=== PATIENT | male | born 1990 | race Caucasian/White ===

== ENCOUNTER → 2019-05-23 | Outpatient (CLI) | payer MEDICAID, SELFPAY ==
[2019-05-10 16:03] VITALS: BMI 19.3
--- NOTE | 2019-05-23 10:11 | US_ITS ---
STUDY: ABDOMINAL ULTRASOUND - RIGHT UPPER QUADRANT REASON FOR VISIT: Male, 29 years old. Right upper quadrant pain TECHNIQUE: Ultrasound evaluation of the right upper quadrant was performed with real-time and static lowe-scale imaging. TECHNICAL QUALITY: Adequate. COMPARISON: None. FINDINGS: Liver: The liver measures 16.9 cm. There is normal echogenicity of the liver. The bile ducts are within normal limits. There is hepatic color flow. The direction of portal flow is hepatopetal. There is no demonstrated mass lesion. Gallbladder: Normal distended gallbladder. The gallbladder wall measures 2.2 mm. There is a negative sonographic Levi's sign. There is no pericholecystic fluid. There are no gallstones. Common Bile Duct (C.B.D.): The common bile duct measures 5.1 mm. Pancreas: Normal size of the head, body and tail of the pancreas. There is normal echogenicity of the pancreas. There is no demonstrated pancreatic mass or cyst. Right Kidney: Normal size of the right kidney. The right kidney measures 10.9 x 5.7 x 4.7 cm. Normal renal cortex. The right cortex measures 1.3 cm. There is no demonstrated renal mass or cyst. There is no right hydronephrosis. US/Gallbladder IMPRESSION: Normal right upper quadrant ultrasound examination. Electronically Signed: Enrrique Hung MD at 12:05 EDT , Service support ,
== END | disposition home or self-care (01) ==
LOC: US 10:10
PROVIDERS: Family Provider Internal Medicine; PCP Internal Medicine; Referring Provider Internal Medicine; Visit Provider Internal Medicine
DX: R10.11 Right upper quadrant pain (principal)
CPT/HCPCS: 76705

== ENCOUNTER 2019-09-12 21:54 | Emergency (ER) | payer MEDICAID, SELFPAY ==
[2019-07-20 10:47] VITALS: BMI 19.3
[2019-09-12 21:55] VITALS: BP 129/80; PULSE 70; RESP 16; TEMP 36.2; O2SAT 98; BMI 23.6
--- NOTE | 2019-09-12 22:02 | ED.DCSUM_ITS ---
History of Present Illness Chief Complaint: Ear Problem Detail of Chief Complaint: Ear pain and decreased hearing right side Informant: Patient Onset: Today Context: Sudden Onset Timing: Continuous Quality: Muffled hearing Location: Right Current Severity: Mild Maximum Severity: Moderate Worsened by: Nothing Relieved by: Nothing Associated Symptoms: Nasal congestion Narrative: Patient is a 29-year-old male presents because of abrupt onset of decreased hearing and pain right side. He denies fever, chills or night sweats. Does report nasal congestion and rhinorrhea couple days ago. He denies sore throat. He has no other complaints. There is no history of trauma. Prior similar symptoms: No Recent Illness/Hospitalization: No - Past Medical History (1) No significant past medical history Status: Acute Past Medical History - Allergies and Home Meds Allergies/Adverse Reactions: Allergies venom-honey bee [bee venom (honey bee)] Allergy (Verified 09/05/17 19:46) Anaphylaxis Primary Care Physician: Vinayak Duarte MD [Primary Care Provider] - Prior records reviewed: No Past Medical History: None Surgical History: no surgical history Lives: Spouse/ Significant Other, With Family Smoking Status: Current some day smoker Alcohol: Rare Drugs: None Review of Systems General: Denies: Chills, Fever, Sweats Eyes: Denies: Visual changes - bilaterally, Blurred Vision - bilaterally ENT: Reports: Right ear pain - And decreased hearing. Denies: Rhinorrhea, Sore throat Cardiovascular: Denies: Chest pain, Palpitations Respiratory: Denies: Dyspnea, Cough, Dyspnea on exertion Musculoskeletal: Denies: Myalgias, Arthralgias, Neck pain Neurological: Denies: Headache, Weakness, Numbness Physical Exam Vital Signs/Narrative: Vital Signs Temp Pulse Resp BP Pulse Ox 09/12/19 21:55 97.2 F L 70 16 129/80 H 98 Inital Vital Signs reviewed: Yes General: Well nourished, Well developed, No Acute Distress Head: Normocephalic, Atraumatic Eyes: Perrl, EOMI. Negative for: Pale conjunctiva, Scleral icterus ENT: TM's clear - Serous otitis right ear. Negative for: No rhinorrhea, Nasal congestion, Sinus tenderness Neck: Supple, Nontender Cardiovascular: Regular rate, Regular rhythm, No murmurs Respiratory: No distress, CTA bilaterally, Chest nontender Neurological: Alert, Oriented x3, Cranial nerves II-XII grossly intact, Normal Strength, Normal Sensation Psychological: Normal affect, Normal Mood Diagnostic/Tx/Re-eval - Medical Decision Making Decreased hearing/loss of hearing need to evaluate for ruptured eardrum, serous otitis, acute otitis media, neuritis. Based on history and physical exam patient has serous otitis resulting in decreased hearing but not loss of he aring. ED Disposition - Plan for ED Patient: Disposition: Home or Assisted Living Diagnosis: Acute serous otitis media of right ear without rupture Instructions: Otitis Media (Middle-Ear Infection) in Adults Referrals: Vinayak Duarte MD [Primary Care Provider] - 1 Week if not improving
[2019-09-12 22:15] VITALS: RESP 16
== END 2019-09-12 22:22 | disposition home or self-care (01) ==
LOC: ED 22:13
PROVIDERS: Emergency Provider Emergency Medicine; Family Provider Internal Medicine; PCP Internal Medicine
DX: H65.01 Acute serous otitis media, right ear (principal); F17.200 Nicotine dependence, unspecified, uncomplicated
CPT/HCPCS: 99282

== ENCOUNTER 2020-04-04 14:58 | Emergency (ER) | payer SELFPAY ==
[2020-04-04 15:00] VITALS: BP 103/76; PULSE 71; RESP 15; TEMP 36.7; BMI 24.3
--- NOTE | 2020-04-04 15:10 | RAD_ITS ---
STUDY: X-RAY LEFT FOOT, GREAT TOE REASON FOR EXAM: Male, 29 years old. AMPUTATION OF TIP OF LEFT GREAT TOE WITH CICULAR SAW TECHNIQUE: 3 view(s) of the toe were obtained. COMPARISON: None. FINDINGS: Normal visualized metatarsus. Normal metatarsophalangeal (M.T.P) joint. Normal interphalangeal joints. There is amputation of the distal aspect of the distal phalanx of great toe with overlying soft tissue injury. RAD/Toe(s) Min 2 Views IMPRESSION: Amputation of the distal portion of the distal phalanx of the great toe with overlying soft tissue injury. Electronically Signed: Juve Hernandez, at 15:27 EDT , Service support ,
[2020-04-04] MEDS: Cefazolin 1 GM/50 ML BAG IV (15:45)
[2020-04-04] MEDS: Diphth,Pertuss(Acell),Tet Vac 0.5 ML Vial IM (16:04)
[2020-04-04] MEDS: Bupivacaine Mpf 0.5% 30 ML VIAL INFILT (16:15)
[2020-04-04 16:16] VITALS: BP 114/76; PULSE 67; RESP 12; O2SAT 98
--- NOTE | 2020-04-04 16:44 | ED.DCSUM_ITS ---
- ER Visit Summary Date of Service: 04/04/20 Chief Complaint: [Injury to left foot] History of Present Illness: The patient is a 29 M [presents to the emergency department after sustaining an injury to his left foot using a circular saw. Patient states that he was at a friend's house and they had done some shots and then he came home and he was going to work on his hardwood floor he just needed to cut 1 piece. Patient states that the saw hit a nail which made it kick and lacerated his left foot. Patient was wearing sandals at the time. Patient apparently was traumatized by the site of blood and passed out. Currently he has no other complaints. Patient presented via EMS.] Physical Examination: [HEENT-PERRLA, EOMI. Cranial nerves II through XII grossly intact. TMs clear. Mucous membranes moist. No adenopathy. Cardiovascular-regular rate and rhythm without murmur or ectopy Lungs-clear to auscultation, chest wall stable without crepitus or subcu emphysema Abdomen-normoactive bowel sounds, soft, nontender, no rebound or rigidity, no peritoneal signs. Extremities-intact ?4, normal range of motion, normal pulses. Left foot-patient has a partial amputation of the left great toe distal phalanx. Patient also has laceration over the second toe through the nail and nailbed down along the lateral aspect of the distal phalanx. Laceration measures approximately 2 cm in length. Patient is neurovascular intact.] Test Results: [X-rays of the left foot obtained showed a partial amputation of the distal phalanx of the left great toe as well as fracture of the second distal phalanx.] Emergency Department Course and Treatment: [Patient had digital blocks performed of the great toe and second toe using Marcaine 8 cc to anesthetize the great toe and 60 cc to anesthetize the smaller second toe. Discussion was had with Dr. Baker who was on-call for podiatry who presented to the emergency department to perform the repair. Please see her note for detailed definitive repair and care. Patient did receive Ancef 1 g IV as well as tetanus booster.] Treatment Plan: Patient will be treated with Keflex and Percocet for severe pain. Patient will follow-up with podiatry as instructed. [] Disposition: [Discharged home in stable condition] Impression: [Partial amputation left great toe Fracture left second toe distal phalanx Laceration left second toe 2 cm with repair performed by podiatry] This note was generated with [employer] dictation software. It may contain incorrect words, spelling, and punctuation that were not noted in review of the chart prior to signing ED Disposition - Plan for ED Patient: Referrals: Care Physician,No Primary [Primary Care Provider] -
--- NOTE | 2020-04-04 16:48 | ED.DEP ---
ED Disposition - Plan for ED Patient: Instructions: ED Fx Toe Open, ED AVULSION LACERATION, ED Laceration Foot Prescriptions: Cephalexin [Keflex] 500 mg PO Q6 #40 cap Transmission Status: Pending to [facility] Oxycodone HCl/Acetaminophen [Percocet 5/325] 1 tablet PO Q6H PRN PRN 3 Days #12 tablet PRN Reason: Pain Transmission Status: Sent to [facility] Referrals: Care Physician,No Primary [Primary Care Provider] - Ligia Baker DPM [STAFF PHYSICIAN] - 3-5 Days
--- NOTE | 2020-04-04 17:04 | PCM.CONS.GEN ---
Problem List (1) Fracture of second toe, left, open Status: Acute (2) Fracture of great toe, left, open Status: Acute Qualifiers: Encounter type: initial encounter Phalanx: distal (3) Contact with powered saw as cause of accidental injury Status: Acute Reason for Consult Date of Consultation: 04/04/20 Reason for Consultation: Circular saw injury to left foot History of Present Illness: This 29-year-old male was seen in the emergency room today for a circular saw injury to his left foot. He relates he was cutting 1 board and it hit a nail causing that advised to kick back resulting in loss of control of the saw. He is wearing sandals at the time and relates he also had a couple of shots at a friend's house prior to returning home. He denies other injuries at this time. Past Medical History Medical History: Medical History (Last Updated 05/10/19 @ 15:57 by Nguyen Encarnacion) Anxiety F41.9 History of wrist fracture Z87.81 Chronic back pain M54.9, G89.29 following a fall at age 9 or 10. Allergies venom-honey bee [bee venom (honey bee)] Allergy (Verified 04/04/20 15:03) Anaphylaxis Home Medications: Ambulatory Orders Medication Instructions Recorded Cephalexin [Keflex] 500 mg PO Q6 #40 cap 04/04/20 Oxycodone HCl/Acetaminophen 1 tab PO Q6H PRN PRN 3 Days #12 tab 04/04/20 [Percocet 5/325] Surgical History: no surgical history Smoking Status: Current every day smoker - 1/2 pack a day and additional 2 Tobacco Use: Cigarettes, Chew Review of Systems Constitutional: Denies: Chills, Fever Cardiovascular: Denies: Claudication Respiratory: Denies: Shortness of Breath Gastrointestinal: Denies: Nausea, Vomiting Musculoskeletal: Reports: Foot Pain, Joint Tenderness. Denies: Leg Pain Skin: Reports: Wounds Neurological: Denies: Numbness Hematologic/ Lymphatic: Denies: Easy Bruising - Physical Exam Vitals/I&O's: Vital Signs Temp Pulse Resp BP Pulse Ox 98.1 F 67 12 114/76 98 04/04/20 15:00 04/04/20 16:16 04/04/20 16:16 04/04/20 16:16 04/04/20 16:16 Oxygen Delivery Method Room Air Weight: 83.7 kg Body Mass Index (BMI) 24.3 General: Alert, Oriented x3, Cooperative HEENT: Atraumatic Extremities: No cyanosis, No edema, Capillary Refill Less than 3 Seconds - Left foot: Distal remaining hallux, distal second, third, fourth, fifth toes, No Calf Tenderness, Peripheral Pulses Normal - 2 out of 4 PT and DP pulses bilateral. Hair to digits left foot Skin: Ulcer/ Wound - Distal left hallux partial toe traumatic amputation with open wound measures approximately 2.1 cm x 2.8 cm. There is hematogenous drainage and exposed distal phalanx remaining noted. There is no foreign body visualized in the wound at the time of evaluation. The second toe also has a full-thickness laceration with exposed extensor digitorum longus tendon and fracture fragment of the distal phalanx as well. The nail is adhered medially by approximately 15%. There is also a small abrasion to the dorsal distal third toe with disruption of the distal 15% of the nail which is otherwise fully adhered proximally. Musculoskeletal: No Muscle Wasting - Upon arrival at the emergency room the hallux and the second toe have been anesthetized with local anesthetic. There is no fluctuance, bogginess. The compartments of the left foot including all the toes remain soft. He does have pain to palpate the distal third toe, - Neurological: Sensory exam intact to light touch and pain Psych/Mental Status: Normal Affect, Appropriate Assessment/Plan All Active Problems (Last Updated 05/10/19 @ 15:57 by Nguyen Encarnacion) No significant past medical history (Acute) Fracture of second toe, left, open (Acute) Fracture of great toe, left, open (Acute) Contact with powered saw as cause of accidental injury (Acute) hallux open fracture with traumatic amputation of distal toe second toe open distal phalanx fracture with laceration left toe pain left third toe abrasion circular saw injury I reviewed and discussed his case. He is afebrile and his vital signs remained stable. I recommend irrigation and debridement of everything foreign body debris at the injury site under local anesthetic. Local anesthetic was already successfully performed by emergency room staff prior to my arrival. Saline irrigation was performed and a deep wound culture was obtained for aerobic and anaerobic testing. A consent was obtained for first and second toe irrigation with additional open fracture and laceration repair with additional second toe remaining nail avulsion. The indication, benefits, goals, anticipated procedure, anticipated healing and management were also discussed in detail patient understands and elects to proceed at this time. No guarantees were made and he understands complications and risks may occur including the following: Pain, swelling, scarring, infection, delayed or nonhealing, need for additional procedures for surgery, decreased length of the hallux, abnormal future nail growth, allergic reaction, blood clot, loss of limb, function, life. I answers his questions. The a forementioned procedure was successfully performed. I do not recommend reapproximating the distal toe pulp due to devitalization of this tissue. There is minimal bone and tissue loss and I recommend proceeding with wound care. There is no purulence or deep tissue necrosis noted at this time of repair. Less than 10 mL of hematogenous drainage was noted and pressure was applied to maintain hemostasis. First capillary refill time was continue to the remaining left hallux and distal second and third and fourth and fifth toes after the procedure was completed. Adaptic was applied and I recommend he follows up at the [facility] for ongoing wound treatment. In regards to the second toe intervention, Vicryl suture was used to reapproximate any visualized extensor digitorum longus tendon and other deep tissue. Closure was then followed with 4-0 nylon including simple suture technique to the dorsal and lateral aspect of the distal toe. The toenail remaining was also avulsed because it is compromised. The second and third toes were also covered with Adaptic and dry gauze and Kerlix. This was secured in place with an Jim wrap. Keep dressing intact until follow [facility]. It is also noted his tetanus status was updated while he was in the emergency room. Smoking and tobacco cessation was discussed. He understands this can significantly delay both bone and wound healing. He relates he will be able to do this. Keflex PO for 1 week was prescribed. It is noted he received Ancef intravenously while in the emergency room. Offered narcotic pain medication for limited use. A prescription was provided and he was advised on safe and proper use. He prefers not to take narcotic pain medication and will use [id number] Tylenol instead if this is tolerated. To ice and elevate for pain and inflammation use. To heel weight bear in surgical shoe, left. Thank you for the consultation. Please do not hesitate to call if questions. Ligia Baker DPM, [facility] [phone]
[2020-04-04 17:57] VITALS: BP 118/78; PULSE 62; RESP 16; O2SAT 100
== END 2020-04-04 17:59 | disposition home or self-care (01) ==
LOC: ED 15:32
PROVIDERS: Emergency Provider Emergency Medicine
DX: S98.122A Partial traumatic amputation of left great toe, initial encounter (principal); S92.532B Displaced fracture of distal phalanx of left lesser toe(s), initial encounter for open fracture; Z23 Encounter for immunization; F17.210 Nicotine dependence, cigarettes, uncomplicated; W29.3XXA Contact with powered garden and outdoor hand tools and machinery, initial encounter; Y93.89 Activity, other specified; Y92.008 Other place in unspecified non-institutional (private) residence as the place of occurrence of the external cause; Y99.8 Other external cause status
CPT/HCPCS: 12001; 28208; 73660; 87070; 87075; 87077; 87186; 87205; 90471; 90715; 96365; 96366; 99285

== ENCOUNTER 2020-04-05 23:22 | Emergency (ER) | payer SELFPAY ==
[2020-04-04 15:00] VITALS: BMI 24.3
[2020-04-05 23:23] VITALS: BP 135/69; PULSE 73; RESP 16; TEMP 36.8; O2SAT 97; BMI 23.7
[2020-04-05 23:59] VITALS: BP 135/69; PULSE 73; RESP 16; O2SAT 97
--- NOTE | 2020-04-05 23:59 | ED.VIS.LOWEX ---
History of Present Illness Chief Complaint: Lower Extremity Injury Informant: Patient Occurred: Yesterday Mechanism/Context: Injury Onset: Yesterday Context: Gradual Onset - after marcaine worre off Timing: Continuous Current Severity: Moderate Maximum Severity: Severe Worsened by: palpation Relieved by: elevation, unwrapping gauze Associated Symptoms: Parasthesia. Negative for: Weakness Narrative: Patient was seen here yesterday after having a traumatic injury to his left foot from a circular saw accident, podiatry saw him and he had some suturing done, wound bandaging and a wrap, postop shoe, crutches. He states that once the Marcaine wore off, he gradually started having more pain and throbbing, in addition to numbness throughout most of his toes. He read in his discharge instructions that he should have it reevaluated for numbness. He has not yet taken off any of the dressings and is scheduled to see podiatry after the weekend, but since it was the weekend, the office was closed so he felt he had no one to call. He denies any fevers or other symptoms. He was put on antibiotics which he has been taking. He also states that he took Percocet but it was too strong for him and he did not feel well so he stopped taking it. He has been elevating his foot. Past Medical History - Allergies and Home Meds Allergies/Adverse Reactions: Allergies venom-honey bee [bee venom (honey bee)] Allergy (Verified 04/05/20 23:25) Anaphylaxis Primary Care Physician: Ligia Baker DPM [STAFF PHYSICIAN] - Keep [place] appointment Past Medical History: None Surgical History: no surgical history Smoking Status: Current every day smoker Review of Systems General: Denies: Chills, Fever, Sweats Musculoskeletal: Reports: Extremity Pain. Denies: Neck pain, Back pain Skin: Reports: Wounds. Denies: Abscess Neurological: Reports: Numbness. Denies: Headache, Weakness Physical Exam Vital Signs/Narrative: Vital Signs Temp Pulse Resp BP Pulse Ox 04/05/20 23:23 98.2 F 73 16 135/69 H 97 - Extremity Exam Left Foot: Limited ROM - With regards to toes due to pain, - - Fresh wounds great and second toes distally, no active bleeding, no purulent discharge, no signs of cellulitis. General: Well nourished, Well developed, - - nad Skin: - - Wounds appear healthy and without signs of infection on the left toes 1-2 Neurological: Alert, Oriented x3, Cranial nerves II-XII grossly intact, Normal Strength, Normal Sensation Psychological: Normal affect - Stepped anxious, Normal Mood Diagnostic/Tx/Re-eval - Medical Decision Making Upon unwrapping his bulky dressing and Jim wrap, which was not applied tightly, his numbness improved and eventually resolved. He does not have any signs of infection. We placed moist dressings and rewrapped him loosely, he has postop shoe and crutches, reassured, advised to continue his antibiotic, prescribed some tramadol for pain, and advised to follow-up with podiatry as scheduled. He is comfortable with that plan and reassured. ED Disposition - Plan for ED Patient: Disposition: Home or Assisted Living Diagnosis: Visit for wound check Instructions: ED Wound Care Prescriptions: traMADol [Ultram] 50 mg PO Q4H PRN PRN #12 tab PRN Reason: pain Transmission Status: Received by [facility] Referrals: Ligia Baker DPM [STAFF PHYSICIAN] - Keep [place] appointment
[2020-04-06] MEDS: traMADol 50 MG Tablet PO (00:15)
== END 2020-04-06 00:21 | disposition home or self-care (01) ==
LOC: ED 04-06 00:05
PROVIDERS: Emergency Provider Emergency Medicine
DX: S99.922D Unspecified injury of left foot, subsequent encounter (principal); R20.0 Anesthesia of skin; F17.200 Nicotine dependence, unspecified, uncomplicated; X58.XXXD Exposure to other specified factors, subsequent encounter
CPT/HCPCS: 99283

== ENCOUNTER 2024-11-12 10:23 | Emergency (ER) | payer OTHER, SELFPAY ==
[2024-11-12 10:24] VITALS: BP 141/88; PULSE 54; RESP 16; TEMP 36.4; O2SAT 99; BMI 25.0
[2024-11-12 10:25] VITALS: BP 141/88; PULSE 63; RESP 16; TEMP 36.4; O2SAT 100
--- NOTE | 2024-11-12 11:18 | ED.VIS.DENTA ---
HPI <DARION Busch - Last Filed: 11/12/24 11:49> History of Present Illness Chief Complaint: Dental Narrative Narrative: 34-year-old male presents with dental pain in his left lower molar. The molar is cracked with significant caries. He states he has been told his wisdom teeth are coming in at an angle and he thinks it is pushing against the tooth causing increased pain that is radiating towards his ear. He denies fever or chills or difficulty swallowing or breathing. He has appointment with [facility] in a few days. PFSH <DARION Busch - Last Filed: 11/12/24 11:49> [facility] Medical History (Updated 11/12/24 @ 11:25 by DARION Busch) Anxiety History of wrist fracture Chronic back pain Home Medications ?Medication ?Instructions ?Recorded ?Last Taken ?Type naproxen 500 mg tablet (Naprosyn) 500 mg PO BID PRN pain #20 tabs 11/12/24 Unknown Rx penicillin V potassium 500 mg 500 mg PO 4X/DAY #40 tabs 11/12/24 Unknown Rx tablet Allergy/AdvReac Type Severity Reaction Status Date / Time venom-honey bee (bee venom Allergy Anaphylaxis Verified 11/12/24 10:26 (honey bee)) Family History (Updated 05/10/19 @ 16:00 by Nguyen Encarnacion) Father Alcohol abuse Grandfather Colon cancer Uncle Diabetes Sister Bipolar 1 disorder Social History (Updated 07/20/19 @ 11:38 by Olman Duarte NP, [facility]) Smoking Status: Current every day smoker tobacco type: cigarettes Tobacco: How many years used: 15 Smokeless tobacco user: chewing tobacco alcohol intake: current alcohol intake frequency: a few times a month substance use type: does not use what type of physical activity do you participate in: weight training and other details: active job ROS <DARION Busch - Last Filed: 11/12/24 11:49> ROS ED ROS Narrative Constitutional: Negative for fever, chills, malaise. ENT: Positive for ear pain. Respiratory: Negative for shortness of breath, cough. EXAM <DARION Busch - Last Filed: 11/12/24 11:49> Physical Exam Narrative Exam Narrative: CONST: Patient appears uncomfortable but nontoxic. EYES: Normal inspection. ENT: Left lower molar is broken with significant caries and tender to palpation, wisdom teeth are not erupted. No periapical abscess, no trismus or tongue elevation, sublingual space is soft, normal posterior oropharynx, no drooling or stridor. No facial swelling or erythema. Nares clear, normal TMs bilaterally. No mastoid swelling tenderness or erythema. NECK: Normal inspection. Supple, no meningismus. RESP: No respiratory distress, CTAB. CVS: Regular rate and rhythm, no murmur, no gallop. SKIN: Color normal, no rash, warm, dry, intact. EXTREMITIES: Normal appearance, no pedal edema. NEURO: Alert and answering questions appropriately. PSYCH: Normal affect. Const Vital Signs: 11/12/24 10:24 11/12/24 10:25 Temperature 97.5 F L 97.5 F L Temperature Source Temporal Oral Pulse Rate 54 L 63 Respiratory Rate 16 16 Blood Pressure 141/88 H 141/88 H Blood Pressure Mean 105 105 Pulse Ox 99 100 Oxygen Delivery Method Room Air Room Air <Eulailo Kent MD - Last Filed: 11/12/24 13:44> Physical Exam Const Vital Signs: 11/12/24 10:24 11/12/24 10:25 Temperature 97.5 F L 97.5 F L Temperature Source Temporal Oral Pulse Rate 54 L 63 Respiratory Rate 16 16 Blood Pressure 141/88 H 141/88 H Blood Pressure Mean 105 105 Pulse Ox 99 100 Oxygen Delivery Method Room Air Room Air [facility] <DARION Busch - Last Filed: 11/12/24 11:49> [facility] Narrative Medical decision making narrative: 34-year-old male presents with dental pain. Left lower molar is broken with significant caries and tenderness. There is no sign of perirectal abscess or Marshall's angina. He thinks the pain is from his wisdom teeth under the gums which she had been told are coming in at an angle. With significant decay on exam I will cover for infection penicillin VK and Toradol given. Prescription for naproxen were provided as well as antibiotics. He has dental follow-up scheduled and was discharged in stable condition. <Eulalio Kent MD - Last Filed: 11/12/24 13:44> [facility] History & Record Review Discussion w/independent historian: Patient Treatment and Re-Evaluation Narrative: Dr. Kent: I have personally performed a face to face assessment of the patient and have reviewed the JEFFERY Note. I performed a substantive portion of the visit including all aspects of the following. My jordan findings include: History is left lower jaw pain secondary to wisdom tooth coming in and ankle, carious tooth. Exam is afebrile. Vital signs noted. Nontoxic-appearing. No drooling or trismus. No Marshall angina. Positive carious tooth left lower jaw/molar. Medical Decision Making: Antibiotics. Analgesia. Has follow-up appointment with [facility] in 3 days. Discharge. Other additions or changes: [None] Discharge Plan Triage Chief Complaint: Dental ED Midlevel Provider: Marii Mccrary ED Provider: Eulalio Kent Dx/Rx/DC Orders Clinical Impression: Dental abscess, Dental caries Instructions: Dental Abscess Prescriptions: New naproxen [Naprosyn] 500 mg tablet 500 mg PO BID PRN (Reason: pain) Qty: 20 0RF penicillin V potassium 500 mg tablet 500 mg PO 4X/DAY Qty: 40 0RF Primary Care Provider: Care Physician,No Primary Referrals: Care Physician,No Primary [Primary Care Provider] - Activity Restrictions/Additional Instructions: I also recommend taking [id number] Tylenol 1000 mg every 6 hours in addition to naproxen for better pain control. Follow-up with your dentist. Print Language: Trinidadian Disposition Disposition: Home, Self Care Discharge Date/Time: 11/12/24 11:55
[2024-11-12] MEDS: Ketorolac 15 MG/ML Vial IM (11:19)
[2024-11-12] MEDS: Penicillin Vk 250 MG Tablet 500 MG PO (11:19)
== END 2024-11-12 11:55 | disposition home or self-care (01) ==
PROVIDERS: Emergency Provider Emergency Medicine; Visit Provider Emergency Medicine
DX: K04.7 Periapical abscess without sinus (principal); K02.9 Dental caries, unspecified; F17.210 Nicotine dependence, cigarettes, uncomplicated
CPT/HCPCS: 96372; 99282

== ENCOUNTER 2025-04-02 06:51 | Emergency (ER) | payer OTHER, SELFPAY ==
[2025-04-02 06:51] VITALS: BP 122/82; PULSE 72; RESP 16; TEMP 36.6; O2SAT 98; BMI 23.7
--- NOTE | 2025-04-02 07:04 | EX.ED.UPPERE ---
HPI History of Present Illness Chief Complaint: Laceration Informant: patient and spouse/S.O. Narrative Narrative: 34-year-old male presenting to the emergency room with crush injury and laceration to right index finger. 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 This resulted in laceration to the volar aspect of the right index finger. He notes bleeding is controlled. He notes his tetanus is up-to-date. Tetanus Immunization: <5 years [facility] Medical History Anxiety History of wrist fracture Chronic back pain Home Medications ?Medication ?Instructions ?Recorded ?Last Taken ?Type cephalexin 500 mg capsule 500 mg PO Q6 #20 CAPSULES 04/02/25 Unknown Rx Allergy/AdvReac Type Severity Reaction Status Date / Time venom-honey bee (bee venom Allergy Anaphylaxis Verified 04/02/25 06:54 (honey bee)) Family History Father Alcohol abuse Grandfather Colon cancer Uncle Diabetes Sister Bipolar 1 disorder Social History Smoking Status: Current every day smoker tobacco type: cigarettes Tobacco: How many years used: 15 Smokeless tobacco user: chewing tobacco alcohol intake: current alcohol intake frequency: a few times a month substance use type: does not use what type of physical activity do you participate in: weight training and other details: active job ROS ROS ED Constitutional Constitutional ED: Denies chills or weight loss Eyes Eyes: Denies change in vision or diplopia ENT ENT ED: Denies ear pain, rhinorrhea or sore throat Cardiovascular Cardiovascular: Denies chest pain, orthopnea, palpitations or racing heartbeat Respiratory/Chest Respiratory/Chest: Denies cough, dyspnea or orthopnea Gastrointestinal Gastrointestinal: Denies abdominal pain, diarrhea, nausea or vomiting Genitourinary Genitourinary ED: Denies dysuria, hematuria or urinary frequency Musculoskeletal Musculoskeletal: Reports other Details: See history of present illness ; Denies arthralgias or myalgias Integumentary Reports other Details: Index finger laceration ; Denies abscess or rash Neurologic Neurologic: Denies headache(s), paresthesias or weakness Psychiatric Psychiatric: Denies anxiety, depression, suicidal ideation or suicidal thoughts Endocrine Endocrinology: Denies polydipsia, polyphagia or polyuria Allergic/Immunologic Allergic/Immunologic ED: Denies mouth swelling, tongue swelling or urticaria EXAM Physical Exam Const Vital Signs: 04/02/25 06:51 Temperature 97.9 F Temperature Source Oral Pulse Rate 72 Respiratory Rate 16 Blood Pressure 122/82 H Blood Pressure Mean 95 Pulse Ox 98 Positive well nourished and well developed General Appearance ED: well developed HEENT Reports normocephalic, head/scalp atraumatic and moist mucous membranes Eyes PERRL and EOMs intact bilaterally Neck no lymphadenopathy, supple and no JVD Resp normal respiratory effort and clear to auscultation bilaterally Cardio regular rate, regular rhythm and no murmurs GI normal to inspection, nondistended, normoactive bowel sounds and non-tender Palpation: soft Back/Spine no CVA tenderness and normal ROM Extremity Extremity Narrative: Right index finger demonstrates a 3 cm laceration over the volar aspect of the right index finger extending along the proximal phalanx to the middle phalanx. There is normal tendon function of both superficialis and profundus tendons. There is a superficial abrasion (0.5cm) over the dorsal aspect just above the nail cuticle. There is no subungual hematoma. There is ecchymosis from middle phalanx distally. The volar fat pad is still soft. Sensation and capillary refill appear preserved. General Extremety ED: Negative for edema General Extremity: Negative for edema Neuro oriented x3 and CN's II-XII intact bilaterally Sensorium / Orientation: alert Motor Exam: strength 5/5 throughout Psych mental status grossly normal Mood & Affect: Negative for depressed or tearful Skin no rashes or lesions noted and no wounds MDM MDM MDM Narrative Medical decision making narrative: Differential diagnosis includes but not limited to fracture/open fracture laceration neurovascular injury tendon injury nail and nailbed injury My independent interpretation of the plain films of the right index finger is no acute fracture. Wound was locally anesthetized using 1% lidocaine washed with Shur-Clens irrigated and explored. I can visualize some of the flexor tendon I do not appreciate any fraying or laceration. No bony visualization is noted. Wound was closed using a total of 7 simple erupted 3-0 Ethilon sutures. Patient was placed on Keflex. AlumaFoam splint applied for support. Would recommend stitch removal in 10 days. Patient does not wish to things, History & Record Review Discussion w/independent historian: Patient and Significant other Additional record(s) reviewed:: Prior ED visit Radiography Diagnostic Testing: Clinical Impression(s) from Imaging Studies Finger X-Ray 04/02/25 07:15 IMPRESSION: Soft tissue edema and swelling. Tiny bone fragment adjacent to the base of the middle phalanx on the lateral view. Please correlate with focal tenderness at this level to exclude an acute traumatic etiology. Reading Location: [place] [address] Discharge Plan Triage Chief Complaint: Laceration ED Provider: Saqib De Dx/Rx/DC Orders Clinical Impression: Crush injury to finger, Finger laceration Instructions: ED Crush Injury, Hand, ED Laceration, Hand: All Closures Prescriptions: New cephalexin 500 mg capsule 500 mg PO Q6 Qty: 20 0RF Primary Care Provider: Care Physician,No Primary Referrals: Care Physician,No Primary [Primary Care Provider] - Activity Restrictions/Additional Instructions: Stitches will need to be removed in 10 days. You may return here, primary care, or urgent care. Splint for support particularly over the next 3 to 4 days. Please take entire course of antibiotics to protect against infection. You can come out of the splint and the dressing after 24 hours and clean using soap and water. Antibiotic ointment 1 time per day Print Language: Nigerien Disposition Disposition: Home, Self Care
[2025-04-02] MEDS: Lidocaine 1% (20 ml mdv) 20 ML Vial INFILT (07:10)
--- NOTE | 2025-04-02 07:15 | RAD_ITS ---
PROCEDURE: FINGER(S) MIN 2 VIEWS 04/02/2025 REASON FOR EXAM: CRUSH INJURY TECHNIQUE: 3 view(s) of the right finger COMPARISON: None. FINDINGS: Soft tissue edema and swelling. Tiny bone fragment adjacent to the base of the middle phalanx on the lateral view. Please correlate with focal tenderness at this level to exclude an acute traumatic etiology. Normal metacarpal head. Normal metacarpophalangeal joint. Normal proximal phalanx. Normal distal phalanx. Normal proximal interphalangeal joint. Normal distal interphalangeal joint. RAD/Finger(s) Min 2 Views IMPRESSION: Soft tissue edema and swelling. Tiny bone fragment adjacent to the base of the middle phalanx on the lateral vi ew. Please correlate with focal tenderness at this level to exclude an acute traumatic etiology. Reading Location[facility] [address]
[2025-04-02 08:24] VITALS: BP 121/77; PULSE 78; RESP 19; TEMP 36.7; O2SAT 98
== END 2025-04-02 08:26 | disposition home or self-care (01) ==
LOC: ED 07:46
PROVIDERS: Emergency Provider Emergency Medicine; Visit Provider Emergency Medicine
DX: S61.210A Laceration without foreign body of right index finger without damage to nail, initial encounter (principal); S67.190A Crushing injury of right index finger, initial encounter; W23.0XXA Caught, crushed, jammed, or pinched between moving objects, initial encounter; Y99.0 Civilian activity done for income or pay; F17.210 Nicotine dependence, cigarettes, uncomplicated
CPT/HCPCS: 12002; 11760; 73140; 99284

== ENCOUNTER 2025-04-11 05:26 | Emergency (ER) | payer OTHER, SELFPAY ==
[2025-04-11 05:27] VITALS: BP 116/75; PULSE 59; RESP 16; TEMP 36.4; O2SAT 99; BMI 23.4
--- OUTSIDE RECORDS SUMMARY | 2025-04-11 05:46 | XMS RPT_ITS | CCD ---
Author Organization [facility] Inform ion Partnership [facility] Care Team Providers Care Enrollment Nurse Name Role Phone Queden CERTIFIED SOLID WASTE FACILITY OPERATOR.GOLF CART MECHANIC, Niya A Primary Care Provider QUEDEN, NIYA A Attending Unavailable QUEDEN, NIYA A Primary Care Unavailable QUEDEN, NIYA A Referring Unavailable QUEDEN, NIYA A Primary Care Unavailable QUEDEN, NIYA A Attending Unavailable QUEDEN, NIYA A Primary Care Unavailable QUEDEN, NIYA A Attending Unavailable QUEDEN, NIYA A Primary Care Unavailable QUEDEN, NIYA A Primary Care Unavailable QUEDEN, NIYA A Primary Care Unavailable DOMINIC BARGER Attending Unavailable QUEDEN, NIYA A Referring Unavailable QUEDEN, NIYA A Primary Care Unavailable Care Physician, No Primary Primary Care Provider Unavailable Dr. Saqib De DO Emergency Provider [phone] Saqib De Attending Unavailable Care Physician, No Primary Primary Care Unava ilable ReEulalio siu Attending Unavailable Care Physician, No Primary Primary Care Unava ilable Allergies Allergy Classification Reported Allergen(s) Allergy Type Date of Onset Reaction(s) Facility (8 sources) Bees; Translations: [BEES] Allergy to substance 07-29-2005 Swelling [facility] Work Phone: (1 source) venom-honey bee Allergy to substance 04-02-2025 Anaphylaxis [facility] (1 source) venom-honey bee Drug allergy (disorder) 04-02-2025 [facility] Repository Medications Current Medications Medication Drug Class(es) Dates Sig (Normalized) Sig (Original) cephalexin 500 mg oral capsule (2 sources) Cephalosporin Antibacterial Start: 04-02-2025 take 1 capsule by mouth every six hours Cephalexin 500 mg capsule Active 500 mg PO EVERY 6 HOURS April 02, 2025 12:00am Start: 04-04-2020 End: 11-12-2024 take 1 capsule by mouth every six hours Cephalexin 500 MG capsule Discontinued 500 mg PO EVERY 6 HOURS April 04, 2020 12:00am November 12, 2024 11:45am pantoprazole 40 mg delayed release oral tablet (9 sources) Proton Pump Inhibitor Start: 06-23-2022 End: 04-18-2023 take 1 tablet by mouth once daily at mealtime pantoprazole DR (PROTONIX) 40 mg tablet Indications: Gastroesophageal reflux disease, unspecified whether esophagitis present Take 1 tablet by mouth once daily. Take 1/2-hour before same meal daily 30 tablet 2 01/18/2023 04/18/2023 Active Start: 06-07-2022 End: 06-23-2022 take 1 tablet by mouth once daily at mealtime pantoprazole DR (PROTONIX) 20 mg tablet Take 1 tablet by mouth once daily. Take 1/2-hour before same meal daily 30 tablet 0 06/07/2022 06/23/2022 Discontinued Comment on above: Take 1 tablet by [facility] once daily. Take 1/2-hour before same meal daily Completed/Discontinued Medications Medication Drug Class(es) Dates Sig (Normalized) Sig (Original) acetaminophen 325 mg / HYDROcodone bitartrate 5 mg oral tablet (1 source) Opioid Agonist Start: 09-05-2017 End: 05-10-2019 Hydrocodone-Acetamin ophen 1 TABLET tablet Discontinued 1 - 2 {tbl} PO EVERY 4 HOURS NEEDED as needed for Pain September 05, 2017 12:00am May 10, 2019 3:58pm acetaminophen 325 mg / oxyCODONE hydrochloride 5 mg oral tablet (1 source) Opioid Agonist Start: 04-04-2020 End: 04-07-2020 Oxycodone-Acetaminop hen 1 TABLET tablet Discontinued 1 {tbl} PO EVERY 6 HOURS NEEDED as needed for Pain 12 April 04, 2020 April 06, 2020 12:00am April 07, 2020 12:02am 24 hr buPROPion hydrochloride 150 mg extended release oral tablet (3 sources) Aminoketone Start: 01-18-2023 take 1 tablet by mouth once daily buPROPion XL (WELLBUTRIN XL) 150 mg 24 hr tablet Indications: Encounter for smoking cessation counseling , Current nicotine use Take 1 tablet by mouth once daily. 30 tablet 1 01/18/2023 Active Comment on above: Take 1 tablet by tin th once daily. calcium carb/magnesium hydrox (ROLAIDS ORAL) (7 sources) calcium carb/magnesium hydrox (ROLAIDS ORAL) Take by mouth. 0 Active Comment on above: Take by mouth. cyclobenzaprine hydrochloride 10 mg oral tablet (1 source) Muscle Relaxant Start: 09-05-2017 End: 05-10-2019 take 1 tablet by mouth three times daily as needed for muscle spasms Cyclobenzaprine 10 MG tablet Discontinued 10 mg PO THREE TIMES A DAY as needed for Muscle Spasm September 05, 2017 12:00am May 10, 2019 3:58pm escitalopram 10 mg oral tablet (7 sources) Serotonin Reuptake Inhibitor Start: 12-03-2022 End: 01-21-2023 take 1 tablet by mouth once daily escitalopram oxalate (LEXAPRO) 10 mg tablet Indications: Anxiety with depression Take 1 tablet by mouth once daily. 30 tablet 2 01/21/2023 Active Comment on above: Take 1 tablet by tin once daily. Take 1/2 tablet daily for 10 days and then increase to 1 tablet. Take 1 tablet by tin once daily. famotidine 20 mg oral tablet (2 sources) Histamine-2 Receptor Antagonist Start: 05-23-2021 End: 06-23-2022 take 1 tablet by mouth twice daily famotidine (PEPCID) 20 mg tablet Indications: RUQ pain , Right sided abdominal pain Take 1 tablet by mouth twice daily. 60 tablet 1 05/23/2021 06/23/2022 Discontinued (Discontinued by Patient) Start: 05-10-2019 End: 05-10-2019 take 1 tablet by mouth twice daily Famotidine 20 mg tablet Discontinued 20 mg PO TWICE A DAY May 10, 2019 12:00am May 10, 2019 4:17pm Comment on above: Take 1 tablet by tin twice daily. naproxen 500 mg oral tablet (2 sources) Nonsteroidal Anti-inflammatory Drug Start: 5 End: take 1 tablet by mouth twice daily as needed for pain Naproxen (Naprosyn) 500 mg tablet Discontinued 500 mg PO TWICE A DAY as needed for pain November 12, 2024 1:00am April 02, 2025 6:54am Start: 09-05-2017 End: 05-10-2019 take 1 tablet by mouth twice daily as needed Naproxen 500 MG tablet Discontinued 500 mg PO TWICE DAILY NEEDED September 05, 2017 12:00am May 10, 2019 3:58pm omeprazole 20 mg delayed release oral capsule (1 source) Proton Pump Inhibitor Start: 11-03-2021 End: 06-23-2022 take 1 capsule by mouth once daily at mealtime omeprazole (PRILOSEC) 20 mg capsule Take 1 capsule by mouth once daily. Take 1/2-hour before same meal daily 56 capsule 0 11/03/2021 06/23/2022 Discontinued (Discontinued by Patient) Comment on above: Take 1 capsule by [facility] once daily. Take 1/2-hour before same meal daily penicillin v potassium 500 mg oral tablet (1 source) Start: 11-12-2024 End: 04-02-2025 take 1 tablet by mouth four times daily Penicillin V Potassium 500 mg tablet Discontinued 500 mg PO 4 TIMES DAILY November 12, 2024 1:00am April 02, 2025 6:54am traMADol hydrochloride 50 mg oral tablet (1 source) Opioid Agonist Start: 04-05-2020 End: 11-12-2024 take 1 tablet by mouth every four hours as needed for pain Tramadol 50 MG tablet Discontinued 50 mg PO EVERY 4 HOURS NEEDED as needed for pain April 05, 2020 12:00am November 12, 2024 11:45am Problems Active Problems Problem Classification Problem Date Documented Date Episodic/Chronic Anxiety disorders (8 sources) Mixed anxiety and depressive disorder; Translations: [Other specified anxiety disorders] Onset: 12-03-2022 Chronic Conduction disorders (8 sources) 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; Translations: [Left posterior fascicular block] Onset: 12-03-2022 Chronic Crushing injury or internal injury (1 source) Crushing injury of finger; Translations: [Crushing injury of unspecified finger(s), initial encounter] 04-02-2025 Episodic Disorders usually diagnosed in infancy, childhood, or adolescence (7 sources) Attention deficit hyperactivity disorder, predominantly inattentive type; Translations: [Other specified behavioral and emotional disorders with onset usually occurring in childhood and adolescence] Onset: 08-12-2005 08-12-2005 Chronic E Codes: Machinery (1 source) Injury due to machinery; Translations: [Contact with powered woodworking and [employer] machines, initial encounter] 04-04-2020 Episodic Esophageal disorders (11 sources) Gastroesophageal reflux disease; Translations: [Gastro-esophageal reflux disease without esophagitis] Onset: 06-23-2022 Chronic Fracture of lower limb (2 sources) Open fracture of great toe; Translations: [Displaced unspecified fracture of left great toe, initial encounter for open fracture] 04-04-2020 Episodic Open wounds of extremities (2 sources) Laceration of finger; Translations: [Laceration without foreign body of unspecified finger without damage to nail, initial encounter] Onset: 04-05-2025 04-02-2025 Episodic Other aftercare (1 source) Wound finding; Translations: [Encounter for other specified aftercare] 04-07-2020 Episodic Other connective tissue disease (1 source) Pain in bilateral legs; Translations: [Pain in right leg] Episodic Other nervous system disorders (1 source) Other chronic pain; Translations: [Chronic upper abdominal pain] Onset: 06-23-2022 Chronic Otitis media and related conditions (1 source) Acute non-suppurative otitis media - serous; Translations: [Acute serous otitis media, right ear] 09-13-2019 Episodic Residual codes; unclassified (2 sources) Nicotine user; Translations: [Tobacco use] Episodic Residual codes; unclassified (6 sources) Family history of cancer of colon; Translations: [Family history of malignant neoplasm of digestive organs] Onset: 12-03-2022 Episodic Unclassified (1 source) Dental Problem Onset: 05-03-2023 Unclassified (1 source) No history of clinical finding in subject 09-12-2019 Past or Other Problems Problem Classification Problem Date Documented Date Episodic/Chronic Abdominal pain (19 sources) Lower abdominal pain; Translations: [Lower abdominal pain, unspecified] Onset: 07-20-2021 Episodic Administrative/social admission (2 sources) Patient encounter status; Translations: [Tobacco abuse counseling] Onset: 01-18-2023 Episodic Disorders of teeth and jaw (3 sources) Dental caries; Translations: [Dental caries, unspecified] Onset: 12-14-2024 11-20-2024 Episodic Fracture of upper limb (7 sources) Closed Colles' fracture; Translations: [Colles' fracture of unspecified radius, initial encounter for closed fracture] Onset: 10-22-2005 10-22-2005 Episodic Noninfectious gastroenteritis (9 sources) Non-specific colitis; Translations: [Noninfective gastroenteritis and colitis, unspecified] Onset: 06-23-2022 Episodic Nonspecific chest pain (8 sources) Chest pain; Translations: [Chest pain, unspecified] Onset: 12-03-2022 Episodic Other connective tissue disease (1 source) Pain in right leg; Translations: [Bilateral lower extremity pain] Onset: 01-18-2023 Episodic Other connective tissue disease (1 source) Pain in left leg; Translations: [Bilateral lower extremity pain] Onset: 01-18-2023 Episodic Residual codes; unclassified (8 sources) Emotional state finding; Translations: [Nervousness] Onset: 06-23-2022 Episodic Residual codes; unclassified (7 sources) Nicotine-filled electronic cigarette user; Translations: [Tobacco use] Onset: 07-20-2021 07-20-2021 Episodic Residual codes; unclassified (2 sources) Tobacco use; Translations: [Current nicotine use] Onset: 07-20-2021 Episodic Residual codes; unclassified (1 source) Family history of malignant neoplasm of digestive organs; Translations: [Family history of colon cancer] Onset: 12-03-2022 Episodic Residual codes; unclassified (1 source) Nervousness; Translations: [Jittery feeling] Onset: 06-23-2022 Episodic Results Test Name Value Interpretation Reference Range Facility Emergency Department Summary on 04-02-2025 Emergency Department Summary [facility] Medical Records Department [address] [place] [address] Emergency Department Summary 04/02/25 MR#: [id number] Acct: [id number] Name: FERCHOMIGUEL PIERRE DILLAN Rep #: [id number] : 1990 34 From: Saqib De DO PCP: Care Physician,No Primary Status:DEP ER Location: ED HPI History of Present Illness Chief Complaint: Laceration Informant: patient and spouse/S.O. Narrative Narrative: 34-year-old male presenting to the emergency room with crush injury and laceration to right index finger. 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 This resulted in laceration to the volar aspect of the right index finger. He notes bleeding is controlled. He notes his tetanus is up-to-date. Tetanus Immunization: <5 years PFSH PFS Medical History Anxiety History of wrist fracture Chronic back pain Home Medications ???Medication ???Instructions ???Recorded ???Last Taken ???Type cephalexin 500 mg capsule 500 mg PO Q6 #20 CAPSULES 04/02/25 Unknown Rx Allergy/AdvReac Type Severity Reaction Status Date / Time venom-honey bee (bee venom Allergy Anaphylaxis Verified 04/02/25 06:54 (honey bee)) Family History Father Alcohol abuse Grandfather Colon cancer Uncle Diabetes Sister Bipolar 1 disorder Social History Smoking Status: Current every day smoker tobacco type: cigarettes Tobacco: How many years used: 15 Smokeless tobacco user: chewing tobacco alcohol intake: current alcohol intake frequency: a few times a month substance use type: does not use what type of physical activity do you participate in: weight training and other details: active job ROS ROS ED Constitutional Constitutional ED: Denies chills or weight loss Eyes Eyes: Denies change in vision or diplopia ENT ENT ED: Denies ear pain, rhinorrhea or sore throat Cardiovascular Cardiovascular: Denies chest pain, orthopnea, palpitations or racing heartbeat Respiratory/Chest Respiratory/Chest: Denies cough, dyspnea or orthopnea Gastrointestinal Gastrointestinal: Denies abdominal pain, diarrhea, nausea or vomiting Genitourinary Genitourinary ED: Denies dysuria, hematuria or urinary frequency Musculoskeletal Musculoskeletal: Reports other Details: See history of present illness ; Denies arthralgias or myalgias Integumentary Reports other Details: Index finger laceration ; Denies abscess or rash Neurologic Neurologic: Denies headache(s), paresthesias or weakness Psychiatric Psychiatric: Denies anxiety, depression, suicidal ideation or suicidal thoughts Endocrine Endocrinology: Denies polydipsia, polyphagia or polyuria Allergic/Immunologic Allergic/Immunologic ED: Denies mouth swelling, tongue swelling or urticaria EXAM Physical Exam Const Vital Signs: 04/02/25 06:51 Temperature 97.9 F Temperature Source Oral Pulse Rate 72 Respiratory Rate 16 Blood Pressure 122/82 H Blood Pressure Mean 95 Pulse Ox 98 Positive well nourished and well developed General Appearance ED: well developed HEENT Reports normocephalic, head/scalp atraumatic and moist mucous membranes Eyes PERRL and EOMs intact bilaterally Neck no lymphadenopathy, supple and no JVD Resp normal respiratory effort and clear to auscultation bilaterally Cardio regular rate, regular rhythm and no murmurs GI normal to inspection, nondistended, normoactive bowel sounds and non-tender Palpation: soft Back/Spine no CVA tenderness and normal ROM Extremity Extremity Narrative: Right index finger demonstrates a 3 cm laceration over the volar aspect of the right index finger extending along the proximal phalanx to the middle phalanx. There is normal tendon function of both superficialis and profundus tendons. There is a superficial abrasion (0.5cm) over the dorsal aspect just above the nail cuticle. There is no subungual hematoma. There is ecchymosis from middle phalanx distally. The volar fat pad is still soft. Sensation and capillary refill appear preserved. General Extremety ED: Negative for edema General Extremity: Negative for edema Neuro oriented x3 and CN's II-XII intact bilaterally Sensorium / Orientation: alert Motor Exam: strength 5/5 throughout Psych mental status grossly normal Mood Affect: Negative for depressed or tearful Skin no rashes or lesions noted and no wounds MDM MDM MDM Narrative Medical decision making narrative: Differential diagnosis includes but not limited to fracture/open fracture laceration neurovascular injury tendon injury nail and nailbed injury My independent interpretation of the plain film (more content not included)... Normal [facility] Finger(s) Min 2 Viewson Finger(s) Min 2 Views [facility] Imaging Services [address] [place], [place] [id number] [phone] Finger(s) Min 2 Views MR#: [id number] Acct: [id number] Name: MIGUEL WEEMS Rep #: [id number] : 1990 M 34 From: [place] oneal MD PCP: Care Physician,No Primary Status: REG ER Study: Finger(s) Min 2 Views Date of Exam: 04/02/25 Exam# [id number] Ordering Dr: Saqib De DO PROCEDURE: FINGER(S) MIN 2 VIEWS 04/02/2025 REASON FOR EXAM: CRUSH INJURY TECHNIQUE: 3 view(s) of the right finger COMPARISON: None. FINDINGS: Soft tissue edema and swelling. Tiny bone fragment adjacent to the base of the middle phalanx on the lateral view. Please correlate with focal tenderness at this level to exclude an acute traumatic etiology. Normal metacarpal head. Normal metacarpophalangeal joint. Normal proximal phalanx. Normal distal phalanx. Normal proximal interphalangeal joint. Normal distal interphalangeal joint. RAD/Finger(s) Min 2 Views IMPRESSION: Soft tissue edema and swelling. Tiny bone fragment adjacent to the base of the middle phalanx on the lateral view. Please correlate with focal tenderness at this level to exclude an acute traumatic etiology. Reading Location: [place] [address] CC: Dr. Saqib De, DO; No Primary Care Physician Associate Professor Physician: Signed Normal [facility] Emergency Department Summary on 11-12-2024 Emergency Department Summary [facility] Medical Records Department [address] [place] [address] Emergency Department Summary 11/12/24 MR#: [id number] Acct: [id number] Name: MIGUEL WEEMS Rep #: [id number] : 1990 34 From: Eulalio Kent MD PCP: Care Physician,No Primary Status:DEP ER Location: ED HPI History of Present Illness Chief Complaint: Dental Narrative Narrative: 34-year-old male presents with dental pain in his left lower molar. The molar is cracked with significant caries. He states he has been told his wisdom teeth are coming in at an angle and he thinks it is pushing against the tooth causing increased pain that is radiating towards his ear. He denies fever or chills or difficulty swallowing or breathing. He has appointment with [facility] in a few days. [facility] Medical History (Updated 11/12/24 @ 11:25 by DARION Busch) Anxiety History of wrist fracture Chronic back pain Home Medications ???Medication ???Instructions ???Recorded ???Last Taken ???Type naproxen 500 mg tablet (Naprosyn) 500 mg PO BID PRN pain #20 tabs 11/12/24 Unknown Rx penicillin V potassium 500 mg 500 mg PO 4X/DAY #40 tabs 11/12/24 Unknown Rx tablet Allergy/AdvReac Type Severity Reaction Status Date / Time venom-honey bee (bee venom Allergy Anaphylaxis Verified 11/12/24 10:26 (honey bee)) Family History (Updated 05/10/19 @ 16:00 by Nguyen Encarnacion) Father Alcohol abuse Grandfather Colon cancer Uncle Diabetes Sister Bipolar 1 disorder Social History (Updated 07/20/19 @ 11:38 by Olman Duarte PACS SPECIALIST, PACS SPECIALIST-C) Smoking Status: Current every day smoker tobacco type: cigarettes Tobacco: How many years used: 15 Smokeless tobacco user: chewing tobacco alcohol intake: current alcohol intake frequency: a few times a month substance use type: does not use what type of physical activity do you participate in: weight training and other details: active job ROS ROS ED ROS Narrative Constitutional: Negative for fever, chills, malaise. ENT: Positive for ear pain. Respiratory: Negative for shortness of breath, cough. EXAM Physical Exam Narrative Exam Narrative: CONST: Patient appears uncomfortable but nontoxic. EYES: Normal inspection. ENT: Left lower molar is broken with significant caries and tender to palpation, wisdom teeth are not erupted. No periapical abscess, no trismus or tongue elevation, sublingual space is soft, normal posterior oropharynx, no drooling or stridor. No facial swelling or erythema. Nares clear, normal TMs bilaterally. No mastoid swelling tenderness or erythema. NECK: Normal inspection. Supple, no meningismus. RESP: No respiratory distress, CTAB. CVS: Regular rate and rhythm, no murmur, no gallop. SKIN: Color normal, no rash, warm, dry, intact. EXTREMITIES: Normal appearance, no pedal edema. NEURO: Alert and answering questions appropriately. PSYCH: Normal affect. Const Vital Signs: 11/12/24 10:24 11/12/24 10:25 Temperature 97.5 F L 97.5 F L Temperature Source Temporal Oral Pulse Rate 54 L 63 Respiratory Rate 16 16 Blood Pressure 141/88 H 141/88 H Blood Pressure Mean 105 105 Pulse Ox 99 100 Oxygen Delivery Method Room Air Room Air Physical Exam Const Vital Signs: 11/12/24 10:24 11/12/24 10:25 Temperature 97.5 F L 97.5 F L Temperature Source Temporal Oral Pulse Rate 54 L 63 Respiratory Rate 16 16 Blood Pressure 141/88 H 141/88 H Blood Pressure Mean 105 105 Pulse Ox 99 100 Oxygen Delivery Method Room Air Room Air [facility] Narrative Medical decision making narrative: 34-year-old male presents with dental pain. Left lower molar is broken with significant caries and tenderness. There is no sign of perirectal abscess or Marshall's angina. He thinks the pain is from his wisdom teeth under the gums which she had been told are coming in at an angle. With significant decay on exam I will cover for infection penicillin VK and Toradol given. Prescription for naproxen were provided as well as antibiotics. He has dental follow-up scheduled and was discharged in stable condition. [facility] History Record Review Discussion w/independent historian: Patient Treatment and Re-Evaluation Narrative: Dr. Kent: I have personally performed a face to face assessment of the patient and have reviewed the JEFFERY Note. I performed a substantive portion of the visit including all aspects of the following. My jordan find ings include: History is left lower jaw pain secondary to wisdom tooth coming in and ankle, carious tooth. Exam is afebrile. Vital signs noted. Nontoxic-appearing. No drooling or trismus. No Marshall angina. Positive carious tooth left lower jaw/molar. Medical Decision Making: Antibiotics. Analgesia. Has follow-up appointment with (more content not included)... Normal [facility] CBC panel Auto (Bld)on 11-24 Erythrocyte distribution width (RBC) [Ratio] 13.2 % Normal 11.5-15.0 [facility] Comment on above: Order Comment: Grover galdamez Type: BLOOD SPECIMEN Ordering Facility: [facility] Address: [address] [place] [address] Performed By: #### 5 8410-2 #### [facility] CLIA [id number] [address] [place] [address] [place] Hematocrit (Bld) [Volume fraction] 47.7 % Normal 39.0-51.0 [facility] Comment on above: Order Comment: Grover galdamez Type: BLOOD SPECIMEN Ordering Facility: [facility] Address: [address] [place] [address] Performed By: #### 5 8410-2 #### [facility] CLIA [id number] [address] [place] [address] [place] Hemoglobin (Bld) [Mass/Vol] 15.6 g/dL Normal 13.0-17.0 [facility] Comment on above: Order Comment: Speci men Type: BLOOD SPECIMEN Ordering Facility: [facility] Address: [address] [place] [address] Performed By: #### 5 8410-2 #### [facility] CLIA [id number] [address] [place] [address] [place] MCH (RBC) [Entitic mass] 29.2 pg Normal 26.0-34.0 [facility] Comment on above: Order Comment: Speci men Type: BLOOD SPECIMEN Ordering Facility: [facility] Address: [address] [place] [address] Performed By: #### 5 8410-2 #### [facility] CLIA [id number] [address] [place] [address] [place] MCHC (RBC) [Mass/Vol] 32.7 g/dL Normal 30.5-36.0 [facility] Comment on above: Order Comment: Speci men Type: BLOOD SPECIMEN Ordering Facility: [facility] Address: [address] [place] [address] Performed By: #### 5 8410-2 #### [facility] CLIA [id number] [address] [place] [address] [place] MCV (RBC) [Entitic vol] 89.2 fL Normal 80.0-100.0 [facility] Comment on above: Order Comment: Speci men Type: BLOOD SPECIMEN Ordering Facility: [facility] Address: [address] [place] [address] Performed By: #### 5 8410-2 #### [facility] CLIA [id number] [address] [place] [address] [place] Nucleated RBC (Bld) [#/Vol] 10*3/uL Normal <0.01 [facility] Comment on above: Order Comment: Speci men Type: BLOOD SPECIMEN Ordering Facility: [facility] Address: [address] [place] [address] Performed By: #### 5 8410-2 #### [facility] CLIA [id number] [facility] [place] [address] [place] Platelet mean volume (Bld) [Entitic vol] 10.2 fL Normal 9.0-12.7 [facility] Comment on above: Order Comment: Speci men Type: BLOOD SPECIMEN Ordering Facility: [facility] Address: [address] [place] [address] Performed By: #### 5 8410-2 #### [facility] CLIA [id number] [address] [place] [address] [place] Platelets (Bld) [#/Vol] 206 10*3/uL Normal 150-400 [facility] Comment on above: Order Comment: Speci men Type: BLOOD SPECIMEN Ordering Facility: [facility] Address: [address] [place] [address] Performed By: #### 5 8410-2 #### [facility] CLIA [id number] [address] [place] [address] [place] RBC (Bld) [#/Vol] 5.35 10*6/uL Normal 4.20-6.00 [facility] Comment on above: Order Comment: Speci men Type: BLOOD SPECIMEN Ordering Facility: [facility] Address: [address] [place] [address] Performed By: #### 5 8410-2 #### [facility] CLIA [id number] [address] [place] [address] [place] WBC (Bld) [#/Vol] 7.27 10*3/uL Normal 3.70-11.00 [facility] Comment on above: Order Comment: Speci men Type: BLOOD SPECIMEN Ordering Facility: [facility] Address: [address] [place] [address], [place] [address] Performed By: #### 5 8410-2 #### [facility] CLIA [id number] [address] [place] [address] [place] Comprehensive metabolic 2000 panelon 11-24-2023 Albumin [Mass/Vol] 4.5 g/dL Normal 3.9-4.9 [facility] Comment on above: Order Comment: Speci men Type: BLOOD SPECIMEN Ordering Facility: [facility] Address: [address] [place] [address], [place] [address] Performed By: #### 2 4323-8, 3016-3 #### [facility] CLIA [id number] [address] [place] [address] [place] ALP [Catalytic activity/Vol] 58 U/L Normal 38-113 [facility] Comment on above: Order Comment: Speci men Type: BLOOD SPECIMEN Ordering Facility: [facility] Address: [address] [place] [address], [place] [address] Performed By: #### 2 4323-8, 3016-3 #### [facility] CLIA [id number] [address] [place] [address] [place] ALT [Catalytic activity/Vol] 14 U/L Normal 10-54 [facility] Comment on above: Order Comment: Speci men Type: BLOOD SPECIMEN Ordering Facility: [facility] Address: [address] [place] [address], [place] [address] Performed By: #### 2 4323-8, 3016-3 #### [facility] CLIA [id number] [address] [place] [id number] [place] Anion gap [Moles/Vol] 12 mmol/L Normal 9-18 [facility] Comment on above: Order Comment: Speci men Type: BLOOD SPECIMEN Ordering Facility: [facility] Address: [address], [place] [address] Performed By: #### 2 4323-8, 3016-3 #### [facility] CLIA [id number] [address] [place] [address] [place] AST [Catalytic activity/Vol] 24 U/L Normal 14-40 [facility] Comment on above: Order Comment: Speci men Type: BLOOD SPECIMEN Ordering Facility: [facility] Address: [address], [place] [address] Performed By: #### 2 4323-8, 3015-3 #### [facility] CLIA [id number] [address] [place] [address] [place] Bilirubin [Mass/Vol] 0.4 mg/dL Normal 0.2-1.3 [facility] Comment on above: Order Comment: Speci men Type: BLOOD SPECIMEN Ordering Facility: [facility] Address: [address] [facility], [place] [address] Performed By: #### 2 4323-8, 3016-3 #### [facility] CLIA [id number] [address] [place] [address] [place] Calcium [Mass/Vol] 9.6 mg/dL Normal 8.5-10.2 [facility] Comment on above: Order Comment: Speci men Type: BLOOD SPECIMEN Ordering Facility: [facility] Address: [address], [place] [address] Performed By: #### 2 4323-8, 3016-3 #### [facility] CLIA [id number] [address] [place], [place] [address] [place] Chloride [Moles/Vol] 103 mmol/L Normal 97-105 [facility] Comment on above: Order Comment: Speci men Type: BLOOD SPECIMEN Ordering Facility: [facility] Address: [address], [place] [address] Performed By: #### 2 4323-8, 3016-3 #### [facility] CLIA [id number] [address] [place] [address] [place] CO2 [Moles/Vol] 26 mmol/L Normal 22-30 [facility] Comment on above: Order Comment: Speci men Type: BLOOD SPECIMEN Ordering Facility: [facility] Address: [address] [place] [address] Performed By: #### 2 4323-8, 3016-3 #### [facility] CLIA [id number] [address] STATES [place] [facility] Creatinine [Mass/Vol] 1.00 mg/dL Normal 0.73-1.22 [facility] Comment on above: Order Comment: Speci men Type: BLOOD SPECIMEN Ordering Facility: [facility] Address: [address] [place] [address] Performed By: #### 2 4323-8, 3015-3 #### [facility] CLIA [id number] [address] [place] [address] Creatinine and Glomerular filtration rate.predicted panel (S/P/Bld) 101 mL/min/1.73m??? Normal >=60 [facility] Comment on above: Order Comment: Speci men Type: BLOOD SPECIMEN Ordering Facility: [facility] Address: [address] [place] [address] Result Comment: Cydney mated Glomerular Filtration Rate (eGFR) is calculated using the 2020 CKD-EPI creatinine equation. This equation utilizes serum creatinine, sex, and age as parameters. The creatinine assay has traceable calibration to isotope dilution-mass spectrometry. Refer to KDIGO guidelines for clinical interpretation. In patients with unstable renal function, e.g. those with acute kidney injury, the eGFR may not accurately reflect actual GFR. Performed By: #### 2 4323-8, 3016-3 #### [facility] CLIA [id number] [facility] [place] [address] [place] Glucose [Mass/Vol] 92 mg/dL Normal 74-99 [facility] Comment on above: Order Comment: Specpower men Type: BLOOD SPECIMEN Ordering Facility: [facility] Address: [address] [place] [address], [place] [address] Result Comment: The [place] Diabetes [employer] (ADA) provides guidance for cutoff values for fasting glucose and random glucose. The ADA defines fasting as no caloric intake for at least 8 hours. Fasting plasma glucose results between 100 to 125 mg/dL indicate increased risk for diabetes (prediabetes). Fasting plasma glucose results greater than or equal to 126 mg/dL meet the criteria for diagnosis of diabetes. In the absence of unequivocal hyperglycemia, results should be confirmed by repeat testing. In a patient with classic symptoms of hyperglycemia or hyperglycemic crisis, random plasma glucose results greater than or equal to 200 mg/dL meet the criteria for diagnosis of diabetes. Reference: Standards of Medical Care in Diabetes 2016, [place] [employer]. Diabetes Care. 2016.39(Suppl 1). Performed By: #### 2 4323-8, 6-3 #### [facility] CLIA [id number] [address] [place] [address] [place] Potassium [Moles/Vol] 4.4 mmol/L Normal 3.7-5.1 [facility] Comment on above: Order Comment: Grover galdamez Type: BLOOD SPECIMEN Ordering Facility: [facility] Address: [address] [place] [address], [place] [address] Performed By: #### 2 4323-8, 6-3 #### [facility] CLIA [id number] [address] [place] [id number] [place] Protein [Mass/Vol] 7.0 g/dL Normal 6.3-8.0 [facility] Comment on above: Order Comment: Grover galdamez Type: BLOOD SPECIMEN Ordering Facility: [facility] Address: [address] [place] [address], [place] [address] Performed By: #### 2 4323-8, 3016-3 #### [facility] CLIA [id number] [address] [place] [address] [place] Sodium [Moles/Vol] 141 mmol/L Normal 136-144 [facility] Comment on above: Order Comment: Speci men Type: BLOOD SPECIMEN Ordering Facility: [facility] Address: [address] [place] [address] Performed By: #### 2 4323-8, 3016-3 #### [facility] CLIA [id number] [address] [place] [address] [place] Urea nitrogen [Mass/Vol] 13 mg/dL Normal 9-24 [facility] Comment on above: Order Comment: Speci men Type: BLOOD SPECIMEN Ordering Facility: [facility] Address: [address] [place] [address] Performed By: #### 2 4323-8, 3016-3 #### [facility] CLIA [id number] [address] [place] [address] [place] TSH SerPl-aCncon 11-24-2023 TSH Qn 0.429 m[IU]/L Normal 0.270-4.200 [facility] Comment on above: Order Comment: Speci men Type: BLOOD SPECIMEN Ordering Facility: [facility] Address: [address] [place] [address] Performed By: #### 2 4323-8, 3016-3 #### [facility] CLIA [id number] [address] [place] [address] [place] ED NOTEon 2023 ED NOTE HNO ID: [id number] Author: Isabel Mauricio RN Service: Emergency Medicine Author Type: Registered Nurse Type: ED Notes Filed: 05/03/2023 11:26 PM Note Text: Patient is alert, talkative, no distress noted. Instructed to use Tylenol/Motrin for pain control. Scrip for Amoxicillin to be meat pickler. Patient instructed to follow up with PCP, return with any new, worsening, or recurrent symptoms. Verbalizes understanding of all instructions. Ambulates with ease to lobby, no distress. Normal [facility] ED NOTE HNO ID: [id number] Author: Isabel Mauricio RN Service: Emergency Medicine Author Type: Registered Nurse Type: ED Notes Filed: 05/03/2023 11:08 PM Note Text: Patient informed: the name of medication, why we are giving it, possible side effects, what they may expect to feel, and was offered a chance to ask questions, prior to the administration of Lidocaine, Amoxil, Ibuprofen. Normal [facility] ED NOTE HNO ID: [id number] Author: Isabel Mauricio RN Service: Emergency Medicine Author Type: Registered Nurse Type: ED Notes Filed: 05/03/2023 11:00 PM Note Text: Patient informed: the name of medication, why we are giving it, possible side effects, what they may expect to feel, and was offered a chance to ask questions, prior to the administration of Motrin, Lidocaine, Amoxil. [facility] ED PROV NOTEon 2023 ED PROV NOTE HNO ID: [id number] Author: Rufina Olmstead DO Service: Emergency Medicine Author Type: Physician Type: ED Provider Notes Filed: 05/07/2023 8:18 AM Note Text: ED Provider Note Patient Name: Miguel Weems : 1990 SERVICE DATE: 05/03/23 History Patient presents with: Dental Problem Miguel Weems is a 32 year old male who presents with Dental Problem. P - Symptoms began 1 week. - Severity: moderate - Timing: constant - Quality: sore - Symptoms are associated with right lower tooth pain, right ear pain. - Symptoms are not associated with chest pain, chills, fever, nausea, rash, shortness of breath, vomiting, sore throat, difficulty swallowing, neck pain, neck stiffness. Patient presents with right lower dental pain for 1 week. He states the pain radiates towards his right ear. No sore throat or difficulty swallowing. No neck pain or stiffness. No fever or chills. No injury to the tooth. He states he is scheduled to see his dentist on Wednesday for this dental pain. He states he has not been treated for the dental pain yet. No facial swelling. PAST MEDICAL HISTORY Diagnosis Date Anxiety state Attention deficit disorder with hyperactivity(314.01) PMH - PAST MEDICAL HISTORY OF Color Vision - Failed History reviewed. No pertinent surgical history. FAMILY HISTORY Problem Relation Age of Onset Colon Cancer Sister Cancer Paternal Grandfather Colon - Social History Tobacco Use Smoking status: Every Day Packs/day: 0.50 Years: 5.00 Pack years: 2.50 Types: Cigarettes Smokeless tobacco: Former Types: Chew Tobacco comments: 3 times a week Vaping Use Vaping Use: Some days Substances: Nicotine Substance and Sexual Activity Alcohol use: Never Drug use: Not Currently Types: Marijuana Comment: few times per month Sexual activity: Not on file ALLERGIES Allergen Reactions Bees Swelling Review of Systems Constitutional: Negative for chills and fever. HENT: Positive for dental problem and ear pain (Right ear). Negative for drooling, facial swelling, sinus pressure, sinus pain, sore throat, trouble swallowing and voice change. Eyes: Negative for pain and redness. Respiratory: Negative for shortness of breath and stridor. Cardiovascular: Negative for chest pain. Gastrointestinal: Negative for abdominal pain, nausea and vomiting. Musculoskeletal: Negative for neck pain and neck stiffness. Skin: Negative for rash. Neurological: Negative for weakness and headaches. Psychiatric/Behavioral: Negative for agitation and confusion. Physical Exam Vitals [05/03/232037] BP Pulse Temp Temp src Resp SpO2 Weight Height 130/90 55 36.7 ?C (98 ?F) Temporal 16 98 % 86.2 kg (190 lb) -- Physical Exam Vitals and nursing note reviewed. Constitutional: General: He is not in acute distress. Appearance: He is not ill-appearing, toxic-appearing or diaphoretic. HENT: Head: Normocephalic and atraumatic. No right periorbital erythema or left periorbital erythema. Jaw: No trismus or swelling. Comments: No facial swelling or facial cellulitis Right Ear: Tympanic membrane, ear canal and external ear normal. Left Ear: Tympanic membrane, ear canal and external ear normal. Mouth/Throat: Mouth: Mucous membranes are moist. No oral lesions or angioedema. Dentition: Abnormal dentition. Dental tenderness present. Pharynx: Oropharynx is clear. Uvula midline. No pharyngeal swelling, oropharyngeal exudate, posterior oropharyngeal erythema or uvula swelling. Tonsils: No tonsillar exudate or tonsillar abscesses. Comments: Tenderness to percuss tooth #31 and 30. Tooth #30 has a filling in place and the tooth is broken along the buccal aspect of the tooth. There is mild swelling on the gumline without focal abscess seen. No drainage. Uvula midline, no elevation of the tongue, soft submandibular compartment. Eyes: Conjunctiva/sclera: Conjunctivae normal. Pupils: Pupils are equal, round, and reactive to light. Neck: Trachea: Trachea and phonation normal. Cardiovascular: Rate and Rhythm: Normal rate and regular rhythm. Pulses: Normal pulses. Pulmonary: Effort: Pulmonary effort is normal. Breath sounds: Normal breath sounds. No stridor. Abdominal: General: Bowel sounds are normal. There is no distension. Palpations: Abdomen is soft. Tenderness: There is no abdominal tenderness. Musculoskeletal: Cervical back: Normal range of motion. No rigidity, torticollis or tenderness. Skin: General: Skin is warm and dry. Capillary Refill: Capillary refill takes less than 2 seconds. Neurological: General: No focal deficit present. Mental Status: He is alert and oriented to person, place, and time. Psychiatric: Mood and Affect: Mood normal. Behavior: Behavior normal. Diagnostic Testing ED Labs Ordered and Reviewed - No data to display Procedures ED Course / Clinical Impression Clinical Impressions as o (more content not included)... Normal [facility] ED NOTEon 05-03-2023 ED NOTE HNO ID: [id number] Author: Isabel Mauricio RN Service: Emergency Medicine Author Type: Registered Nurse Type: ED Notes Filed: 05/03/2023 9:52 PM Note Text: Patient states he has had right side lower dental pain that radiates to his ear for one week. Dentist appointment on Wednesday. Normal [facility] Nancy 02-01-2023 BILLYN Telephone (AGFAMPLE) -------- MIGUEL WEEMS ([id number]) 1990 M Date Time Provider Department 02/01/23 QUEDEN, NIYA A AGFAMPLE During your visit today, we recorded the following information about you: Roseanna Kruse MA 02/01/2023 2:33 PM Signed ----- Message from Tayla Smyth APRN.[employer]CH[employer]IC sent at 02/01/2023 2:16 PM EDT ----- Please notify patient results are normal. Thank you. Tayla Smyth APRN.BILLY Kruse MA 02/01/2023 2:34 PM Signed Left message informing patient, phone number to reach the office was left for any questions or concerns. Roseanna Kruse MA Allergies As of Date: 02/01/2023 Noted Allergy Reaction BEES 07/29/2005 7 - Swelling Date Reviewed: 01/18/2023 Reviewed by: Niya Good APRN.BILLY - Fully Assessed Reason for Visit: Results [95] Prescriptions as of 02/01/2023 - escitalopram oxalate (LEXAPRO) 10 mg tablet Take 1 tablet by mouth once daily. - pantoprazole DR (PROTONIX) 40 mg tablet Take 1 tablet by mouth once daily. Take 1/2-hour before same meal daily - buPROPion XL (WELLBUTRIN XL) 150 mg 24 hr tablet Take 1 tablet by mouth once daily. - calcium carb/magnesium hydrox (ROLAIDS ORAL) Take by mouth. Meds Comments as of 04/13/2007: All medications have been reviewed today. Elizabeth Sotelo Ma Problem List As Of Date 02/01/2023 Noted Resolved ATTN DEFICIT W HYPERACT [F90.9] 07/21/2005 06/01/2006 ATTN DEFICIT NONHYPERACT [F98.8] 08/12/2005 COLLES' FRACTURE-CLOSED [S52.539A] 10/22/2005 Nicotine vapor product user [Z72.0] 07/20/2021 Right upper quadrant pain [R10.11] 07/20/2021 Gastroesophageal reflux disease [K21.9] 06/23/2022 Chronic upper abdominal pain [R10.10, G89.29] 06/23/2022 Colitis, nonspecific [K52.9] 06/23/2022 Jittery feeling [R45.0] 06/23/2022 Left posterior fascicular block (LPFB) determin*12/03/2022 Anxiety with depression [F41.8] 12/03/2022 Chest pain [R07.9] 12/03/2022 Family history of colon cancer [Z80.0] 12/03/2022 Encounter Status:Closed by ROSEANNA KRUSE on 02/01/23 Normal [facility] EXERCISE STRESS ECG (WITHOUT IMAGING)on 01-29-2023 EXERCISE STRESS ECG (WITHOUT IMAGING) Stress Packaging Specialist Report: Exercise Stress ECG (without Imaging) [facility] Date of service: 01/29/2023 9:41:37 AM [facility] Supervising physician: Domingo Jain MD PATIENT: Name: MR. MIGUEL WEEMS Age: 32 years Gender: M The supervising physician was in the department and immediately available. Final -- Stress ECG Report: Exercise Stress ECG (without Imaging) [facility] Date of service: 01/29/2023 9:41:37 AM [facility] Ordering physician: NIYA GOOD coverage specialist: Billie Winkler Event Marketing Coordinator: Maria Dolores Crocker RN Interpreting physician: Domingo Jain MD Patient name: MR. MIGUEL WEEMS Age: 32 years Gender: M Indication: Chest pressure / Chest tightness and Encounter for screening for cardiovascular disorders Stress ECG Conclusion: Conclusion: Normal Stress ECG Summary: The patient's resting heart rate was 55 bpm and blood pressure was 116/68 mmHg. The patient exercised according to the Vernon protocol. The estimated end-exercise MET level achieved using the FRIEND equation was 10.5, which is within the 25th to 50th percentile for age and sex. The estimated end-exercise MET level achieved using the previous ACSM equation was 13.5. The test was terminated due to leg fatigue and the total exercise time was 12 minutes and 0 seconds. Other symptoms during the test included leg fatigue and SOB. The maximum heart rate was 162 bpm, which is 87% of the predicted heart rate for age. This is an adequate heart rate response. Peak blood pressure was 148/60 mmHg. The double product achieved was [address]. Medications: Last Used LEXAPRO WELLBUTRIN PROTONIX Resting ECG: Sinus Bradycardia, Right Darwin Deviation, Incomplete RBBB and Nonspecific St-T Wave Changes Symptoms at rest: No symptoms Exercise Protocol: Vernon Stress Exercise Table: +-----+ +----- ---+ +---+---+- --+----+ Stage Speed (MPH) Grade(%) Time (min) HR SYS JOELLEN METS +-----+ +----- ---+ +---+---+- --+----+ 1 1.7 10.0 3.0 93 122 60 4.2 +-----+ +----- ---+ +---+---+- --+----+ 2 2.5 12.0 6.0 105 138 60 6.1 +-----+ +----- ---+ +---+---+- --+----+ 3 3.4 14.0 9.0 125 132 60 8.3 +-----+ +----- ---+ +---+---+- --+----+ +-----+ +----- ----+ +---+---+ ---+----+ Speed (MPH) Grade (%) Time (min) HR SYS JOELLEN METS +-----+ +----- ----+ +---+---+ ---+----+ Final 4.2 16.0 12.00 162 148 60 10.5 +-----+ +----- ----+ +---+---+ ---+----+ +------+ +---- -------+ Stage Symptoms Comments +------+ +---- -------+ 1 Leg fatigue no chest symptoms throughout test, no ST changes +------+ +---- -------+ 2 Leg fatigue increasing and SOB no ST changes +------+ +---- -------+ 3 Leg fatigue increasing and SOB no ST changes increasing +------+ +---- -------+ +-----+ --+ + Symptoms Comments +-----+ --+ + Final Leg fatigue and SOB no ST changes +-----+ --+ + Recovery Table: +------+ +---+- --+---+ Stage Time (min) HR SYS JOELLEN +------+ +---+- --+---+ 1 1.0 122 148 62 +------+ +---+- --+---+ 2 3.0 76 141 67 +------+ +---+- --+---+ 3 6.0 74 110 77 +------+ +---+- --+---+ +-----+ +- + Stage Symptoms Comments +-----+ +- + 1 Leg fatigue resolved and SOB resolving. no ST changes +-----+ +- + [address] changes +-----+ +- + [address] changes +-----+ +- + Stress Observations: Resting HR: 55 bpm Peak HR: 162 bpm (87% MPHR) Resting BP: 116 / 68 mmHg Peak BP: 148 / 60 mmHg Total Exercise Time: 12 minutes 0 seconds METS achieved: 10.5 Chronotropic response index (CRI): 0.82 Heart rate recovery (HRR): 40 bpm Rate Pressure Product (RPP): 84412 Hall Treadmill Score: 12.0 Stress Exercise Observations: Reason for test termination: leg fatigue, Symptoms during test: Other symptoms during the test included leg fatigue and SOB, Heart rate response: Adequate heart rate response, Blood pressure (more content not included)... Normal [facility] CNOVon 01-18-2023 [facility] Office Visit (JEAN BARTON) -------- MIGUEL WEEMS ([id number]) 1990 M Date Time Provider Department 01/18/23 4:40 PM NIYA OGOD During your visit today, we recorded the following information about you: Temperature Pulse Respiration Blood pressure 97.8 degrees 68/minute 18/minute 108/58 Weight Height 85.7 kg 1.854 m Niya Good APRN.CNP 01/21/2023 5:39 AM Signed CHIEF COMPLAINT: Miguel Weems is a 32 year old male who presents for bilateral lower leg pain for the last 5 days. He states his pain comes and goes and is primarily in his calves. He has noticed the top of his feet being slightly swollen. States it feels like a pressure and has tried elevating his legs and heat without much relief. He denies any recent injury, trauma, immobilization, or surgery. He does have to war heavy work boots but states he uses inserts in them. He is a smoker and is interested in quitting. He has tried gum, lozenges, and patches without succuss. I reviewed past medical, surgical, social, and family histories today and updated chart. Allergies, chronic medications, and supplements were also reviewed. The history is provided by the patient. No entry level sales representative was used. Leg Pain The pain is present in the right lower leg and left lower leg. This is a new problem. The current episode started in the past 7 days. There has been no history of extremity trauma. The problem occurs intermittently. The problem has been unchanged. The quality of the pain is described as aching. The pain is at a severity of 5/10. The pain is moderate. Pertinent negatives include no fever, inability to bear weight, itching, joint locking, joint swelling, limited range of motion, numbness, stiffness or tingling. The symptoms are aggravated by activity and standing. He has tried heat and rest for the symptoms. The treatment provided mild relief. Family history does not include gout or rheumatoid arthritis. There is no history of diabetes, gout, osteoarthritis or rheumatoid arthritis. PAST MEDICAL HISTORY Diagnosis Date Attention deficit disorder with hyperactivity(314.01) PMH - PAST MEDICAL HISTORY OF Color Vision - Failed History reviewed. No pertinent surgical history. Social History Tobacco Use Smoking status: Every Day Packs/day: 0.50 Years: 5.00 Pack years: 2.50 Types: Cigarettes Smokeless tobacco: Current Types: Chew Tobacco comments: 3 times a week Vaping Use Vaping Use: Never used Substance Use Topics Alcohol use: Yes Comment: rarely Drug use: Not Currently Types: Marijuana ALLERGIES Allergen Reactions Bees Swelling Family History Problem Relation Age of Onset Colon Cancer Sister Cancer Paternal Grandfather Colon - Current Outpatient Medications Medication Sig Dispense Refill escitalopram oxalate (LEXAPRO) 10 mg tablet Take 1 tablet by mouth once daily. Take 1/2 tablet daily for 10 days and then increase to 1 tablet. 30 tablet 1 calcium carb/magnesium hydrox (ROLAIDS ORAL) Take by mouth. pantoprazole DR (PROTONIX) 40 mg tablet Take 1 tablet by mouth once daily. Take 1/2-hour before same meal daily 30 tablet 2 No current facility-administered medications for this visit. Review of Systems Constitutional: Negative for appetite change, chills, diaphoresis, fatigue and fever. Respiratory: Negative. Cardiovascular: Negative. Musculoskeletal: Positive for myalgias. Negative for arthralgias, back pain, gait problem, gout, joint swelling, neck pain and stiffness. Skin: Negative. Negative for itching. Neurological: Negative for tingling, weakness and numbness. There were no vitals taken for this visit. Physical Exam Vitals and nursing note reviewed. Constitutional: Appearance: Normal appearance. Cardiovascular: Rate and Rhythm: Normal rate and regular rhythm. Pulses: Normal pulses. Heart sounds: Normal heart sounds. No murmur heard. Pulmonary: Effort: Pulmonary effort is normal. Breath sounds: Normal breath sounds. Musculoskeletal: Right lower leg: Tenderness present. No swelling or deformity. No edema. Left lower leg: Tenderness present. No swelling or deformity. No edema. Right foot: No swelling or tenderness. Left foot: No swelling or tenderness. Legs: Skin: General: Skin is warm and dry. Findings: No ecchymosis, erythema or rash. Neurological: Mental Status: He is alert and oriented to person, place, and time. Sensory: Sensation is intact. Motor: Motor function is intact. Gait: Gait is intact. Deep Tendon Reflexes: Reflex Scores: Patellar reflexes are 2+ on the right side and 2+ on the left side. Achilles reflexes are 2+ on the right side and 2+ on the left side. Psychiatric: Mood and Affect: Mood normal. Behavior: Behavior is cooperative. Cognition and Memory: Cognition normal. No visits with results within 1 Da (more content not included)... Normal [facility] Nancy 01-13-2023 [facility] Telephone ([place]) -------- MIGUEL WEEMS ([id number]) 1990 M Date Time Provider Department 01/13/23 NIYA GOOD During your visit today, we recorded the following information about you: Renu Galloway MA 01/13/2023 4:32 PM Signed ----- Message from Ani Duran sent at 01/13/2023 4:24 PM EDT ----- Regarding: FW: Medicine / Florentino,Niya /calf swelling both legs ----- Message ----- From: Olamide Alvarez Sent: 01/13/2023 4:13 PM EDT To: [facility] Triage Pool Subject: Medicine / Florentino,Niya /calf swelling bot# Patient has been identified by name and Date of (Y/N): y Patient: Miguel Weems Date of : 1990 Provider for this encounter: Niya Good APRN.CNP Reason for the call/escalation: calf swelling both legs Was Patient Referred to [facility]/Seek Emergency Treatment (Y/N): no Did Patient Agree (Y/N): n/a Was An Attempt Made To Transfer The Patient To The Office (Y/N): no Were You Able To Reach Someone At The Office (Y/N): n/a If Yes - Patient Was Transferred To (Caregivers Name): n/a If No - Which [facility] Leadership Enrollment Nurse Did You Speak With Regarding This Patient: n/a Was an appointment scheduled (Y/N): y 01/15 Reason patient was requesting visit (RFV/signs and symptoms/diagnosis) : calf swelling both legs Person calling if other than patient: n/a Return call to if other than patient: n/a Best contact number: [phone] Thank you, Olamide Alvarez January 13, 2023 4:13 PM Renu Galloway MA 01/13/2023 4:32 PM Signed FYI pt. Had apt. With [facility] today and canceled it he rescheduled it for 01/15/2023. Allergies As of Date: 01/13/2023 Noted Allergy Reaction BEES 07/29/2005 7 - Swelling Date Reviewed: 12/03/2022 Reviewed by: Niya Good APRN.GOLF CART MECHANIC - Fully Assessed Reason for Visit: Appointment [186] Prescriptions as of 01/13/2023 - escitalopram oxalate (LEXAPRO) 10 mg tablet Take 1 tablet by mouth once daily. Take 1/2 tablet daily for 10 days and then increase to 1 tablet. - calcium carb/magnesium hydrox (ROLAIDS ORAL) Take by mouth. - pantoprazole DR (PROTONIX) 40 mg tablet Take 1 tablet by mouth once daily. Take 1/2-hour before same meal daily Meds Comments as of 04/13/2007: All medications have been reviewed today. Elizabeth Sotelo Ma Problem List As Of Date 01/13/2023 Noted Resolved ATTN DEFICIT W HYPERACT [F90.9] 07/21/2005 06/01/2006 ATTN DEFICIT NONHYPERACT [F98.8] 08/12/2005 COLLES' FRACTURE-CLOSED [S52.539A] 10/22/2005 Nicotine vapor product user [Z72.0] 07/20/2021 Right upper quadrant pain [R10.11] 07/20/2021 Gastroesophageal reflux disease [K21.9] 06/23/2022 Chronic upper abdominal pain [R10.10, G89.29] 06/23/2022 Colitis, nonspecific [K52.9] 06/23/2022 Jittery feeling [R45.0] 06/23/2022 Left posterior fascicular block (LPFB) determin*12/03/2022 Anxiety with depression [F41.8] 12/03/2022 Chest pain [R07.9] 12/03/2022 Family history of colon cancer [Z80.0] 12/03/2022 Encounter Status:Closed by RENU GALLOWAY on 01/13/23 Normal [facility] CNCOon 12-31-2022 CNCO Letter Text Normal [facility] Nancy 12-31-2022 [facility] Telephone ([employer]) -------- MIGUEL WEEMS ([id number]) 1990 M Date Time Provider Department 12/31/22 NIYA GOOD During your visit today, we recorded the following information about you: Ani Duran 12/31/2022 10:52 AM Signed No Show Documentation Miguel Weems no showed for an appointment on 12/31/2022 with Niya Good APRN.GOLF CART MECHANIC at 10:20 am. He was scheduled for 4 week follow up for chest pain, palpitations and anxiety. I called and left a message for the patient regarding his missed appointment, told him to call the office if he would like to reschedule. Resources discussed/offered to patient: na No show determined to be fault of patient: Yes This is the patients first no show in the last 12 months. Patient was rescheduled for na. Letter mailed : Yes Is this the Third or Fourth No Show? No Ani Duran December 31, 2022 10:51 AM Allergies As of Date: 12/31/2022 Noted Allergy Reaction BEES 07/29/2005 7 - Swelling Date Reviewed: 12/03/2022 Reviewed by: Niya Good APRN.BILLY - Fully Assessed Reason for Visit: Missed Appointment [1304] Cmt: 1st no show in 365 days (1st letter sent) Prescriptions as of 12/31/2022 - escitalopram oxalate (LEXAPRO) 10 mg tablet Take 1 tablet by mouth once daily. Take 1/2 tablet daily for 10 days and then increase to 1 tablet. - calcium carb/magnesium hydrox (ROLAIDS ORAL) Take by mouth. - pantoprazole DR (PROTONIX) 40 mg tablet Take 1 tablet by mouth once daily. Take 1/2-hour before same meal daily Meds Comments as of 04/13/2007: All medications have been reviewed today. Elizabeth Sotelo Ma Problem List As Of Date 12/31/2022 Noted Resolved ATTN DEFICIT W HYPERACT [F90.9] 07/21/2005 06/01/2006 ATTN DEFICIT NONHYPERACT [F98.8] 08/12/2005 COLLES' FRACTURE-CLOSED [S52.539A] 10/22/2005 Nicotine vapor product user [Z72.0] 07/20/2021 Right upper quadrant pain [R10.11] 07/20/2021 Gastroesophageal reflux disease [K21.9] 06/23/2022 Chronic upper abdominal pain [R10.10, G89.29] 06/23/2022 Colitis, nonspecific [K52.9] 06/23/2022 Jittery feeling [R45.0] 06/23/2022 Left posterior fascicular block (LPFB) determin*12/03/2022 Anxiety with depression [F41.8] 12/03/2022 Chest pain [R07.9] 12/03/2022 Family history of colon cancer [Z80.0] 12/03/2022 Encounter Status:Closed by ANI DURAN on 12/31/22 [facility] CNOVon 12-03-2022 CNOV Office Visit (JEAN BARTON) -------- MIGUEL WEEMS ([id number]) 1990 M Date Time Provider Department 12/03/22 9:20 AM NIYA GOOD During your visit today, we recorded the following information about you: Temperature Pulse Respiration Blood pressure 98.2 degrees 77/minute 18/minute 122/62 Weight Height 83.5 kg 1.854 m Niya Good APRN.GOLF CART MECHANIC 12/03/2022 10:10 AM Signed CHIEF COMPLAINT: Miguel Weems is a 32 year old male who presents for complaints of intermittent chest pain for the last month. He states it will start on the left side and radiate to the middle of his chest. It comes and goes every day and it is waking him up from his sleep. I reviewed past medical, surgical, social, and family histories today and updated chart. Allergies, chronic medications, and supplements were also reviewed. PMH of ADHD (not on medication), GERD (on Protonix), and abdominal pain. Recently found out his older sister (age 42) was recently diagnosed with colon cancer. Trying to cut back on caffeine- will have 1 cup coffee daily Hasn't been smoking marijuana Still smoking 1/2 ppd cigarettes Minimal alcohol intake Has been more stressed lately, feels like he is failing as a and dad Has no motivation Has been out of work for about a month which is causing him stress Denies any suicidal thoughts Onset of chest pain: sudden, intermittent, and fluctuating Describe type and location of pain: Left chest into middle of chest Any associated SOB?: Yes a little bit Dizziness or weakness?: No Cool moist skin? No Cyanosis?: No , Palpitations?: Yes Is pain exertional?: No Any pain radiating to back, neck, jaw, shoulder or arms?: No Any sudden onset of swollen ankles?: No Smoker: Yes Recent injury?: No Does pain occur with deep breathing or coughing?: Yes Does pain occur when pressure is applied to the area?: No The history is provided by the patient. No entry level sales representative was used. Chest Pain This is a new problem. The current episode started more than 1 week ago. The problem occurs every several days. The pain is associated with an emotional upset. The pain is present in the substernal region and lateral region. The pain is at a severity of 7/10 (at its worst). The pain is moderate. The quality of the pain is described as pressure-like and sharp. Radiates to: mid sternal. Episode Length: can wax and wane throughout the day. Associated symptoms include exertional chest pressure, headaches (intermittent), malaise/fatigue, palpitations and shortness of breath (intermittently, sometimes with exertion). Pertinent negatives include no abdominal pain, no back pain, no claudication, no cough, no diaphoresis, no dizziness, no fever, no hemoptysis, no irregular heartbeat, no leg pain, no lower extremity edema, no nausea, no near-syncope, no numbness, no orthopnea, no PND, no sputum production, no syncope, no vomiting and no weakness. He has tried rest for the symptoms. Risk factors include male gender, smoking/tobacco exposure and stress. Pertinent negatives for past medical history include no aneurysm, no arrhythmia, no CAD, no CHF, no diabetes, no hyperlipidemia, no hypertension, no [place] and no thyroid problem. Pertinent negatives for family medical history include: no aortic dissection, no CAD, no heart disease, no stroke and no sudden . Procedure history is negative for cardiac catheterization, echocardiogram, EPS study, persantine thallium, stress echo, stress thallium and exercise treadmill test. THE LAST 2 WEEKS, HAVE YOU BEEN BOTHERED BY ANY OF THE FOLLOWING? - Little interest or pleasure in doing things 1 SEVERAL DAYS Feeling down, depressed, or hopeless 1 Trouble falling or staying asleep, or sleeping too much 3 Feeling tired or having little energy 3 Poor appetite or overeating 2 Feeling bad yourself-you are a failure or have let yourself or others 3 Trouble concentrating, like reading the paper or watching TV 3 Moving/speaking slowly (others notice) OR being more fidgety/restless 1 Thoughts that you would be better off or of hurting yourself 0 PHQ TOTAL SCORE = 17 PHQ problems effect on difficulty of work, home, and social activity: 2 - SOMEWHAT DIFFICULT Feeling nervous, anxious, or on edge 3 Nearly every day Not being able to stop or control worrying 3 Nearly every day Worrying too much about different things 3 Nearly every day Trouble relaxing 3 Nearly every day Being so restless that it's hard to sit still 1 Several days Being easily annoyed or irritable 1 Several days Feeling afraid as if something awful might happen 3 Nearly every day NATANAEL-7 Anxiety Score 17 If you checked off any problems, how difficult have these problems made it for you to do your work, take care of things at home, or get along with other people? Somewhat difficult PAST MEDICAL HIS (more content not included)... Normal [facility] Nancy 07-24-2022 [facility] Telephone ([place]) -------- MIGUEL WEEMS ([id number]) 1990 M Date Time Provider Department 07/24/22 NIYA GOOD During your visit today, we recorded the following information about you: Renu Galloway MA 07/24/2022 5:14 PM Signed ----- Message from Niya Good APRN.GOLF CART MECHANIC sent at 07/24/2022 5:11 PM EDT ----- TSH and B12 levels were normal. Renu Galloway MA 07/24/2022 5:14 PM Signed Patient notified. Renu Galloway MA Allergies As of Date: 07/24/2022 Noted Allergy Reaction BEES 07/29/2005 7 - Swelling Date Reviewed: 06/23/2022 Reviewed by: Niya Good APRN.GOLF CART MECHANIC - Fully Assessed Reason for Visit: Results [95] Prescriptions as of 07/24/2022 - calcium carb/magnesium hydrox (ROLAIDS ORAL) Take by mouth. - pantoprazole DR (PROTONIX) 40 mg tablet Take 1 tablet by mouth once daily. Take 1/2-hour before same meal daily Meds Comments as of 04/13/2007: All medications have been reviewed today. Elizabeth Sotelo Ma Problem List As Of Date 07/24/2022 Noted Resolved ATTN DEFICIT W HYPERACT [F90.9] 07/21/2005 06/01/2006 ATTN DEFICIT NONHYPERACT [F98.8] 08/12/2005 COLLES' FRACTURE-CLOSED [S52.539A] 10/22/2005 Nicotine vapor product user [Z72.0] 07/20/2021 Right upper quadrant pain [R10.11] 07/20/2021 Gastroesophageal reflux disease [K21.9] 06/23/2022 Chronic upper abdominal pain [R10.10, G89.29] 06/23/2022 Colitis, nonspecific [K52.9] 06/23/2022 Jittery feeling [R45.0] 06/23/2022 Encounter Status:Closed by RENU GALLOWAY on 07/24/22 Normal [facility] TSH SerPl-aCncon 07-23-2022 TSH Qn 1.680 m[IU]/L Normal 0.270-4.200 [facility] Comment on above: Order Comment: Grover men Type: BLOOD SPECIMENOrdering Facility: [facility] Address: [address] [place], [place] [id number] Performed By: #### 3 016-3 ####[facility] LABCLIA [id number] [place], [place] [address] [place] [address] OF ROB Vit B12 SerPl-mCncon 022 Cobalamin (Vitamin B12) [Mass/Vol] 560 pg/mL Normal 232-1245 [facility] Comment on above: Order Comment: Grover galdamez Type: BLOOD SPECIMENOrdering Facility: [facility] Address: [address] [place] [address] Performed By: #### 2 132-9 ####[facility] LABORATORYCLIA [id number] [place] [id number] [facility] CNOVon 06-23-2022 CNOV Office Visit (AG[place]AMP [place]) -------- MIGUEL WEEMS ([id number]) 1990 M Date Time Provider Department 06/23/22 3:20 PM NIYA GOOD During your visit today, we recorded the following information about you: Temperature Pulse Respiration Blood pressure 98.1 degrees 62/minute 16/minute 120/68 Weight Height 80.5 kg 1.854 m Niya Good APRN.GOLF CART MECHANIC 06/25/2022 12:42 PM Signed [address] [address] Visit Date: 06/23/2022 Patient Name: Miguel Weems Date of : 1990 Chief Complaint: ER Follow Up Miguel Weems is a 32 year old male here today for a follow up to a recent emergency room (ER) visit. Emergency Room Location: [facility] Date of Emergency Room Visit: 06/07/22 Reason for Emergency Room Visit: Lower abdominal pain ED Visits AND Hospitalizations - Last 180 days 06/07/22 Dominic Barger MD, LDED Lower abdominal pain, ED (DISCHARGE) Patient presents to the ER for lower abdominal pain and nausea for a week prior to arrival of the ER. Labs and an abdominal CT was obtained and only showed mild nonspecific inflammation in the lower abdomen but had not changed from previous CT. He was discharged home on a PPI and instructed to follow up with GI. HPI: Today he states he continues to have constant lower abdominal pain and rates it about a 5/10. He has been taking the PPI and eating a more bland diet and only drinking water. He continues to have some nausea but has not vomited. He denies any diarrhea, constipation, or seeing blood or mucous in his stool. He reports having a BM every day and they seem pretty normal. He also states he has periods of feeling lightheaded, sweaty, cold, and has a jittery feeling. Will last for about 10-15 minutes and will get better. Component Latest Ref Rng AND Units 06/07/2022 WBC 3.70 - 11.00 k/uL 5.17 RBC 4.20 - 6.00 m/uL 4.91 Hemoglobin 13.0 - 17.0 g/dL 14.4 Hematocrit 39.0 - 51.0 % 43.0 MCV 80.0 - 100.0 fL 87.6 MCH 26.0 - 34.0 pg 29.3 MCHC 30.5 - 36.0 g/dL 33.5 RDW-CV 11.5 - 15.0 % 12.6 Platelet Count 150 - 400 k/uL 166 MPV 9.0 - 12.7 fL 9.2 Neut% % 58.2 Abs Neut (ANC) 1.45 - 7.50 k/uL 3.01 Lymph% % 27.3 Abs Lymph 1.00 - 4.00 k/uL 1.41 Storey% % 9.1 Abs Storey <0.87 k/uL 0.47 Eosin% % 4.8 Abs Eosin <0.46 k/uL 0.25 Baso% % 0.6 Abs Baso <0.11 k/uL 0.03 DTYPE Auto Protein, Total 6.3 - 8.0 g/dL 6.4 Albumin 3.9 - 4.9 g/dL 4.3 Calcium 8.5 - 10.2 mg/dL 9.0 Bilirubin, Total 0.2 - 1.3 mg/dL 0.3 Alkaline Phosphatase 38 - 113 U/L 52 AST 14 - 40 U/L 32 ALT 10 - 54 U/L 17 Glucose 74 - 99 mg/dL 104 (H) BUN 9 - 24 mg/dL 10 Creatinine 0.73 - 1.22 mg/dL 1.02 Sodium 136 - 144 mmol/L 138 Potassium 3.7 - 5.1 mmol/L 4.2 Chloride 97 - 105 mmol/L 101 CO2 22 - 30 mmol/L 28 Anion Gap 9 - 18 mmol/L 9 eGFR >=60 mL/min/1.73m? 100 Color Yellow Yellow Clarity Clear Clear Glucose, Urine Negative Negative Bilirubin, Urine Negative Negative Ketones, Urine Negative Negative Specific [place], Ur 1.005 - 1.030 1.015 Hemoglobin/Blood,Ur Negative Negative pH, Urine 5.0 - 8.0 8.5 (H) Protein, Urine Negative Negative Urobilinogen 0.2-1.0 EU/dL 0.2 EU/dL Nitrites Negative Negative Leukest Negative Negative WBC, Urine 0-5 /HPF 0-5 /HPF RBC, Urine 0-3 /HPF 0-3 /HPF Lipase 16 - 61 U/L 20 06/07/2022 7:18 PM - Radiology, Oru In Impression IMPRESSION: Prominent wall ascending colon. No associated pericolic inflammatory changes. Correlate clinically for possible mild colitis. Similar prominence of vasa recta central lower abdomen and pelvis, considered nonspecific, possibly related to inflammatory bowel condition. Similar prominence of the seminal vesicles. Associate Professor Physician: NORMAN Transcribe Date/Time: Jun 07 2022 7:04P Vitals BP 120/68 Pulse 62 Temp 98.1 Resp 16 Ht 6' 1 (1.85m) Wt 177 lb 6.4 oz (80.5kg) SpO2 98% BMI 23.41 kg/(m2). PAST MEDICAL HISTORY Diagnosis Date Attention deficit disorder with hyperactivity(314.01) PMH - PAST MEDICAL HISTORY OF Color Vision - Failed History reviewed. No pertinent surgical history. FAMILY HISTORY Problem Relation Age of Onset Cancer Paternal Grandfather Colon - Social History Tobacco Use Smoking status: Every Day Packs/day: 0.50 Years: 5.00 Pack years: 2.50 Types: Cigarettes Smokeless tobacco: Former Types: Chew Tobacco comments: 4 cigarettes Vaping Use Vaping Use: Never used Substance Use Topics Alcohol use: Yes Comment: rarely Drug use: Yes Frequency: 2.0 times per week Types: Marijuana Comment: cbd Current Meds calcium carb/magnesium hydrox (ROLAIDS ORAL) Take by mouth. pantoprazole DR (PROTONIX) 20 mg tablet Take 1 tablet by mouth once daily. Take 1/2-hour before same meal daily I have confirmed and edited as ne (more content not included)... Normal [facility] CBC W Auto Differential pane l (Bld)on 06-07-2022 Basophils (Bld) [#/Vol] 0.03 10*3/uL Normal <0.11 [facility] Comment on above: Order Comment: Speci rudolph Type: BLOOD SPECIMEN Ordering Facility: [facility] Address: [address] [place] [address] Performed By: #### 5 7021-8 #### [facility] CLIA [id number] [address] [place] [address] [place] Basophils/100 WBC (Bld) 0.6 % Normal [facility] Comment on above: Order Comment: Grover galdamez Type: BLOOD SPECIMEN Ordering Facility: [facility] Address: [address] [place] [address] Performed By: #### 5 7021-8 #### [facility] CLIA [id number] [address] [place] [address] [place] Differential cell count method Nom (Bld) Auto Normal [facility] Comment on above: Order Comment: Speci men Type: BLOOD SPECIMEN Ordering Facility: [facility] Address: [address] [place] [address] Performed By: #### 5 7021-8 #### [facility] CLIA [id number] [address] [place] [address] [place] Eosinophils (Bld) [#/Vol] 0.25 10*3/uL Normal <0.46 [facility] Comment on above: Order Comment: Speci men Type: BLOOD SPECIMEN Ordering Facility: [facility] Address: [address] [place] [address] Performed By: #### 5 7021-8 #### [facility] CLIA [id number] [address] [place] [address] [place] Eosinophils/100 WBC (Bld) 4.8 % Normal [facility] Comment on above: Order Comment: Speci men Type: BLOOD SPECIMEN Ordering Facility: [facility] Address: [address] [place] [address] Performed By: #### 5 7021-8 #### [facility] CLIA [id number] [address] [place] OF [place] Erythrocyte distribution width (RBC) [Ratio] 12.6 % Normal 11.5-15.0 [facility] Comment on above: Order Comment: Speci men Type: BLOOD SPECIMEN Ordering Facility: [facility] Address: [address] [place] [address] Performed By: #### 5 7021-8 #### [facility] CLIA [id number] [address] [place] Hematocrit (Bld) [Volume fraction] 43.0 % Normal 39.0-51.0 [facility] Comment on above: Order Comment: Speci men Type: BLOOD SPECIMEN [facility] [facility] Address: [address] [address] Performed By: #### 5 7021-8 #### [facility] CLIA [id number] [address] [place] Hemoglobin (Bld) [Mass/Vol] 14.4 g/dL Normal 13.0-17.0 [facility] Comment on above: Order Comment: Speci men Type: BLOOD SPECIMEN Ordering Facility: [facility] Address: [address] [place] [address] Performed By: #### 5 7021-8 #### [facility] CLIA [id number] [address] [place] [address] [place] Lymphocytes (Bld) [#/Vol] 1.41 10*3/uL Normal 1.00-4.00 [facility] Comment on above: Order Comment: Speci men Type: BLOOD SPECIMEN Ordering Facility: [facility] Address: [address] [place] [address] Performed By: #### 5 7021-8 #### [facility] CLIA [id number] [address] Lymphocytes/100 WBC (Bld) 27.3 % Normal [facility] Comment on above: Order Comment: Speci men Type: BLOOD SPECIMEN Ordering Facility: [facility] Address: [address] [place] [address] Performed By: #### 5 7021-8 #### [facility] CLIA [id number] [address] [place] [address] MCH (RBC) [Entitic mass] 29.3 pg Normal 26.0-34.0 [facility] Comment on above: Order Comment: Speci men Type: BLOOD SPECIMEN Ordering Facility: [facility] Address: [address] [place] [address] Performed By: #### 5 7021-8 #### [facility] CLIA [id number] [address] [place] [address] [place] MCHC (RBC) [Mass/Vol] 33.5 g/dL Normal 30.5-36.0 [facility] Comment on above: Order Comment: Speci men Type: BLOOD SPECIMEN Ordering Facility: [facility] Address: [address] [place] [address] Performed By: #### 5 7021-8 #### [facility] CLIA [id number] [address] [place] MCV (RBC) [Entitic vol] 87.6 fL Normal 80.0-100.0 [facility] Comment on above: Order Comment: Speci men Type: BLOOD SPECIMEN Ordering Facility: [facility] Address: [address] [place] [address] Performed By: #### 5 7021-8 #### [facility] CLIA [id number] [address] [place] [address] [place] Monocytes (Bld) [#/Vol] 0.47 10*3/uL Normal <0.87 [facility] Comment on above: Order Comment: Speci men Type: BLOOD SPECIMEN Ordering Facility: [facility] Address: [address] [place] [address] Performed By: #### 5 7021-8 #### [facility] CLIA [id number] [address] [place], [place] [address] [place] [address] [place] Monocytes/100 WBC (Bld) 9.1 % Normal [facility] Comment on above: Order Comment: Speci men Type: BLOOD SPECIMEN Ordering Facility: [facility] Address: [address] [place] [address] Performed By: #### 5 7021-8 #### [facility] CLIA [id number] [address] [place] [address] [place] Neutrophils (Bld) [#/Vol] 3.01 10*3/uL Normal 1.45-7.50 [facility] Comment on above: Order Comment: Speci men Type: BLOOD SPECIMEN Ordering Facility: [facility] Address: [address] [place] [address] Performed By: #### 5 7021-8 #### [facility] CLIA [id number] [address] [place] [address] [facility] [place] Neutrophils/100 WBC (Bld) 58.2 % Normal [facility] Comment on above: Order Comment: Speci men Type: BLOOD SPECIMEN Ordering Facility: [facility] Address: [address] [place] [address] Performed By: #### 5 7021-8 #### [facility] CLIA [id number] [address] [place] [address] [place] Platelet mean volume (Bld) [Entitic vol] 9.2 fL Normal 9.0-12.7 [facility] Comment on above: Order Comment: Speci men Type: BLOOD SPECIMEN Ordering Facility: [facility] Address: [address] [place] [address] Performed By: #### 5 7021-8 #### [facility] CLIA [id number] [address] [place] [address] [place] Platelets (Bld) [#/Vol] 166 10*3/uL Normal 150-400 [facility] Comment on above: Order Comment: Speci men Type: BLOOD SPECIMEN Ordering Facility: [facility] Address: [address] [place] [address] Performed By: #### 5 7021-8 #### [facility] CLIA [id number] [address] [place] [address] [place] RBC (Bld) [#/Vol] 4.91 10*6/uL Normal 4.20-6.00 [facility] Comment on above: Order Comment: Speci men Type: BLOOD SPECIMEN Ordering Facility: [facility] Address: [address] [place] [address] Performed By: #### 5 7021-8 #### [facility] CLIA [id number] [address] [place] [address] [place] WBC (Bld) [#/Vol] 5.17 10*3/uL Normal 3.70-11.00 [facility] Comment on above: Order Comment: Speci men Type: BLOOD SPECIMEN Ordering Facility: [facility] Address: [address] [place] [address] Performed By: #### 5 7021-8 #### [facility] CLIA [id number] [address] [place] [address] [place] [address] ABD/PEL W IVCONon 022 CT ABD/PEL W IVCON * * *Final Report* * * DATE OF EXAM: Jun 07 2022 5:59PM [facility] 0530 - CT ABD/PEL W IVCON / PROCEDURE REASON: RLQ abdominal pain (Age >= 14y) * * * * Physician Interpretation * * * * EXAMINATION: CT ABDOMEN AND PELVIS WITH IV CONTRAST CLINICAL HISTORY: Abdominal pain. TECHNIQUE: CT of the abdomen and pelvis was performed using standard technique, scanning from just above the dome of the diaphragm to the symphysis pubis. MQ: CTAP_3 Contrast: IV: 100 ml of Omnipaque 350 : ml of CT Radiation dose: Integrated Dose-length product (DLP) for this visit = 321.74 mGy*cm. CT Dose Reduction Employed: Automated exposure control (AEC) COMPARISON: Biliary scan with gallbladder ejection fraction 05/23/[address] abdomen and pelvis studies 04/19/2021 and 04/03/2019.. RESULT: Liver: No mass. Biliary: No bile duct dilation. Spleen: No mass. No splenomegaly. Pancreas: No mass or duct dilation. Adrenals: No mass. Kidneys: Symmetric enhancement. No calculi. No hydronephrosis. GI tract: Normal caliber appendix. Mildly prominent ascending colon wall. No associated pericolic inflammatory changes. Lymph nodes: No pathologically enlarged abdominal or pelvic lymphadenopathy. Mesentery/Peritoneum: Similar relative diffuse prominence of vasa recta in the central lower abdomen and pelvis, considered nonspecific. No ascites. Retroperitoneum: No mass. Vasculature: - Abdominal aorta and iliac arteries: No aneurysm. - Celiac and SMA: Patent, mild narrowing proximal celiac artery.. - Portal venous system (SMV, splenic vein, portal vein and branches): Patent. - Hepatic veins: Patent. Pelvis: Similar prominence of seminal vesicles. Similar coarse prostate calcifications. No mass, ascites or fluid collection. Bones/Soft Tissues: No significant finding. Lower thorax: Unremarkable. Turn Machine Operator (topogram) images: No additional findings. IMPRESSION: Prominent wall ascending colon. No associated pericolic inflammatory changes. Correlate clinically for possible mild colitis. Similar prominence of vasa recta central lower abdomen and pelvis, considered nonspecific, possibly related to inflammatory bowel condition. Similar prominence of the seminal vesicles. Associate Professor Physician: NORMAN Transcribe Date/Time: Jun 07 2022 7:04P Dictated by : MICHAEL BAPTISTE MD This examination was interpreted and the report reviewed and electronically signed by: MICHAEL BAPTISTE MD on Jun 07 2022 7:16PM EST [id number] Normal [facility] Comprehensive metabolic 2000 panelon 06-07-2022 Albumin [Mass/Vol] 4.3 g/dL Normal 3.9-4.9 [facility] Comment on above: Order Comment: Speci men Type: BLOOD SPECIMEN Ordering Facility: [facility] Address: [address] [place] [address] Performed By: #### 2 4323-8, 3040-3 #### [facility] CLIA [id number] [address] [place] [address] [place] ALP [Catalytic activity/Vol] 52 U/L Normal 38-113 [facility] Comment on above: Order Comment: Speci men Type: BLOOD SPECIMEN Ordering Facility: [facility] Address: [address] [place] [address] Performed By: #### 2 4323-8, 3040-3 #### [facility] CLIA [id number] [address] [place] [address] [place] ALT With P-5'-P [Catalytic activity/Vol] 17 U/L Normal 10-54 [facility] Comment on above: Order Comment: Speci men Type: BLOOD SPECIMEN Ordering Facility: [facility] Address: [address] [place] [address] Performed By: #### 2 4323-8, 3040-3 #### [facility] CLIA [id number] [address] [place] [address] [place] Anion gap [Moles/Vol] 9 mmol/L Normal 9-18 [facility] Comment on above: Order Comment: Speci men Type: BLOOD SPECIMEN Ordering Facility: [facility] Address: [address] [place] [address] Performed By: #### 2 4323-8, 3040-3 #### [facility] CLIA [id number] [address] [place] [address] [place] AST With P-5'-P [Catalytic activity/Vol] 32 U/L Normal 14-40 [facility] Comment on above: Order Comment: Speci men Type: BLOOD SPECIMEN Ordering Facility: [facility] Address: [address] [place] [address] Performed By: #### 2 4323-8, 3040-3 #### [facility] CLIA [id number] [address] [place] [address] [place] Bilirubin [Mass/Vol] 0.3 mg/dL Normal 0.2-1.3 [facility] Comment on above: Order Comment: Speci men Type: BLOOD SPECIMEN Ordering Facility: [facility] Address: [address] [place] [address] Performed By: #### 2 4323-8, 3040-3 #### [facility] CLIA [id number] [address] [place] [address] [place] Calcium [Mass/Vol] 9.0 mg/dL Normal 8.5-10.2 [facility] Comment on above: Order Comment: Speci men Type: BLOOD SPECIMEN Ordering Facility: [facility] Address: [address] [place] [address] Performed By: #### 2 4323-8, 3040-3 #### [facility] CLIA [id number] [address] [place] [address] [place] Chloride [Moles/Vol] 101 mmol/L Normal 97-105 [facility] Comment on above: Order Comment: Speci men Type: BLOOD SPECIMEN Ordering Facility: [facility] Address: [address] [place] [address] Performed By: #### 2 4323-8, 3040-3 #### [facility] CLIA [id number] [address] [place] [address] [place] CO2 [Moles/Vol] 28 mmol/L Normal 22-30 [facility] Comment on above: Order Comment: Speci men Type: BLOOD SPECIMEN Ordering Facility: [facility] Address: [address] Performed By: #### 2 4323-8, 3040-3 #### [facility] CLIA [id number] [address] [place] [address] [place] Creatinine [Mass/Vol] 1.02 mg/dL Normal 0.73-1.22 [facility] Comment on above: Order Comment: Grover galdamez Type: BLOOD SPECIMEN Ordering Facility: [facility] Address: [address] [place] [address] Performed By: #### 2 4323-8, 3040-3 #### [facility] CLIA [id number] [address] [id number] [place] ESTIMATED GLOMERULAR FILTRATION RATE 100 mL/min/1.73m??? Normal >=60 [facility] Comment on above: Order Comment: Grover galdamez Type: BLOOD SPECIMEN Ordering Facility: [facility] Address: [address] [place] [address] Result Comment: Cydney mated Glomerular Filtration Rate (eGFR) is calculated using the 2020 CKD-EPI creatinine equation. This equation utilizes serum creatinine, sex, and age as parameters. The creatinine assay has traceable calibration to isotope dilution-mass spectrometry. Refer to KDIGO guidelines for clinical interpretation. In patients with unstable renal function, e.g. those with acute kidney injury, the eGFR may not accurately reflect actual GFR. Performed By: #### 2 4323-8, 3040-3 #### [facility] CLIA [id number] [address] [place] [address] [place] Glucose [Mass/Vol] 104 mg/dL High 74-99 [facility] Comment on above: Order Comment: Grover galdamez Type: BLOOD SPECIMEN Ordering Facility: [facility] Address: [address] [place] [address] Result Comment: The [place] [employer] (ADA) provides guidance for cutoff values for fasting glucose and random glucose. The ADA defines fasting as no caloric intake for at least 8 hours. Fasting plasma glucose results between 100 to 125 mg/dL indicate increased risk for diabetes (prediabetes). Fasting plasma glucose results greater than or equal to 126 mg/dL meet the criteria for diagnosis of diabetes. In the absence of unequivocal hyperglycemia, results should be confirmed by repeat testing. In a patient with classic symptoms of hyperglycemia or hyperglycemic crisis, random plasma glucose results greater than or equal to 200 mg/dL meet the criteria for diagnosis of diabetes. Reference: Standards of Medical Care in Diabetes 2016, [place] [employer]. Diabetes Care. 2016.39(Suppl 1). Performed By: #### 2 4323-8, 0-3 #### [facility] CLIA [id number] [address] [place] [address] [place] Potassium [Moles/Vol] 4.2 mmol/L Normal 3.7-5.1 [facility] Comment on above: Order Comment: Grover galdamez Type: BLOOD SPECIMEN Ordering Facility: [facility] Address: [address] [place] [address] Performed By: #### 2 4328, 3039-3 #### [facility] CLIA [id number] [address] [place] [address] [place] Protein [Mass/Vol] 6.4 g/dL Normal 6.3-8.0 [facility] Comment on above: Order Comment: Grover galdamez Type: BLOOD SPECIMEN Ordering Facility: [facility] Address: [address] [place] [address] Performed By: #### 2 4323-8, 3039-3 #### [facility] CLIA [id number] [address] [place] [address] [place] Sodium [Moles/Vol] 138 mmol/L Normal 136-144 [facility] Comment on above: Order Comment: Grover galdamez Type: BLOOD SPECIMEN Ordering Facility: [facility] Address: [address] [place] [address] Performed By: #### 2 4323-8, 0-3 #### [facility] CLIA [id number] [address] [place] [address] [place] Urea nitrogen [Mass/Vol] 10 mg/dL Normal 9-24 [facility] Comment on above: Order Comment: Speci men Type: BLOOD SPECIMEN Ordering Facility: [facility] Address: [facility] [place] [address] Performed By: #### 2 4323-8, 3040-3 #### [facility] CLIA [id number] [address] [place] [address] [facility] ED NOTEon 06-07-2022 ED NOTE HNO ID: [id number] Author: Patsy Wall RN Service: Nursing Author Type: Registered Nurse Type: ED Notes Filed: 06/07/2022 5:28 PM Note Text: Patient informed: the name of medication, why we are giving it, possible side effects, what they may expect to feel, and was offered a chance to ask questions, prior to the administration of Toradol Normal [facility] ED NOTE HNO ID: [id number] Author: Patsy Wall RN Service: Nursing Author Type: Registered Nurse Type: ED Notes Filed: 06/07/2022 5:12 PM Note Text: Pt ambulatory to bathroom for urine collection Normal [facility] ED NOTE HNO ID: [id number] Author: Patsy Wall RN Service: Nursing Author Type: Registered Nurse Type: ED Notes Filed: 06/07/2022 5:08 PM Note Text: Pt arrives with reports of abd pain, epigastric pain, groin pain, and nausea for about 1 week. Pt reports previous hydroscan was done at [facility]. Pt does not take medications as ordered, spouse reports, he doesn't like taking medicine. Pt reports pain worsens after eating. Normal [facility] ED PROV NOTEon 06-07-2022 ED PROV NOTE HNO ID: [id number] Author: Dominic Barger MD Service: Emergency Medicine Author Type: Physician Type: ED Provider Notes Filed: 06/07/2022 8:16 PM Note Text: ED Provider Note Patient Name: Miguel Weems : 1990 SERVICE DATE: 06/07/22 History Patient presents with: Abdominal Pain Nausea Miguel Weems is a 32 year old male with history of chronic upper abdominal pain who presents with lower abdominal pain. Patient has taken nothing with no relief of symptoms. - Symptom began 1 weeks prior to arrival. - Severity: moderate - Timing: constant - Quality: dull - Pain is exacerbated by movement. Pain radiates to groin. - Pain is not exacerbated by eating and inspiration. - Symptoms are associated with nothing. - Symptoms are not associated with chills, diarrhea, fever, and vomiting. - Improved by nothing. - Not improved by rest Previous work-ups for epigastric right upper quadrant pain including HIDA scan ultrasound no definite gallbladder pathology he was supposed to be on a PPI but does not like taking pills. He always seems to have some abdominal discomfort in the upper abdomen but he says when it happens he just drinks some water and seems to get better. Lately over the past week though he has noticed discomfort in the lower abdomen and groin which is different for him. No dysuria frequency urgency no bowel or bladder changes. No traumatic injuries. He has not noticed any changes of the testicles. No recent travel or exposures.. PAST MEDICAL HISTORY Diagnosis Date - Attention deficit disorder with hyperactivity(314.01) - [facility] - PAST MEDICAL HISTORY OF Color Vision - Failed History reviewed. No pertinent surgical history. FAMILY HISTORY Problem Relation Age of Onset - Cancer Paternal Grandfather Colon - Social History Tobacco Use - Smoking status: Every Day Packs/day: 0.50 Years: 5.00 Pack years: 2.50 Types: Cigarettes - Smokeless tobacco: Current Types: Chew - Tobacco comments: 4 cigarettes Vaping Use - Vaping Use: Never used Substance and Sexual Activity - Alcohol use: Yes Comment: rarely - Drug use: Yes Frequency: 2.0 times per week Types: Marijuana Comment: cbd - Sexual activity: Not on file ALLERGIES Allergen Reactions - Bees Swelling Review of Systems Constitutional: Negative for chills and fever. Respiratory: Negative for cough and shortness of breath. Gastrointestinal: Positive for abdominal pain. Negative for nausea and vomiting. Genitourinary: Negative for dysuria, frequency, scrotal swelling, testicular pain and urgency. Skin: Negative for color change, pallor, rash and wound. Allergic/Immunologic: Negative for environmental allergies, food allergies and immunocompromised state. Psychiatric/Behavioral: Negative for confusion. The patient is not nervous/anxious. Physical Exam Vitals [06/07/22 1702] BP Pulse Temp Temp src Resp SpO2 Weight Height 117/73 88 37.2 ?C (99 ?F) -- 15 96 % 81.6 kg (180 lb) 1.854 m (6' 1) Physical Exam Vitals and nursing note reviewed. Constitutional: Appearance: He is well-developed and normal weight. HENT: Head: Normocephalic and atraumatic. Cardiovascular: Rate and Rhythm: Normal rate and regular rhythm. Pulmonary: Effort: Pulmonary effort is normal. No respiratory distress. Breath sounds: Normal breath sounds. Abdominal: General: There is no distension. Palpations: Abdomen is soft. Tenderness: There is abdominal tenderness in the right lower quadrant and left lower quadrant. There is no guarding or rebound. Hernia: No hernia is present. Genitourinary: Testes: Normal. Cremasteric reflex is present. Skin: General: Skin is warm and dry. Capillary Refill: Capillary refill takes less than 2 seconds. Findings: No rash. Neurological: General: No focal deficit present. Mental Status: He is alert and oriented to person, place, and time. Psychiatric: Mood and Affect: Mood normal. Mood is not anxious or depressed. Behavior: Behavior normal. Diagnostic Testing ED Labs Ordered and Reviewed - No data to display Procedures ED Course / Clinical Impression Clinical Impressions as of 06/07/222014 Lower abdominal pain MDM / Disposition / Plan Nontoxic well-hydrated no respiratory distress nonacute abdomen but tender diffusely lower quadrants. No changes on exam. Labs and CT were obtained he has some nonspecific inflammatory change in the lower abdomen this is similar to previous CT scan. Patient is supposed to be on PPI so [place] restart him on that he is can follow-up with his PCP and advised that he may need a GI consult. Disposition The patient was discharged. Counseled patient and significant other regarding lab results and radiology results. As well as the need for follow-up. Discharged home with verbal and written instructions. They were instructed to return as needed for persistent or worse (more content not included)... Normal [facility] Lipase SerPl-cCncon 06-07-20 22 Lipase [Catalytic activity/Vol] 20 U/L Normal 16-61 [facility] Comment on above: Order Comment: Speci men Type: BLOOD SPECIMEN Ordering Facility: [facility] Address: [address] [place] [id number] Performed By: #### 2 4323-8, 3040-3 #### [facility] CLIA [id number] [address] [facility] [place] [address] [facility] Urinalysis complete panel (U )on 06-07-2022 Bilirubin Ql (U) Negative Normal Negative [facility] Comment on above: Order Comment: Speci men Type: URINE SPECIMEN Ordering Facility: [facility] Address: [address] [place] [address] Performed By: #### 2 4356-8 #### [facility] CLIA [id number] [address] [facility] [place] [address] [facility] Clarity (Unsp spec) Clear Normal Clear [facility] Comment on above: Order Comment: Speci men Type: URINE SPECIMEN Ordering Facility: [facility] Address: [address] [place] [address] Performed By: #### 2 4356-8 #### [facility] CLIA [id number] [address] [facility] [place] [address] [facility] Color (U) Yellow Normal Yellow [facility] Comment on above: Order Comment: Speci men Type: URINE SPECIMEN Ordering Facility: [facility] Address: [address] [place] [address] Performed By: #### 2 4356-8 #### [facility] [place] [facility] CLIA [id number] [address] [place] [address] [facility] Glucose Test strip (U) [Mass/Vol] Negative Normal Negative [facility] Comment on above: Order Comment: Speci men Type: URINE SPECIMEN Ordering Facility: [facility] Address: [facility] [place] [address] Performed By: #### 2 4356-8 #### [facility] [place] [facility] CLIA [id number] [address] [facility] [place] [address] [facility] Hemoglobin Ql (U) Negative Normal Negative [facility] Comment on above: Order Comment: Speci men Type: URINE SPECIMEN Ordering Facility: [facility] Address: [address] [place] [address] Performed By: #### 2 4356-8 #### [facility] [place] [facility] CLIA [id number] [address] [place] [address] [place] Ketones Ql (U) Negative Normal Negative [facility] Comment on above: Order Comment: Speci men Type: URINE SPECIMEN Ordering Facility: [facility] Address: [address] [place] [address] Performed By: #### 2 4356-8 #### [facility] [place] [facility] CLIA [id number] [address] [place] [address] [place] Leukocyte esterase Test strip Ql (U) Negative Normal Negative [facility] Comment on above: Order Comment: Speci men Type: URINE SPECIMEN Ordering Facility: [facility] Address: [address] [place] [address] Performed By: #### 2 4356-8 #### [facility] [place] [facility] CLIA [id number] [address] [place] [address] [place] Nitrite Ql (U) Negative Normal Negative [facility] Comment on above: Order Comment: Speci men Type: URINE SPECIMEN Ordering Facility: [facility] Address: [address] [place] [address] Performed By: #### 2 4356-8 #### [facility] [place] [facility] CLIA [id number] [address] [place] [address] [place] pH (U) 8.5 [pH] High 5.0-8.0 [facility] Comment on above: Order Comment: Speci men Type: URINE SPECIMEN Ordering Facility: [facility] Address: [address] [place] [address] Performed By: #### 2 4356-8 #### [facility] [place] [facility] CLIA [id number] [address] [place] [id number] [facility] Protein (U) [Mass/Vol] Negative Normal Negative [facility] Comment on above: Order Comment: Speci men Type: URINE SPECIMEN Ordering Facility: [facility] Address: [address] [place] [address] Performed By: #### 2 4356-8 #### [facility] [place] [facility] CLIA [id number] [address] [place] [address] RBC LM.HPF (Urine sed) [#/Area] 0-3 /HPF Normal 0-3 /HPF [facility] Comment on above: Order Comment: Speci men Type: URINE SPECIMEN Ordering Facility: [facility] Address: [address] [place] [address] Performed By: #### 2 4356-8 #### [facility] [place] [facility] CLIA [id number] [address] [place] [address] Specific gravity (U) [Rel density] 1.015 Normal 1.005-1.030 [facility] Comment on above: Order Comment: Speci men Type: URINE SPECIMEN Ordering Facility: [facility] Address: [address] [place] [address] Performed By: #### 2 4356-8 #### [facility] [place] [facility] CLIA [id number] [address] [place] [address] Urobilinogen Ql (U) 0.2 EU/dL Normal 0.2-1.0 EU/dL [facility] Comment on above: Order Comment: Speci men Type: URINE SPECIMEN Ordering Facility: [facility] Address: [address] [place] [address] Performed By: #### 2 4356-8 #### [facility] [place] [facility] CLIA [id number] [address] [place] [address] WBC LM.HPF (Urine sed) [#/Area] 0-5 /HPF Normal 0-5 /HPF [facility] Comment on above: Order Comment: Speci men Type: URINE SPECIMEN Ordering Facility: [facility] Address: [address] [place] [address] Performed By: #### 2 4356-8 #### [facility] [place] [facility] CLIA [id number] [address] [place] [address] [place] NM HEPATOBILIARY W EF AND/OR RXon 05-23-2021 NM HEPATOBILIARY W EF AND/OR RX * * *Final Report* * * DATE OF EXAM: May 23 2021 10:02AM RAY 0021 - NM HEPATOBILIARY W EF AND/OR RX / PROCEDURE REASON: R10.11-Right upper quadrant pain * * * * Physician Interpretation * * * * HEPATOBILIARY SCAN WITH GALLBLADDER EJECTION FRACTION: CLINICAL HISTORY: Right upper quadrant pain. TECHNIQUE: 5.3 mCi Tc-99m Choletec IV followed by 60 minutes of abdominal imaging This was followed by a fatty meal of 8 fl oz Ensure Plus and additional imaging to calculate a gallbladder ejection fraction FINDINGS: There is prompt and homogeneous uptake by the liver, which appears grossly normal in size and shape. Gallbladder, and proximal small bowel activity are visualized, indicating cystic duct and common bile duct patency. After the fatty meal, the calculated gallbladder ejection fraction is 83% (normal > 35%). IMPRESSION: * Normal gallbladder functional response/EF is not a typical scintigraphic finding of chronic cholecystitis. Clinical correlation is recommended. * Patent CBD. Associate Professor Physician: [employer] Transcribe Date/Time: May 23 2021 10:02A Dictated by : ZANDER MILLER MD This examination was interpreted and the report reviewed and electronically signed by: ZANDER MILLER MD on May 23 2021 10:03AM EST [id number] Normal [facility] ECG B/O W INTERP (MED OFFICE ) [facility] Vital Signs Date Time Vital Sign Value Performing Clinician Facility 04-02-2025 08:24-0400 Body temperature 98.1 [degF] No Primary Care Physician [facility] 04-02-2025 08:24-0400 Diastolic blood pressure 77 mm[Hg] No Primary Care Physician [facility] 04-02-2025 08:24-0400 Heart rate 78 /min No Primary Care Physician [facility] 04-02-2025 08:24-0400 Respiratory rate 19 /min No Primary Care Physician [facility] 04-02-2025 08:24-0400 SaO2% (BldA) [Mass fraction] 98 % No Primary Care Physician [facility] 04-02-2025 08:24-0400 Systolic blood pressure 121 mm[Hg] No Primary Care Physician [facility] 04-02-2025 06:51-0400 Body height 185.42 cm No Primary Care Physician [facility] 04-02-2025 06:51-0400 Body mass index (BMI) [Ratio] 23.7 kg/m2 No Primary Care Physician [facility] 04-02-2025 06:51-0400 Body weight 81.64 kg No Primary Care Physician [facility] 01-18-2023 16:55-0400 Body height 185.4 cm Niya Queden CERTIFIED [employer]ID WASTE FACILITY OPERATOR.[employer] Work Phone: [facility] 01-18-2023 16:55-0400 Body temperature 97.81 [degF] Niya Queden CERTIFIED [employer] FACILITY OPERATOR.[employer] Work Phone: [facility] 01-18-2023 16:55-0400 Body weight 85.73 kg Niya Queden CERTIFIED [employer]E FACILITY OPERATOR.[employer] Work Phone: [facility] 01-18-2023 16:55-0400 Diastolic blood pressure 58 mm[Hg] Niya Queden CERTIFIED [employer]E FACILITY OPERATOR.[employer] Work Phone: [facility] 01-18-2023 16:55-0400 Heart rate 68 /min Niya Queden CERTIFIED [employer] FACILITY OPERATOR.[employer] Work Phone: [facility] 01-18-2023 16:55-0400 Respiratory rate 18 /min Niya Queden CERTIFIED [employer] FACILITY OPERATOR.[employer] Work Phone: [facility] 01-18-2023 16:55-0400 SaO2% (BldA) [Mass fraction] 97 % Niya Queden CERTIFIED [employer]E FACILITY OPERATOR.[employer] Work Phone: [facility] 01-18-2023 16:55-0400 Systolic blood pressure 108 mm[Hg] Niya Queden CERTIFIED [employer] W[employer]E FACILITY OPERATOR.[employer] Work Phone: [facility] 12-03-2022 09:15-0500 Body height 185.4 cm Niya Queden CERTIFIED [employer]E FACILITY OPERATOR.[employer] Work Phone: [facility] 12-03-2022 09:15-0500 Body temperature 98.2 [degF] Niya Queden CERTIFIED [employer] W[employer]E FACILITY OPERATOR.[employer] Work Phone: [facility] 12-03-2022 09:15-0500 Body weight 83.46 kg Niya Queden CERTIFIED [employer] W[employer]E FACILITY OPERATOR.[employer] Work Phone: [facility] 12-03-2022 09:15-0500 Diastolic blood pressure 62 mm[Hg] Niya Queden CERTIFIED [employer] W[employer]E FACILITY OPERATOR.[employer] Work Phone: [facility] 12-03-2022 09:15-0500 Heart rate 77 /min Niya Queden CERTIFIED [employer] W[employer]E FACILITY OPERATOR.[employer] Work Phone: [facility] 12-03-2022 09:15-0500 Respiratory rate 18 /min Niya Queden CERTIFIED SOL[employer] W[employer]E FACILITY OPERATOR.[employer] Work Phone: [facility] 12-03-2022 09:15-0500 SaO2% (BldA) [Mass fraction] 98 % Niya Queden CERTIFIED [employer] W[employer]E FACILITY OPERATOR.[employer] Work Phone: [facility] 12-03-2022 09:15-0500 Systolic blood pressure 122 mm[Hg] Niya Queden CERTIFIED [employer] W[employer]E FACILITY OPERATOR.[employer] Work Phone: [facility] 06-23-2022 15:31-0400 Body height 185.4 cm Niya Queden CERTIFIED [employer]E FACILITY OPERATOR.[employer] Work Phone: [facility] 06-23-2022 15:31-0400 Body temperature 98.1 [degF] Niya Queden CERTIFIED [employer]E FACILITY OPERATOR.[employer] Work Phone: [facility] 06-23-2022 15:31-0400 Body weight 80.47 kg Niya Queden CERTIFIED [employer]E FACILITY OPERATOR.[employer] Work Phone: [facility] 06-23-2022 15:31-0400 Diastolic blood pressure 68 mm[Hg] Niya Queden CERTIFIED [employer] W[employer]E FACILITY OPERATOR.[employer] Work Phone: [facility] 06-23-2022 15:31-0400 Heart rate 62 /min Niya Queden CERTIFIED [employer]E FACILITY OPERATOR.[employer] Work Phone: [facility] 06-23-2022 15:31-0400 Respiratory rate 16 /min Niya Florentino CERTIFIED [employer]E FACILITY OPERATOR.[employer] Work Phone: [facility] 06-23-2022 15:31-0400 SaO2% (BldA) [Mass fraction] 98 % Niya Florentino CERTIFIED [employer]E FACILITY OPERATOR.[employer] Work Phone: [facility] 06-23-2022 15:31-0400 Systolic blood pressure 120 mm[Hg] Niya Florentino CERTIFIED [employer]E FACILITY OPERATOR.[employer] Work Phone: [facility] Encounters Encounter Date Encounter Type Care Provider Facility Start: 04-02-2025 End: 04-02-2025 Emergency department patient visit No Primary Care Physician -Emergency Department Work Phone: Start: 11-12-2024 End: 11-12-2024 Emergency department patient visit [facility] Facility:[facility] Start: 05-03-2023 Emergency department patient visit NIYA GOOD Facility:[facility] Start: 02-01-2023 Telephone encounter Niya Good CERTIFIED [employer] FACILITY OPERATOR.[employer] Work Phone: [facility] Comment on above: Results Start: 01-29-2023 ambulatory NIYA Rodney FLORENTINO Facili ty:[facility] Start: 01-29-2023 End: 01-29-2023 Subsequent hospital visit by physician Card Lab Nuc 2 [facility] CARDIAC TESTING Comment on above: Chest pain, unspecif ied type [R07.9] Start: 01-18-2023 End: 01-18-2023 [facility]ulatory [facility] Start: 01-18-2023 End: 01-18-2023 Patient encounter procedure Niya Good CERTIFIED [employer]E FACILITY OPERATOR.[employer] Work Phone: [facility] Comment on above: Bilateral lower extr emity pain (Primary Dx); Gastroesophageal reflux disease, unspecified whether esophagitis present; Anxiety with depression; Current nicotine use; Encounter for smoking cessation counseling Start: 12-31-2022 Telephone encounter Niya Good CERTIFIED [employer] FACILITY OPERATOR.[employer] Work Phone: [facility] Comment on above: Missed Appointment ( 1st no show in 365 days (1st letter sent)) Start: 12-03-2022 End: 12-03-2022 ambulatory NIYA GOOD Facility:[facility] Start: 12-03-2022 End: 12-03-2022 Patient encounter procedure Niya Good CERTIFIED [employer]E FACILITY OPERATOR.[employer] Work Phone: [facility] Comment on above: Chest pain, unspecif ied type (Primary Dx); 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; Anxiety with depression; Current nicotine use; Gastroesophageal reflux disease, unspecified whether esophagitis present; Chronic upper abdominal pain; Family history of colon cancer Start: 07-24-2022 Telephone encounter Niyapenny Good CERTIFIED [employer]E FACILITY OPERATOR.[employer] Work Phone: [facility] Comment on above: Results Start: 07-23-2022 End: 07-24-2022 ambulatory NIYA GOOD Facility:[facility] Start: 06-23-2022 End: 06-23-2022 ambulatory NIYA GOOD Facility:[facility] Start: 06-23-2022 End: 06-23-2022 Patient encounter procedure Niya Good CERTIFIED [employer]E FACILITY OPERATOR.[employer] Work Phone: [facility] Comment on above: Lower abdominal pain (Primary Dx); Colitis, nonspecific; Chronic upper abdominal pain; Gastroesophageal reflux disease, unspecified whether esophagitis present; Jittery feeling Start: 06-07-2022 End: 06-07-2022 Emergency department patient visit NIYA GOOD [facility] Procedures Date Procedure Procedure Detail Performing Clinician Start: 04-02-2025 Plain X-ray of finger N o Primary Care Physician Start: 01-29-2023 Cv strs tst xers&/or rx cont ecg trcg only Niyajose elias Howecuate CERTIFIED [employer]E FACILITY OPERATOR.[employer] Work Phone: Start: 12-03-2022 Ecg routine ecg w/le ast 12 lds w/i&r Niyajose elias [place]ecuate CERTIFIED [employer]E FACILITY OPERATOR.[employer] Work Phone: Start: 06-23-2022 Adult depression screening assessment Niya Shyamcuate MATIAS Work Phone: Plan of Treatment Date Care Activity Detail Author Start: 04-04-2030 Urine microalbumin profile DTAP,TDAP,TD (8 - Td or Tdap) [facility] Start: 04-02-2025 [facility] Start: 07-02-2023 Influenza vaccination INFLUENZA (Sea son Ended) [facility] Start: 06-23-2023 Adult depression screening assessment DEPRESSION SCREENING [facility] Start: 06-23-2023 COVID-19 VACCINE (#1) COVID-19 VACCI NE (#1) [facility] Comment on above: Postponed from 11/04 (Declined at this time) Start: 06-23-2023 PNEUMOCOCCAL (1 - PCV) PNEUMOCOCCAL (1 - PCV) [facility] Comment on above: Postponed from 05/04 (Declined at this time) Start: 04-30-2023 Influenza vaccination INFLUENZA (#1) [facility] Comment on above: Postponed from 07/02 (Declined at this time) Start: 07-02-2022 Influenza vaccination INFLUENZA (#1) [facility] Start: 06-23-2022 End: 08-23-2022 Cobalamin (Vitamin B12) [Mass/volume] in Serum or Plasma VITAMIN B12 BLOOD Lab Routine Chronic upper abdominal pain Jittery feeling Expected: 06/23/2022, Expires: 08/23/2022 [facility] Work Phone: Comment on above: Expected: 06/23/2022 , Expires: 08/23/2022 Start: 06-23-2022 End: 08-23-2022 Thyrotropin [Units/volume] in Serum or Plasma TSH BLD Lab Routine Chronic upper abdominal pain Jittery feeling Expected: 06/23/2022, Expires: 08/23/2022 [facility] Work Phone: Comment on above: Expected: 06/23/2022 , Expires: 08/23/2022 Start: 2007 HEPATITIS C SCREENING HEPATITIS C UT TONYA [facility] Start: 2007 HIV SCREENING HIV SCREENING [facility] End: 02-02-2024 EXERCISE STRESS ECG (WITHOUT IMAGING) EXERCISE STRESS ECG (WITHOUT IMAGING) Cardiology Routine Chest pain, unspecified type 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 1 Occurrences starting 12/03/2022 until 12/03/2023 [facility] Work Phone: Comment on above: 1 Occurrences starti ng 12/03/2022 until 12/03/2023 Patient Education ED Crush Injur y, Hand ED Laceration, Hand: All Closures [facility] Work Phone: Patient referral [facility] Work Phone: [facility] Immunizations Immunization Date Immunization Notes Care Provider Maurizio lopez 04-04-2020 tetanus toxoid, redu rachel diphtheria toxoid, and acellular pertussis vaccine, adsorbed Niya Queden CERTIFIED SOL[employer] WASTE FACILITY OPERATOR.[facility] Work Phone: [facility] 10-04-2006 influenza virus vaccine, unspecified formulation Niya Queden CERTIFIED [employer] W[employer]E FACILITY OPERATOR.[facility] Work Phone: [facility] 10-04-2006 Meningococcal, MCV4, unspecified conjugate formulation(groups A, C, Y and W-135) Niya Queden CERTIFIED [employer] WASTE FACILITY OPERATOR.[facility] Work Phone: [facility] 10-03-2004 influenza, seasonal, injectable Niya Queden CERTIFIED [employer]E FACILITY OPERATOR.[employer] Work Phone: [facility] 03-21-2002 measles, mumps and rubella virus vaccine Niya Queden CERTIFIED [employer]E FACILITY OPERATOR.[employer] Work Phone: [facility] 12-09-2001 hepatitis B vaccine, pediatric or pediatric/adolescent dosage Niya Queden CERTIFIED [employer] FACILITY OPERATOR.[employer] Work Phone: [facility] 07-07-2001 diphtheria and tetan us toxoids, adsorbed for pediatric use Niya Queden CERTIFIED [employer] W[employer]E FACILITY OPERATOR.[employer] Work Phone: [facility] 06-23-2001 hepatitis B vaccine, pediatric or pediatric/adolescent dosage Niya Queden CERTIFIED [employer]E FACILITY OPERATOR.[employer] Work Phone: [facility] 05-18-2001 hepatitis B vaccine, pediatric or pediatric/adolescent dosage Niya Queden CERTIFIED [employer]E FACILITY OPERATOR.[employer] Work Phone: [facility] 04-26-1995 Chicken Pox (disease) Brittn y Queden CERTIFIED [employer] W[employer]E FACILITY OPERATOR.[employer] Work Phone: [facility] Work Phone: 07-10-1994 diphtheria, tetanus toxoids and acellular pertussis vaccine Niya Queden CERTIFIED [employer]E FACILITY OPERATOR.[employer] Work Phone: [facility] 07-10-1991 trivalent poliovirus vaccine, live, oral Niya Queden CERTIFIED [employer] W[employer]E FACILITY OPERATOR.[employer] Work Phone: [facility] 06-26-1991 diphtheria, tetanus toxoids and pertussis vaccine Niya Queden CERTIFIED SOL[employer] WASTE FACILITY OPERATOR.[facility] Work Phone: [facility] Work Phone: 06-26-1991 trivalent poliovirus vaccine, live, oral Niya Queden CERTIFIED SOL[employer] WASTE FACILITY OPERATOR.[facility] Work Phone: [facility] 05-26-1991 haemophilus influenz ae type b vaccine, PRP-D conjugate Niya Queden CERTIFIED [employer] W[employer]E FACILITY OPERATOR.[facility] Work Phone: [facility] 05-26-1991 measles, mumps and rubella virus vaccine Niya Queden CERTIFIED SOL[employer] WASTE FACILITY OPERATOR.[facility] Work Phone: [facility] 1990 diphtheria, tetanus toxoids and pertussis vaccine Niya Queden CERTIFIED SOL[employer] WASTE FACILITY OPERATOR.[employer] Work Phone: [facility] Work Phone: 1990 diphtheria, tetanus toxoids and pertussis vaccine Niya Queden CERTIFIED SOL[employer] WASTE FACILITY OPERATOR.[employer] Work Phone: [facility] Work Phone: 1990 trivalent poliovirus vaccine, live, oral Niya Queden CERTIFIED SOL[employer] WASTE FACILITY OPERATOR.[employer] Work Phone: [facility] 1990 diphtheria, tetanus toxoids and pertussis vaccine Niya Queden CERTIFIED SOL[employer] WASTE FACILITY OPERATOR.[employer] Work Phone: [facility] Work Phone: 1990 trivalent poliovirus vaccine, live, oral Niya Good CERTIFIED SOL[employer] WASTE FACILITY OPERATOR.[employer] Work Phone: [facility] Payers Date Payer Category Payer Self-pay [id number] 2024 Unknown [id number] 2022 Medicaid [id number] 2022 Medicaid [id number] 2022 Medicaid [id number] 2022 Medicaid [id number] Unknown [employer] [id number] Unknown [id number] Unknown [id number] Unknown [id number] Social History Date Type Detail Facility Start: 06-23-2022 End: 04-02-2025 Tobacco smoking status NHIS Smokes tobacco daily [facility] History of tobacco use Cigarette Smoker C [facility] Start: 06-23-2022 End: 12-03-2022 Cigarettes smoked current (pack per day) - Reported 0.5 [facility] Start: 06-23-2022 Tobacco use and exposure Former smokeless tobacco user [facility] History of tobacco use Chews Tobacco [facility] Start: 06-23-2022 End: 01-18-2023 Alcohol intake Current drinker of alcohol (finding) [facility] Start: 01-12-2019 History SDOH Alcohol Comment rarely [facility] Start: 06-07-2022 Tobacco Comment 4 cigarettes [facility] Start: 1990 Sex Assigned At Not on file C [facility] Start: 06-13-2022 End: 07-23-2022 Exposure to SARS-CoV-2 (event) Not sure [facility] Start: 12-03-2022 Tobacco use and exposure User of smokeless tobacco [facility] Work Phone: Start: 12-03-2022 Tobacco Comment 3 times a week [facility] Start: 09-12-2019 Alcohol Alcohol [facility] Start: 09-12-2019 Drugs Drugs [facility] Start: 09-12-2019 Lives Lives [facility] Start: 04-04-2020 Tobacco Use Tobacco Use [facility] Start: 1990 Sex Assigned At Male [facility] Clinical Notes 07-21-2005 to 04-02-2025 Telephone Encounter - Roseanna Kruse MA - 02/01/2023 2:34 PM EDTTelephone Encounter - Roseanna Kruse MA - 02/01/2023 2:33 PM Jeff Winkler RN - 01/29/2023 9:00 AM EDTPatient Instructions Note Date & Type Note Facility 04-02-2025 Radiology Diagnostic study note [facility] Imaging Services [address] [place], [place] [address] Finger(s) Min 2 Views MR#: [id number] Acct: [id number] Name: MIGUEL WEEMS Rep #: : [id number] From: Sky Bird MD PCP: Care Physician,No Primary Status: REG ER Study:Finger(s) Min 2 Views Date of Exam: 04/02/25 Exam# [id number] Ordering Dr: Freddy De DO PROCEDURE: FINGER(S) MIN 2 VIEWS 04/02/2025 REASON FOR EXAM: CRUSH INJURY TECHNIQUE: 3 view(s) of the right finger COMPARISON: None. FINDINGS: Soft tissue edema and swelling. Tiny bone fragment adjacent to the base of the middle phalanx on the lateral view. Please correlate with focal tenderness at this level to exclude an acute traumatic etiology. Normal metacarpal head. Normal metacarpophalangeal joint. Normal proximal phalanx. Normal distal phalanx. Normal proximal interphalangeal joint. Normal distal interphalangeal joint. RAD/Finger(s) Min 2 Views IMPRESSION: Soft tissue edema and swelling. Tiny bone fragment adjacent to the base of the middle phalanx on the lateral view. Please correlate with focal tenderness at this level to exclude an acute traumatic etiology. [facility] CC: Dr. Saqib De, DO; No Primary Care Physician ~ Associate Professor Physician: Signed [facility] 04-02-2025 Hospital Discharge instructions Additional Instructions Stitches will need to be removed in 10 days. You may return here, primary care, or urgent care. Splint for support particularly over the next 3 to 4 days. Please take entire course of antibiotics to protect against infection. You can come out of the splint and the dressing after 24 hours and clean using soap and water. Antibiotic ointment 1 time per day [facility] Work Phone: 05-06-2023 Note Patient Outreach (AG FAMPLE) MIGUEL WEEMS ([id number]) 1990 M Date Time Provider Department 05/06/23 NIYA GOOD During your visit today, we recorded the following information about you: Madi Bush MA 05/06/2023 9:02 AM Signed ED Follow Up: Patient discharged from [facility] ED on 05/03/23. 1. How are you feeling since your ED visit? Left message inquiring how patient is doing and recommended calling back if he needs anything. Have your symptoms improved or resolved? Left message 2. Were you prescribed any medications while in the ED or advised to stop any medication? Left message - If yes, were you able to fill your prescriptions? Left message -if stopped medication, what was the medication? Left message 3. Were you advised to schedule a follow up appointment with your provider? Left message - If no, Do you feel like you need an appointment scheduled? Left message - If yes, Do you need this scheduled now or has this already been scheduled? Left message 4. Were you able to contact the office or supervisor purification provider prior to your ED visit? left message 5. Is there anything else I can do for you today? Left message Madi Bush MA Allergies As of Date: 05/06/2023 Noted Allergy Reaction BEES 07/29/2005 7 - Swelling Date Reviewed: 05/03/2023 Reviewed by: Pascale Portillo RN - Fully Assessed Reason for Visit: ER F/U [41] Prescriptions as of 05/06/2023 - amoxicillin (AMOXIL) 875 mg tablet Take 1 tablet by mouth twice daily for 5 days. - escitalopram oxalate (LEXAPRO) 10 mg tablet Take 1 tablet by mouth once daily. - pantoprazole DR (PROTONIX) 40 mg tablet Take 1 tablet by mouth once daily. Take 1/2-hour before same meal daily - buPROPion XL (WELLBUTRIN XL) 150 mg 24 hr tablet Take 1 tablet by mouth once daily. - calcium carb/magnesium hydrox (ROLAIDS ORAL) Take by mouth. Meds Comments as of 04/13/2007: All medications have been reviewed today. Elizabeth Sotelo Ma Problem List As Of Date 05/06/2023 Noted Resolved ATTN DEFICIT W HYPERACT [F90.9] 07/21/2005 06/01/2006 ATTN DEFICIT NONHYPERACT [F98.8] 08/12/2005 COLLES' FRACTURE-CLOSED [S52.539A] 10/22/2005 Nicotine vapor product user [Z72.0] 07/20/2021 Right upper quadrant pain [R10.11] 07/20/2021 Gastroesophageal reflux disease [K21.9] 06/23/2022 Chronic upper abdominal pain [R10.10, G89.29] 06/23/2022 Colitis, nonspecific [K52.9] 06/23/2022 Jittery feeling [R45.0] 06/23/2022 Left posterior fascicular block (LPFB) determin*12/03/2022 Anxiety with depression [F41.8] 12/03/2022 Chest pain [R07.9] 12/03/2022 Family history of colon cancer [Z80.0] 12/03/2022 Encounter Status:Closed by MDAI BUSH on 05/06/23 [facility] 05-06-2023 Note HNO ID: [id number] Author: Madi Bush MA Service: ? Author Type: Shot Hole Shooter Type: Progress Notes Filed: 05/06/2023 9:02 AM Note Text: ED Follow Up: Patient discharged from [facility] ED on 05/03/23. 1. How are you feeling since your ED visit? Left message inquiring how patient is doing and recommended calling back if he needs anything. Have your symptoms improved or resolved? Left message 2. Were you prescribed any medications while in the ED or advised to stop any medication? Left message - If yes, were you able to fill your prescriptions? Left message -if stopped medication, what was the medication? Left message 3. Were you advised to schedule a follow up appointment with your provider? Left message - If no, Do you feel like you need an appointment scheduled? Left message - If yes, Do you need this scheduled now or has this already been scheduled? Left message 4. Were you able to contact the office or supervisor purification provider prior to your ED visit? left message 5. Is there anything else I can do for you today? Left message Madi Bush MA [facility] 02-01-2023 Miscellaneous Notes Left message informing patient, phone number to reach the office was left for any questions or concerns. Roseanna Kruse MA ----- Message from Tayla Smyth APRN.[employer] sent at 02/01/2023 2:16 PM EDT ----- Please notify patient results are normal. Thank you. Tayla Smyth APRN.[employer] MECHANIC documented in this encounter [facility] 01-29-2023 Note HNO ID: [id number] Author: Billie Winkler RN Service: Nursing Author Type: Registered Nurse Type: Progress Notes Filed: 01/29/2023 9:47 AM Note Text: Baseline EKGs reviewed with Dr. Jain prior to testing. Maximal stress test completed. Pt walked 1200 to max HR 162. Test terminated due to leg fatigue. No reports of chest symptoms throughout test. [facility] 01-29-2023 History of Present illness Narrative Baseline EKGs reviewed with Dr. Jain prior to testing. Maximal stress test completed. Pt walked 1200 to max HR 162. Test terminated due to leg fatigue. No reports of chest symptoms throughout test. documented in this encounter [facility] 01-18-2023 Note HNO ID: [id number] Author: Niya Good APRN.[employer] MECH[employer]IC Service: ? Author Type: Nurse Practitioner Type: Progress Notes Filed: 01/21/2023 5:39 AM Note Text: CHIEF COMPLAINT: Miguel Weems is a 32 year old male who presents for bilateral lower leg pain for the last 5 days. He states his pain comes and goes and is primarily in his calves. He has noticed the top of his feet being slightly swollen. States it feels like a pressure and has tried elevating his legs and heat without much relief. He denies any recent injury, trauma, immobilization, or surgery. He does have to war heavy work boots but states he uses inserts in them. He is a smoker and is interested in quitting. He has tried gum, lozenges, and patches without succuss. I reviewed past medical, surgical, social, and family histories today and updated chart. Allergies, chronic medications, and supplements were also reviewed. The history is provided by the patient. No entry level sales representative was used. Leg Pain The pain is present in the right lower leg and left lower leg. This is a new problem. The current episode started in the past 7 days. There has been no history of extremity trauma. The problem occurs intermittently. The problem has been unchanged. The quality of the pain is described as aching. The pain is at a severity of 5/10. The pain is moderate. Pertinent negatives include no fever, inability to bear weight, itching, joint locking, joint swelling, limited range of motion, numbness, stiffness or tingling. The symptoms are aggravated by activity and standing. He has tried heat and rest for the symptoms. The treatment provided mild relief. Family history does not include gout or rheumatoid arthritis. There is no history of diabetes, gout, osteoarthritis or rheumatoid arthritis. PAST MEDICAL HISTORY Diagnosis Date Attention deficit disorder with hyperactivity(314.01) PMH - PAST MEDICAL HISTORY OF Color Vision - Failed History reviewed. No pertinent surgical history. Social History Tobacco Use Smoking status: Every Day Packs/day: 0.50 Years: 5.00 Pack years: 2.50 Types: Cigarettes Smokeless tobacco: Current Types: Chew Tobacco comments: 3 times a week Vaping Use Vaping Use: Never used Substance Use Topics Alcohol use: Yes Comment: rarely Drug use: Not Currently Types: Marijuana ALLERGIES Allergen Reactions Bees Swelling Family History Problem Relation Age of Onset Colon Cancer Sister Cancer Paternal Grandfather Colon - Current Outpatient Medications Medication Sig Dispense Refill escitalopram oxalate (LEXAPRO) 10 mg tablet Take 1 tablet by mouth once daily. Take 1/2 tablet daily for 10 days and then increase to 1 tablet. 30 tablet 1 calcium carb/magnesium hydrox (ROLAIDS ORAL) Take by mouth. pantoprazole DR (PROTONIX) 40 mg tablet Take 1 tablet by mouth once daily. Take 1/2-hour before same meal daily 30 tablet 2 No current facility-administered medications for this visit. Review of Systems Constitutional: Negative for appetite change, chills, diaphoresis, fatigue and fever. Respiratory: Negative. Cardiovascular: Negative. Musculoskeletal: Positive for myalgias. Negative for arthralgias, back pain, gait problem, gout, joint swelling, neck pain and stiffness. Skin: Negative. Negative for itching. Neurological: Negative for tingling, weakness and numbness. There were no vitals taken for this visit. Physical Exam Vitals and nursing note reviewed. Constitutional: Appearance: Normal appearance. Cardiovascular: Rate and Rhythm: Normal rate and regular rhythm. Pulses: Normal pulses. Heart sounds: Normal heart sounds. No murmur heard. Pulmonary: Effort: Pulmonary effort is normal. Breath sounds: Normal breath sounds. Musculoskeletal: Right lower leg: Tenderness present. No swelling or deformity. No edema. Left lower leg: Tenderness present. No swelling or deformity. No edema. Right foot: No swelling or tenderness. Left foot: No swelling or tenderness. Legs: Skin: General: Skin is warm and dry. Findings: No ecchymosis, erythema or rash. Neurological: Mental Status: He is alert and oriented to person, place, and time. Sensory: Sensation is intact. Motor: Motor function is intact. Gait: Gait is intact. Deep Tendon Reflexes: Reflex Scores: Patellar reflexes are 2+ on the right side and 2+ on the left side. Achilles reflexes are 2+ on the right side and 2+ on the left side. Psychiatric: Mood and Affect: Mood normal. Behavior: Behavior is cooperative. Cognition and Memory: Cognition normal. No visits with results within 1 Day(s) from this visit. Latest known visit with results is: Appointment on 07/23/2022 Component Date Value Ref Range Status Vitamin B12 07/23/2022 560 232 - 1,245 pg/mL Final TSH 07/23/2022 1.680 0.270 - 4.200 mIU/L Final ASSESSMENT/PLAN: 1. Bilateral lower extremity pain - ICD9: 729.5, ICD10: M7 (more content not included)... [facility] 01-18-2023 Instructions Niya Good APRN.CNP - 01/18/2023 5:08 PM EDT Epsom salt soaks Stretching Antiinflammatories twice a day- Ibuprofen or Motrin as needed Daily multivitamin Drink 64 ounces documented in this encounter [facility] 01-18-2023 History of Present illness Narrative Images from the original note were not included. CHIEF COMPLAINT: Miguel Weems is a 32 year old male who presents for bilateral lower leg pain for the last 5 days. He states his pain comes and goes and is primarily in his calves. He has noticed the top of his feet being slightly swollen. States it feels like a pressure and has tried elevating his legs and heat without much relief. He denies any recent injury, trauma, immobilization, or surgery. He does have to war heavy work boots but states he uses inserts in them. He is a smoker and is interested in quitting. He has tried gum, lozenges, and patches without succuss. I reviewed past medical, surgical, social, and family histories today and updated chart. Allergies, chronic medications, and supplements were also reviewed. The history is provided by the patient. No entry level sales representative was used. Leg Pain The pain is present in the right lower leg and left lower leg. This is a new problem. The current episode started in the past 7 days. There has been no history of extremity trauma. The problem occurs intermittently. The problem has been unchanged. The quality of the pain is described as aching. The pain is at a severity of 5/10. The pain is moderate. Pertinent negatives include no fever, inability to bear weight, itching, joint locking, joint swelling, limited range of motion, numbness, stiffness or tingling. The symptoms are aggravated by activity and standing. He has tried heat and rest for the symptoms. The treatment provided mild relief. Family history does not include gout or rheumatoid arthritis. There is no history of diabetes, gout, osteoarthritis or rheumatoid arthritis. PAST MEDICAL HISTORY Diagnosis Date Attention deficit disorder with hyperactivity(314.01) PMH - PAST MEDICAL HISTORY OF Color Vision - Failed History reviewed. No pertinent surgical history. Social History Tobacco Use Smoking status: Every Day Packs/day: 0.50 Years: 5.00 Pack years: 2.50 Types: Cigarettes Smokeless tobacco: Current Types: Chew Tobacco comments: 3 times a week Vaping Use Vaping Use: Never used Substance Use Topics Alcohol use: Yes Comment: rarely Drug use: Not Currently Types: Marijuana ALLERGIES Allergen Reactions Bees Swelling Family History Problem Relation Age of Onset Colon Cancer Sister Cancer Paternal Grandfather Colon - Current Outpatient Medications Medication Sig Dispense Refill escitalopram oxalate (LEXAPRO) 10 mg tablet Take 1 tablet by mouth once daily. Take 1/2 tablet daily for 10 days and then increase to 1 tablet. 30 tablet 1 calcium carb/magnesium hydrox (ROLAIDS ORAL) Take by mouth. pantoprazole DR (PROTONIX) 40 mg tablet Take 1 tablet by mouth once daily. Take 1/2-hour before same meal daily 30 tablet 2 No current facility-administered medications for this visit. Review of Systems Constitutional: Negative for appetite change, chills, diaphoresis, fatigue and fever. Respiratory: Negative. Cardiovascular: Negative. Musculoskeletal: Positive for myalgias. Negative for arthralgias, back pain, gait problem, gout, joint swelling, neck pain and stiffness. Skin: Negative. Negative for itching. Neurological: Negative for tingling, weakness and numbness. There were no vitals taken for this visit. Physical Exam Vitals and nursing note reviewed. Constitutional: Appearance: Normal appearance. Cardiovascular: Rate and Rhythm: Normal rate and regular rhythm. Pulses: Normal pulses. Heart sounds: Normal heart sounds. No murmur heard. Pulmonary: Effort: Pulmonary effort is normal. Breath sounds: Normal breath sounds. Musculoskeletal: Right lower leg: Tenderness present. No swelling or deformity. No edema. Left lower leg: Tenderness present. No swelling or deformity. No edema. Right foot: No swelling or tenderness. Left foot: No swelling or tenderness. Legs: Skin: General: Skin is warm and dry. Findings: No ecchymosis, erythema or rash. Neurological: Mental Status: He is alert and oriented to person, place, and time. Sensory: Sensation is intact. Motor: Motor function is intact. Gait: Gait is intact. Deep Tendon Reflexes: Reflex Scores: Patellar reflexes are 2+ on the right side and 2+ on the left side. Achilles reflexes are 2+ on the right side and 2+ on the left side. Psychiatric: Mood and Affect: Mood normal. Behavior: Behavior is cooperative. Cognition and Memory: Cognition normal. No visits with results within 1 Day(s) from this visit. Latest known visit with results is: Appointment on 07/23/2022 Component Date Value Ref Range Status Vitamin B12 07/23/2022 560 232 - 1,245 pg/mL Final TSH 07/23/2022 1.680 0.270 - 4.200 mIU/L Final ASSESSMENT/PLAN: 1. Bilateral lower extremity pain - ICD9: 729.5, ICD10: M79.604, M79.605 (primary diagnosis) - Suspect related to muscle tightness, dehydration. - Advised on increasing his water intake and starting a daily multivitamin - Heat and stretching as tolerated - Good supportive shoes - Low suspicious for DVT as no recent trauma, injury, or surgery. 2. Gastroesophageal reflux disease, unspecified whether esophagitis present - ICD9: 530.81, ICD10: K21.9 - Discussed lifestyle modifications including losing weight, limiting caffeine, no meals three hours before sleep, and head of bed elevation - Continue treatment with Protonix QD - PANTOPRAZOLE 40 MG TABLET,DELAYED RELEASE 3. Anxiety with depression - ICD9: 300.4, ICD10: F41.8 - Doing well, continue current dose - ESCITALOPRAM 10 MG TABLET 4. Current nicotine use - ICD9: 305.1, ICD10: Z72.0 - Cessation encouraged. - Physiologic and physical aspects of tobacco addiction as well as strategies for quitting were discussed. - Counseling was given focusing on the harmful effects of this addiction especially given the patient's medical condition(s) which will be worsened because of the chemicals in tobacco. - Counseling was given 4-5 minutes. - Prescription for bupropion (Wellbutrin) given - BUPROPION XL 150 MG TAB 5. Encounter for smoking cessation counseling - ICD9: V65.42, 305.1, ICD10: Z71.6 - Cessation encouraged. - Physiologic and physical aspects of tobacco addiction as well as strategies for quitting were discussed. - Counseling was given focusing on the harmful effects of this addiction especially given the patient's medical condition(s) which will be worsened because of the chemicals in tobacco. - Prescription for bupropion (Wellbutrin) given - BUPROPION XL 150 MG TAB New medication(s) prescribed today: Yes: Wellbutrin. Discussed new medication dosage, usage, goals of therapy, and side effects. Patient has been apprised of any potential drug interactions to be aware of. Patient expresses understanding. Counseling completed in adopting health behaviors such as avoiding excessive alcohol use, avoid tobacco use, improve nutrition, and engage in physical activities. Copy of written care plan, clinical summary, treatment plan, new medications, goals, and self management requirements were given to patient. Niya Good APRN.CNP documented in this encounter [facility] 12-31-2022 Miscellaneous Notes No Show Documentation Miguel Weems no showed for an appointment on 12/31/2022 with Niya Good APRN.CNP at 10:20 am. He was scheduled for 4 week follow up for chest pain, palpitations and anxiety. I called and left a message for the patient regarding his missed appointment, told him to call the office if he would like to reschedule. Resources discussed/offered to patient: na No show determined to be fault of patient: Yes This is the patients first no show in the last 12 months. Patient was rescheduled for na. Letter mailed : Yes Is this the Third or Fourth No Show? No Ani Duran December 31, 2022 10:51 AM documented in this encounter [facility] 12-03-2022 Note HNO ID: [id number] Author: Niya Good APRN.[employer] MECH[employer]IC Service: ? Author Type: Nurse Practitioner Type: Progress Notes Filed: 12/03/2022 10:10 AM Note Text: CHIEF COMPLAINT: Miguel Weems is a 32 year old male who presents for complaints of intermittent chest pain for the last month. He states it will start on the left side and radiate to the middle of his chest. It comes and goes every day and it is waking him up from his sleep. I reviewed past medical, surgical, social, and family histories today and updated chart. Allergies, chronic medications, and supplements were also reviewed. PMH of ADHD (not on medication), GERD (on Protonix), and abdominal pain. Recently found out his older sister (age 42) was recently diagnosed with colon cancer. Trying to cut back on caffeine- will have 1 cup coffee daily Hasn't been smoking marijuana Still smoking 1/2 ppd cigarettes Minimal alcohol intake Has been more stressed lately, feels like he is failing as a and dad Has no motivation Has been out of work for about a month which is causing him stress Denies any suicidal thoughts Onset of chest pain: sudden, intermittent, and fluctuating Describe type and location of pain: Left chest into middle of chest Any associated SOB?: Yes a little bit Dizziness or weakness?: No Cool moist skin? No Cyanosis?: No , Palpitations?: Yes Is pain exertional?: No Any pain radiating to back, neck, jaw, shoulder or arms?: No Any sudden onset of swollen ankles?: No Smoker: Yes Recent injury?: No Does pain occur with deep breathing or coughing?: Yes Does pain occur when pressure is applied to the area?: No The history is provided by the patient. No entry level sales representative was used. Chest Pain This is a new problem. The current episode started more than 1 week ago. The problem occurs every several days. The pain is associated with an emotional upset. The pain is present in the substernal region and lateral region. The pain is at a severity of 7/10 (at its worst). The pain is moderate. The quality of the pain is described as pressure-like and sharp. Radiates to: mid sternal. Episode Length: can wax and wane throughout the day. Associated symptoms include exertional chest pressure, headaches (intermittent), malaise/fatigue, palpitations and shortness of breath (intermittently, sometimes with exertion). Pertinent negatives include no abdominal pain, no back pain, no claudication, no cough, no diaphoresis, no dizziness, no fever, no hemoptysis, no irregular heartbeat, no leg pain, no lower extremity edema, no nausea, no near-syncope, no numbness, no orthopnea, no PND, no sputum production, no syncope, no vomiting and no weakness. He has tried rest for the symptoms. Risk factors include male gender, smoking/tobacco exposure and stress. Pertinent negatives for past medical history include no aneurysm, no arrhythmia, no CAD, no CHF, no diabetes, no hyperlipidemia, no hypertension, no [place] and no thyroid problem. Pertinent negatives for family medical history include: no aortic dissection, no CAD, no heart disease, no stroke and no sudden . Procedure history is negative for cardiac catheterization, echocardiogram, EPS study, persantine thallium, stress echo, stress thallium and exercise treadmill test. THE LAST 2 WEEKS, HAVE YOU BEEN BOTHERED BY ANY OF THE FOLLOWING? - Little interest or pleasure in doing things 1 SEVERAL DAYS Feeling down, depressed, or hopeless 1 Trouble falling or staying asleep, or sleeping too much 3 Feeling tired or having little energy 3 Poor appetite or overeating 2 Feeling bad yourself-you are a failure or have let yourself or others 3 Trouble concentrating, like reading the paper or watching TV 3 Moving/speaking slowly (others notice) OR being more fidgety/restless 1 Thoughts that you would be better off or of hurting yourself 0 PHQ TOTAL SCORE = 17 PHQ problems effect on difficulty of work, home, and social activity: 2 - SOMEWHAT DIFFICULT Feeling nervous, anxious, or on edge 3 Nearly every day Not being able to stop or control worrying 3 Nearly every day Worrying too much about different things 3 Nearly every day Trouble relaxing 3 Nearly every day Being so restless that it's hard to sit still 1 Several days Being easily annoyed or irritable 1 Several days Feeling afraid as if something awful might happen 3 Nearly every day [place]ATA[place]EL-7 Anxiety Score 17 If you checked off any problems, how difficult have these problems made it for you to do your work, take care of things at home, or get along with other people? Somewhat difficult PAST MEDICAL HISTORY Diagnosis Date Attention deficit disorder with hyperactivity(314.01) PMH - PAST MEDICAL HISTORY OF Color Vision - Failed History reviewed. No pertinent surgical history. Social History Tobacco Use Smoking status: Every Day Packs/day: 0.50 Years: 5.00 Pack years: 2.50 Types: Ciga (more content not included)... [facility] 12-03-2022 Instructions Niya Good APRN.GOLF CART MECHANIC - 12/03/2022 9:18 AM EST [facility] [address] [place] [address] Appointment: [phone] Desk: [phone] Should I call for an ambulance if I have chest pain? -- You should call for an ambulance (in the [place] and [place], call ) if the pain: ?Is new or severe ?Happens along with shortness of breath ?Lasts more than a few minutes ?Gets worse when you walk, climb stairs, or do other types of physical activity ?Scares or worries you Having chest pain does not necessarily mean you are having a heart attack. Most people who go to the emergency department with chest pain are not having a heart attack. Their pain is usually caused by less serious problems, such as muscle pain, heartburn, or anxiety. Even so, you should not take any chances. People often delay seeking help for a heart attack because they think the symptoms are not serious or will go away. When they do that, they risk permanent damage to their heart - or even . Is chest pain the only important symptom of a heart attack? -- No. Other symptoms are important, too. Sometimes people do not go to the hospital because they do not have any pain at all. But it is possible to have a heart attack without pain. This is more likely in females, people with diabetes, and people older than 60. It is important to pay attention to any of the symptoms of a heart attack (figure 1), which can include: ?Pain, pressure, or discomfort in the center of the chest ?Pain or discomfort in other parts of the upper body, including the shoulders, arms, back, neck, jaw, or stomach ?Shortness of breath ?Nausea, vomiting, burping, or heartburn ?Sweating or having cold, clammy skin ?A racing or uneven heart rate ?Feeling dizzy or lightheaded or even fainting These symptoms are important if they last more than a few minutes or keep happening over and over (coming and going). If you think you might be having a heart attack, call for an ambulance (in the [place] and [place], call ) right away. Do not try to get to the hospital on your own. Is heart attack the only cause of chest pain? -- No. Chest pain can be caused by lots of other problems, including: ?Heart problems other than heart attacks, such as infection around the heart ?Muscle soreness after an activity that involves the chest muscles ?Diseases that cause pain, such as arthritis ?Shingles (herpes zoster), a condition linked to the chickenpox virus that also causes a painful rash ?Any kind of injury to the chest, including surgery ?Digestive problems such as heartburn, acid reflux, stomach ulcers, or irritable bowel syndrome ?Problems affecting the lungs, such as pneumonia (an infection in the lungs) or blood clots in the lungs ?Psychological problems, such as panic disorder or depression ?Weakening of the lining of the big blood vessel in the chest (called the aorta) What will happen if I go to the emergency department? -- The staff in the emergency department will examine you and then run tests to try to find the cause of your pain. But don't be surprised if you do not find out right away why you have pain. The cause of chest pain is not always easy to find. Even so, doctors can usually tell if your heart is in trouble. Some tests are done right away in the emergency department. The goal is to figure out as quickly as possible if something serious is causing your chest pain. Other tests are done after this, in the hospital. Tests might include: ?An electrocardiogram (ECG) - This test measures the electrical activity in your heart (figure 2). It can help doctors find out if you are having a heart attack. ?Blood tests - During a heart attack, the heart releases certain chemicals. If these chemicals are in your blood, it might mean you are having a heart attack. ?A chest X-ray - This can show some of the problems that can cause chest pain. ?A stress test - During a stress test, you might be asked to run or walk on a treadmill while you also have an ECG (figure 3). Physical activity increases the heart's need for blood. This test helps doctors see if the heart is getting enough blood. If you cannot walk or run, your doctor might do this test by giving you a medicine to make your heart pump faster. ?Cardiac catheterization (also called cardiac cath) - During this test, the doctor puts a thin tube into a blood vessel in your leg or arm. Then they move the tube up to your heart. Next, the doctor puts a dye that shows up on X-ray into the tube. This part of the test is called coronary angiography. It can show whether any of the arteries in your heart are clogged. ?Echocardiogram - This test uses sound waves to create an image of your heart as it beats. During a heart attack, not all parts or the heart pump normally. ?A CT scan - This is a special kind of X-ray. Your doctor might use this to look at the blood vessels going to your heart. What if I am having a heart attack? -- If you are having a heart attack, the doctor will give you treatments to reduce the damage to your heart and relieve your pain. The sooner you get treated for a heart attack, the better treatment will work. Every minute counts when it comes to keeping your heart muscle alive! documented in this encounter [facility] 12-03-2022 History of Present illness Narrative CHIEF COMPLAINT: Miguel Weems is a 32 year old male who presents for complaints of intermittent chest pain for the last month. He states it will start on the left side and radiate to the middle of his chest. It comes and goes every day and it is waking him up from his sleep. I reviewed past medical, surgical, social, and family histories today and updated chart. Allergies, chronic medications, and supplements were also reviewed. PMH of ADHD (not on medication), GERD (on Protonix), and abdominal pain. Recently found out his older sister (age 42) was recently diagnosed with colon cancer. Trying to cut back on caffeine- will have 1 cup coffee daily Hasn't been smoking marijuana Still smoking 1/2 ppd cigarettes Minimal alcohol intake Has been more stressed lately, feels like he is failing as a and dad Has no motivation Has been out of work for about a month which is causing him stress Denies any suicidal thoughts Onset of chest pain: sudden, intermittent, and fluctuating Describe type and location of pain: Left chest into middle of chest Any associated SOB?: Yes a little bit Dizziness or weakness?: No Cool moist skin? No Cyanosis?: No , Palpitations?: Yes Is pain exertional?: No Any pain radiating to back, neck, jaw, shoulder or arms?: No Any sudden onset of swollen ankles?: No Smoker: Yes Recent injury?: No Does pain occur with deep breathing or coughing?: Yes Does pain occur when pressure is applied to the area?: No The history is provided by the patient. No entry level sales representative was used. Chest Pain This is a new problem. The current episode started more than 1 week ago. The problem occurs every several days. The pain is associated with an emotional upset. The pain is present in the substernal region and lateral region. The pain is at a severity of 7/10 (at its worst). The pain is moderate. The quality of the pain is described as pressure-like and sharp. Radiates to: mid sternal. Episode Length: can wax and wane throughout the day. Associated symptoms include exertional chest pressure, headaches (intermittent), malaise/fatigue, palpitations and shortness of breath (intermittently, sometimes with exertion). Pertinent negatives include no abdominal pain, no back pain, no claudication, no cough, no diaphoresis, no dizziness, no fever, no hemoptysis, no irregular heartbeat, no leg pain, no lower extremity edema, no nausea, no near-syncope, no numbness, no orthopnea, no PND, no sputum production, no syncope, no vomiting and no weakness. He has tried rest for the symptoms. Risk factors include male gender, smoking/tobacco exposure and stress. Pertinent negatives for past medical history include no aneurysm, no arrhythmia, no CAD, no CHF, no diabetes, no hyperlipidemia, no hypertension, no [place] and no thyroid problem. Pertinent negatives for family medical history include: no aortic dissection, no CAD, no heart disease, no stroke and no sudden . Procedure history is negative for cardiac catheterization, echocardiogram, EPS study, persantine thallium, stress echo, stress thallium and exercise treadmill test. THE LAST 2 WEEKS, HAVE YOU BEEN BOTHERED BY ANY OF THE FOLLOWING? - Little interest or pleasure in doing things 1 SEVERAL DAYS Feeling down, depressed, or hopeless 1 Trouble falling or staying asleep, or sleeping too much 3 Feeling tired or having little energy 3 Poor appetite or overeating 2 Feeling bad yourself-you are a failure or have let yourself or others 3 Trouble concentrating, like reading the paper or watching TV 3 Moving/speaking slowly (others notice) OR being more fidgety/restless 1 Thoughts that you would be better off or of hurting yourself 0 PHQ TOTAL SCORE = 17 PHQ problems effect on difficulty of work, home, and social activity: 2 - SOMEWHAT DIFFICULT Feeling nervous, anxious, or on edge 3 Nearly every day Not being able to stop or control worrying 3 Nearly every day Worrying too much about different things 3 Nearly every day Trouble relaxing 3 Nearly every day Being so restless that it's hard to sit still 1 Several days Being easily annoyed or irritable 1 Several days Feeling afraid as if something awful might happen 3 Nearly every day [place]ATA[place]EL-7 Anxiety Score 17 If you checked off any problems, how difficult have these problems made it for you to do your work, take care of things at home, or get along with other people? Somewhat difficult PAST MEDICAL HISTORY Diagnosis Date Attention deficit disorder with hyperactivity(314.01) PMH - PAST MEDICAL HISTORY OF Color Vision - Failed History reviewed. No pertinent surgical history. Social History Tobacco Use Smoking status: Every Day Packs/day: 0.50 Years: 5.00 Pack years: 2.50 Types: Cigarettes Smokeless tobacco: Current Types: Chew Vaping Use Vaping Use: Never used Substance Use Topics Alcohol use: Yes Comment: rarely Drug use: Yes Types: Marijuana Comment: Rare ALLERGIES Allergen Reactions Bees Swelling Family History Problem Relation Age of Onset Colon Cancer Sister Cancer Paternal Grandfather Colon - Current Outpatient Medications Medication Sig Dispense Refill calcium carb/magnesium hydrox (ROLAIDS ORAL) Take by mouth. pantoprazole DR (PROTONIX) 40 mg tablet Take 1 tablet by mouth once daily. Take 1/2-hour before same meal daily 30 tablet 2 No current facility-administered medications for this visit. Review of Systems Constitutional: Positive for malaise/fatigue. Negative for appetite change, chills, diaphoresis, fatigue and fever. Respiratory: Positive for shortness of breath (intermittently, sometimes with exertion). Negative for cough, hemoptysis, sputum production, chest tightness and wheezing. Cardiovascular: Positive for chest pain and palpitations. Negative for orthopnea, claudication, leg swelling, syncope, PND and near-syncope. Gastrointestinal: Positive for constipation. Negative for abdominal distention, abdominal pain, anal bleeding, blood in stool, diarrhea, nausea and vomiting. GERD Musculoskeletal: Negative for back pain. Neurological: Positive for headaches (intermittent). Negative for dizziness, weakness, light-headedness and numbness. Psychiatric/Behavioral: Positive for dysphoric mood. The patient is nervous/anxious. BP 122/62 Pulse 77 Temp 98.2 Resp 18 Ht 6' 1 (1.85m) Wt 184 lb (83.5kg) SpO2 98% BMI 24.28 kg/(m^2). Physical Exam Vitals and nursing note reviewed. Constitutional: Appearance: Normal appearance. HENT: Mouth/Throat: Mouth: Mucous membranes are moist. Eyes: Pupils: Pupils are equal, round, and reactive to light. Cardiovascular: Rate and Rhythm: Normal rate and regular rhythm. Heart sounds: Normal heart sounds. No murmur heard. Pulmonary: Effort: Pulmonary effort is normal. Breath sounds: Normal breath sounds. No wheezing, rhonchi or rales. Abdominal: General: Bowel sounds are normal. Palpations: Abdomen is soft. Skin: General: Skin is warm and dry. Neurological: Mental Status: He is alert and oriented to person, place, and time. Psychiatric: Attention and Perception: Attention normal. Mood and Affect: Affect is flat. Speech: Speech normal. Behavior: Behavior is cooperative. Thought Content: Thought content normal. Cognition and Memory: Cognition normal. Judgment: Judgment normal. Component Latest Ref Rng & Units 06/07/2022 07/23/2022 WBC 3.70 - 11.00 k/uL 5.17 RBC 4.20 - 6.00 m/uL 4.91 Hemoglobin 13.0 - 17.0 g/dL 14.4 Hematocrit 39.0 - 51.0 % 43.0 MCV 80.0 - 100.0 fL 87.6 MCH 26.0 - 34.0 pg 29.3 MCHC 30.5 - 36.0 g/dL 33.5 RDW-CV 11.5 - 15.0 % 12.6 Platelet Count 150 - 400 k/uL 166 MPV 9.0 - 12.7 fL 9.2 Neut% % 58.2 Abs Neut (ANC) 1.45 - 7.50 k/uL 3.01 Lymph% % 27.3 Abs Lymph 1.00 - 4.00 k/uL 1.41 Storey% % 9.1 Abs Storey <0.87 k/uL 0.47 Eosin% % 4.8 Abs Eosin <0.46 k/uL 0.25 Baso% % 0.6 Abs Baso <0.11 k/uL 0.03 DTYPE Auto Protein, Total 6.3 - 8.0 g/dL 6.4 Albumin 3.9 - 4.9 g/dL 4.3 Calcium 8.5 - 10.2 mg/dL 9.0 Bilirubin, Total 0.2 - 1.3 mg/dL 0.3 Alkaline Phosphatase 38 - 113 U/L 52 AST 14 - 40 U/L 32 ALT 10 - 54 U/L 17 Glucose 74 - 99 mg/dL 104 (H) BUN 9 - 24 mg/dL 10 Creatinine 0.73 - 1.22 mg/dL 1.02 Sodium 136 - 144 mmol/L 138 Potassium 3.7 - 5.1 mmol/L 4.2 Chloride 97 - 105 mmol/L 101 CO2 22 - 30 mmol/L 28 Anion Gap 9 - 18 mmol/L 9 eGFR >=60 mL/min/1.73m 100 Lipase 16 - 61 U/L 20 Vitamin B12 232 - 1,245 pg/mL 560 TSH 0.270 - 4.200 mIU/L 1.680 ASSESSMENT/PLAN: 1. Chest pain, unspecified type - ICD9: 786.50, ICD10: R07.9 (primary diagnosis) Chest pain of unclear etiology, patient with significant risk factor(s) of smoking - Electrocardiogram: An ECG today showed normal sinus rhythm at 73 BPM, AK interval 146 ms, left posterior fascicular block, normal ST-T, QT 408 ms - Stress testing- see orders - Advised on cutting out caffeine and smoking cessation - Follow up 4 weeks or sooner if symptoms worsen - ECG B/O W INTERP (MED OFFICE) - EXERCISE STRESS ECG (WITHOUT IMAGING) 2. 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 - ICD9: 426.2, ICD10: I44.5 - EXERCISE STRESS ECG (WITHOUT IMAGING) 3. Anxiety with depression - ICD9: 300.4, ICD10: F41.8 - Discussed starting a daily SSRI for his anxiety symptoms. He is willing to try it. Will start with 5 mg daily for 10 days and then increase to 1 tablet (10 mg) daily. - F/U in 4 weeks - ESCITALOPRAM 10 MG TABLET 4. Current nicotine use - ICD9: 305.1, ICD10: Z72.0 - Cessation encouraged. - Physiologic and physical aspects of tobacco addiction as well as strategies for quitting were discussed. - Counseling was given focusing on the harmful effects of this addiction especially given the patient's medical condition(s) which will be worsened because of the chemicals in tobacco. - Counseling was given 3-4 minutes. 5. Gastroesophageal reflux disease, unspecified whether esophagitis present - ICD9: 530.81, ICD10: K21.9 - Discussed lifestyle modifications including limiting caffeine, no meals three hours before sleep, and head of bed elevation - Continue treatment with Protonix 40 mg QD - Refer for GI consult - CONSULT TO GASTROENTEROLOGY 6. Chronic upper abdominal pain - ICD9: 789.09, 338.29, ICD10: R10.10, G89.29 - Referral to Gastroenterology - CONSULT TO GASTROENTEROLOGY 7. Family history of colon cancer - ICD9: V16.0, ICD10: Z80.0 - CONSULT TO GASTROENTEROLOGY New medication(s) prescribed today: Yes: Lexapro. Discussed new medication dosage, usage, goals of therapy, and side effects. Patient has been apprised of any potential drug interactions to be aware of. Patient expresses understanding. Counseling completed in adopting health behaviors such as avoiding excessive alcohol use, avoid tobacco use, improve nutrition, and engage in physical activities. Copy of written care plan, clinical summary, treatment plan, new medications, goals, and self management requirements were given to patient. Niya Good APRN.CNP documented in this encounter [facility] 07-24-2022 Miscellaneous Notes Patient notified. Renu Galloway MA ----- Message from Niya Good APRN.GOLF CART MECHANIC sent at 07/24/2022 5:11 PM EDT ----- TSH and B12 levels were normal. documented in this encounter [facility] 06-23-2022 Note HNO ID: [id number] Author: Niya Good APRN.CNP Service: ? Author Type: Nurse Practitioner Type: Progress Notes Filed: 06/25/2022 12:42 PM Note Text: [place] [address] Visit Date: 06/23/2022 Patient Name: Miguel Weems Date of : 1990 Chief Complaint: ER Follow Up Miguel Weems is a 32 year old male here today for a follow up to a recent emergency room (ER) visit. Emergency Room Location: [facility] Date of Emergency Room Visit: 06/07/22 Reason for Emergency Room Visit: Lower abdominal pain ED Visits AND Hospitalizations - Last 180 days 06/07/22 Dominic Barger MD, LDED Lower abdominal pain, ED (DISCHARGE) Patient presents to the ER for lower abdominal pain and nausea for a week prior to arrival of the ER. Labs and an abdominal CT was obtained and only showed mild nonspecific inflammation in the lower abdomen but had not changed from previous CT. He was discharged home on a PPI and instructed to follow up with GI. HPI: Today he states he continues to have constant lower abdominal pain and rates it about a 5/10. He has been taking the PPI and eating a more bland diet and only drinking water. He continues to have some nausea but has not vomited. He denies any diarrhea, constipation, or seeing blood or mucous in his stool. He reports having a BM every day and they seem pretty normal. He also states he has periods of feeling lightheaded, sweaty, cold, and has a jittery feeling. Will last for about 10-15 minutes and will get better. Component Latest Ref Rng AND Units 06/07/2022 WBC 3.70 - 11.00 k/uL 5.17 RBC 4.20 - 6.00 m/uL 4.91 Hemoglobin 13.0 - 17.0 g/dL 14.4 Hematocrit 39.0 - 51.0 % 43.0 MCV 80.0 - 100.0 fL 87.6 MCH 26.0 - 34.0 pg 29.3 MCHC 30.5 - 36.0 g/dL 33.5 RDW-CV 11.5 - 15.0 % 12.6 Platelet Count 150 - 400 k/uL 166 MPV 9.0 - 12.7 fL 9.2 Neut% % 58.2 Abs Neut (ANC) 1.45 - 7.50 k/uL 3.01 Lymph% % 27.3 Abs Lymph 1.00 - 4.00 k/uL 1.41 Storey% % 9.1 Abs Storey <0.87 k/uL 0.47 Eosin% % 4.8 Abs Eosin <0.46 k/uL 0.25 Baso% % 0.6 Abs Baso <0.11 k/uL 0.03 DTYPE Auto Protein, Total 6.3 - 8.0 g/dL 6.4 Albumin 3.9 - 4.9 g/dL 4.3 Calcium 8.5 - 10.2 mg/dL 9.0 Bilirubin, Total 0.2 - 1.3 mg/dL 0.3 Alkaline Phosphatase 38 - 113 U/L 52 AST 14 - 40 U/L 32 ALT 10 - 54 U/L 17 Glucose 74 - 99 mg/dL 104 (H) BUN 9 - 24 mg/dL 10 Creatinine 0.73 - 1.22 mg/dL 1.02 Sodium 136 - 144 mmol/L 138 Potassium 3.7 - 5.1 mmol/L 4.2 Chloride 97 - 105 mmol/L 101 CO2 22 - 30 mmol/L 28 Anion Gap 9 - 18 mmol/L 9 eGFR >=60 mL/min/1.73m? 100 Color Yellow Yellow Clarity Clear Clear Glucose, Urine Negative Negative Bilirubin, Urine Negative Negative Ketones, Urine Negative Negative Specific [place], Ur 1.005 - 1.030 1.015 Hemoglobin/Blood,Ur Negative Negative pH, Urine 5.0 - 8.0 8.5 (H) Protein, Urine Negative Negative Urobilinogen 0.2-1.0 EU/dL 0.2 EU/dL Nitrites Negative Negative Leukest Negative Negative WBC, Urine 0-5 /HPF 0-5 /HPF RBC, Urine 0-3 /HPF 0-3 /HPF Lipase 16 - 61 U/L 20 06/07/2022 7:18 PM - Radiology, [place] In Impression IMPRESSION: Prominent wall ascending colon. No associated pericolic inflammatory changes. Correlate clinically for possible mild colitis. Similar prominence of vasa recta central lower abdomen and pelvis, considered nonspecific, possibly related to inflammatory bowel condition. Similar prominence of the seminal vesicles. Associate Professor Physician: NORMAN Transcribe Date/Time: Jun 07 2022 7:04P Vitals BP 120/68 Pulse 62 Temp 98.1 Resp 16 Ht 6' 1 (1.85m) Wt 177 lb 6.4 oz (80.5kg) SpO2 98% BMI 23.41 kg/(m2). PAST MEDICAL HISTORY Diagnosis Date Attention deficit disorder with hyperactivity(314.01) PMH - PAST MEDICAL HISTORY OF Color Vision - Failed History reviewed. No pertinent surgical history. FAMILY HISTORY Problem Relation Age of Onset Cancer Paternal Grandfather Colon - Social History Tobacco Use Smoking status: Every Day Packs/day: 0.50 Years: 5.00 Pack years: 2.50 Types: Cigarettes Smokeless tobacco: Former Types: Chew Tobacco comments: 4 cigarettes Vaping Use Vaping Use: Never used Substance Use Topics Alcohol use: Yes Comment: rarely Drug use: Yes Frequency: 2.0 times per week Types: Marijuana Comment: cbd Current Meds calcium carb/magnesium hydrox (ROLAIDS ORAL) Take by mouth. pantoprazole DR (PROTONIX) 20 mg tablet Take 1 tablet by mouth once daily. Take 1/2-hour before same meal daily I have confirmed and edited as necessary the chief complaint, medications, past medical, family and social histories obtained by others. Review of Systems Constitutional: Positive for diaphoresis. Negative for appetite change, chills, fatigue, fever and unexpected weight change. Respiratory: Negative for chest tightness, shortness of (more content not included)... [facility] 06-23-2022 Instructions Niya Good APRN.GOLF CART MECHANIC - 06/23/2022 3:36 PM EDT Frances Bliss MD Customer Strategy Manager [address] [facility] [address] [place] [address], [address] [place] [address] PHONE: documented in this encounter [facility] 06-23-2022 History of Present illness Narrative Images from the [place] [address] Visit Date: 06/23/2022 Patient Name: Miguel Weems Date of : 1990 Chief Complaint: ER Follow Up Miguel Weems is a 32 year old male here today for a follow up to a recent emergency room (ER) visit. Emergency Room Location: [facility] Date of Emergency Room Visit: 06/07/22 Reason for Emergency Room Visit: Lower abdominal pain ED Visits & Hospitalizations - Last 180 days 06/07/22 Dominic Barger MD, LDED Lower abdominal pain, ED (DISCHARGE) Patient presents to the ER for lower abdominal pain and nausea for a week prior to arrival of the ER. Labs and an abdominal CT was obtained and only showed mild nonspecific inflammation in the lower abdomen but had not changed from previous CT. He was discharged home on a PPI and instructed to follow up with GI. HPI: Today he states he continues to have constant lower abdominal pain and rates it about a 5/10. He has been taking the PPI and eating a more bland diet and only drinking water. He continues to have some nausea but has not vomited. He denies any diarrhea, constipation, or seeing blood or mucous in his stool. He reports having a BM every day and they seem pretty normal. He also states he has periods of feeling lightheaded, sweaty, cold, and has a jittery feeling. Will last for about 10-15 minutes and will get better. Component Latest Ref Rng & Units 06/07/2022 WBC 3.70 - 11.00 k/uL 5.17 RBC 4.20 - 6.00 m/uL 4.91 Hemoglobin 13.0 - 17.0 g/dL 14.4 Hematocrit 39.0 - 51.0 % 43.0 MCV 80.0 - 100.0 fL 87.6 MCH 26.0 - 34.0 pg 29.3 MCHC 30.5 - 36.0 g/dL 33.5 RDW-CV 11.5 - 15.0 % 12.6 Platelet Count 150 - 400 k/uL 166 MPV 9.0 - 12.7 fL 9.2 Neut% % 58.2 Abs Neut (ANC) 1.45 - 7.50 k/uL 3.01 Lymph% % 27.3 Abs Lymph 1.00 - 4.00 k/uL 1.41 Storey% % 9.1 Abs Storey <0.87 k/uL 0.47 Eosin% % 4.8 Abs Eosin <0.46 k/uL 0.25 Baso% % 0.6 Abs Baso <0.11 k/uL 0.03 DTYPE Auto Protein, Total 6.3 - 8.0 g/dL 6.4 Albumin 3.9 - 4.9 g/dL 4.3 Calcium 8.5 - 10.2 mg/dL 9.0 Bilirubin, Total 0.2 - 1.3 mg/dL 0.3 Alkaline Phosphatase 38 - 113 U/L 52 AST 14 - 40 U/L 32 ALT 10 - 54 U/L 17 Glucose 74 - 99 mg/dL 104 (H) BUN 9 - 24 mg/dL 10 Creatinine 0.73 - 1.22 mg/dL 1.02 Sodium 136 - 144 mmol/L 138 Potassium 3.7 - 5.1 mmol/L 4.2 Chloride 97 - 105 mmol/L 101 CO2 22 - 30 mmol/L 28 Anion Gap 9 - 18 mmol/L 9 eGFR >=60 mL/min/1.73m 100 Color Yellow Yellow Clarity Clear Clear Glucose, Urine Negative Negative Bilirubin, Urine Negative Negative Ketones, Urine Negative Negative Specific [place], Ur 1.005 - 1.030 1.015 Hemoglobin/Blood,Ur Negative Negative pH, Urine 5.0 - 8.0 8.5 (H) Protein, Urine Negative Negative Urobilinogen 0.2-1.0 EU/dL 0.2 EU/dL Nitrites Negative Negative Leukest Negative Negative WBC, Urine 0-5 /HPF 0-5 /HPF RBC, Urine 0-3 /HPF 0-3 /HPF Lipase 16 - 61 U/L 20 06/07/2022 7:18 PM - Radiology, [place] In Impression IMPRESSION: Prominent wall ascending colon. No associated pericolic inflammatory changes. Correlate clinically for possible mild colitis. Similar prominence of vasa recta central lower abdomen and pelvis, considered nonspecific, possibly related to inflammatory bowel condition. Similar prominence of the seminal vesicles. Associate Professor Physician: NORMAN Transcribe Date/Time: Jun 07 2022 7:04P Vitals BP 120/68 Pulse 62 Temp 98.1 Resp 16 Ht 6' 1 (1.85m) Wt 177 lb 6.4 oz (80.5kg) SpO2 98% BMI 23.41 kg/(m^2). PAST MEDICAL HISTORY Diagnosis Date Attention deficit disorder with hyperactivity(314.01) PMH - PAST MEDICAL HISTORY OF Color Vision - Failed History reviewed. No pertinent surgical history. FAMILY HISTORY Problem Relation Age of Onset Cancer Paternal Grandfather Colon - Social History Tobacco Use Smoking status: Every Day Packs/day: 0.50 Years: 5.00 Pack years: 2.50 Types: Cigarettes Smokeless tobacco: Former Types: Chew Tobacco comments: 4 cigarettes Vaping Use Vaping Use: Never used Substance Use Topics Alcohol use: Yes Comment: rarely Drug use: Yes Frequency: 2.0 times per week Types: Marijuana Comment: cbd Current Meds calcium carb/magnesium hydrox (ROLAIDS ORAL) Take by mouth. pantoprazole DR (PROTONIX) 20 mg tablet Take 1 tablet by mouth once daily. Take 1/2-hour before same meal daily I have confirmed and edited as necessary the chief complaint, medications, past medical, family and social histories obtained by others. Review of Systems Constitutional: Positive for diaphoresis. Negative for appetite change, chills, fatigue, fever and unexpected weight change. Respiratory: Negative for chest tightness, shortness of breath and wheezing. Cardiovascular: Positive for chest pain (with the indigestion). Negative for palpitations. Gastrointestinal: Positive for abdominal pain (lower abdominal pain) and nausea. Negative for blood in stool, constipation, diarrhea and vomiting. Genitourinary: Negative for dysuria, frequency and urgency. Musculoskeletal: Negative. Skin: Negative. Neurological: Positive for light-headedness. Negative for dizziness and headaches. Episodes of feeling shaky Psychiatric/Behavioral: The patient is nervous/anxious. Physical Exam Vitals and nursing note reviewed. Constitutional: General: He is not in acute distress. Appearance: Normal appearance. He is not ill-appearing. HENT: Head: Normocephalic. Mouth/Throat: Mouth: Mucous membranes are moist. Pharynx: Oropharynx is clear. Cardiovascular: Rate and Rhythm: Normal rate and regular rhythm. Pulses: Normal pulses. Heart sounds: Normal heart sounds, S1 normal and S2 normal. Abdominal: General: Abdomen is flat. Bowel sounds are normal. There is no distension. Palpations: Abdomen is soft. Tenderness: There is abdominal tenderness in the right lower quadrant, epigastric area and left lower quadrant. There is no guarding or rebound. Negative signs include Levi's sign and McBurney's sign. Musculoskeletal: Cervical back: Neck supple. Skin: General: Skin is warm and dry. Neurological: Mental Status: He is alert and oriented to person, place, and time. Psychiatric: Mood and Affect: Mood is anxious. Speech: Speech normal. Behavior: Behavior normal. Cognition and Memory: Cognition normal. Data Reviewed: Most recent labs and imaging results. ASSESSMENT/PLAN: 1. Lower abdominal pain - ICD9: 789.09, ICD10: R10.30 (primary diagnosis) Etiology unclear Differential Diagnosis includes GERD, PUD, Gastritis, Constipation, IBD, and Celiac sprue - Continue Protonix 40 mg daily - Increase fiber in diet. Discussed other diet modifications. - [place] low residue diet - Referral to Gastroenterology 2. Colitis, nonspecific - ICD9: 558.9, ICD10: K52.9 - CONSULT TO GASTROENTEROLOGY 3. Chronic upper abdominal pain - ICD9: 789.09, 338.29, ICD10: R10.10, G89.29 - CONSULT TO GASTROENTEROLOGY - VITAMIN B12 BLOOD - TSH BLD 4. Gastroesophageal reflux disease, unspecified whether esophagitis present - ICD9: 530.81, ICD10: K21.9 - Refer for GI consult - PANTOPRAZOLE 40 MG TABLET,DELAYED RELEASE 5. Jittery feeling - ICD9: 799.21, ICD10: R45.0 - VITAMIN B12 BLOOD - TSH BLD Return if symptoms worsen or fail to improve. I have reviewed the patient's (ER) course including diagnostic testing performed during this ER visit, their discharge medications, and my assessment and plan with the patient. Discussed the above with the patient using shared decision making. The patient is in agreement with the diagnostic and treatment plans. Medications Discontinued During This Encounter Medication Reason omeprazole (PRILOSEC) 20 mg capsule Discontinued by Patient famotidine (PEPCID) 20 mg tablet Discontinued by Patient Niya Good APRN.CNP June 23, 2022 3:29 PM documented in this encounter [facility] 05-23-2021 Note HNO ID: [id number] Author: WASHINGTON Antonio Service: Radiology Author Type: Clinical Journeyman Patternmaker Type: Progress Notes Filed: 05/23/2021 8:09 AM Note Text: RADIOLOGY SERVICE PROGRESS NOTE SERVICE DATE: 05/23/2021 SERVICE TIME: 8:07 AM PATIENT IDENTITY VERIFICATION COMPLETED USING TWO (2) STANDARD IDENTIFIERS: Name and Date of confirmed by patient verbally and Name and Date of confirmed by identification band FALL SCREENING: Has the patient had 2 falls in the last year or 1 fall with injury or currently using an Ambulatory Assistive Device (Walker, Cane, Wheelchair, Crutches, etc.)? No PATIENT GENDER DATA: .male ALLERGIES: Reviewed and unchanged MEDICATIONS REVIEWED: Not applicable PATIENT RELEVANT IMPLANT DATA REVIEWED: Not Applicable CREATININE: Creatinine Date Value Ref Range Status 04/19/2021 1.19 0.73 - 1.22 mg/dL Final 04/03/2019 1.02 0.67 - 1.17 mg/dL Final 01/12/2019 0.96 0.67 - 1.17 mg/dL Final eGFR-All Other Races Date Value Ref Range Status 04/19/2021 >60 Final Comment: eGFR (Estimated GFR) Units of measure: mL/min/1.73 meters squared eGFR is derived from the reexpressed MDRD Study equation using the following parameters: serum creatinine, age, gender and race. The creatinine assay has been calibrated to be traceable to IDMS. An eGFR <60 mL/min/1.73m2 for >3 months is consistent with chronic kidney disease. Refer to KDOQI guidelines for clinical interpretation. In patients with unstable renal function, e.g. those with acute kidney injury, the eGFR may not accurately reflect actual GFR. eGFR- Date Value Ref Range Status 04/19/2021 >60 Final P.O.C.T. RESULTS: N/A May 23, [address] PERFORMED: No IV SITE: Ambulatory: NM only - direct IV injection in the Right antecubital site POST EXAM PIV STATUS: Not applicable PROCEDURE TYPE: NM INJECT: HIDA. 5.3 mCi Tc99m CHOLETEC. 8 oz Ensure Enlive. ADMINISTRATION TIME: 8:00 PATIENT DISCHARGED TO: Ambulatory patient, left NM department area. A Diagnostic radioactive procedure has taken place, with no further precautions necessary other than routine body substance precautions. More information regarding radiation safety can be found using this link: [email or web address] [email or web address] SIGNATURE: WASHINGTON Antonio PATIENT NAME: Miguel Weems DATE: May 23, 2021 TIME: 8:07 AM PAGER/CONTACT #: [facility] 07-21-2005 History of Past i llness Narrative Problem Noted Date Resolved Date Attention deficit disorder with hyperactivity(31 4.01) 07/21/2005 06/01/2006 documented as of this encounter (statuses as of 06/25/2022) [facility]09-20-2005 History of Past illness Narrative* Problem Noted Date Resolved Date Attention deficit disorder with hyperactivity(31 4.01) 07/21/2005 06/01/2006 documented as of this encounter (statuses as of 07/24/2022) [facility] History of Past illness Narrative* Problem Noted Date Resolved Date Attention deficit disorder with hyperactivity(31 4.01) 07/21/2005 06/01/2006 documented as of this encounter (statuses as of 12/03/2022) [facility] History of Past illness Narrative* Problem Noted Date Resolved Date Attention deficit disorder with hyperactivity(31 4.01) 07/21/2005 06/01/2006 documented as of this encounter (statuses as of 12/31/2022) [facility] History of Past illness Narrative* Problem Noted Date Resolved Date Attention deficit disorder with hyperactivity(31 4.01) 07/21/2005 06/01/2006 documented as of this encounter (statuses as of 01/21/2023) [facility] History of Past illness Narrative* Problem Noted Date Resolved Date Attention deficit disorder with hyperactivity(31 4.01) 07/21/2005 06/01/2006 documented as of this encounter (statuses as of 01/30/2023) [facility] History of Past illness Narrative* Problem Noted Date Resolved Date Attention deficit disorder with hyperactivity(31 4.01) 07/21/2005 06/01/2006 documented as of this encounter (statuses as of 02/01/2023) [facility] [place] [facility] Diagnosis Lower abdominal pain- Primary Abdominal pain, other specified site Colitis, nonspecific Other and unspecified noninfectious gastroenteritis and colitis Chronic upper abdominal pain Gastroesophageal reflux disease, unspecified whether esophagitis present Jittery feeling [facility] [place] [facility] Diagnosis Chest pain, unspecified type- Primary 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 Anxiety with depression Current nicotine use Gastroesophageal reflux disease, unspecified whether esophagitis present Chronic upper abdominal pain Family history of colon cancer Family history of malignant neoplasm of gastrointestinal tract documented [facility] [place] [facility] Diagnosis Bilateral lower extremity pain- Primary Pain in limb Gastroesophageal reflux disease, unspecified whether esophagitis present Anxiety with depression Current nicotine use Encounter for smoking cessation counseling Counseling on substance use and abuse documented in this encounter [facility] [place] [facility] Diagnosis Chest pain, unspecified type 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 documented [facility] [place] noteNo assessment information availableWChildren's Hospital for Rehabilitation Work Phone: Reason for referral (narrative)No reason for referral information availableWChildren's Hospital for Rehabilitation Work Phone: Summary Purpose Family History No Family History Records Found Relationship Condition Age at Onset Recorded Date/T jitendra father Alcohol abuse Unknown grandfather Malignant neoplasm of colon Unknown uncle Diabetes mellitus Unknown sister Bipolar I disorder Unknown Advance Directives No Advanced Directives Records Found Advance Directive Response Recorded Date/ Time Do you have a Healthcare Power of Logistics Solution Manager? No April 02, 2025 6:53am Reason for Referral Specialty Diagnoses / Procedures Referred By Contac t Referred To Contact Diagnoses Gastroesophageal reflux disease, unspecified whether esophagitis present Niya Good APRN.[employer] MECH[employer]IC [address] [place] [address] Referral ID Status Reason Start Date Expiration Date Visits Re quested Visits Authorized [id number] Closed 1 1 Specialty Diagnoses / Procedures Referred By Contac t Referred To Contact Diagnoses Chronic upper abdominal pain Colitis, nonspecific Procedures CONSULT TO GASTROENTEROLOGY OFFICE/OUTPATIENT [facility] 60-74 MINUTES Niya Good APRN.[employer] MECHANIC [address] [place] [address] Saul Daniels E Abigail MACY [address] [place] [phone] Referral ID Status Reason Start Date Expiration Date Visits Requested Visits Authorized [id number] Authorized PCP Requested Referral 06/23/2022 06/23/2023 1 1 Specialty Diagnoses / Procedures Referred By Contact Referred To Contact Gastroenterology / [facility] Department Diagnoses Gastroesophageal reflux disease, unspecified whether esophagitis present Chronic upper abdominal pain Family history of colon cancer Procedures CONSULT TO GASTROENTEROLOGY OFFICE/OUTPATIENT [facility] 60-74 MINUTES Niya Good APRN.[employer] MECHANIC [address] [place] [address] [facility] Dept Referral ID Status Reason Start Date Expiration Date Visits Requested Visits Authorized [id number] Authorized PCP Requested Referral 12/03/2022 12/03/2023 1 1 Chief Complaint and Reason for Visit Chief Complaint Admit Date lac April 02, 2025 6:51a m Additional Source Comments (unrecognized sect ion and content) No Status Records FoundNo Status Records FoundNo Status Records FoundNo Status Records Found INFORMATION SOURCE (unrecogn ized section and content) DATE CREATED AUTHOR 05/24/2021 [facility] DATE CREATED AUTHOR AUTHOR'S ORGANIZ ATION 05/07/2023 [facility] DATE CREATED AUTHOR AUTHOR'S ORGANIZ ATION 11/26/2023 [facility] DATE CREATED AUTHOR AUTHOR'S ORGANIZ ATION 04/06/2025 [facility] Source Comments (unrecognize d section and content) In the event this informatio n is protected by the Federal Confidentiality of Alcohol and Drug Abuse Patient Records regulations: The Federal rules restrict any use of the information to criminally investigate or prosecute any alcohol or drug abuse patient.[facility] the event this information is protected by the Federal Confidentiality of Alcohol and Drug Abuse Patient Records regulations: The Federal rules restrict any use of the information to criminally investigate or prosecute any alcohol or drug abuse patient.[facility] the event this information is protected by the Federal Confidentiality of Alcohol and Drug Abuse Patient Records regulations: The Federal rules restrict any use of the information to criminally investigate or prosecute any alcohol or drug abuse patient.[facility] the event this information is protected by the Federal Confidentiality of Alcohol and Drug Abuse Patient Records regulations: The Federal rules restrict any use of the information to criminally investigate or prosecute any alcohol or drug abuse patient.[facility] the event this information is protected by the Federal Confidentiality of Alcohol and Drug Abuse Patient Records regulations: The Federal rules restrict any use of the information to criminally investigate or prosecute any alcohol or drug abuse patient.[facility] the event this information is protected by the Federal Confidentiality of Alcohol and Drug Abuse Patient Records regulations: The Federal rules restrict any use of the information to criminally investigate or prosecute any alcohol or drug abuse patient.[facility] the event this information is protected by the Federal Confidentiality of Alcohol and Drug Abuse Patient Records regulations: The Federal rules restrict any use of the information to criminally investigate or prosecute any alcohol or drug abuse patient.[facility] Reason for Visit (unrecogniz ed section and content) Reason Comments ER F/U [facility] ER 06/07/22 abdomi nal pain, is doing better but when he does get it he gets chest pains with it Reason Comments Results Reason Comments Chest Pain Started over a month agoLeft side to middleComes and goes almost everdayNot getting much sleep Reason Comments Missed Appointment 1st no show in 365 d ays (1st letter sent) Reason Comments Leg Pain Location: both legs Pain scale: 5Duration: 5 daysDescription: Pain starts from back of heels to back of knees, feet were swollen and pain comes and goes. Pain is pressure likeTreatment: Elevated Specialty Diagnoses / Procedures Referred By Contact Referred To Contact [facility] Diagnoses Chest pain, unspecified type [R07.9]; 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 [I44.5] Procedures ECHO TTHRC R-T 2D W/WO M-MODE COMPLETE REST&ST STRESS TEST Niya Good APRN.[employer] MECHANIC [address] [place] [address] [address] Referral ID Status Reason Start Date Expiration Date Visits Re quested Visits Authorized [id number] Closed 01/29/2023 04/29/2023 1 1 Care Teams (unrecognized sec tion and content) Enrollment Nurse Relationship Specialty Start Date End Date Niya Good APRN.[employer] MECH[employer]IC [address] [place] [address] PCP - General Family Practice 05/01/21 Enrollment Nurse Relationship Specialty Start Date End Date Niya Good APRN.[employer] C[employer] MECHANIC [address] [place] [address] PCP - General Family Medicine 05/01/21 Enrollment Nurse Relationship Specialty Start Date End Date Niya Good APRN.[employer] MECHANIC [address], [place] [id number] PCP - General Family Medicine 05/01/21 Enrollment Nurse Relationship Specialty Start Date End Date Niya Good APRN.[employer] MECHANIC [address] [place], [place] [id number] PCP - General Family Medicine 05/01/21 Enrollment Nurse Relationship Specialty Start Date End Date Niya Good CERTIFIED SOLID WASTE FACILITY OPERATOR.[employer] CART MECHANIC [address] [facility] [place] [address] PCP - General Family Medicine 05/01/21 Enrollment Nurse Relationship Specialty Start Date End Date Niya Good CERTIFIED SOLID WASTE FACILITY OPERATOR.[employer] C[employer] MECHANIC [address] [place] [address] PCP - General Family Medicine 05/01/21 Enrollment Nurse Relationship Specialty Start Date End Date Niya Good, CERTIFIED SOLID WASTE FACILITY OPERATOR.[employer] MECHANIC [address] [place] [address] PCP - General Family Medicine 05/01/21 Team Status: Active Member Role Status Dates No Primary Care Physician Primary Care Provider Active Team Status: Inactive Member Role Status Dates No Primary Care Physician Primary Care Provider Active Start: April 02, 2025 End: April 02, 2025 Dr. Saqib De , DO Emergency Provider Active Start: April 02, 2025 End: April 02, 2025 Goals (unrecognized section and content) Goals may be documented in a n alternate section FOR RECORDS PERTAINING TO PATIENTS WHO ARE OR HAVE BEEN ENROLLED IN A CHEMICAL DEPENDENCY/SUBSTANCEABUSE PROGRAM, SOME INFORMATION MAY BE OMITTED. This clinical summary was aggregated from multiple sources. Caution should be exercised in using it in the provision of clinical care. This summary normalizes information from multiple sources, and as a consequence, information in this document may materially change the coding, format and clinical context of patient data. In addition, data may be omitted in some cases. CLINICAL DECISIONS SHOULD BE BASED ON THE PRIMARY CLINICAL RECORDS. [employer] provides no warranty or guarantee of the accuracy or completeness of information in this document.
--- NOTE | 2025-04-11 05:47 | EX.ED.DYSGE1 ---
HPI History of Present Illness Chief Complaint: Suture Remv Informant: patient Narrative Narrative: 34-year-old male presenting posttrauma day 9 for suture removal of his right index finger. Patient sustained a crush injury with possible tendon injury. He states that he has took his antibiotics. He has been keeping the finger in the splint and antibiotic ointment on the wound. He is not allowed a time to dry. He has not followed up. He is gone back to work. No drainage from the wound. PFSH PFS Medical History Anxiety History of wrist fracture Chronic back pain Home Medications ?Medication ?Instructions ?Recorded ?Last Taken ?Type NK 04/11/25 Unknown History Allergy/AdvReac Type Severity Reaction Status Date / Time venom-honey bee (bee venom Allergy Anaphylaxis Verified 04/02/25 06:54 (honey bee)) Family History Father Alcohol abuse Grandfather Colon cancer Uncle Diabetes Sister Bipolar 1 disorder Social History Smoking Status: Current every day smoker tobacco type: cigarettes Tobacco: How many years used: 15 Smokeless tobacco user: chewing tobacco alcohol intake: current alcohol intake frequency: a few times a month substance use type: does not use what type of physical activity do you participate in: weight training and other details: active job ROS ROS ED Constitutional Constitutional ED: Denies chills or weight loss Eyes Eyes: Denies change in vision or diplopia ENT ENT ED: Denies ear pain, rhinorrhea or sore throat Cardiovascular Cardiovascular: Denies chest pain, orthopnea, palpitations or racing heartbeat Respiratory/Chest Respiratory/Chest: Denies cough, dyspnea or orthopnea Gastrointestinal Gastrointestinal: Denies abdominal pain, diarrhea, nausea or vomiting Genitourinary Genitourinary ED: Denies dysuria, hematuria or urinary frequency Musculoskeletal Musculoskeletal: Denies arthralgias or myalgias Integumentary Reports other Details: Finger laceration ; Denies abscess or rash Neurologic Neurologic: Denies headache(s) or weakness Psychiatric Psychiatric: Denies anxiety, depression, suicidal ideation or suicidal thoughts Endocrine Endocrinology: Denies polydipsia, polyphagia or polyuria Allergic/Immunologic Allergic/Immunologic ED: Denies mouth swelling, tongue swelling or urticaria EXAM Physical Exam Const Vital Signs: 04/11/25 05:27 Temperature 97.5 F L Temperature Source Oral Pulse Rate 59 L Respiratory Rate 16 Blood Pressure 116/75 Blood Pressure Mean 88 Pulse Ox 99 Positive well nourished and well developed General Appearance ED: well developed HEENT Reports normocephalic, head/scalp atraumatic and moist mucous membranes Eyes PERRL and EOMs intact bilaterally Neck no lymphadenopathy, supple and no JVD Resp normal respiratory effort and clear to auscultation bilaterally Cardio regular rate, regular rhythm and no murmurs GI normal to inspection, nondistended, normoactive bowel sounds and non-tender Palpation: soft Back/Spine no CVA tenderness and normal ROM Extremity Extremity Narrative: Patient is unable to flex the distal phalanx of the right index finger. There is a healing laceration. The ecchymosis is resolving. There is no evidence of infection. No evidence of flexor tenosynovitis. The wound itself appears wet. General Extremety ED: Negative for edema General Extremity: Negative for edema Neuro oriented x3 and CN's II-XII intact bilaterally Sensorium / Orientation: alert Motor Exam: strength 5/5 throughout Psych mental status grossly normal Mood & Affect: Negative for depressed or tearful Skin no rashes or lesions noted and no wounds MDM MDM MDM Narrative Medical decision making narrative: Differential diagnosis includes but not limited to flexor tendon injury healing laceration cellulitis wound infection I removed 3 sutures but began to notice that the wound had not yet fully healed and did not remove any further stitches. The tissue was extremely friable most likely due to being in a constant state of wetness from the antibiotic ointment he has been applying. We have Steri-Stripped the area that I remove the stitches from but leave the rest of the stitches in at this time. He should have a repeat examination in 4 days. I did highly recommend that he follow-up with hand surgery as there appears to be a tendon injury. Patient was encouraged to keep using the splint until he is seen. History & Record Review Discussion w/independent historian: Patient Additional record(s) reviewed:: Prior ED visit and Prior labs Discharge Plan Triage Chief Complaint: Suture Remv ED Provider: Saqib De Dx/Rx/DC Orders Prescriptions: No Action NK Primary Care Provider: Care Physician,No Primary Referrals: Care Physician,No Primary [Primary Care Provider] - Print Language: Georgian
[2025-04-11 06:04] VITALS: BP 107/74; PULSE 62; RESP 16; TEMP 36.4; O2SAT 99
== END 2025-04-11 06:04 | disposition home or self-care (01) ==
PROVIDERS: Emergency Provider Emergency Medicine; Visit Provider Emergency Medicine
DX: Z48.02 Encounter for removal of sutures (principal); S61.210A Laceration without foreign body of right index finger without damage to nail, initial encounter; X58.XXXA Exposure to other specified factors, initial encounter; F17.210 Nicotine dependence, cigarettes, uncomplicated; F17.220 Nicotine dependence, chewing tobacco, uncomplicated
CPT/HCPCS: 99282

== ENCOUNTER 2025-04-16 05:37 | Emergency (ER) | payer OTHER, SELFPAY ==
[2025-04-16 05:38] VITALS: BP 122/73; PULSE 50; RESP 16; TEMP 36.4; O2SAT 96; BMI 22.5
--- OUTSIDE RECORDS SUMMARY | 2025-04-16 05:45 | XMS RPT_ITS | CCD ---
Author Organization [facility] Care Team Providers Care Relay Repairer Name Role Phone Queden STEEL TESTER.MAGNETIC TAPE WINDER, Niya A Primary Care Provider QUEDEN, NIYA [...] Unavailable Dr. Saqib De DO Emergency Provider Dr. Saqib De DO Attending Provider [phone] Eulalio Kent Attending Unavailable Care Physician, No Primary Primary Care Unava ilable Saqib De Attending Unavailable Care Physician, No Primary Primary Care Unava ilable Saqib De Attending Unavailable Care Physician, No Primary Primary Care Unava ilable Allergies Allergy Classification Reported Allergen(s) Allergy Type Date of Onset Reaction(s) Facility (8 sources) Bees; Translations: [BEES] Allergy to substance 07-29-2005 Swelling [facility] Work Phone: (2 sources) venom-honey bee Allergy to substance 04-02-2025 Anaphylaxis [facility] (1 source) venom-honey bee Drug allergy (disorder) 04-02-2025 [facility] Repository Medications Current Medications Medication Drug Class(es) Dates Sig (Normalized) Sig (Original) Ballinger (Nk) (1 source) Start: 04-11-2025 Ballinger (Nk) Active April 11, 2025 12:00am pantoprazole 40 mg delayed release oral tablet [...] 1 tablet by tin th once daily. Take 1/2-hour before same meal daily Completed/Discontinued Medications Medication Drug Class(es) Dates Sig (Normalized) Sig (Original) acetaminophen 325 mg / HYDROcodone bitartrate 5 mg oral tablet (2 sources) Opioid Agonist Start: 09-05-2017 End: 05-10-2019 Hydrocodone-Acetam inophen 1 TABLET tablet Discontinued 1 - 2 {tbl} PO EVERY 4 HOURS NEEDED as needed for Pain September 05, 2017 12:00am May 10, 2019 3:58pm acetaminophen 325 mg / oxyCODONE hydrochloride 5 mg oral tablet (2 sources) Opioid Agonist Start: 04-04-2020 End: 04-07-2020 Oxycodone-Acetamin ophen 1 TABLET tablet Discontinued 1 {tbl} PO EVERY 6 HOURS NEEDED as needed for Pain 10 03April 04, 2020 April 06, 2020 12:00am April [...] Active Comment on above: Take by mouth. cephalexin 500 mg oral capsule (4 sources) Cephalosporin Antibacterial Start: 04-02-2025 End: 04-11-2025 take 1 capsule by mouth every six hours Cephalexin 500 mg capsule Discontinued 500 mg PO EVERY 6 HOURS April 02, 2025 12:00am April 11, 2025 5:45am Start: 04-04-2020 End: 11-12-2024 take 1 capsule by mouth every six hours Cephalexin 500 MG capsule Discontinued 500 mg PO EVERY 6 HOURS April 04, 2020 12:00am November 12, 2024 11:45am cyclobenzaprine hydrochloride 10 mg oral tablet (2 sources) Muscle Relaxant Start: 09-05-2017 End: 05-10-2019 take [...] 1 tablet by tin th once daily. Take 1/2 tablet daily for 10 days and then increase to 1 tablet. Take 1 tablet by tin th once daily. famotidine 20 mg oral tablet (3 sources) Histamine-2 Receptor Antagonist Start: 05-23-2021 End: [...] above: Take 1 tablet by tin th twice daily. naproxen 500 mg oral tablet (4 sources) Nonsteroidal Anti-inflammatory Drug Start: End: take 1 tablet by mouth twice [...] Comment on above: Take 1 capsule by [facility] once daily. Take 1/2-hour before same meal daily penicillin v potassium 500 mg oral tablet (2 sources) Start: 11-12-2024 End: 04-02-2025 take 1 tablet by mouth four times daily Penicillin V Potassium 500 mg tablet Discontinued 500 mg PO 4 TIMES DAILY November 12, 2024 1:00am April 02, 2025 6:54am traMADol hydrochloride 50 mg oral tablet (2 sources) Opioid Agonist Start: 04-05-2020 End: 11-12-2024 take [...] 12-03-2022 Chronic Crushing injury or internal injury (2 sources) Crushing injury of finger; Translations: [Crushing injury of unspecified finger(s), initial encounter] 04-02-2025 Episodic Disorders usually diagnosed in infancy, childhood, or adolescence (7 sources) Attention deficit hyperactivity disorder, predominantly inattentive type; Translations: [Other specified behavioral and emotional disorders with onset usually occurring in childhood and adolescence] Onset: 08-12-2005 08-12-2005 Chronic E Codes: Machinery (2 sources) Injury due to machinery; Translations: [Contact with powered woodworking and forming machines, initial encounter] 04-04-2020 Episodic Esophageal disorders (11 sources) Gastroesophageal reflux disease; Translations: [Gastro-esophageal reflux disease without esophagitis] Onset: 06-23-2022 Chronic Fracture of lower limb (4 sources) Open fracture of great toe; Translations: [Displaced unspecified fracture of left great toe, initial encounter for open fracture] 04-04-2020 Episodic Open wounds of extremities (3 sources) Laceration of finger; Translations: [Laceration without foreign body of unspecified finger without damage to nail, initial encounter] Onset: 04-05-2025 04-02-2025 Episodic Other aftercare (3 sources) Wound finding; Translations: [Encounter for other specified aftercare] 04-07-2020 Episodic Other connective tissue disease (1 source) Pain in bilateral legs; Translations: [Pain in right leg] Episodic Other nervous system disorders (1 source) Other chronic pain; Translations: [Chronic upper abdominal pain] Onset: 06-23-2022 Chronic Otitis media and related conditions (2 sources) Acute non-suppurative otitis media - serous; Translations: [Acute serous otitis media, right ear] 09-13-2019 Episodic Residual codes; unclassified (2 sources) Nicotine user; Translations: [Tobacco use] Episodic Residual codes; unclassified (6 sources) Family history of cancer of colon; Translations: [Family history of malignant neoplasm of digestive organs] Onset: 12-03-2022 Episodic Unclassified (1 source) Dental Problem Onset: 05-03-2023 Unclassified (2 sources) No history of clinical finding in subject 09-12-2019 Past or Other Problems Problem Classification Problem Date Documented Date Episodic/Chronic Abdominal pain (19 sources) Lower abdominal pain; Translations: [Lower abdominal pain, unspecified] Onset: 07-20-2021 Episodic Administrative/social admission (2 sources) Patient encounter status; Translations: [Tobacco abuse counseling] Onset: 01-18-2023 Episodic Disorders of teeth and jaw (5 sources) Dental caries; Translations: [Dental caries, unspecified] [...] Reference Range Facility Emergency Department Summary on 04-11-2025 Emergency Department Summary [facility] Medical Records Department [address] [place] [address] Emergency Department Summary 04/11/25 MR#: [id number] Acct: [id number] Name: MIGUEL WEEMS Rep #: [id number] : 1990 34 From: Saqib De DO PCP: Care Physician,No Primary Status:DEP ER Location: ED HPI History of Present Illness Chief Complaint: Suture Remv Informant: patient Narrative Narrative: 34-year-old male presenting posttrauma day 9 for suture removal of his right index finger. Patient sustained a crush injury with possible tendon injury. He states that he has took his antibiotics. He has been keeping the finger in the splint and antibiotic ointment on the wound. He is not allowed a time to dry. He has not followed up. He is gone back to work. No drainage from the wound. [facility] Medical History Anxiety History of wrist fracture Chronic back pain Home Medications ???Medication ???Instructions ???Recorded ???Last Taken ???Type NK 04/11/25 Unknown History Allergy/AdvReac Type Severity Reaction Status Date / [...] dysuria, hematuria or urinary frequency Musculoskeletal Musculoskeletal: Denies arthralgias or myalgias Integumentary Reports other Details: Finger laceration ; Denies abscess or rash Neurologic Neurologic: Denies headache(s) or weakness Psychiatric Psychiatric: Denies anxiety, depression, suicidal ideation or suicidal thoughts Endocrine Endocrinology: Denies polydipsia, polyphagia or polyuria Allergic/Immunologic Allergic/Immunologic ED: Denies mouth swelling, tongue swelling or urticaria EXAM Physical Exam Const Vital Signs: 04/11/25 05:27 Temperature 97.5 F L Temperature Source Oral Pulse Rate 59 L Respiratory Rate 16 Blood Pressure 116/75 Blood Pressure Mean 88 Pulse Ox 99 Positive well nourished and well developed General [...] tenderness and normal ROM Extremity Extremity Narrative: Patient is unable to flex the distal phalanx of the right index finger. There is a healing laceration. The ecchymosis is resolving. There is no evidence of infection. No evidence of flexor tenosynovitis. The wound itself appears wet. General Extremety ED: Negative for edema General [...] Differential diagnosis includes but not limited to flexor tendon injury healing laceration cellulitis wound infection I removed 3 sutures but began to notice that the wound had not yet fully healed and did not remove any further stitches. The tissue was extremely friable most likely due to being in a constant state of wetness from the antibiotic ointment he has been applying. We have Steri-Stripped the area that I remove the stitches from but leave the rest of the stitches in at this time. He should have a repeat examination in 4 days. I did highly recommend that h (more content not included)... Normal [facility] Emergency Department Summary on 04-02-2025 Emergency Department Summary [facility] Medical Records Department [address] [place] [address] Emergency Department Summary 04/02/25 MR#: [id number] Acct: [id number] Name: MIGUEL WEEMS Rep #: [id number] : 1990 34 From: Saqib De DO [...] tetanus is up-to-date. Tetanus Immunization: <5 years [facility] Medical History Anxiety History of wrist fracture [...] plain film (more content not included)... Normal [facility] Finger(s) Min 2 Viewson 06-0 Finger(s) Min 2 Views [facility] Imaging Services [address] [place] [address] Finger(s) Min 2 Views MR#: [id number] Acct: [id number] Name: MIGUEL WEEMS Rep #: [id number] : 1990 M 34 From: [place] oneal MD PCP: Care Physician,No Primary Status: [facility] ER Study: Finger(s) Min 2 Views Date of Exam: 04/02/25 Exam# [id number] Ordering Dr: Saqib De DO PROCEDURE: FINGER(S) [...] exclude an acute traumatic etiology. Reading Location: [place] [address] CC: Dr. Saqib De DO; No Primary Care Physician Package Sealer: Signed Normal [facility] Emergency Department Summary on 11-12-2024 Emergency Department Summary [facility] Medical Records Department [address] [place] [address] Emergency Department Summary 11/12/24 MR#: [id number] Acct: [id number] Name: MIGUEL WEEMS Rep #: [id number] : 1990 34 From: Eulalio Kent MD PCP: Care Physician,No Primary Status:[facility] ER Location: ED HPI History of Present [...] swallowing or breathing. He has appointment with [facility] in a few days. [facility] Medical History (Updated 11/12/24 @ 11:25 by [...] (Updated 07/20/19 @ 11:38 by Olman Duarte NP, JOINER APPRENTICE-C) Smoking Status: Current every day smoker tobacco [...] Oxygen Delivery Method Room Air Room Air MDM MDM MDM Narrative Medical decision making narrative: 34-year-old male [...] scheduled and was discharged in stable condition. [facility] History Record Review Discussion w/independent historian: Patient [...] appointment with (more content not included)... Normal [facility] CBC panel Auto (Bld)on 11-24 Erythrocyte distribution width (RBC) [Ratio] 13.2 % Normal 11.5-15.0 [facility] Comment on above: Order Comment: Speci men Type: BLOOD SPECIMEN Ordering Facility: [facility] Address: [address] [place] [address] Performed By: #### 5 8410-2 #### [facility] CLIA [id number] [address] [place] [address] [place] Hematocrit (Bld) [Volume fraction] 47.7 % Normal 39.0-51.0 [facility] Comment on above: Order Comment: Speci men Type: BLOOD SPECIMEN Ordering Facility: [facility] Address: [address] [place] [address] Performed By: #### 5 8410-2 #### [facility] CLIA [id number] [address] [place] [address] [place] Hemoglobin (Bld) [Mass/Vol] 15.6 g/dL Normal 13.0-17.0 [facility] Comment on above: Order Comment: Speci men Type: BLOOD SPECIMEN Ordering Facility: [facility] Address: [address] [place] [address] Performed By: #### 5 8410-2 #### [facility] CLIA [id number] [address] [place] [address] [place] MCH (RBC) [Entitic mass] 29.2 pg Normal 26.0-34.0 [facility] Comment on above: Order Comment: Speci men Type: BLOOD SPECIMEN Ordering Facility: [facility] Address: [address] [place] [address] Performed By: #### 5 8410-2 #### [facility] CLIA [id number] [address] [place] [address] [place] MCHC (RBC) [Mass/Vol] 32.7 g/dL Normal 30.5-36.0 [facility] Comment on above: Order Comment: Speci men Type: BLOOD SPECIMEN Ordering Facility: [facility] Address: [address] [place] [address] Performed By: #### 5 8410-2 #### [facility] CLIA [id number] [address] [place] [address] [place] MCV (RBC) [Entitic vol] 89.2 fL Normal 80.0-100.0 [facility] Comment on above: Order Comment: Speci men Type: BLOOD SPECIMEN Ordering Facility: [facility] Address: [address] [place] [address] Performed By: #### 5 8410-2 #### [facility] CLIA [id number] [address] [place] [address] [place] Nucleated RBC (Bld) [#/Vol] 10*3/uL Normal <0.01 [facility] Comment on above: Order Comment: Speci men Type: BLOOD SPECIMEN Ordering Facility: [facility] Address: [address] [place] [address] Performed By: #### 5 8410-2 #### [facility] CLIA [id number] [address] [place] [address] [place] Platelet mean volume (Bld) [Entitic vol] 10.2 fL Normal 9.0-12.7 [facility] Comment on above: Order Comment: Speci men Type: BLOOD SPECIMEN Ordering Facility: [facility] Address: [address] [place] [address] Performed By: #### 5 8410-2 #### [facility] CLIA [id number] [address] [place] [address] [place] Platelets (Bld) [#/Vol] 206 10*3/uL Normal 150-400 [facility] Comment on above: Order Comment: Speci men Type: BLOOD SPECIMEN Ordering Facility: [facility] Address: [address] [place] [address] Performed By: #### 5 8410-2 #### [facility] CLIA [id number] [address] [place] [address] [place] RBC (Bld) [#/Vol] 5.35 10*6/uL Normal 4.20-6.00 [facility] Comment on above: Order Comment: Speci men Type: BLOOD SPECIMEN Ordering Facility: [facility] Address: [address] [place] [address], [place] [address] Performed By: #### 5 8410-2 #### [facility] CLIA [id number] [address] [place] [address] [place] WBC (Bld) [#/Vol] 7.27 10*3/uL Normal 3.70-11.00 [facility] Comment on above: Order Comment: Speci men Type: BLOOD SPECIMEN Ordering Facility: [facility] Address: [address] [place] [address], [place] [address] Performed By: #### 5 8410-2 #### [facility] CLIA [id number] [address] [place] [address] [place] Comprehensive metabolic 2000 panelon 11-24-2023 Albumin [Mass/Vol] 4.5 g/dL Normal 3.9-4.9 [facility] Comment on above: Order Comment: Speci men Type: BLOOD SPECIMEN Ordering Facility: [facility] Address: [address] [place] [address], [place] [address] Performed By: #### 2 4323-8, 3016-3 #### [facility] CLIA [id number] [address] [place] [address] [place] ALP [Catalytic activity/Vol] 58 U/L Normal 38-113 [facility] Comment on above: Order Comment: Speci men Type: BLOOD SPECIMEN Ordering Facility: [facility] Address: [address] [place] [address], [place] [address] Performed By: #### 2 4323-8, 3016-3 #### [facility] CLIA [id number] [address] [place] [id number] [place] ALT [Catalytic activity/Vol] 14 U/L Normal 10-54 [facility] Comment on above: Order Comment: Speci men Type: BLOOD SPECIMEN Ordering Facility: [facility] Address: [address] [place] [address], [place] [address] Performed By: #### 2 4323-8, 6-3 #### [facility] CLIA [id number] [address] [place] [address] [place] Anion gap [Moles/Vol] 12 mmol/L Normal 9-18 [facility] Comment on above: Order Comment: Speci men Type: BLOOD SPECIMEN Ordering Facility: [facility] Address: [address] [place] [address], [place] [address] Performed By: #### 2 4323-8, 3015-3 #### [facility] CLIA [id number] [address] [place] [address] [place] AST [Catalytic activity/Vol] 24 U/L Normal 14-40 [facility] Comment on above: Order Comment: Speci men Type: BLOOD SPECIMEN Ordering Facility: [facility] Address: [address] [place] [address], [place] [address] Performed By: #### 2 4323-8, 3015-3 #### [facility] CLIA [id number] [address] [place] [address] [place] Bilirubin [Mass/Vol] 0.4 mg/dL Normal 0.2-1.3 [facility] Comment on above: Order Comment: Speci men Type: BLOOD SPECIMEN Ordering Facility: [facility] Address: [address] [place] [address], [place] [address] Performed By: #### 2 4323-8, 6-3 #### [facility] CLIA [id number] [address] [place] [address] [place] Calcium [Mass/Vol] 9.6 mg/dL Normal 8.5-10.2 [facility] Comment on above: Order Comment: Speci men Type: BLOOD SPECIMEN Ordering Facility: [facility] Address: [address] [place] [address], [place] [address] Performed By: #### 2 4323-8, 3016-3 #### [facility] CLIA [id number] [address] [place] [address] [place] Chloride [Moles/Vol] 103 mmol/L Normal 97-105 [facility] Comment on above: Order Comment: Speci men Type: BLOOD SPECIMEN Ordering Facility: [facility] Address: [address] [place] [address], [place] [address] Performed By: #### 2 4323-8, 3016-3 #### [facility] CLIA [id number] [address] [place] [address] [place] CO2 [Moles/Vol] 26 mmol/L Normal 22-30 [facility] Comment on above: Order Comment: Speci men Type: BLOOD SPECIMEN Ordering Facility: [facility] Address: [address] [place] [address], [place] [address] Performed By: #### 2 4323-8, 3016-3 #### [facility] CLIA [id number] [address] [place] [address] [place] Creatinine [Mass/Vol] 1.00 mg/dL Normal 0.73-1.22 [facility] Comment on above: Order Comment: Speci men Type: BLOOD SPECIMEN Ordering Facility: [facility] Address: [address] [place] [address], [place] [address] Performed By: #### 2 4323-8, 3016-3 #### [facility] CLIA [id number] [address] [place] [address] [place] Creatinine and Glomerular filtration rate.predicted panel (S/P/Bld) 101 mL/min/1.73m??? Normal >=60 [facility] Comment on above: Order Comment: Speci men Type: BLOOD SPECIMEN Ordering Facility: [facility] Address: [address] [place] [address], [place] [address] Result Comment: Cydney mated Glomerular Filtration Rate [...] actual GFR. Performed By: #### 2 4323-8, 6-3 #### [facility] CLIA [id number] [address] [place] [address] [place] Glucose [Mass/Vol] 92 mg/dL Normal 74-99 [facility] Comment on above: Order Comment: Grover galdamez Type: BLOOD SPECIMEN Ordering Facility: [facility] Address: [address] [place] [address], [place] [address] Result Comment: The [place] [employer] (ADA) provides guidance for cutoff [...] Standards of Medical Care in Diabetes 2016, [place] [employer]. Diabetes Care. 2016.39(Suppl 1). Performed By: #### 2 4323-8, 3015-3 #### [facility] CLIA [id number] [address] [place], [place] [address] [place] Potassium [Moles/Vol] 4.4 mmol/L Normal 3.7-5.1 [facility] Comment on above: Order Comment: Grover galdamez Type: BLOOD SPECIMEN Ordering Facility: [facility] Address: [address] [place] [address], [place] [id number] Performed By: #### 2 4323-8, 3015-3 #### [facility] CLIA [id number] [address] [place] [address] [place] Protein [Mass/Vol] 7.0 g/dL Normal 6.3-8.0 [facility] Comment on above: Order Comment: Speci men Type: BLOOD SPECIMEN Ordering Facility: [facility] Address: [address] [place] [address], [place] [address] Performed By: #### 2 4323-8, 3016-3 #### [facility] CLIA [id number] [address] [place] [address] [place] Sodium [Moles/Vol] 141 mmol/L Normal 136-144 [facility] Comment on above: Order Comment: Speci men Type: BLOOD SPECIMEN Ordering Facility: [facility] Address: [address] [place] [address] Performed By: #### 2 4323-8, 3016-3 #### [facility] CLIA [id number] [address] [place] [address] [place] Urea nitrogen [Mass/Vol] 13 mg/dL Normal 9-24 [facility] Comment on above: Order Comment: Speci men Type: BLOOD SPECIMEN Ordering Facility: [facility] Address: [address] [place] [address], [place] [address] Performed By: #### 2 4323-8, 3016-3 #### [facility] CLIA [id number] [address] [place] [address] [place] TSH SerPl-aCncon 11-24-2023 TSH Qn 0.429 m[IU]/L Normal 0.270-4.200 [facility] Comment on above: Order Comment: Speci men Type: BLOOD SPECIMEN Ordering Facility: [facility] Address: [address] [place] [address] Performed By: #### 2 4323-8, 3016-3 #### [facility] CLIA [id number] [address] [facility] ED NOTEon 2023 ED NOTE HNO ID: [id number] Author: Isabel Muaricio RN Service: Emergency Medicine Author Type: Registered Nurse Type: ED Notes Filed: 05/03/2023 11:26 PM Note Text: Patient is alert, talkative, no distress noted. Instructed to use Tylenol/Motrin for pain control. Scrip for Amoxicillin to be picker box operator. Patient instructed to follow up with PCP, return with any new, worsening, or recurrent symptoms. Verbalizes understanding of all instructions. Ambulates with ease to lobby, no distress. Normal [facility] ED NOTE HNO ID: [id number] Author: Isabel Mauricio RN Service: Emergency Medicine Author Type: Registered Nurse Type: ED Notes Filed: 05/03/2023 11:08 PM Note Text: Patient informed: the name of medication, why we are giving it, possible side effects, what they may expect to feel, and was offered a chance to ask questions, prior to the administration of Lidocaine, Amoxil, Ibuprofen. Normal [facility] ED NOTE HNO ID: [id number] Author: Isabel Mauricio RN Service: Emergency Medicine Author Type: Registered Nurse Type: ED Notes Filed: 05/03/2023 11:00 PM Note Text: Patient informed: the name of medication, why we are giving it, possible side effects, what they may expect to feel, and was offered a chance to ask questions, prior to the administration of Motrin, Lidocaine, Amoxil. Normal [facility] ED PROV NOTEon 2023 ED PROV NOTE HNO ID: [id number] Author: Rufina Olmstead DO Service: Emergency Medicine [...] as o (more content not included)... Normal [facility] ED NOTEon 05-03-2023 ED NOTE HNO ID: [id number] Author: Isabel Mauricio RN Service: Emergency Medicine Author Type: Registered Nurse Type: ED Notes Filed: 05/03/2023 9:52 PM Note Text: Patient states he has had right side lower dental pain that radiates to his ear for one week. Dentist appointment on Wednesday. Normal [facility] CNPKaye 02-01-2023 ADOLFO Telephone (AGFAMPLE) -------- MIGUEL WEEMS ([id number]) 1990 M Date Time Provider Department 02/01/23 NIYA OWEN During your visit today, we recorded the following information about you: Roseanna Kruse MA 02/01/2023 2:33 PM Signed ----- Message from Tayla Smyth APRN.MAGNETIC TAPE WINDER sent at 02/01/2023 2:16 PM EDT ----- Please notify patient results are normal. Thank you. Tayla Smyth APRN.MAGNETIC TAPE WINDER Roseanna Kruse MA 02/01/2023 2:34 PM Signed Left message informing patient, phone number to reach the office was left for any questions or concerns. Roseanna Kruse MA Allergies As of Date: 02/01/2023 Noted Allergy Reaction BEES 07/29/2005 7 - Swelling Date Reviewed: 01/18/2023 Reviewed by: Niya Owen APRN.MAGNETIC TAPE WINDER - Fully Assessed Reason for Visit: Results [...] Status:Closed by ROSEANNA KRUSE on 02/01/23 Normal [facility] EXERCISE STRESS ECG (WITHOUT IMAGING)on 01-29-2023 EXERCISE STRESS ECG (WITHOUT IMAGING) Stress Washroom Operator Report: Exercise Stress ECG (without Imaging) [facility] Date of service: 01/29/2023 9:41:37 AM HOSPITAL Supervising physician: Domingo Jain MD PATIENT: Name: MR. MIGUEL WEEMS Age: 32 years Gender: M The supervising physician was in the department and immediately available. Final -- Stress ECG Report: Exercise Stress ECG (without Imaging) [facility] Date of service: 01/29/2023 9:41:37 AM HOSPITAL Ordering physician: NIYA OWEN airways control specialist: Billie Winkler Motorcycle Subassembler: Maria Dolores Crocker RN Interpreting physician: Domingo [...] 148/60 mmHg. The double product achieved was [address]. Medications: Last Used LEXAPRO WELLBUTRIN PROTONIX Resting ECG: Sinus Bradycardia, Right [place]on Deviation, Incomplete RBBB and Nonspecific St-T Wave Changes Symptoms at rest: No symptoms Exercise Protocol: Vernon Stress Exercise Table: +-----+ +----- ---+ +---+---+- --+----+ Stage Speed (MPH) Grade(%) Time (min) HR SYS JOELLNE METS +-----+ +----- ---+ +---+---+- --+----+ 1 [...] (HRR): 40 bpm Rate Pressure Product (RPP): 19799 Hall Treadmill Score: 12.0 Stress Exercise Observations: Reason for test termination: leg fatigue, Symptoms during test: Other symptoms during the test included leg fatigue and SOB, Heart rate response: Adequate heart rate response, Blood pressure (more content not included)... Normal [facility] CNOVon 01-18-2023 CNOV Office Visit (AGFRANSICOMP ORALIA) -------- MIGUEL WEEMS ([id number]) 1990 M Date Time Provider Department 01/18/23 4:40 PM NIYA OWEN During your visit today, we recorded the following information about you: Temperature Pulse Respiration Blood pressure 97.8 degrees 68/minute 18/minute 108/58 Weight Height 85.7 kg 1.854 m Niya Owen APRN.MAGNETIC TAPE WINDER 01/21/2023 5:39 AM Signed CHIEF COMPLAINT: Miguel [...] history is provided by the patient. No spanish language lecturer was used. Leg Pain The pain is [...] 1 Da (more content not included)... Normal [facility]AG[facility]andalia ResearchLE[facility] -------- MIGUEL WEEMS ([id number]) 1990 Date Time Provider Department 01/13/23 NIYA WOEN During your visit today, we recorded the following information about you: Renu CHAO Galloway 01/13/2023 4:32 PM Signed ----- Message from Ani Duran sent at 01/13/2023 4:24 PM EDT ----- Regarding: FW: Medicine / Niya Owen /calf swelling both legs ----- Message ----- From: Olamide Alvarez Sent: 01/13/2023 4:13 PM EDT To: Mukesh Sommersp/[facility] Triage Pool Subject: Medicine / Florentino,Niya /calf swelling bot# Patient has been identified by name and Date of (Y/N): y Patient: Miguel Weems Date of : 1990 Provider for this encounter: Niya Owen APRN.CNP Reason for the call/escalation: calf swelling both legs Was Patient Referred to [facility]/Seek Emergency Treatment (Y/N): no Did Patient Agree (Y/N): n/a Was An Attempt Made To Transfer The Patient To The Office (Y/N): no Were You Able To Reach Someone At The Office (Y/N): n/a If Yes - Patient Was Transferred To (Caregivers Name): n/a If No - Which [facility] Leadership Relay Repairer Did You Speak With Regarding This Patient: n/a Was an appointment scheduled (Y/N): y 01/15 Reason patient was requesting visit (RFV/signs and symptoms/diagnosis) : calf swelling both legs Person calling if other than patient: n/a Return call to if other than patient: n/a Best contact number: [phone] Thank you, Olamide Alvarez January 13, 2023 4:13 PM Renu Galloway MA 01/13/2023 4:32 PM Signed FYI pt. Had apt. With [facility] today and canceled it he rescheduled it for 01/15/2023. Allergies As of Date: 01/13/2023 Noted Allergy Reaction BEES 07/29/2005 7 - Swelling Date Reviewed: 12/03/2022 Reviewed by: Niya Owen APRN.MAGNETIC TAPE WINDER - Fully Assessed Reason for Visit: Appointment [...] Encounter Status:Closed by RENU GALLOWAY on 01/13/23 [facility] CNCOon 12-31-2022 CNCO Letter Text [facility] CNPNon 12-31-2022 ADOLFO Telephone (AGFAMPLE) -------- MIGUEL WEEMS ([id number]) 1990 Date Time Provider Department 12/31/22 NIYA OWEN During your visit today, we recorded the following information about you: Ani Duran 12/31/2022 10:52 AM Signed No Show Documentation Miguel Weems no showed for an appointment on 12/31/2022 with Niya Owen APRN.CNP at 10:20 am. He was scheduled [...] Swelling Date Reviewed: 12/03/2022 Reviewed by: Niya A Queden, STEEL TESTER.MAGNETIC TAPE WINDER - Fully Assessed Reason for Visit: Missed [...] colon cancer [Z80.0] 12/03/2022 Encounter Status:Closed by AIN DURAN on 12/31/22 [facility] CNOVon 12-03-2022 CNZEE Office Visit (JEAN BARTON) -------- MIGUEL [id number]) 1990 M Date Time Provider Department 12/03/22 9:20 AM NIYA OWEN During your visit today, we recorded the following information about you: Temperature Pulse Respiration Blood pressure 98.2 degrees 77/minute 18/minute 122/62 Weight Height 83.5 kg 1.854 m Niya Owen APRN.MAGNETIC TAPE WINDER 12/03/2022 10:10 AM Signed CHIEF COMPLAINT: Miguel [...] history is provided by the patient. No spanish language lecturer was used. Chest Pain This is a [...] no diabetes, no hyperlipidemia, no hypertension, no CT and no thyroid problem. Pertinent negatives for [...] MEDICAL HIS (more content not included)... Normal [facility] CNPNon 07-24-2022 BILLYN Telephone (AGFAMPLE) -------- MIGUEL WEEMS ([id number]) 1990 M Date Time Provider Department 07/24/22 NIYA OWEN During your visit today, we recorded the following information about you: Renu Galloway MA 07/24/2022 5:14 PM Signed ----- Message from Niya Owen APRN.MAGNETIC TAPE WINDER sent at 07/24/2022 5:11 PM EDT ----- TSH and B12 levels were normal. Renu Galloway MA 07/24/2022 5:14 PM Signed Patient notified. 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] 08/12/2005 COLLES' FRACTURE-CLOSED [S57.023R] 10/22/2005 Nicotine vapor product user [Z72.0] 07/20/2021 Right upper quadrant pain [R10.11] 07/20/2021 Gastroesophageal reflux disease [K21.9] 06/23/2022 Chronic upper abdominal pain [R10.10, G89.29] 06/23/2022 Colitis, nonspecific [K52.9] 06/23/2022 Jittery feeling [R45.0] 06/23/2022 Encounter Status:Closed by RENU GALLOWAY on 07/24/22 Normal [facility] TSH SerPl-aCncon 07-23-2022 TSH Qn 1.680 m[IU]/L Normal 0.270-4.200 [facility] Comment on above: Order Comment: Grover galdamez Type: BLOOD SPECIMENOrdering Facility: [facility] Address: [address] [place] [address] Performed By: #### 3 016-3 ####[facility] LABCLIA [id number] [address] STATES OF [facility] Vit B12 SerPl-mCncon 022 Cobalamin (Vitamin B12) [Mass/Vol] 560 pg/mL Normal 232-1245 [facility] Comment on above: Order Comment: Grover galdamez Type: BLOOD SPECIMENOrdering Facility: [facility] Address: [address] [place] [address] Performed By: #### 2 132-9 ####[facility] LABORATORYCLIA [id number] [address] STATES OF [facility] CNOVon 06-23-2022 CNOV Office Visit (JEAN BARTON) -------- MIGUEL WEEMS ([id number]) 1990 M Date Time Provider Department 06/23/22 3:20 PM NIYA OWEN During your visit today, we recorded the following information about you: Temperature Pulse Respiration Blood pressure 98.1 degrees 62/minute 16/minute 120/68 Weight Height 80.5 kg 1.854 m Niya Owen APRN.CNP 06/25/2022 12:42 [place] [address] Visit Date: 06/23/2022 Patient Name: Miguel Weems Date of : 1990 Chief Complaint: ER Follow Up Miguel Weems is a 32 year old male here today for a follow up to a recent emergency room (ER) visit. Emergency Room Location: [facility] Date of Emergency Room Visit: 06/07/22 Reason [...] Abs Lymph 1.00 - 4.00 k/uL 1.41 Steuben% % 9.1 Abs [place] <0.87 k/uL 0.47 Eosin% % 4.8 Abs [...] Negative Negative Ketones, Urine Negative Negative Specific [place], Ur 1.005 - 1.030 1.015 Hemoglobin/Blood,Ur Negative [...] condition. Similar prominence of the seminal vesicles. Package Sealer: NORMAN Transcribe Date/Time: Jun 07 2022 7:04P [...] as ne (more content not included)... Normal [facility] CBC W Auto Differential pane l (Bld)on 06-07-2022 Basophils (Bld) [#/Vol] 0.03 10*3/uL Normal <0.11 [facility] Comment on above: Order Comment: Speci men Type: BLOOD SPECIMEN [facility] Address: [address] [address] Performed By: #### 5 7021-8 #### [facility] CLIA [id number] [address] [place] [address] [place] Basophils/100 WBC (Bld) 0.6 % Normal [facility] Comment on above: Order Comment: Speci men Type: BLOOD SPECIMEN [facility] Facility: [facility] Address: [address] [address] Performed By: #### 5 7021-8 #### [facility] CLIA [id number] [address] [place] [address] [facility] Differential cell count method Nom (Bld) Auto Normal [facility] Comment on above: Order Comment: Speci men Type: BLOOD SPECIMEN [facility]: [facility] Address: [address] [place] [address] Performed By: #### 5 7021-8 #### [facility] CLIA [id number] [address] [place] [address] [place] Eosinophils (Bld) [#/Vol] 0.25 10*3/uL Normal <0.46 [facility] Comment on above: Order Comment: Speci men Type: BLOOD SPECIMEN [facility]: [facility] Address: [address] [place] [address] Performed By: #### 5 7021-8 #### [facility] CLIA [id number] [address] Eosinophils/100 WBC (Bld) 4.8 % Normal [facility] Comment on above: Order Comment: Speci men Type: BLOOD SPECIMEN [facility]ing Facility: [facility] Address: [address] [place] [address] Performed By: #### 5 7021-8 #### [facility] CLIA [id number] [address] [place] Erythrocyte distribution width (RBC) [Ratio] 12.6 % Normal 11.5-15.0 [facility] Comment on above: Order Comment: Speci men Type: BLOOD SPECIMEN [facility] Address: [address] [place] [address] Performed By: #### 5 7021-8 #### [facility] CLIA [id number] [address] [id number] [facility] ROB Hematocrit (Bld) [Volume fraction] 43.0 % Normal 39.0-51.0 [facility] Comment on above: Order Comment: Speci men Type: BLOOD SPECIMEN [facility] Address: [address] [place] [address] Performed By: #### 5 7021-8 #### [facility] CLIA [id number] [address] [place] [address] Hemoglobin (Bld) [Mass/Vol] 14.4 g/dL Normal 13.0-17.0 [facility] Comment on above: Order Comment: Speci men Type: BLOOD SPECIMEN [facility] Address: [address] [place] [address] Performed By: #### 5 7021-8 #### [facility] CLIA [id number] [address] [place] [address] [place] Lymphocytes (Bld) [#/Vol] 1.41 10*3/uL Normal 1.00-4.00 [facility] Comment on above: Order Comment: Speci men Type: BLOOD SPECIMEN [facility]: [facility] Address: [address] [place] [address] Performed By: #### 5 7021-8 #### [facility] CLIA [id number] [address] [place] [address] Lymphocytes/100 WBC (Bld) 27.3 % Normal [facility] Comment on above: Order Comment: Speci men Type: BLOOD SPECIMEN [facility] Address: [address] [place] [address] Performed By: #### 5 7021-8 #### [facility] CLIA [id number] [address] STATES OF [place] MCH (RBC) [Entitic mass] 29.3 pg Normal 26.0-34.0 [facility] Comment on above: Order Comment: Speci men Type: BLOOD SPECIMEN [facility] Address: [address] [place] [address] Performed By: #### 5 7021-8 #### [facility] CLIA [id number] [address] [place], [place] [address] [place] [address] [place] [facility] MCHC (RBC) [Mass/Vol] 33.5 g/dL Normal 30.5-36.0 [facility] Comment on above: Order Comment: Speci men Type: BLOOD SPECIMEN [facility] Address: [address] [place] [address] Performed By: #### 5 7021-8 #### [facility] CLIA [id number] [address] [place] [address] [place] MCV (RBC) [Entitic vol] 87.6 fL Normal 80.0-100.0 [facility] Comment on above: Order Comment: Speci men Type: BLOOD SPECIMEN [facility] Address: [address] [place] [address] Performed By: #### 5 7021-8 #### [facility] CLIA [id number] [address] [place] [address] [place] Monocytes (Bld) [#/Vol] 0.47 10*3/uL Normal <0.87 [facility] Comment on above: Order Comment: Speci men Type: BLOOD SPECIMEN [facility] Address: [address] [place] [address] Performed By: #### 5 7021-8 #### [facility] CLIA [id number] [address] [place] [address] [place] Monocytes/100 WBC (Bld) 9.1 % Normal [facility] Comment on above: Order Comment: Speci men Type: BLOOD SPECIMEN [facility] Address: [address] [place] [address] Performed By: #### 5 7021-8 #### [facility] CLIA [id number] [address] [place] [address] [place] Neutrophils (Bld) [#/Vol] 3.01 10*3/uL Normal 1.45-7.50 [facility] Comment on above: Order Comment: Speci men Type: BLOOD SPECIMEN [facility] Address: [address] [place] [address] Performed By: #### 5 7021-8 #### [facility] CLIA [id number] [address] [place] [address] [place] Neutrophils/100 WBC (Bld) 58.2 % Normal [facility] Comment on above: Order Comment: Speci men Type: BLOOD SPECIMEN [facility] Address: [address] [place] [address] Performed By: #### 5 7021-8 #### [facility] CLIA [id number] [address] [place] [address] [place] Platelet mean volume (Bld) [Entitic vol] 9.2 fL Normal 9.0-12.7 [facility] Comment on above: Order Comment: Speci men Type: BLOOD SPECIMEN [facility] Address: [address] [place] [address] Performed By: #### 5 7021-8 #### [facility] CLIA [id number] [address] [place] [address] [place] Platelets (Bld) [#/Vol] 166 10*3/uL Normal 150-400 [facility] Comment on above: Order Comment: Speci men Type: BLOOD SPECIMEN [facility] Address: [address] [place] [address] Performed By: #### 5 7021-8 #### [facility] CLIA [id number] [address] [place] [address] [place] RBC (Bld) [#/Vol] 4.91 10*6/uL Normal 4.20-6.00 [facility] Comment on above: Order Comment: Speci men Type: BLOOD SPECIMEN [facility] Address: [address] [place] [address] Performed By: #### 5 7021-8 #### [facility] CLIA [id number] [address] [place] [address] [place] WBC (Bld) [#/Vol] 5.17 10*3/uL Normal 3.70-11.00 [facility] Comment on above: Order Comment: Speci men Type: BLOOD SPECIMEN [facility] Address: [address] [place] [address] [place] [address] Performed By: #### 5 7021-8 #### [facility] CLIA [id number] [address] [place] [address] [facility] OF ROB CT ABD/PEL W IVCONon 022 CT ABD/PEL W IVCON * * *Final Report* * * DATE OF EXAM: Jun 07 2022 5:59PM LDC 0530 - CT ABD/PEL W IVCON / [...] Tissues: No significant finding. Lower thorax: Unremarkable. Graphics Artist (topogram) images: No additional findings. IMPRESSION: Prominent wall ascending colon. No associated pericolic inflammatory changes. Correlate clinically for possible mild colitis. Similar prominence of vasa recta central lower abdomen and pelvis, considered nonspecific, possibly related to inflammatory bowel condition. Similar prominence of the seminal vesicles. Package Sealer: PSCB Transcribe Date/Time: Jun 07 2022 7:04P Dictated by : MICHAEL BAPTISTE MD This examination was interpreted and the report reviewed and electronically signed by: MICHAEL BAPTISTE MD on Jun 07 2022 7:16PM EST [id number] Normal [facility] Comprehensive metabolic 2000 panelon 06-07-2022 Albumin [Mass/Vol] 4.3 g/dL Normal 3.9-4.9 [facility] Comment on above: Order Comment: Speci men Type: BLOOD SPECIMEN [facility] Address: [address] [address] Performed By: #### 2 4323-8, 3040-3 #### [facility] CLIA [id number] [address] [place] [address] [place] [facility] ALP [Catalytic activity/Vol] 52 U/L Normal 38-113 [facility] Comment on above: Order Comment: Speci men Type: BLOOD SPECIMEN [facility] Address: [address] [address] Performed By: #### 2 4323-8, 3040-3 #### [facility] CLIA [id number] [address] [place] [address] [place] ALT With P-5'-P [Catalytic activity/Vol] 17 U/L Normal 10-54 [facility] Comment on above: Order Comment: Speci men Type: BLOOD SPECIMEN [facility] Address: [address] [address] Performed By: #### 2 4323-8, 3040-3 #### [facility] CLIA [id number] [address] [facility] [place] [address] [place] Anion gap [Moles/Vol] 9 mmol/L Normal 9-18 [facility] Comment on above: Order Comment: Speci men Type: BLOOD SPECIMEN [facility] Address: [address] [place] [address] Performed By: #### 2 4323-8, 3039-3 #### [facility] CLIA [id number] [address] [place] [address] [place] AST With P-5'-P [Catalytic activity/Vol] 32 U/L Normal 14-40 [facility] Comment on above: Order Comment: Speci men Type: BLOOD SPECIMEN [facility] Address: [address] [place] [address] Performed By: #### 2 4328, 3039-3 #### [facility] CLIA [id number] [address] [place] [address] [place] Bilirubin [Mass/Vol] 0.3 mg/dL Normal 0.2-1.3 [facility] Comment on above: Order Comment: Speci men Type: BLOOD SPECIMEN [facility] Address: [address] [place] [address] Performed By: #### 2 4323-8, 0-3 #### [facility] CLIA [id number] [address] [place] [address] [place] Calcium [Mass/Vol] 9.0 mg/dL Normal 8.5-10.2 [facility] Comment on above: Order Comment: Speci men Type: BLOOD SPECIMEN [facility] Address: [address] [place] [address] Performed By: #### 2 4323-8, 3040-3 #### [facility] CLIA [id number] [address] [place] [address] [place] Chloride [Moles/Vol] 101 mmol/L Normal 97-105 [facility] Comment on above: Order Comment: Speci men Type: BLOOD SPECIMEN [facility] Address: [address] [place], [place] [address] Performed By: #### 2 4323-8, 3039-3 #### [facility] CLIA [id number] [address] [place] [address] [place] CO2 [Moles/Vol] 28 mmol/L Normal 22-30 [facility] Comment on above: Order Comment: Speci men Type: BLOOD SPECIMEN [facility] Address: [address] [place] [address] Performed By: #### 2 4323-8, 3039-3 #### [facility] CLIA [id number] [address] [place] [address] [place] Creatinine [Mass/Vol] 1.02 mg/dL Normal 0.73-1.22 [facility] Comment on above: Order Comment: Speci men Type: BLOOD SPECIMEN [facility] Address: [address] [place] [address] Performed By: #### 2 4323-8, 3 #### [facility] [employer] [facility] CLIA [id number] [address] [place] [address] [facility] ESTIMATED GLOMERULAR FILTRATION RATE 100 mL/min/1.73m??? Normal >=60 [facility] Comment on above: Order Comment: Speci men Type: BLOOD SPECIMEN [facility] Address: [address] [place] [address] Result Comment: Cydney mated Glomerular Filtration Rate [...] actual GFR. Performed By: #### 2 4323-8, 3039-3 #### [facility] CLIA [id number] [address] [place] [address] [place] Glucose [Mass/Vol] 104 mg/dL High 74-99 [facility] Comment on above: Order Comment: Grover galdamez Type: BLOOD SPECIMEN [facility] Address: [address] [place] [address] Result Comment: The [place] Diabetes Association (ADA) provides guidance for cutoff [...] Standards of Medical Care in Diabetes 2016, [place] [employer]. Diabetes Care. 2016.39(Suppl 1). Performed By: #### 2 4323-8, 0-3 #### [facility] CLIA [id number] [address] [place] [address] [place] [place] Potassium [Moles/Vol] 4.2 mmol/L Normal 3.7-5.1 [facility] Comment on above: Order Comment: Grover galdamez Type: BLOOD SPECIMEN Ordering Facility: [facility] Address: [address] [place] [address] Performed By: #### 2 4323-8, 3039-3 #### [facility] CLIA [id number] [address] [place] [address] [place] Protein [Mass/Vol] 6.4 g/dL Normal 6.3-8.0 [facility] Comment on above: Order Comment: Grover galdamez Type: BLOOD SPECIMEN Ordering Facility: [facility] Address: [address] [place] [address] Performed By: #### 2 4323-8, 3040-3 #### [facility] CLIA [id number] [address] [place] [address] [place] Sodium [Moles/Vol] 138 mmol/L Normal 136-144 [facility] Comment on above: Order Comment: Speci men Type: BLOOD SPECIMEN Ordering Facility: [facility] Address: [address] [place], [place] [id number] Performed By: #### 2 4323-8, 3040-3 #### [facility] CLIA [id number] [address] [place] [address] [place] [address] [facility] Urea nitrogen [Mass/Vol] 10 mg/dL Normal 9-24 [facility] Comment on above: Order Comment: Speci men Type: BLOOD SPECIMEN Ordering Facility: [facility] Address: [address] [place], [place] [id number] Performed By: #### 2 4323-8, 3040-3 #### [facility] CLIA [id number] [address] [place] [address] [facility] ED NOTEon 06-07-2022 ED NOTE HNO ID: [id number] Author: Patsy Wall RN Service: Nursing Author Type: Registered Nurse Type: ED Notes Filed: 06/07/2022 5:28 PM Note Text: Patient informed: the name of medication, why we are giving it, possible side effects, what they may expect to feel, and was offered a chance to ask questions, prior to the administration of Toradol Normal [facility] ED NOTE HNO ID: [id number] Author: Patsy Wall RN Service: Nursing Author Type: Registered Nurse Type: ED Notes Filed: 06/07/2022 5:12 PM Note Text: Pt ambulatory to bathroom for urine collection Normal [facility] ED NOTE HNO ID: [id number] Author: Patsy Wall RN Service: Nursing Author Type: Registered Nurse Type: ED Notes Filed: 06/07/2022 5:08 PM Note Text: Pt arrives with reports of abd pain, epigastric pain, groin pain, and nausea for about 1 week. Pt reports previous hydroscan was done at [facility]. Pt does not take medications as ordered, spouse reports, he doesn't like taking medicine. Pt reports pain worsens after eating. 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 Normal [facility] Lipase SerPl-cCncon 06-07-20 22 Lipase [Catalytic activity/Vol] 20 U/L Normal 16-61 [facility] Comment on above: Order Comment: Speci men Type: BLOOD SPECIMEN Ordering Facility: [facility] Address: [address] [place] [address] Performed By: #### 2 4323-8, 3040-3 #### [facility] CLIA [id number] [address] Urinalysis complete panel (U )on 06-07-2022 Bilirubin Ql (U) Negative Normal Negative [facility] Comment on above: Order Comment: Speci men Type: URINE SPECIMEN Ordering Facility: [facility] Address: [address] [place] [address] Performed By: #### 2 4356-8 #### [facility] CLIA [id number] [address] [place] Clarity (Unsp spec) Clear Normal Clear [facility] Comment on above: Order Comment: Speci men Type: URINE SPECIMEN Ordering Facility: [facility] Address: [address] [place] [address] Performed By: #### 2 4356-8 #### [facility] CLIA [id number] [address] [place] [address] [place] Color (U) Yellow Normal Yellow [facility] Comment on above: Order Comment: Speci men Type: URINE SPECIMEN Ordering Facility: [facility] Address: [address] [place] [address] Performed By: #### 2 4356-8 #### [facility] CLIA [id number] [address] [place] [address] [place] Glucose Test strip (U) [Mass/Vol] Negative Normal Negative [facility] Comment on above: Order Comment: Speci men Type: URINE SPECIMEN Ordering Facility: [facility] Address: [address] [place] [address] Performed By: #### 2 4356-8 #### [facility] CLIA [id number] [address] [place] [address] [place] Hemoglobin Ql (U) Negative Normal Negative [facility] Comment on above: Order Comment: Speci men Type: URINE SPECIMEN Ordering Facility: [facility] Address: [address] [place] [address] Performed By: #### 2 4356-8 #### [facility] CLIA [id number] [address] [place] [address] [place] Ketones Ql (U) Negative Normal Negative [facility] Comment on above: Order Comment: Speci men Type: URINE SPECIMEN Ordering Facility: [facility] Address: [address] [place] [address] Performed By: #### 2 4356-8 #### [facility] CLIA [id number] [address] [place] [address] [place] Leukocyte esterase Test strip Ql (U) Negative Normal Negative [facility] Comment on above: Order Comment: Speci men Type: URINE SPECIMEN Ordering Facility: [facility] Address: [address] [place] [address] Performed By: #### 2 4356-8 #### [facility] CLIA [id number] [address] [place] [address] [place] Nitrite Ql (U) Negative Normal Negative [facility] Comment on above: Order Comment: Speci men Type: URINE SPECIMEN Ordering Facility: [facility] Address: [address] [place] [address] Performed By: #### 2 4356-8 #### [facility] CLIA [id number] [address] [place] [address] [place] pH (U) 8.5 [pH] High 5.0-8.0 [facility] Comment on above: Order Comment: Speci men Type: URINE SPECIMEN Ordering Facility: [facility] Address: [address] [place] [address] Performed By: #### 2 4356-8 #### [facility] CLIA [id number] [address] Protein (U) [Mass/Vol] Negative Normal Negative [facility] Comment on above: Order Comment: Speci men Type: URINE SPECIMEN Ordering Facility: [facility] Address: [address] [place] [address] Performed By: #### 2 4356-8 #### [facility] CLIA [id number] [address] [place] RBC LM.HPF (Urine sed) [#/Area] 0-3 /HPF Normal 0-3 /HPF [facility] Comment on above: Order Comment: Speci men Type: URINE SPECIMEN Ordering Facility: [facility] Address: [address] [place] [address] Performed By: #### 2 4356-8 #### [facility] CLIA [id number] [address] Specific gravity (U) [Rel density] 1.015 Normal 1.005-1.030 [facility] Comment on above: Order Comment: Speci men Type: URINE SPECIMEN Ordering Facility: [facility] Address: [address] [place] [address] Performed By: #### 2 4356-8 #### [facility] CLIA [id number] [address] [place] [id number] [facility] Urobilinogen Ql (U) 0.2 EU/dL Normal 0.2-1.0 EU/dL [facility] Comment on above: Order Comment: Speci men Type: URINE SPECIMEN Ordering Facility: [facility] Address: [address] [place] [address] Performed By: #### 2 4356-8 #### [facility] CLIA [id number] [address] [place] [address] [facility] OF [place] WBC LM.HPF (Urine sed) [#/Area] 0-5 /HPF Normal 0-5 /HPF [facility] Comment on above: Order Comment: Speci men Type: URINE SPECIMEN Ordering Facility: [facility] Address: [address] [place], [place] [phone] Performed By: #### 2 4356-8 #### [facility] CLIA [id number] [address] [place] [address] [facility] [place] HEPATOBILIARY W EF AND/OR [...] Clinical correlation is recommended. * Patent CBD. Package Sealer: [employer] Transcribe Date/Time: May 23 2021 10:02A Dictated by : ZANDER MILLER MD This examination was interpreted and the report reviewed and electronically signed by: ZANDER MILLER MD on May 23 2021 10:03AM EST [id number] Normal [facility] ECG B/O W INTERP (MED OFFICE ) [facility] Vital Signs Date Time Vital Sign Value Performing Clinician Facility 04-11-2025 06:04-0400 Body temperature 97.5 [degF] No Primary Care Physician [facility] 04-11-2025 06:04-0400 Diastolic blood pressure 74 mm[Hg] No Primary Care Physician [facility] 04-11-2025 06:04-0400 Heart rate 62 /min No Primary Care Physician [facility] 04-11-2025 06:04-0400 Respiratory rate 16 /min No Primary Care Physician [facility] 04-11-2025 06:04-0400 SaO2% (BldA) [Mass fraction] 99 % No Primary Care Physician [facility] 04-11-2025 06:04-0400 Systolic blood pressure 107 mm[Hg] No Primary Care Physician [facility] 04-11-2025 05:27-0400 Body height 185.42 cm No Primary Care Physician [facility] 04-11-2025 05:27-0400 Body mass index (BMI) [Ratio] 23.4 kg/m2 No Primary Care Physician [facility] 04-11-2025 05:27-0400 Body weight 80.6 kg No Primary Care Physician [facility] 04-02-2025 08:24-0400 Body temperature 98.1 [degF] No Primary Care Physician [facility] 04-02-2025 08:24-0400 Diastolic blood pressure 77 mm[Hg] No Primary Care Physician [facility] 04-02-2025 08:24-0400 Heart rate 78 /min No Primary Care Physician [facility] 04-02-2025 08:24-0400 Respiratory rate 19 /min No Primary Care Physician [facility] 04-02-2025 08:24-0400 SaO2% (BldA) [Mass fraction] 98 % No Primary Care Physician [facility] 04-02-2025 08:24-0400 Systolic blood pressure 121 mm[Hg] No Primary Care Physician [facility] 04-02-2025 06:51-0400 Body height 185.42 cm No Primary Care Physician [facility] 04-02-2025 06:51-0400 Body mass index (BMI) [Ratio] 23.7 kg/m2 No Primary Care Physician [facility] 04-02-2025 06:51-0400 Body weight 81.64 kg No Primary Care Physician [facility] 03-20-2023 16:55-0400 Body height 185.4 cm Niya Queden [employer] Work Phone: [facility] 01-18-2023 16:55-0400 Body temperature 97.81 [degF] Niya Queden [employer] Work Phone: [facility] 01-18-2023 16:55-0400 Body weight 85.73 kg Niya Queden [employer] Work Phone: [facility] 01-18-2023 16:55-0400 Diastolic blood pressure 58 mm[Hg] Niya Queden [employer] Work Phone: [facility] 01-18-2023 16:55-0400 Heart rate 68 /min Niya Queden [employer] Work Phone: [facility] 01-18-2023 16:55-0400 Respiratory rate 18 /min Niya Queden [employer] Work Phone: [facility] 01-18-2023 16:55-0400 SaO2% (BldA) [Mass fraction] 97 % Niya Queden [employer] Work Phone: [facility] 01-18-2023 16:55-0400 Systolic blood pressure 108 mm[Hg] Niya Queden [employer] Work Phone: [facility] 12-03-2022 09:15-0500 Body height 185.4 cm Niya Queden [employer] Work Phone: [facility] 12-03-2022 09:15-0500 Body temperature 98.2 [degF] Niya Queden [employer] Work Phone: [facility] 12-03-2022 09:15-0500 Body weight 83.46 kg Niya Queden [employer] Work Phone: [facility] 12-03-2022 09:15-0500 Diastolic blood pressure 62 mm[Hg] Niya Queden [employer] Work Phone: [facility] 12-03-2022 09:15-0500 Heart rate 77 /min Niya Queden [employer] Work Phone: [facility] 12-03-2022 09:15-0500 Respiratory rate 18 /min Niya Queden [employer] Work Phone: [facility] 12-03-2022 09:15-0500 SaO2% (BldA) [Mass fraction] 98 % Niya Queden [employer] Work Phone: [facility] 12-03-2022 09:15-0500 Systolic blood pressure 122 mm[Hg] Niya Queden [employer] Work Phone: [facility] 06-23-2022 15:31-0400 Body height 185.4 cm Niya Queden [employer] Work Phone: [facility] 06-23-2022 15:31-0400 Body temperature 98.1 [degF] Niya Queden [employer] Work Phone: [facility] 06-23-2022 15:31-0400 Body weight 80.47 kg Niya Queden [employer] Work Phone: [facility] 06-23-2022 15:31-0400 Diastolic blood pressure 68 mm[Hg] Niya Queden [employer] Work Phone: [facility] 06-23-2022 15:31-0400 Heart rate 62 /min Niya Queden [employer] Work Phone: [facility] 06-23-2022 15:31-0400 Respiratory rate 16 /min Niya Queden [employer] Work Phone: [facility] 06-23-2022 15:31-0400 SaO2% (BldA) [Mass fraction] 98 % Niya Queden [employer] Work Phone: [facility] 08-23-2022 15:31-0400 Systolic blood pressure 120 mm[Hg] Niya Florentino [employer] Work Phone: [facility] Encounters Encounter Date Encounter Type Care Provider Facility Start: 04-11-2025 End: 04-11-2025 Emergency department patient visit No Primary Care Physician -Emergency Department Work Phone: Start: 04-02-2025 End: 04-02-2025 Emergency department patient visit No Primary Care Physician -Emergency Department Work Phone: Start: 11-12-2024 End: 11-12-2024 Emergency department [facility] Facility:[facility] Start: 05-03-2023 Emergency department patient visit NIYAJOSE ELIAS PATTERSONSTEPHAN Facility:[facility] Start: 02-01-2023 Telephone encounter Niya Rodney Florentino [employer] Work Phone: [facility] Comment on above: Results Start: 01-29-2023 ambulatory NIYA A FLORENTINO Facil ty:[facility] Start: 01-29-2023 End: 01-29-2023 Subsequent hospital visit by physician Card Lab Nuc 2 [facility] Comment on above: Chest pain, unspecif ied type [R07.9] Start: 01-18-2023 End: 01-18-2023 ambulatory NIYAJOSE ELIAS OWEN [facility] Start: 01-18-2023 End: 01-18-2023 Patient encounter procedure Niya Owen [employer] Work Phone: [facility] Comment on above: Bilateral lower extr emity pain (Primary Dx); Gastroesophageal reflux disease, unspecified whether esophagitis present; Anxiety with depression; Current nicotine use; Encounter for smoking cessation counseling Start: 12-31-2022 Telephone encounter Niya Owen [employer] Work Phone: [facility] Comment on above: Missed Appointment ( 1st no show in 365 days (1st letter sent)) Start: 12-03-2022 End: 12-03-2022 ambulatory NIYAJOSE ELIAS OWEN [facility] Start: 12-03-2022 End: 12-03-2022 Patient encounter procedure Niya A Florentino [employer] Work Phone: [facility] Comment on above: Chest pain, unspecif ied type (Primary Dx); 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; Anxiety with depression; Current nicotine use; Gastroesophageal reflux disease, unspecified whether esophagitis present; Chronic upper abdominal pain; Family history of colon cancer Start: 07-24-2022 Telephone encounter Niya Rodney Florentino [employer] Work Phone: [facility] Comment on above: Results Start: 07-23-2022 End: 07-24-2022 ambulatory NIYAJOSE ELIAS OWEN Facility:[facility] Start: 06-23-2022 End: 06-23-2022 ambulatory NIYA OWEN Facility:[facility] Start: 06-23-2022 End: 06-23-2022 Patient encounter procedure Niya Rodney Florentino [employer] Work Phone: [facility] Comment on above: Lower abdominal pain (Primary Dx); Colitis, nonspecific; Chronic upper abdominal pain; Gastroesophageal reflux disease, unspecified whether esophagitis present; Jittery feeling Start: 06-07-2022 End: 06-07-2022 Emergency department patient visit NIYAJOSE ELIAS OWEN Facility:[facility] Procedures Date Procedure Procedure Detail Performing Clinician Start: 04-02-2025 Plain X-ray of finger N o Primary Care Physician Start: 01-29-2023 Cv strs tst xers&/or rx cont ecg trcg only Niya Rodney Florentino [employer] Work Phone: Start: 12-03-2022 Ecg routine ecg w/le ast 12 lds w/i&r Niya Rodney Florentino [employer] Work Phone: Start: 06-23-2022 Adult depression screening assessment Niya Florentino MATIAS Work Phone: Plan of Treatment Date Care Activity Detail Author Start: 04-04-2030 Urine microalbumin profile DTAP,TDAP,TD (8 - Td or Tdap) [facility] Start: 04-02-2025 Smpl repair scalp/neck/ax/genit/t runk 2.6-7.5cm RPR S/N/AX/GEN/TRNK2.6-7.5CM [facility] Start: 04-02-2025 [facility] Start: 07-02-2023 Influenza vaccination INFLUENZA (Sea son Ended) [facility] Start: 06-23-2023 Adult depression screening assessment DEPRESSION SCREENING [facility] Start: 06-23-2023 COVID-19 VACCINE (#1) COVID-19 VACCI NE (#1) [facility] Comment on above: Postponed from 11/04 (Declined at this time) Start: 06-23-2023 PNEUMOCOCCAL (1 - PCV) PNEUMOCOCCAL (1 - PCV) [facility] Comment on above: Postponed from 05/04 (Declined at this time) Start: 04-30-2023 Influenza vaccination INFLUENZA (#1) [facility] Comment on above: Postponed from 07/02 (Declined at this time) Start: 07-02-2022 Influenza vaccination INFLUENZA (#1) [facility] Start: 06-23-2022 End: 08-23-2022 Cobalamin (Vitamin B12) [Mass/volume] in Serum or Plasma VITAMIN B12 BLOOD Lab Routine Chronic upper abdominal pain Jittery feeling Expected: 06/23/2022, Expires: 08/23/2022 [facility] Work Phone: Comment on above: Expected: 06/23/2022 , Expires: 08/23/2022 Start: 06-23-2022 End: 08-23-2022 Thyrotropin [Units/volume] in Serum or Plasma TSH BLD Lab Routine Chronic upper abdominal pain Jittery feeling Expected: 06/23/2022, Expires: 08/23/2022 [facility] Work Phone: Comment on above: Expected: 06/23/2022 , Expires: 08/23/2022 Start: 2007 HEPATITIS C SCREENING HEPATITIS C SC TONYA [facility] Start: 2007 HIV SCREENING HIV SCREENING [facility] End: 12-03-2023 EXERCISE STRESS ECG (WITHOUT IMAGING) EXERCISE STRESS ECG (WITHOUT IMAGING) Cardiology Routine Chest pain, unspecified type 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 1 Occurrences starting 12/03/2022 until 12/03/2023 [facility] Work Phone: Comment on above: 1 Occurrences starti ng 12/03/2022 until 12/03/2023 Patient Education [facility] Work Phone: Patient referral [facility] Work Phone: [facility] Immunizations Immunization Date Immunization Notes Care Provider Fa jessica 04-04-2020 tetanus toxoid, redu rachel diphtheria toxoid, and acellular pertussis vaccine, adsorbed Niya Queden [employer] Work Phone: [facility] 10-04-2006 influenza virus vaccine, unspecified formulation Niya Queden [employer] Work Phone: [facility] 10-04-2006 Meningococcal, MCV4, unspecified conjugate formulation(groups A, C, Y and W-135) Niya Queden [employer] Work Phone: [facility] 10-03-2004 influenza, seasonal, injectable Niya Queden [employer] Work Phone: [facility] 03-21-2002 measles, mumps and rubella virus vaccine Niya Queden [employer] Work Phone: [facility] 12-09-2001 hepatitis B vaccine, pediatric or pediatric/adolescent dosage Niay Queden [employer] Work Phone: [facility] 07-07-2001 diphtheria and tetan us toxoids, adsorbed for pediatric use Niya Queden [employer] Work Phone: [facility] 06-23-2001 hepatitis B vaccine, pediatric or pediatric/adolescent dosage Niya Queden [employer] Work Phone: [facility] 05-18-2001 hepatitis B vaccine, pediatric or pediatric/adolescent dosage Niya Queden [employer] Work Phone: [facility] 04-26-1995 Chicken Pox (disease) Brittn y Queden [employer] Work Phone: [facility] Work Phone: 07-10-1994 diphtheria, tetanus toxoids and acellular pertussis vaccine Niya Queden [employer] Work Phone: [facility] 07-10-1991 trivalent poliovirus vaccine, live, oral Niya Queden [employer] Work Phone: [facility] 06-26-1991 diphtheria, tetanus toxoids and pertussis vaccine Niya Queden [employer] Work Phone: [facility] Work Phone: 06-26-1991 trivalent poliovirus vaccine, live, oral Niya Queden [employer] Work Phone: [facility] 05-26-1991 haemophilus influenz ae type b vaccine, PRP-D conjugate Niya Queden [employer] Work Phone: [facility] 05-26-1991 measles, mumps and rubella virus vaccine Niya Queden [employer] Work Phone: [facility] 1989 diphtheria, tetanus toxoids and pertussis vaccine Niya Queden [employer] Work Phone: [facility] Work Phone: 1989 diphtheria, tetanus toxoids and pertussis vaccine Niya Queden [employer] Work Phone: [facility] Work Phone: 1989 trivalent poliovirus vaccine, live, oral Niya Queden [employer] Work Phone: [facility] 1989 diphtheria, tetanus toxoids and pertussis vaccine Niya Queden [employer] Work Phone: [facility] Work Phone: 1989 trivalent poliovirus vaccine, live, oral Niya Queden [employer] Work Phone: [facility] Payers Date Payer Category Payer Self-pay [id number] 2024 Unknown [id number] 2022 Medicaid [id number] 2022 Medicaid [id number] 2022 Medicaid [id number] 2022 Medicaid [id number] Unknown [employer] [id number] Unknown [employer] [id number] Unknown [id number] Unknown [id number] Unknown [id number] Social History Date Type Detail Facility Start: 06-23-2022 End: 04-11-2025 Tobacco smoking status NHIS Smokes tobacco daily [facility] History of tobacco use Cigarette Smoker C [facility] Start: 06-23-2022 End: 12-03-2022 Cigarettes smoked current (pack per day) - Reported 0.5 [facility] Start: 06-23-2022 Tobacco use and exposure Former smokeless tobacco user [facility] History of tobacco use Chews Tobacco [facility] Start: 06-23-2022 End: 01-18-2023 Alcohol intake Current drinker of alcohol (finding) [facility] Start: 01-12-2019 History SDOH Alcohol Comment rarely [facility] Start: 06-07-2022 Tobacco Comment 4 cigarettes [facility] Start: 1990 Sex Assigned At Not on file C [facility] Start: 06-13-2022 End: 07-23-2022 Exposure to SARS-CoV-2 (event) Not sure [facility] Start: 12-03-2022 Tobacco use and exposure User of smokeless tobacco [facility] Work Phone: Start: 12-03-2022 Tobacco Comment 3 times a week [facility] Start: 09-12-2019 Alcohol Alcohol [facility] Start: 09-12-2019 Drugs Drugs [facility] Start: 09-12-2019 Lives Lives [facility] Start: 04-04-2020 Tobacco Use Tobacco Use [facility] Start: 1990 Sex Assigned At Male W [facility] Clinical Notes 07-21-2005 to 04-02-2025 Telephone Encounter - Roseanna Kruse MA - 02/01/2023 2:34 PM EDTTelephone Encounter - Roseanna Kruse MA - 02/01/2023 2:33 PM Jeff Winkler RN - 01/29/2023 9:00 AM EDTPatient Instructions Note Date & Type Note Facility 04-02-2025 Radiology Diagnostic study note [facility] Imaging Services [address], [place] [id number] Finger(s) Min 2 Views MR#: [id number] Acct: [id number] Name: MIGUEL WEEMS Rep #: : 1990 M 34 From: Sky Bird MD PCP: Care Physician,No Primary Status: REG ER Study:Finger(s) Min 2 Views Date of Exam: 04/02/25 Exam# [id number] Ordering Dr: Freddy De DO PROCEDURE: FINGER(S) [...] exclude an acute traumatic etiology. [facility]: Dr. Saqib De, DO; No Primary Care Physician ~ Package Sealer: Signed [facility] 04-02-2025 Hospital Discharge instructions Additional Instructions Stitches [...] water. Antibiotic ointment 1 time per day [facility] Work Phone: 05-06-2023 Note Patient Outreach (AG FAMPLE) MIGUEL WEEMS ([id number]) 1990 M Date Time Provider Department 05/06/23 NIYA OWEN During your visit today, we recorded the following information about you: Madi Bush MA 05/06/2023 9:02 AM Signed ED Follow Up: Patient discharged from [facility] ED on 05/03/23. 1. How are you [...] you able to contact the office or teacher vocational training provider prior to your ED visit? left [...] colon cancer [Z80.0] 12/03/2022 Encounter Status:Closed by MADI BUSH on 05/06/23 [facility] 05-06-2023 Note HNO ID: [id number] Author: Madi Bush MA Service: ? Author Type: Farmworker General Type: Progress Notes Filed: 05/06/2023 9:02 AM Note Text: ED Follow Up: Patient discharged from [facility] ED on 05/03/23. 1. How are you [...] you able to contact the office or teacher vocational training provider prior to your ED visit? left message 5. Is there anything else I can do for you today? Left message Madi Bush MA [facility] 02-01-2023 Miscellaneous Notes Left message informing patient, phone number to reach the office was left for any questions or concerns. Roseanna Kruse MA ----- Message from Tayla Smyth APRN.MAGNETIC TAPE WINDER sent at 02/01/2023 2:16 PM EDT ----- Please notify patient results are normal. Thank you. Tayla Smyth APRN.MAGNETIC TAPE WINDER documented in this encounter [facility] 01-29-2023 Note HNO ID: [id number] Author: Billie Winkler RN Service: Nursing Author Type: Registered Nurse Type: Progress Notes Filed: 01/29/2023 9:47 AM Note Text: Baseline EKGs reviewed with Dr. Jain prior to testing. Maximal stress test completed. Pt walked 1200 to max HR 162. Test terminated due to leg fatigue. No reports of chest symptoms throughout test. [facility] 01-29-2023 History of Present illness Narrative Baseline EKGs reviewed with Dr. Jain prior to testing. Maximal stress test completed. Pt walked 1200 to max HR 162. Test terminated due to leg fatigue. No reports of chest symptoms throughout test. documented in this encounter [facility] 01-18-2023 Note HNO ID: [id number] Author: Niya Owen APRN.MAGNETIC TAPE WINDER Service: ? Author Type: Nurse Practitioner Type: [...] history is provided by the patient. No spanish language lecturer was used. Leg Pain The pain is [...] 729.5, ICD10: M7 (more content not included)... [facility] 01-18-2023 Instructions Niya Owen APRN.CNP - 01/18/2023 5:08 PM EDT Epsom salt soaks Stretching Antiinflammatories twice a day- Ibuprofen or Motrin as needed Daily multivitamin Drink 64 ounces documented in this encounter [facility] 01-18-2023 History of Present illness Narrative Images [...] history is provided by the patient. No spanish language lecturer was used. Leg Pain The pain is [...] management requirements were given to patient. Niya Owen APRN.CNP documented in this encounter [facility] 12-31-2022 Miscellaneous Notes No Show Documentation Miguel Weems no showed for an appointment on 12/31/2022 with Niya Owen APRN.CNP at 10:20 am. He was scheduled [...] 2022 10:51 AM documented in this encounter [facility] 12-03-2022 Note HNO ID: [id number] Author: Niya Owen APRN.MAGNETIC TAPE WINDER Service: ? Author Type: Nurse Practitioner Type: [...] history is provided by the patient. No spanish language lecturer was used. Chest Pain This is a [...] no diabetes, no hyperlipidemia, no hypertension, no CT and no thyroid problem. Pertinent negatives for [...] 2.50 Types: Ciga (more content not included)... [facility] 12-03-2022 Instructions Niya Owen APRN.MAGNETIC TAPE WINDER - 12/03/2022 9:18 AM EST [facility] [address] [place] [address] Appointment: [phone] Desk: [phone] Should I call for an ambulance if [...] heart muscle alive! documented in this encounter [facility] 12-03-2022 History of Present illness Narrative CHIEF [...] history is provided by the patient. No spanish language lecturer was used. Chest Pain This is a [...] no diabetes, no hyperlipidemia, no hypertension, no CT and no thyroid problem. Pertinent negatives for [...] Abs Lymph 1.00 - 4.00 k/uL 1.41 Steuben% % 9.1 Abs Steuben <0.87 k/uL 0.47 Eosin% % 4.8 Abs [...] management requirements were given to patient. Niya Owen APRN.CNP documented in this encounter [facility] 07-24-2022 Miscellaneous Notes Patient notified. Renu Galloway MA ----- Message from Niya Owen APRN.MAGNETIC TAPE WINDER sent at 07/24/2022 5:11 PM EDT ----- TSH and B12 levels were normal. documented in this encounter [facility] 06-23-2022 Note HNO ID: [id number] Author: Niya Owen APRN.CNP Service: ? Author Type: Nurse Practitioner Type: Progress Notes Filed: 06/25/2022 12:42 PM Note Text: [place] [address] Visit Date: 06/23/2022 Patient Name: Miguel Weems Date of : 1990 Chief Complaint: ER Follow Up Miguel Weems is a 32 year old male here today for a follow up to a recent emergency room (ER) visit. Emergency Room Location: [facility] Date of Emergency Room Visit: 06/07/22 Reason [...] Abs Lymph 1.00 - 4.00 k/uL 1.41 Steuben% % 9.1 Abs Steuben <0.87 k/uL 0.47 Eosin% % 4.8 Abs [...] Negative Negative Ketones, Urine Negative Negative Specific Sutherland, Ur 1.005 - 1.030 1.015 Hemoglobin/Blood,Ur Negative [...] condition. Similar prominence of the seminal vesicles. Package Sealer: NORMAN Transcribe Date/Time: Jun 07 2022 7:04P [...] tightness, shortness of (more content not included)... [facility] 06-23-2022 Instructions Niya Owen APRN.MAGNETIC TAPE WINDER - 06/23/2022 3:36 PM EDT Frances Bliss MD Sterile Processing Manager [address] [facility] [address] [place] [address], [address] [place] [address] PHONE: documented in this encounter [facility] 06-23-2022 History of Present illness Narrative Images from the original [place] [address] Visit Date: 06/23/2022 Patient Name: Miguel Weems Date of : 1990 Chief Complaint: ER Follow Up Miguel Weems is a 32 year old male here today for a follow up to a recent emergency room (ER) visit. Emergency Room Location: [facility] Date of Emergency Room Visit: 06/07/22 Reason [...] Abs Lymph 1.00 - 4.00 k/uL 1.41 Steuben% % 9.1 Abs Steuben <0.87 k/uL 0.47 Eosin% % 4.8 Abs [...] Negative Negative Ketones, Urine Negative Negative Specific Sutherland, Ur 1.005 - 1.030 1.015 Hemoglobin/Blood,Ur Negative [...] condition. Similar prominence of the seminal vesicles. Package Sealer: NORMAN Transcribe Date/Time: Jun 07 2022 7:04P [...] in diet. Discussed other diet modifications. - Reading low residue diet - Referral to Gastroenterology [...] 20 mg tablet Discontinued by Patient Niya Owen APRN.CNP June 23, 2022 3:29 PM documented in this encounter [facility] 05-23-2021 Note HNO ID: [id number] Author: WASHINGTON Antonio Service: Radiology Author Type: Clinical Underwriter Type: Progress Notes Filed: 05/23/2021 8:09 AM [...] safety can be found using this link: [email or web address] [email or web address] SIGNATURE: WASHINGTON Antonio PATIENT NAME: Miguel Weems DATE: May 23, 2021 TIME: 8:07 AM PAGER/CONTACT #: [facility] 07-21-2005 History of Past i llness Narrative Problem Noted Date Resolved Date Attention deficit disorder with hyperactivity(31 4.01) 07/21/2005 06/01/2006 documented as of this encounter (statuses as of 06/25/2022) [facility] History of Past illness Narrative* Problem Noted Date Resolved Date Attention deficit disorder with hyperactivity(31 4.01) 07/21/2005 06/01/2006 documented as of this encounter (statuses as of 07/24/2022) [facility] History of Past illness Narrative* Problem Noted Date Resolved Date Attention deficit disorder with hyperactivity(31 4.01) 07/21/2005 06/01/2006 documented as of this encounter (statuses as of 12/03/2022) [facility] History of Past illness Narrative* Problem Noted Date Resolved Date Attention deficit disorder with hyperactivity(31 4.01) 07/21/2005 06/01/2006 documented as of this encounter (statuses as of 12/31/2022) [facility] History of Past illness Narrative* Problem Noted Date Resolved Date Attention deficit disorder with hyperactivity(31 4.01) 07/21/2005 06/01/2006 documented as of this encounter (statuses as of 01/21/2023) [facility] History of Past illness Narrative* Problem Noted Date Resolved Date Attention deficit disorder with hyperactivity(31 4.01) 07/21/2005 06/01/2006 documented as of this encounter (statuses as of 01/30/2023) [facility] History of Past illness Narrative* Problem Noted Date Resolved Date Attention deficit disorder with hyperactivity(31 4.01) 07/21/2005 06/01/2006 documented as of this encounter (statuses as of 02/01/2023) [facility] Diagnosis Lower abdominal pain- Primary Abdominal pain, other specified site Colitis, nonspecific Other and unspecified noninfectious gastroenteritis and colitis Chronic upper abdominal pain Gastroesophageal reflux disease, unspecified whether esophagitis present Jittery feeling [facility] Diagnosis Chest pain, unspecified type- Primary 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 Anxiety with depression Current nicotine use Gastroesophageal reflux disease, unspecified whether esophagitis present Chronic upper abdominal pain Family history of colon cancer Family history of malignant neoplasm of gastrointestinal tract [facility] Bilateral lower extremity pain- Primary Pain in limb Gastroesophageal reflux disease, unspecified whether esophagitis present Anxiety with depression Current nicotine use Encounter for smoking cessation counseling Counseling on substance use and abuse [facility] Diagnosis Chest pain, unspecified type 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 documented [facility] this [facility] noteNo assessment information availableWUniversity [facility] Work Phone: Hospital Discharge instructions Additional Instructions Your wound needs to dry. I would avoid putting any further antibiotic ointment on at this time. The tissue is what we call friable and the laceration has not healed to the point that removing any further stitches would be beneficial as the wound will open up. We applied some Steri-Strips. Please use the splint to help protect the wound. I have referred you to hand surgery as the motion at your joint is not currently normal.[facility] Work Phone: Reason for referral (narrative)No reason for referral information availableWUniversity [facility]als [facility] Work Phone: Summary Purpose Family History No Family History Records Found Relationship Condition Age at Onset Recorded Date/T jitendra father Alcohol abuse Unknown grandfather Malignant neoplasm of colon Unknown uncle Diabetes mellitus Unknown sister Bipolar I disorder Unknown Advance Directives No Advanced Directives Records Found Advance Directive Response Recorded Date/ Time Do you have a Healthcare Power of Issue Clerk? No April 02, 2025 6:53am Advance Directive Response Recorded Date/ Time Do you have a Healthcare Power of Issue Clerk? No April 02, 2025 6:53am Do you have a Healthcare Power of Issue Clerk? No April 11, 2025 5:27am Reason for Referral Specialty Diagnoses / Procedures Referred By Ai leon Referred To Contact Diagnoses Gastroesophageal reflux disease, unspecified whether esophagitis present Niya Owen APRN.MAGNETIC TAPE WINDER [address] [place] [address] Referral ID Status Reason Start Date Expiration Date Visits Re quested Visits Authorized [id number] Closed 1 1 Specialty Diagnoses / Procedures Referred By Ai leon Referred To Contact Diagnoses Chronic upper abdominal pain Colitis, nonspecific Procedures CONSULT TO [facility]STROENTEROLOGY OFFICE[facility] 60-74 [facility]UTES Niya Owen APRN.MAGNETIC TAPE WINDER [address] [place] [address] [place] [address] Referral ID Status Reason Start Date Expiration Date Visits Requested Visits Authorized [id number] Authorized PCP Requested Referral 06/23/2022 06/23/2023 1 1 Specialty Diagnoses / Procedures Referred By Contact Referred To Contact Gastroenterology / [facility] Department Diagnoses Gastroesophageal reflux disease, unspecified whether esophagitis present Chronic upper abdominal pain Family history of colon cancer Procedures CONSULT TO [facility]STROENTEROLOGY OFFICE[facility] 60-74 MINUTES Niya Owen APRN.MAGNETIC TAPE WINDER [address] [place] [address] [facility] Dept Referral ID Status Reason Start Date Expiration Date Visits Requested Visits Authorized [id number] Authorized PCP Requested Referral 12/03/2022 12/03/2023 1 1 Chief Complaint and Reason for Visit Chief Complaint Admit Date lac April 02, 2025 6:51a m Chief Complaint Admit Date lac April 02, 2025 6:51a m suture removal April 11, 2025 5:26 am Additional Source Comments (unrecognized sect ion and content) No Status Records FoundNo Status Records FoundNo Status Records FoundNo Status Records Found INFORMATION SOURCE (unrecogn ized section and content) DATE CREATED AUTHOR 05/24/2021 [facility] DATE CREATED AUTHOR AUTHOR'S ORGANIZ ATION 05/07/2023 [facility] DATE CREATED AUTHOR AUTHOR'S ORGANIZ ATION 11/26/2023 [facility] DATE CREATED AUTHOR AUTHOR'S ORGANIZ ATION 04/13/2025 [facility] Source Comments (unrecognize d section and content) In the event this informatio n is protected by the Federal Confidentiality of Alcohol and Drug Abuse Patient Records regulations: The Federal rules restrict any use of the information to criminally investigate or prosecute any alcohol or drug abuse patient.[facility] the event this information is protected by the Federal Confidentiality of Alcohol and Drug Abuse Patient Records regulations: The Federal rules restrict any use of the information to criminally investigate or prosecute any alcohol or drug abuse patient.[facility] the event this information is protected by the Federal Confidentiality of Alcohol and Drug Abuse Patient Records regulations: The Federal rules restrict any use of the information to criminally investigate or prosecute any alcohol or drug abuse patient.[facility] the event this information is protected by the Federal Confidentiality of Alcohol and Drug Abuse Patient Records regulations: The Federal rules restrict any use of the information to criminally investigate or prosecute any alcohol or drug abuse patient.[facility] the event this information is protected by the Federal Confidentiality of Alcohol and Drug Abuse Patient Records regulations: The Federal rules restrict any use of the information to criminally investigate or prosecute any alcohol or drug abuse patient.[facility] the event this information is protected by the Federal Confidentiality of Alcohol and Drug Abuse Patient Records regulations: The Federal rules restrict any use of the information to criminally investigate or prosecute any alcohol or drug abuse patient.[facility] the event this information is protected by the Federal Confidentiality of Alcohol and Drug Abuse Patient Records regulations: The Federal rules restrict any use of the information to criminally investigate or prosecute any alcohol or drug abuse patient.[facility] Reason for Visit (unrecogniz ed section and content) Reason Comments ER F/U [facility] ER 06/07/22 abdomi nal pain, is doing [...] By Contact Referred To Contact [facility] Diagnoses Chest pain, unspecified type [R07.9]; 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 [I44.5] Procedures ECHO TTHRC R-T 2D W/WO M-MODE COMPLETE REST&ST STRESS TEST Niya Owen APRN.MAGNETIC TAPE WINDER [address] [place] [address] [address] Referral ID Status Reason Start Date Expiration Date Visits Re quested Visits Authorized [id number] Closed 01/29/2023 04/29/2023 1 1 Care Teams (unrecognized sec tion and content) Relay Repairer Relationship Specialty Start Date End Date Niya Owen APRN.MAGNETIC TAPE WINDER [address] [place] [address] PCP - General Family Practice 05/01/21 Relay Repairer Relationship Specialty Start Date End Date Niya Owen, STEEL TESTER.MAGNETIC TAPE WINDER [address] [place] [address] PCP - General Family Medicine 05/01/21 Relay Repairer Relationship Specialty Start Date End Date Niya Owen, STEEL TESTER.MAGNETIC TAPE WINDER [address] [place] [address] PCP - General Family Medicine 05/01/21 Relay Repairer Relationship Specialty Start Date End Date Niya Owen, STEEL TESTER.MAGNETIC TAPE WINDER [address] [place] [address] PCP - General Family Medicine 05/01/21 Relay Repairer Relationship Specialty Start Date End Date Niya Owen, STEEL TESTER.MAGNETIC TAPE WINDER [address] [place] [address] PCP - General Family Medicine 05/01/21 Relay Repairer Relationship Specialty Start Date End Date Niya Owen, STEEL TESTER.MAGNETIC TAPE WINDER [address] [place] [address] PCP - General Family Medicine 05/01/21 Relay Repairer Relationship Specialty Start Date End Date Niya Owen, STEEL TESTER.MAGNETIC TAPE WINDER [address] [place] [address] PCP - General Family Medicine 05/01/21 Team Status: Active Member Role Status Dates No Primary Care Physician Primary Care Provider Active Team Status: Inactive Member Role Status Dates No Primary Care Physician Primary Care Provider Active Start: April 02, 2025 End: April 02, 2025 Dr. Saqib De , DO Emergency Provider Active Start: April 02, 2025 End: April 02, 2025 Team Status: Inactive Member Role Status Dates No Primary Care Physician Primary Care Provider Active Start: April 02, 2025 End: April 02, 2025 Dr. Saqib De DO Attending Provider Active Start: April 02, 2025 End: April 02, 2025 Dr. Saqib De DO Emergency Provider Active Start: April 02, 2025 End: April 02, 2025 Team Status: Inactive Member Role Status Dates No Primary Care Physician Primary Care Provider Active Start: April 11, 2025 End: April 11, 2025 Dr. Saiqb De DO Emergency Provider Active Start: April 11, 2025 End: April 11, 2025 Goals (unrecognized section and content) Goals may be documented in a n alternate sectionGoals may be documented in an alternate section FOR RECORDS PERTAINING TO PATIENTS [...] BE BASED ON THE PRIMARY CLINICAL RECORDS. [facility]. provides no warranty or guarantee of the accuracy or completeness of information in this document.
--- NOTE | 2025-04-16 05:58 | EX.ED.DYSGE1 ---
HPI History of Present Illness Chief Complaint: Suture Remv Informant: patient Onset/Context/Timing Onset: Days Context: Gradual Onset Timing: Continuous Current Severity: Mild Maximum Severity: Mild Narrative Narrative: 34-year-old male right index finger laceration suture repaired about 12 days ago. Presented about a week ago they removed some of the sutures but [address] He denies any complaints. He also has follow-up to have evaluated for possible tendon injury. Prior similar symptoms: No Recent Illness/Hospitalization: No PFSH PFSH Medical History Anxiety History of wrist fracture Chronic back pain Home Medications ?Medication ?Instructions ?Recorded ?Last Taken ?Type NK 04/11/25 Unknown History Allergy/AdvReac Type Severity Reaction Status Date / Time venom-honey bee (bee venom Allergy Anaphylaxis Verified 04/16/25 05:42 (honey bee)) Family History Father Alcohol abuse Grandfather Colon cancer Uncle Diabetes Sister Bipolar 1 disorder Social History Smoking Status: Current every day smoker tobacco type: cigarettes Tobacco: How many years used: 15 Smokeless tobacco user: chewing tobacco alcohol intake: current alcohol intake frequency: a few times a month substance use type: does not use what type of physical activity do you participate in: weight training and other details: active job ROS ROS ED ROS Narrative Denies recent illness. Constitutional Constitutional ED: Denies fever(s) Eyes Eyes: Denies blurry vision ENT ENT ED: Denies ear pain Cardiovascular Cardiovascular: Denies chest pain Respiratory/Chest Respiratory/Chest: Denies cough Gastrointestinal Gastrointestinal: Denies abdominal pain Genitourinary Genitourinary ED: Denies dysuria Musculoskeletal Musculoskeletal: Denies arthralgias Integumentary Denies abscess Neurologic Neurologic: Denies headache(s) Endocrine Endocrinology: Denies cold intolerance Hematologic/Lymphatic Hematologic/Lymphatic: Reports none Allergic/Immunologic Allergic/Immunologic ED: Denies mouth swelling EXAM Physical Exam Narrative Exam Narrative: 34-year-old male vital signs stable afebrile. H EENT exam unremarkable. Lungs clear. Heart regular rhythm. Abdomen soft nontender. Moving all 4 extremities. Neurovascularly intact. Right index finger palmar aspect he has several sutures in place. Well-healing laceration. Dry and clean. Scab. No infection. Mild swelling to the finger. He has full extension to 180 degrees. He does have limited flexion is specifically to the DIP of the right index finger. This may be due to swelling could be that he has an underlying tendon injury which she is already set up to have further evaluated. Const Vital Signs: 04/16/25 05:38 Temperature 97.5 F L Temperature Source Temporal Pulse Rate 50 L Respiratory Rate 16 Blood Pressure 122/73 H Blood Pressure Mean 89 Pulse Ox 96 Oxygen Delivery Method Room Air Positive well nourished and well developed; Negative for obese, cachectic, contractures or unkempt General Appearance ED: well developed and NAD; Negative for unkempt, cachectic, contractures, cyanotic, diaphoretic or pallor Nutritional Appearance: Negative for cachectic or obese HEENT Reports moist mucous membranes Eyes PERRL and EOMs intact bilaterally Neck no lymphadenopathy, supple and no JVD Chest Wall inspection of chest normal and palpation of chest normal Resp normal respiratory effort and clear to auscultation bilaterally Cardio regular rate, regular rhythm, S1 normal heart sound, S2 normal heart sound and no murmurs GI normal to inspection, nondistended, normoactive bowel sounds, non-tender, non-distended and no masses Extremity normal to inspection Extremity Narrative: Except right index finger palmar aspect several sutures in place. Well-formed scab. Healing. No infection. Mild swelling. Full extension and 80 degrees limited flexion primarily the DIP. May be secondary to swelling versus tendon laceration. Patient is to follow that up. General Extremety ED: Yes edema General Extremity: edema Neuro oriented x3 and CN's II-XII intact bilaterally Sensorium / Orientation: alert; Negative for lethargic or stuporous Motor Exam: strength 5/5 throughout Psych mental status grossly normal Appearance: Negative for unkempt Skin no rashes or lesions noted, no wounds and skin turgor normal General Skin Exam: Negative for jaundice or pallor MDM MDM MDM Narrative Medical decision making narrative: Suture removal right index finger. Healing nicely. Concern for limited flexion of the DIP. Outpatient follow-up already scheduled. Discharge Plan Triage Chief Complaint: Suture Remv ED Provider: Leroy Ghotra Dx/Rx/DC Orders Clinical Impression: Visit for wound check, Visit for suture removal Instructions: ED Wound Check (No Infection) Prescriptions: No Action NK Primary Care Provider: Care Physician,No Primary Referrals: Care Physician,No Primary [Primary Care Provider] - Activity Restrictions/Additional Instructions: Follow-up to have your finger reevaluated. Watch for any signs of infection. Print Language: Frisian Disposition Disposition: Home, Self Care
[2025-04-16 05:59] VITALS: BP 122/73; PULSE 50; RESP 16; TEMP 36.4; O2SAT 96
== END 2025-04-16 06:04 | disposition home or self-care (01) ==
PROVIDERS: Emergency Provider Emergency Medicine; Visit Provider Emergency Medicine
DX: Z48.02 Encounter for removal of sutures (principal); F17.210 Nicotine dependence, cigarettes, uncomplicated; F17.220 Nicotine dependence, chewing tobacco, uncomplicated
CPT/HCPCS: 99282

== ENCOUNTER 2025-05-21 15:41 | Outpatient (RCR) | payer OTHER, SELFPAY ==
--- NOTE | 2025-05-21 16:37 | HP.OTEVAL_ITS ---
Patient's Visit Information Visit Information Visit Information: MIGUEL BRANTLEY is a 35 year old M, referred to Occupational Therapy by Dr. Tommie Sheeahn MD, with a diagnosis of left IF crush injury. Date of Evaluation: 05/21/25 Occupational Therapist: Amada Pablo, ANDREE/Estuardo, CHT Subjective Subjective: This 35 year old male was seen for OT eval with dx of right hand crush injury. pt states while at work about 6 weeks ago he had his finger crush injury. pt states x-ray was negative for fx. Pt states he went to ER and had to have 7 stitches. pt states he has been trying to work with his hand trying to get more right IF ROM. pt is right handed. pt states now his hand stops him from doing tasks like opening a jar or bottle top. pt states he has not stopped working and at this time he would like to return his PLOF. Pain right hand: Current Pain Intensity: 0 Pain Intensity Range: 2 ROM MP: IF right 75 left 0/80 PIP: IF right -20/90 left 0/105 DIP: IF right 40 left 0/65 ROM Comments: PIP increased to 110* of PIP flexion and DIP increase to 60* of flexion following session. Strength [employer] Auditor: right 95# left 100# Lateral Pinch: right 10# left 14# Tripod Pinch: right 8# left 14# Sensation Sensation Comments: sensitivity Quick DASH-Disab of Arm,Shoulder& Hand Quick DASH Score: 28.5700 Goals Goal:Daily scar massage when approriate: Yes Goal:ROM equal to unaffected hand: Yes Rehabilitation General Assessment: pt demo with a decrease in right IF ROM and strength that limits pt with daily occupations. pt would benefit from skilled OT service 1x week for 2-3 weeks to return pt to his PLOF. Due to pts $50.00 Copay therapist gave HEP. Today after session pts right IF ROM increased from PIP increased to 110* PIP flexion DIP increase to 60*. therapist ed. pt how he can perform PROM, AROM and place and hold ex to improve his ROM. pt demo understanding and agree to call or return if he has questions. Rehabilitation Potential: Good Anticipated Interventions Anticipated Interventions: A/AAROM/PROM and Home Program Visit Plan General Plan: pt to cont with HEP as he has a $50.00 co-pay per visit pt did gain full ROM following session today- pt ed. In HEP. pt agree to HEP TEXT: Thank you for the opportunity to evaluate your patient. For Medicare and Medicare HMO plans, please review the plan of care and approve it. It will need to be FAXED BACK to us at [phone] for Medicare purposes. Please let me know if there are questions or concerns regarding this plan of care. Physician Signature: Date:
== END 2025-05-21 19:00 | disposition home or self-care (01) ==
LOC: PT 15:41
PROVIDERS: Referring Provider Surgery Plastic and Reconstructive Surgery; Visit Provider Surgery Plastic and Reconstructive Surgery
DX: S67.10XD Crushing injury of unspecified finger(s), subsequent encounter (principal)
CPT/HCPCS: 97166

== ENCOUNTER 2025-06-24 14:13 | Emergency (ER) | payer OTHER, SELFPAY ==
[2025-06-24 14:14] VITALS: BP 104/77; PULSE 53; RESP 16; TEMP 36.7; O2SAT 97; BMI 22.1
--- NOTE | 2025-06-24 14:26 | RAD_ITS ---
PROCEDURE: CHEST PA AND LATERAL 06/24/2025 REASON FOR EXAM: CHEST PAIN TECHNIQUE: CHEST PA AND 2 LATERAL COMPARISON: None FINDINGS: Hardware: EKG leads overlie the chest Heart: The heart size is normal. Mediastinum: The mediastinal contour is unremarkable. Lungs: The lungs are clear. Bones: The bones are unremarkable. RAD/Chest PA and Lateral IMPRESSION: No acute pulmonary process Reading Location: [id number]
--- NOTE | 2025-06-24 14:26 | EKG12_ITS ---
Test Reason : CP Blood Pressure : */* mmHG Vent. Rate : 54 BPM Atrial Rate : 54 BPM P-R Int : 142 ms QRS Dur : 110 ms QT Int : 396 ms P-R-T Axes : 37 139 77 degrees QTcB Int : 375 ms Sinus bradycardia Right axis deviation Abnormal ECG Confirmed by YENI JEWELL, COLLIN ([id number]), editor sound GABRIELLE BAY ([id number]) on 06/25/2025 1:07:23 PM Referred By: BB Confirmed By: COLLIN JAIME MD
[2025-06-24 14:41] VITALS: O2SAT 98
[2025-06-24 14:42] VITALS: O2SAT 98
[2025-06-24 14:45] LABS: Hematocrit 48.3 % (40-54); Hemoglobin 16.3 g/dL (13.0-16.5); Immature Granulocytes Count 0.030 X10^3/uL (0.0-0.0); Mean Corp Hgb Conc 33.7 g/dL (32-36); Mean Corpuscular Volume 86.6 fL (80-94); Mean Platelet Vol. 9.3 fl (6.2-12.0); NRBC Flagged by Analyzer 0 % (0-5); Platelet Count 200 K/mm3 (150-450); RBC Distribution Width CV 12.1 % (11.6-14.6); RBC Distribution Width SD 38.5 fl (35.1-43.9); Red Blood Count 5.58 M/mm3 (4.6-6.2); White Blood Count 7.2 K/mm3 (4.4-11.0)
--- OUTSIDE RECORDS SUMMARY | 2025-06-24 14:53 | XMS RPT_ITS | CCD ---
Author Organization [facility] Care Team Providers Care Furniture Decals Inspector Name Role Phone Queden CAP SIZER.DIRECTOR CASE MANAGEMENT, Niya A Primary Care Provider QUEDEN, NIYA [...] Provider Dr. Saqib De DO Attending Provider Dr. Leroy Ghotra MD Emergency Provider Dr. Leroy Ghotra MD Attending Provider Care Physician, No Primary Referring Provider Un available Dr. Tommie Sheehan MD Attending Provider Care Physician, No Primary Primary Care Unava ilable Leroy Ghotra Attending Unavailable Care Physician, No Primary Primary Care Unava ilable Saqib De Attending Unavailable Care Physician, No Primary Primary Care Unava ilable Saqib De Attending Unavailable Tommie Sheehan Referring Unavailable Tommie Sheehan Attending Unavailable Care Physician, No Primary Primary Care Unava ilable Care Physician, No Primary Primary Care Unava ilable Care Physician, No Primary Referring Unava ilable Tommie Sheehan Attending Unavailable Care Physician, No Primary Referring Unava ilable Care Physician, No Primary Primary Care Unava ilable Siska, Tommie Attending Unavailable Care Physician, No Primary Primary Care Unava Eulalio Lea Attending Unavailable Allergies Allergy Classification Reported Allergen(s) Allergy Type Date of Onset Reaction(s) Facility (8 sources) Bees; Translations: [BEES] Allergy to substance 07-29-2005 Swelling [facility] Work Phone: (4 sources) venom-honey bee Allergy to substance 04-02-2025 Anaphylaxis [facility] (1 source) venom-honey bee Drug allergy (disorder) 05-01-2025 [facility] Repository Medications Current Medications Medication Drug Class(es) Dates Sig (Normalized) Sig (Original) [place] (Nk) (3 sources) Start: 04-11-2025 [place] (Nk) Active April 11, 2025 12:00am pantoprazole [...] Comment on above: Take 1 tablet by [facility] once daily. Take 1/2-hour before same meal daily Completed/Discontinued Medications Medication Drug Class(es) Dates Sig (Normalized) Sig (Original) acetaminophen 325 mg / HYDROcodone bitartrate 5 mg oral tablet (4 sources) Opioid Agonist Start: 09-05-2017 End: 05-10-2019 Hydrocodone-Acetam inophen 1 TABLET tablet Discontinued 1 - 2 {tbl} PO EVERY 4 HOURS NEEDED as needed for Pain 12 0 September 05, 2017 12:00am May 10, 2019 3:58pm acetaminophen 325 mg / oxyCODONE hydrochloride 5 mg oral tablet (4 sources) Opioid Agonist Start: 04-04-2020 End: 04-07-2020 Oxycodone-Acetamin ophen 1 TABLET tablet Discontinued 1 {tbl} PO EVERY 6 HOURS NEEDED as needed for Pain 12 3 0 April 04, 2020 April 06, 2020 12:00am April 07, 2020 12:02am Fracture of phalanx of toe 24 hr buPROPion hydrochloride 150 mg extended [...] by mouth. cephalexin 500 mg oral capsule (8 sources) Cephalosporin Antibacterial Start: 04-02-2025 End: 04-11-2025 take 1 capsule by mouth every six hours Cephalexin 500 mg capsule Discontinued 500 mg PO EVERY 6 HOURS 20 0 April 02, 2025 12:00am April 11, 2025 5:45am Start: 04-04-2020 End: 11-12-2024 take 1 capsule by mouth every six hours Cephalexin 500 MG capsule Discontinued 500 mg PO EVERY 6 HOURS 40 0 April 04, 2020 12:00am November 12, 2024 11:45am cyclobenzaprine hydrochloride 10 mg oral tablet (4 sources) Muscle Relaxant Start: 09-05-2017 End: 05-10-2019 take 1 tablet by mouth three times daily as needed for muscle spasms Cyclobenzaprine 10 MG tablet Discontinued 10 mg PO THREE TIMES A DAY as needed for Muscle Spasm 20 0 September 05, 2017 12:00am May 10, 2019 [...] once daily. famotidine 20 mg oral tablet (5 sources) Histamine-2 Receptor Antagonist Start: 05-23-2021 End: [...] Comment on above: Take 1 tablet by [facility] twice daily. naproxen 500 mg oral tablet (8 sources) Nonsteroidal Anti-inflammatory Drug Start: End: take 1 tablet by mouth twice daily as needed for pain Naproxen (Naprosyn) 500 mg tablet Discontinued 500 mg PO TWICE A DAY as needed for pain 20 November 12, 2024 1:00am April 02, 2025 [...] Comment on above: Take 1 capsule by [facility] once daily. Take 1/2-hour before same meal daily penicillin v potassium 500 mg oral tablet (4 sources) Start: 11-12-2024 End: 04-02-2025 take 1 tablet by mouth four times daily Penicillin V Potassium 500 mg tablet Discontinued 500 mg PO 4 TIMES DAILY 40 0 November 12, 2024 1:00am April 02, 2025 6:54am traMADol hydrochloride 50 mg oral tablet (4 sources) Opioid Agonist Start: 04-05-2020 End: 11-12-2024 [...] 12-03-2022 Chronic Crushing injury or internal injury (4 sources) Crushing injury of finger; Translations: [Crushing injury of unspecified finger(s), initial encounter] 04-02-2025 Episodic Disorders usually diagnosed in infancy, childhood, or adolescence (7 sources) Attention deficit hyperactivity disorder, predominantly inattentive type; Translations: [Other specified behavioral and emotional disorders with onset usually occurring in childhood and adolescence] Onset: 08-12-2005 08-12-2005 Chronic E Codes: Machinery (4 sources) Injury due to machinery; Translations: [Contact with powered woodworking and forming machines, initial encounter] 04-04-2020 Episodic Esophageal disorders (11 sources) Gastroesophageal reflux disease; Translations: [Gastro-esophageal reflux disease without esophagitis] Onset: 06-23-2022 Chronic Fracture of lower limb (8 sources) Open fracture of great toe; Translations: [Displaced unspecified fracture of left great toe, initial encounter for open fracture] 04-04-2020 Episodic Open wounds of extremities (5 sources) Laceration of finger; Translations: [Laceration without foreign body of unspecified finger without damage to nail, initial encounter] Onset: 04-05-2025 04-02-2025 Episodic Other aftercare (7 sources) Wound finding; Translations: [Encounter for other specified aftercare] 04-07-2020 Episodic Other aftercare (2 sources) Surgical follow-up; Translations: [Encounter for removal of sutures] 04-16-2025 Episodic Other aftercare (1 source) Encounter for removal of sutures; Translations: [Encounter for removal of sutures] Onset: 04-20-2025 Episodic Other connective tissue disease (1 source) Pain in bilateral legs; Translations: [Pain in right leg] Episodic Other nervous system disorders (1 source) Other chronic pain; Translations: [Chronic upper abdominal pain] Onset: 06-23-2022 Chronic Otitis media and related conditions (4 sources) Acute non-suppurative otitis media - serous; Translations: [Acute serous otitis media, right ear] 09-13-2019 Episodic Residual codes; unclassified (2 sources) Nicotine user; Translations: [Tobacco use] Episodic Residual codes; unclassified (6 sources) Family history of cancer of colon; Translations: [Family history of malignant neoplasm of digestive organs] Onset: 12-03-2022 Episodic Unclassified (1 source) Dental Problem Onset: 05-03-2023 Unclassified (4 sources) No history of clinical finding in subject 09-12-2019 Past or Other Problems Problem Classification Problem Date Documented Date Episodic/Chronic Abdominal pain (19 sources) Lower abdominal pain; Translations: [Lower abdominal pain, unspecified] Onset: 07-20-2021 Episodic Administrative/social admission (2 sources) Patient encounter status; Translations: [Tobacco abuse counseling] Onset: 01-18-2023 Episodic Disorders of teeth and jaw (9 sources) Dental caries; Translations: [Dental caries, unspecified] [...] Test Name Value Interpretation Reference Range Facility OT General Evaluationon 05-02 OT General Evaluation [facility] Occupational Therapy [facility] [address] [place] [address] / REHABILITATION SERVICES INITIAL EVALUATION MR#: [id number] Acct: [id number] Name: MIGUEL WEEMS Rep #: [id number] : 1990 35 From: Amada HEATH CHT Referring Dr.: Dr. Tommie Sheehan MD Status: REG [facility] Insurance: [facility] Date: SELF PAY INSURANCE Patient's Visit Information Visit Information Visit Information: MIGUEL WEEMS is a 35 year old M, referred to Occupational Therapy by Dr. Tommie Sheehan MD, with a diagnosis of left IF crush injury. Date of Evaluation: 05/21/25 Occupational Therapist: KUMAR Stanton CHT Subjective Subjective: This 35 year old male was seen for OT eval with dx of right hand crush injury. pt states while at work about 6 weeks ago he had his finger crush injury. pt states x-ray was negative for fx. Pt states he went to ER and had to have 7 stitches. pt states he has been trying to work with his hand trying to get more right IF ROM. pt is right handed. pt states now his hand stops him from doing tasks like opening a jar or bottle top. pt states he has not stopped working and at this time he would like to return his PLOF. Pain right hand: Current Pain Intensity: 0 Pain Intensity Range: 2 ROM MP: IF right 75 left 0/80 PIP: IF right -20/90 left 0/105 DIP: IF right 40 left 0/65 ROM Comments: PIP increased to 110* of PIP flexion and DIP increase to 60* of flexion following session. Strength Entry Level Sales Representative: right 95# left 100# Lateral Pinch: right 10# left 14# Tripod Pinch: right 8# left 14# Sensation Sensation Comments: sensitivity Quick DASH-Disab of Arm,Shoulder Hand Quick DASH Score: 28.5700 Goals Goal:Daily scar massage when approriate: Yes Goal:ROM equal to unaffected hand: Yes Rehabilitation General Assessment: pt demo with a decrease in right IF ROM and strength that limits pt with daily occupations. pt would benefit from skilled OT service 1x week for 2-3 weeks to return pt to his PLOF. Due to pts $50.00 Copay therapist gave HEP. Today after session pts right IF ROM increased from PIP increased to 110* PIP flexion DIP increase to 60*. therapist ed. pt how he can perform PROM, AROM and place and hold ex to improve his ROM. pt demo understanding and agree to call or return if he has questions. Rehabilitation Potential: Good Anticipated Interventions Anticipated Interventions: A/AAROM/PROM and Home Program Visit Plan General Plan: pt to cont with HEP as he has a $50.00 co-pay per visit pt did gain full ROM following session today- pt ed. In HEP. pt agree to HEP TEXT: Thank you for the opportunity to evaluate your patient. For Medicare and Medicare HMO plans, please review the plan of care and approve it. It will need to be FAXED BACK to us at [phone] for Medicare purposes. Please let me know if there are questions or concerns regarding this plan of care. Physician Signature: Date: ____ 05/21/25 1638 CC: Dr. Tommie Sheehan MD; No Primary Care Physician FELY Signed For Medicare only, by signing this I certify the plan of care. ____ Physicians Signature Date Normal [facility] Plastic Surgery Visit Report on 05-01-2025 Plastic Surgery Visit Report [facility] Plastic Reconstructive Surgery [address], [address] [place] [address] OFFICE VISIT Date of Service: 05/01/25 MR#: [id number] Acct: [id number] Name: MIGUEL WEEMS Rep #: [id number] : 1990 Provider: Dr. Tommie Sheehan MD Age/Sex: 34/M Location: [place] [address] Status: Signed Intake Vital Signs 04/16/25 05:38 05/01/25 14:42 Height 6 ft 0.83 in 6 ft 1 in Intake Visit Reasons: R POINTER FINGER Chief Complaint: right index finger Accompanied by: Is patient in pain?: No Allergies venom-honey bee (bee venom (honey bee)) Allergy (Verified 05/01/25 14:42) Anaphylaxis Medications ???Medication ???Instructions ???Recorded ???Confirmed ???Type NK 04/11/25 05/01/25 History Nurse's Note: pt here for crushing injury eval right index finger PFSH Medical History Hearing problem Anxiety History of wrist fracture Chronic back pain Family History Father Alcohol abuse Grandfather Colon cancer Uncle Diabetes Sister Bipolar 1 disorder Social History Smoking Status: Current every day smoker tobacco type: cigarettes Tobacco: How many years used: 15 Smokeless tobacco user: chewing tobacco alcohol intake: current alcohol intake frequency: a few times a month substance use type: marijuana what type of physical activity do you participate in: weight training and other details: active job additional social history: pt reports vaping and marijuana use denies edibles, denies aspirin or ibuprofen use denies blood clots HPI R POINTER FINGER Details: The patient is a 34-year-old male presenting with a crush injury to the right index finger. The injury occurred on April 02, approximately one month ago, when the patient's finger was caught in a machine at work, resulting in a crush injury without fractures or tendon tears. The patient received seven stitches for a laceration and reports limited range of motion, with the ability to bend the finger to about 110 degrees at the PIP joint and 45 degrees at the DIP joint. The patient reports that the scar tissue is causing tightness and limited function, impacting his ability to perform tasks at work, such as pulling veneer stone. He denies any bone pain and reports no mallet finger or boutonniere deformity. The patient is concerned about the impact of the injury on his hobbies, such as fishing and hunting. - Musculoskeletal: Reports limited range of motion in the right index finger. Denies bone pain. - Neurological: Denies numbness or tingling in the right index finger. Attestation: Documentation on this patient encounter was supported using ambient scribe technology/ voice AI technology. The patient consented to recording for the purpose of documenting the encounter. Provider reviewed content of the generated note prior to signature. ROS General General: Yes good health and fatigue; No fever(s) or weight loss HENMT HENMT: No rhinitis, sore throat/mouth sore, nasal congestion, contacts or glaucoma Endo Endocrine: No thyroid disease, polydipsia, heat intolerance, cold intolerance, hepatitis or excessive urine Skin Skin: No Bleeding, bruising, changing moles or suspicious lesion Musc Musculoskeletal: Yes joint pain, joint stiffness and back pain; No muscle weakness, osteoarthritis or Muscle aches/ myalgia Neuro Neurological: No headache(s), No lightheadedness and No numbness Cardio Cardiovascular: Yes fatigue; No chest pain, pacemaker or shortness of breat with exertion Psych Psychiatric: No depression, claustrophobia or anxiety Resp Respiratory: No spitting up, shortness of breath, sleep apnea, asthma, emphysema, TB, Cough or Smoker Gastro Gastrointestinal: No diarrhea, constipation, blood in stool, nausea, vomiting or abdominal bloating Toni Hematologic: No anemia, No bleeding and No abnormal bleeding Genitourinary: No urinary frequency, blood in urine or incontinence Exam Details R Upper Extremity Inspection: Scar tissue present on the right index finger with visible laceration on the volar aspect. Palpation: Tenderness along the scar line of the right index finger. No tenderness over the finger bones of the right index with firm palpation today in clinic. Motor: Patient reports limited range of motion 2/2 stiffness/pull of the scar; able to bend PIP joint to about 110 degrees and DIP joint to about 45 degrees. Sensory: Intact to light touch on the radial and ulnar borders, 10/10 sensation reported. Vascular: Finger tips are warm and well perfused with greater than 2 second capillary refill. Supplemental Info - Imaging: Previous x-ray showed no fract (more content not included)... Normal [facility] Emergency Department Summary on 04-16-2025 Emergency Department Summary [facility] Medical Records Department [address] [place] [address] Emergency Department Summary 04/16/25 MR#: [id number] Acct: [id number] Name: MIGUEL WEEMS Rep #: [id number] : 1990 34 From: Leroy Ghotra MD PCP: Care Physician,No Primary Status:REG ER Location: ED HPI History of Present Illness Chief Complaint: Suture Remv Informant: patient Onset/Context/Timing Onset: Days Context: Gradual Onset Timing: Continuous Current Severity: Mild Maximum Severity: Mild Narrative Narrative: 34-year-old male right index finger laceration suture repaired about 12 days ago. Presented about a week ago they removed some of the sutures but [address] He denies any complaints. He also has follow-up to have evaluated for possible tendon injury. Prior similar symptoms: No Recent Illness/Hospitalization: No [facility] Medical History Anxiety History of wrist fracture Chronic back pain Home Medications ???Medication ???Instructions ???Recorded ???Last Taken ???Type NK 04/11/25 Unknown History Allergy/AdvReac Type Severity Reaction Status Date / Time venom-honey bee (bee venom Allergy Anaphylaxis Verified 04/16/25 05:42 (honey bee)) Family History Father Alcohol abuse [...] active job ROS ROS ED ROS Narrative Denies recent illness. Constitutional Constitutional ED: Denies fever(s) Eyes Eyes: Denies blurry vision ENT ENT ED: Denies ear pain Cardiovascular Cardiovascular: Denies chest pain Respiratory/Chest Respiratory/Chest: Denies cough Gastrointestinal Gastrointestinal: Denies abdominal pain Genitourinary Genitourinary ED: Denies dysuria Musculoskeletal Musculoskeletal: Denies arthralgias Integumentary Denies abscess Neurologic Neurologic: Denies headache(s) Endocrine Endocrinology: Denies cold intolerance Hematologic/Lymphatic Hematologic/Lymphatic: Reports none Allergic/Immunologic Allergic/Immunologic ED: Denies mouth swelling EXAM Physical Exam Narrative Exam Narrative: 34-year-old male vital signs stable afebrile. H EENT exam unremarkable. Lungs clear. Heart regular rhythm. Abdomen soft nontender. Moving all 4 extremities. Neurovascularly intact. Right index finger palmar aspect he has several sutures in place. Well-healing laceration. Dry and clean. Scab. No infection. Mild swelling to the finger. He has full extension to 180 degrees. He does have limited flexion is specifically to the DIP of the right index finger. This may be due to swelling could be that he has an underlying tendon injury which she is already set up to have further evaluated. Const Vital Signs: 04/16/25 05:38 Temperature 97.5 F L Temperature Source Temporal Pulse Rate 50 L Respiratory Rate 16 Blood Pressure 122/73 H Blood Pressure Mean 89 Pulse Ox 96 Oxygen Delivery Method Room Air Positive well nourished and well developed; Negative for obese, cachectic, contractures or unkempt General Appearance ED: well developed and NAD; Negative for unkempt, cachectic, contractures, cyanotic, diaphoretic or pallor Nutritional Appearance: Negative for cachectic or obese HEENT Reports moist mucous membranes Eyes PERRL and EOMs intact bilaterally Neck no lymphadenopathy, supple and no JVD Chest Wall inspection of chest normal and palpation of chest normal Resp normal respiratory effort and clear to auscultation bilaterally Cardio regular rate, regular rhythm, S1 normal heart sound, S2 normal heart sound and no murmurs GI normal to inspection, nondistended, normoactive bowel sounds, non-tender, non-distended and no masses Extremity normal to inspection Extremity Narrative: Except right index finger palmar aspect several sutures in place. Well-formed scab. Healing. No infection. Mild swelling. Full extension and 80 degrees limited flexion primarily the DIP. May be secondary to swelling versus tendon laceration. Patient is to follow that up. General Extremety ED: Yes edema General Extremity: edema Neuro oriented x3 and CN's II-XII intact bilaterally Sensorium / Orientation: alert; Negative for lethargic or stuporous Motor Exam: strength 5/5 throughout Psych mental status grossly normal A (more content not included)... Normal [facility] Emergency Department Summary on 04-11-2025 Emergency Department Summary [facility] Medical Records Department [address] [place] [address] Emergency Department Summary 04/11/25 MR#: [id number] Acct: [id number] Name: MIGUEL WEEMS Rep #: [id number] : 1990 34 From: Saqib De DO [...] to work. No drainage from the wound. [facility] Medical History Anxiety History of wrist [...] that h (more content not included)... Normal [facility] Emergency Department Summary on 04-02-2025 Emergency Department Summary [facility] Medical Records Department [address] [place] [address] Emergency Department Summary 04/02/25 MR#: [id number] Acct: [id number] Name: MIGUEL WEEMS Rep #: [id number] : 1990 34 From: Saqib De DO [...] tetanus is up-to-date. Tetanus Immunization: <5 years [facility] Medical History Anxiety History of wrist [...] plain film (more content not included)... Normal [facility] Finger(s) Min 2 Viewson Finger(s) Min 2 Views [facility] Imaging Services [address] [place] [address] Finger(s) Min 2 Views MR#: [id number] Acct: [id number] Name: MIGUEL WEEMS Rep #: [id number] : 1990 M 34 From: [place] oneal MD PCP: Care Physician,No Primary Status: REG ER Study: Finger(s) Min 2 Views Date of Exam: 04/02/25 Exam# [id number] Ordering Dr: Saqib De DO PROCEDURE: FINGER(S) [...] exclude an acute traumatic etiology. Reading Location: [place] [address] CC: Dr. Saqib De, DO; No Primary Care Physician Folder Stitcher Operator: Signed Normal [facility] Emergency Department Summary on 11-12-2024 Emergency Department Summary [facility] Medical Records Department [address] [place] [address] Emergency Department Summary 11/12/24 MR#: [id number] Acct: [id number] Name: MIGUEL WEEMS Rep #: [id number] : 1990 34 From: Eulalio Kent MD [...] swallowing or breathing. He has appointment with [facility] in a few days. [facility] Medical History (Updated 11/12/24 @ 11:25 by [...] 07/20/19 @ 11:38 by Olman Duarte NP, [employer]) Smoking Status: Current every day smoker tobacco [...] scheduled and was discharged in stable condition. MDM History Record Review Discussion w/independent historian: Patient [...] appointment with (more content not included)... Normal [facility] CBC panel Auto (Bld)on 11-24 Erythrocyte distribution width (RBC) [Ratio] 13.2 % Normal 11.5-15.[address] [facility] Comment on above: Order Comment: Grover galdamez Type: BLOOD SPECIMEN Ordering Facility: [facility] Address: [address] [place] [address] Performed By: #### 5 8410-2 #### [facility] CLIA [id number] [address] [place] [address] [place] Hematocrit (Bld) [Volume fraction] 47.7 % Normal 39.0-51.[address] [facility] Comment on above: Order Comment: Grover galdamez Type: BLOOD SPECIMEN Ordering Facility: [facility] Address: [address] [place] [address] Performed By: #### 5 8410-2 #### [facility] CLIA [id number] [address] [place] [address] [place] Hemoglobin (Bld) [Mass/Vol] 15.6 g/dL Normal 13.0-17.[address] [facility] Comment on above: Order Comment: Grover galdamez Type: BLOOD SPECIMEN Ordering Facility: [facility] Address: [address] [place] [address] Performed By: #### 5 8410-2 #### [facility] CLIA [id number] [address] [place] [address] MCH (RBC) [Entitic mass] 29.2 pg Normal 26.0-34.[address] [facility] Comment on above: Order Comment: Speci men Type: BLOOD SPECIMEN Ordering Facility: [facility] Address: [address] [place] [address] Performed By: #### 5 8410-2 #### [facility] CLIA [id number] [address] [place] [address] [place] MCHC (RBC) [Mass/Vol] 32.7 g/dL Normal 30.5-36.[address] [facility] Comment on above: Order Comment: Speci men Type: BLOOD SPECIMEN Ordering Facility: [facility] Address: [address] [place] [address] Performed By: #### 5 8410-2 #### [facility] CLIA [id number] [address] [place] [address] [place] MCV (RBC) [Entitic vol] 89.2 fL Normal 80.0-100.[address] [facility] Comment on above: Order Comment: Speci men Type: BLOOD SPECIMEN Ordering Facility: [facility] Address: [address] [place] [address] Performed By: #### 5 8410-2 #### [facility] CLIA [id number] [address] [place] [address] [place] Nucleated RBC (Bld) [#/Vol] 10*3/uL Normal <0.[address] [facility] Comment on above: Order Comment: Speci men Type: BLOOD SPECIMEN Ordering Facility: [facility] Address: [address] [place] [address] Performed By: #### 5 8410-2 #### [facility] CLIA [id number] [address] [place] [address] [place] Platelet mean volume (Bld) [Entitic vol] 10.2 fL Normal 9.0-12.[address] [facility] Comment on above: Order Comment: Speci men Type: BLOOD SPECIMEN Ordering Facility: [facility] Address: [address] [place] [address] Performed By: #### 5 8410-2 #### [facility] CLIA [id number] [address] [place] [address] [place] Platelets (Bld) [#/Vol] 206 10*3/uL Normal 150-[address] [facility] Comment on above: Order Comment: Speci men Type: BLOOD SPECIMEN Ordering Facility: [facility] Address: [address] [place] [address] Performed By: #### 5 8410-2 #### [facility] CLIA [id number] [address] [place] [address] [place] RBC (Bld) [#/Vol] 5.35 10*6/uL Normal 4.20-6.[address] [facility] Comment on above: Order Comment: Speci men Type: BLOOD SPECIMEN Ordering Facility: [facility] Address: [address] [place] [address] Performed By: #### 5 8410-2 #### [facility] CLIA [id number] [address] [place] [address] [place] WBC (Bld) [#/Vol] 7.27 10*3/uL Normal 3.70-11.[address] [facility] Comment on above: Order Comment: Speci men Type: BLOOD SPECIMEN Ordering Facility: [facility] Address: [address] [place] [address] Performed By: #### 5 8410-2 #### [facility] CLIA [id number] [address] [place] [address] [place] [facility] Comprehensive metabolic 2000 panelon 11-24-2023 Albumin [Mass/Vol] 4.5 g/dL Normal 3.9-4.9 [facility] Comment on above: Order Comment: Speci men Type: BLOOD SPECIMEN Ordering Facility: [facility] Address: [address] [place] [address], [place] [address] Performed By: #### 2 4323-8, 3016-3 #### [facility] CLIA [id number] [address] [place] [address] [place] ALP [Catalytic activity/Vol] 58 U/L Normal 38-[address] [facility] Comment on above: Order Comment: Speci men Type: BLOOD SPECIMEN Ordering Facility: [facility] Address: [address] [place] [address], [place] [address] Performed By: #### 2 4323-8, 3016-3 #### [facility] CLIA [id number] [address] [place] [address] [place] ALT [Catalytic activity/Vol] 14 U/L Normal 10-[address] [facility] Comment on above: Order Comment: Speci men Type: BLOOD SPECIMEN Ordering Facility: [facility] Address: [address] [place] [address], [place] [address] Performed By: #### 2 4323-8, 3016-3 #### [facility] CLIA [id number] [address] [place] [address] [place] Anion gap [Moles/Vol] 12 mmol/L Normal 9-[address] [facility] Comment on above: Order Comment: Speci men Type: BLOOD SPECIMEN Ordering Facility: [facility] Address: [address] [place] [address], [place] [address] Performed By: #### 2 4323-8, 3016-3 #### [facility] CLIA [id number] [address] [place] [id number] [place] AST [Catalytic activity/Vol] 24 U/L Normal 14-[address] [facility] Comment on above: Order Comment: Speci men Type: BLOOD SPECIMEN Ordering Facility: [facility] Address: [address], [place] [address] Performed By: #### 2 4323-8, 3015-3 #### [facility] CLIA [id number] [address] [address] [place] Bilirubin [Mass/Vol] 0.4 mg/dL Normal 0.2-1.[address] [facility] Comment on above: Order Comment: Speci men Type: BLOOD SPECIMEN Ordering Facility: [facility] Address: [address], [place] [address] Performed By: #### 2 4323-8, 3015-3 #### [facility] CLIA [id number] [address] [place] [address] [place] Calcium [Mass/Vol] 9.6 mg/dL Normal 8.5-10.2 [facility] Comment on above: Order Comment: Speci men Type: BLOOD SPECIMEN Ordering Facility: [facility] Address: [address] [facility], [place] [address] Performed By: #### 2 4323-8, 3015-3 #### [facility] CLIA [id number] [address] [place] [address] [place] Chloride [Moles/Vol] 103 mmol/L Normal 97-[address] [facility] Comment on above: Order Comment: Speci men Type: BLOOD SPECIMEN Ordering Facility: [facility] Address: [address], [place] [address] Performed By: #### 2 4323-8, 6-3 #### [facility] CLIA [id number] [address] [place] [id number] [place] CO2 [Moles/Vol] 26 mmol/L Normal 22-[address] [facility] Comment on above: Order Comment: Speci men Type: BLOOD SPECIMEN Ordering Facility: [facility] Address: [address], [place] [address] Performed By: #### 2 4323-8, 3016-3 #### [facility] CLIA [id number] [address] [place], [place] [address] [place] Creatinine [Mass/Vol] 1.00 mg/dL Normal 0.73-1.[address] [facility] Comment on above: Order Comment: Grover galdamez Type: BLOOD SPECIMEN Ordering Facility: [facility] Address: [address] [place] [address], [place] [address] Performed By: #### 2 4323-8, 3016-3 #### [facility] CLIA [id number] [address] [place] [address] OF ROB Creatinine and Glomerular filtration rate.predicted panel (S/P/Bld) 101 mL/min/1.73m??? Normal >=[address] [facility] Comment on above: Order Comment: Grover galdamez Type: BLOOD SPECIMEN Ordering Facility: [facility] Address: [address] [place] [address], [place] [address] Result Comment: Cydney mated Glomerular Filtration Rate [...] Performed By: #### 2 4323-8, 3016-3 #### [facility] CLIA [id number] [address] [place], [place] [address] [place] Glucose [Mass/Vol] 92 mg/dL Normal 74-99 [facility] Comment on above: Order Comment: Agatai men Type: BLOOD SPECIMEN Ordering Facility: [facility] Address: [address] [place] [address], [place] [address] Result Comment: The [place] Diabetes Association (ADA) provides guidance for cutoff [...] Standards of Medical Care in Diabetes 2016, [place] [employer] Association. Diabetes Care. 2016.39(Suppl 1). Performed By: #### 2 4323-8, 6-3 #### [facility] CLIA [id number] [address] [place] [id number] [place] Potassium [Moles/Vol] 4.4 mmol/L Normal 3.7-5.[address] [facility] Comment on above: Order Comment: Grover galdamez Type: BLOOD SPECIMEN Ordering Facility: [facility] Address: [address] [place] [address] Performed By: #### 2 432-8, 3015-3 #### [facility] CLIA [id number] [address] [place] [address] [place] Protein [Mass/Vol] 7.0 g/dL Normal 6.3-8.0 [facility] Comment on above: Order Comment: Grover galdamez Type: BLOOD SPECIMEN Ordering Facility: [facility] Address: [address] [place] [address] Performed By: #### 2 4323-8, 3015-3 #### [facility] CLIA [id number] [address] [place] [id number] [place] Sodium [Moles/Vol] 141 mmol/L Normal 136-144 [facility] Comment on above: Order Comment: Agatai men Type: BLOOD SPECIMEN Ordering Facility: [facility] Address: [address] [place], [place] [address] Performed By: #### 2 4323-8, 6-3 #### [facility] CLIA [id number] [address] [place] [address] [place] [facility] Urea nitrogen [Mass/Vol] 13 mg/dL Normal 9-[address] [facility] Comment on above: Order Comment: Speci rudolph Type: BLOOD SPECIMEN Ordering Facility: [facility] Address: [address] [place] [address] Performed By: #### 2 4323-8, 3016-3 #### [facility] CLIA [id number] [address] [place] [address] OF ROB TSH SerPl-aCncon 11-24-2023 TSH Qn 0.429 m[IU]/L Normal 0.270-4.[address] [facility] Comment on above: Order Comment: Grover galdamez Type: BLOOD SPECIMEN Ordering Facility: [facility] Address: [address] [place] [address] Performed By: #### 2 4323-8, 3016-3 #### [facility] CLIA [id number] [address] [place] [address] OF ROB ED NOTEon 2023 ED NOTE HNO ID: [id number] Author: Isabel Mauricio RN Service: Emergency Medicine Author Type: Registered Nurse Type: ED Notes Filed: 05/03/2023 11:26 PM Note Text: Patient is alert, talkative, no distress noted. Instructed to use Tylenol/Motrin for pain control. Scrip for Amoxicillin to be parts picker. Patient instructed to follow up with PCP, return with any new, worsening, or recurrent symptoms. Verbalizes understanding of all instructions. Ambulates with ease to lobby, no distress. [facility] ED NOTE HNO ID: [id number] Author: Isabel Mauricio RN Service: Emergency Medicine Author Type: Registered Nurse Type: ED Notes Filed: 05/03/2023 11:08 PM Note Text: Patient informed: the name of medication, why we are giving it, possible side effects, what they may expect to feel, and was offered a chance to ask questions, prior to the administration of Lidocaine, Amoxil, Ibuprofen. Normal [facility] ED NOTE HNO ID: [id number] Author: Isabel Mauricio, TERENCE Service: Emergency Medicine Author Type: Registered Nurse Type: ED Notes Filed: 05/03/2023 11:00 PM Note Text: Patient informed: the name of medication, why we are giving it, possible side effects, what they may expect to feel, and was offered a chance to ask questions, prior to the administration of Motrin, Lidocaine, Amoxil. [facility] ED PROV NOTEon 2023 ED PROV NOTE HNO ID: [id number] Author: Rufina Olmstead DO Service: Emergency Medicine [...] Impressions as o (more content not included)... [facility] ED NOTEon 05-03-2023 ED NOTE HNO ID: [id number] Author: Isabel Mauricio RN Service: Emergency Medicine Author Type: Registered Nurse Type: ED Notes Filed: 05/03/2023 9:52 PM Note Text: Patient states he has had right side lower dental pain that radiates to his ear for one week. Dentist appointment on Wednesday. [facility] CNPKaye 02-01-2023 [facility] Telephone (AGFAMPLE) -------- MIGUEL WEEMS ([id number]) 1990 M Date Time Provider Department 02/01/23 NIYA GOOD During your visit today, we recorded the following information about you: Roseanna Kruse MA 02/01/2023 2:33 PM Signed ----- Message from Tayla Smyth APRN.DIRECTOR CASE MANAGEMENT sent at 02/01/2023 2:16 PM EDT ----- [...] Date Reviewed: 01/18/2023 Reviewed by: Niya Good APRN.DIRECTOR CASE MANAGEMENT - Fully Assessed Reason for Visit: Results [...] Status:Closed by ROSEANNA KRUSE on 02/01/23 [facility] EXERCISE STRESS ECG (WITHOUT IMAGING)on 01-29-2023 EXERCISE STRESS ECG (WITHOUT IMAGING) Stress Suction Worker Report: Exercise Stress ECG (without Imaging) [facility] Date of service: 01/29/2023 9:41:37 AM HOSPITAL Supervising physician: Domingo Jain MD PATIENT: Name: MR. MIGUEL WEEMS Age: 32 years Gender: M The supervising physician was in the department and immediately available. Final -- Stress ECG Report: Exercise Stress ECG (without Imaging) [facility] Date of service: 01/29/2023 9:41:37 AM HOSPITAL Ordering physician: NIYA GOOD stars specialist: Billie Winkler Poker Prop Player: Maria Dolores Crocker RN Interpreting physician: Domingo [...] 148/60 mmHg. The double product achieved was [address]. Medications: Last Used LEXAPRO WELLBUTRIN PROTONIX Resting ECG: Sinus Bradycardia, Right [place] Deviation, Incomplete RBBB and Nonspecific St-T Wave [...] (HRR): 40 bpm Rate Pressure Product (RPP): 85885 [place] Treadmill Score: 12.0 Stress Exercise Observations: Reason for test termination: leg fatigue, Symptoms during test: Other symptoms during the test included leg fatigue and SOB, Heart rate response: Adequate heart rate response, Blood pressure (more content not included)... [facility] CNOVon 01-18-2023 [facility] Office Visit (JEAN BARTON) -------- MIGUEL WEEMS ([id number]) 1990 M Date Time Provider Department 01/18/23 4:40 PM NIYA GOOD During your visit today, we recorded the following information about you: Temperature Pulse Respiration Blood pressure 97.8 degrees 68/minute 18/minute 108/58 Weight Height 85.7 kg 1.854 m Niya Good APRN.CNP 01/21/2023 5:39 AM Signed CHIEF COMPLAINT: Miguel Contreras Dank is a 32 year old male who [...] history is provided by the patient. No supervisor modern languages was used. Leg Pain The pain is [...] 1 Da (more content not included)... [facility] Nancy 01-13-2023 [facility] Telephone (THERESA) -------- MIGUEL WEEMS ([id number]) 1990 M Date Time Provider Department 01/13/23 NIYA GOOD During your visit today, we recorded the following information about you: Renu Galloway MA 01/13/2023 4:32 PM Signed ----- Message from Ani Duran sent at 01/13/2023 4:24 PM EDT ----- Regarding: FW: Medicine / Queden,Niya /calf swelling both legs ----- Message ----- From: Olamide Alvarez Sent: 01/13/2023 4:13 PM EDT To: [facility] Triage Pool Subject: Medicine / Queden,Niya /calf swelling bot# Patient has been identified by name and Date of (Y/N): y Patient: Miguel Weems Date of : 1990 Provider for this encounter: Niya Good APRN.CNP Reason for the call/escalation: calf swelling both legs Was Patient Referred to [facility]/Seek Emergency Treatment (Y/N): no Did Patient Agree (Y/N): n/a Was An Attempt Made To Transfer The Patient To The Office (Y/N): no Were You Able To Reach Someone At The Office (Y/N): n/a If Yes - Patient Was Transferred To (Caregivers Name): n/a If No - Which [facility] Leadership Furniture Decals Inspector Did You Speak With Regarding This Patient: n/a Was an appointment scheduled (Y/N): y 01/15 Reason patient was requesting visit (RFV/signs and symptoms/diagnosis) : calf swelling both legs Person calling if other than patient: n/a Return call to if other than patient: n/a Best contact number: [phone] Thank you, Olamide Alvarez January 13, 2023 4:13 PM Renu CHAO Galloway 01/13/2023 4:32 PM Signed FYI pt. Had apt. With [facility] today and canceled it he rescheduled it for 01/15/2023. Allergies As of Date: 01/13/2023 Noted Allergy Reaction BEES 07/29/2005 7 - Swelling Date Reviewed: 12/03/2022 Reviewed by: Niya Good APRN.DIRECTOR CASE MANAGEMENT - Fully Assessed Reason for Visit: Appointment [...] Encounter Status:Closed by RENU GALLOWAY on 01/13/23 [facility] CNCOon 12-31-2022 CNCO Letter Text [facility] CNPNon 12-31-2022 CNPN Telephone ([employer]) -------- MIGUEL WEEMS ([id number]) 1990 M Date Time Provider Department 12/31/22 NIYA GOOD During your visit today, we recorded the following information about you: Ani Duran 12/31/2022 10:52 AM Signed No Show Documentation Miguel Weems no showed for an appointment on 12/31/2022 with Niya Good APRN.DIRECTOR CASE MANAGEMENT at 10:20 am. He was scheduled for [...] Date Reviewed: 12/03/2022 Reviewed by: Niya Good APRN.DIRECTOR CASE MANAGEMENT - Fully Assessed Reason for Visit: Missed [...] Encounter Status:Closed by ANI DURAN on 12/31/22 [facility] CNOVon 12-03-2022 CNOV Office Visit (JEAN BARTON) -------- MIGUEL WEEMS ([id number]) 1990 M Date Time Provider Department 12/03/22 9:20 AM NIYA GOOD During your visit today, we recorded the following information about you: Temperature Pulse Respiration Blood pressure 98.2 degrees 77/minute 18/minute 122/62 Weight Height 83.5 kg 1.854 m Niya Good APRN.DIRECTOR CASE MANAGEMENT 12/03/2022 10:10 AM Signed CHIEF COMPLAINT: Miguel Chairez Dank is a 32 year old male who [...] history is provided by the patient. No supervisor modern languages was used. Chest Pain This is a [...] no diabetes, no hyperlipidemia, no hypertension, no VT and no thyroid problem. Pertinent negatives for [...] MEDICAL HIS (more content not included)... [facility] Nancy 07-24-2022 [facility] Telephone (THERESA) -------- MIGUEL WEEMS ([id number]) 1990 M Date Time Provider Department 07/24/22 NIYA GOOD During your visit today, we recorded the following information about you: Renu Galloway MA 07/24/2022 5:14 PM Signed ----- Message from Niya Good APRN.DIRECTOR CASE MANAGEMENT sent at 07/24/2022 5:11 PM EDT ----- TSH and B12 levels were normal. Renu Galloway MA 07/24/2022 5:14 PM Signed Patient notified. Renu Galloway MA Allergies As of Date: 07/24/2022 Noted Allergy Reaction BEES 07/29/2005 7 - Swelling Date Reviewed: 06/23/2022 Reviewed by: Niya Good APRN.DIRECTOR CASE MANAGEMENT - Fully Assessed Reason for Visit: Results [...] Status:Closed by RENU GALLOWAY on 07/24/22 [facility] TSH SerPl-aCncon 07-23-2022 TSH Qn 1.680 m[IU]/L Normal 0.270-4.200 [facility] Comment on above: Order Comment: Speci men Type: BLOOD SPECIMENOrdering Facility: [facility] Address: [address] [place] [phone] Performed By: #### 3 016-3 ####[facility] [id number] [place] [address] [place] STATES OF [place] Vit B12 SerPl-mCncon 022 Cobalamin (Vitamin B12) [Mass/Vol] 560 pg/mL Normal 232-1245 [facility] Comment on above: Order Comment: Speci men Type: BLOOD SPECIMENOrdering Facility: [facility] Address: [address] [place] [phone] Performed By: #### 2 132-9 ####[facility] [id number] [place] [address] [facility] CNOVon 06-23-2022 CNOV Office Visit (AGFAMP LE) -------- MIGUEL WEEMS ([id number]) 1990 M Date Time Provider Department 06/23/22 3:20 PM NIYA GOOD During your visit today, we recorded the following information about you: Temperature Pulse Respiration Blood pressure 98.1 degrees 62/minute 16/minute 120/68 Weight Height 80.5 kg 1.854 m Niya Good APRN.CNP 06/25/2022 12:42 PM Signed [address] [address] Visit Date: 06/23/2022 Patient Name: Miguel Weems Date of : 1990 Chief Complaint: ER Follow Up Miguel Weems is a 32 year old male here today for a follow up to a recent emergency room (ER) visit. Emergency Room Location: [facility] Date of Emergency Room Visit: 06/07/22 [...] Abs Lymph 1.00 - 4.00 k/uL 1.41 Troup% % 9.1 Abs Troup <0.87 k/uL 0.47 Eosin% % 4.8 Abs [...] Negative Negative Ketones, Urine Negative Negative Specific [place], Ur 1.005 - 1.030 1.015 Hemoglobin/Blood,Ur Negative [...] condition. Similar prominence of the seminal vesicles. Folder Stitcher Operator: NORMAN Transcribe Date/Time: Jun 07 2022 7:04P [...] as ne (more content not included)... [facility] CBC W Auto Differential pane l (Bld)on 06-07-2022 Basophils (Bld) [#/Vol] 0.03 10*3/uL Normal <0.11 [facility] Comment on above: Order Comment: Speci men Type: BLOOD SPECIMEN Ordering Facility: [facility] Address: [address] [place] [address] Performed By: #### 5 7021-8 #### [facility] [place] [facility] CLIA [id number] [address] [place] [address] STATES OF ROB Basophils/100 WBC (Bld) 0.6 % Normal [facility] Comment on above: Order Comment: Speci men Type: BLOOD SPECIMEN Ordering Facility: [facility] Address: [address] [place] [address] Performed By: #### 5 7021-8 #### [facility] [place] [facility] CLIA [id number] [address] [place] [address] STATES [facility] Differential cell count method Nom (Bld) Auto Normal [facility] Comment on above: Order Comment: Speci men Type: BLOOD SPECIMEN Ordering Facility: [facility] Address: [address] [place] [address] Performed By: #### 5 7021-8 #### [facility] [place] [facility] CLIA [id number] [address] [place] [address] [place] Eosinophils (Bld) [#/Vol] 0.25 10*3/uL Normal <0.46 [facility] Comment on above: Order Comment: Speci men Type: BLOOD SPECIMEN Ordering Facility: [facility] Address: [address] [place] [address] Performed By: #### 5 7021-8 #### [facility] [place] [facility] CLIA [id number] [address] [place] [address] [place] Eosinophils/100 WBC (Bld) 4.8 % Normal [facility] Comment on above: Order Comment: Speci men Type: BLOOD SPECIMEN Ordering Facility: [facility] Address: [address] [place] [address] Performed By: #### 5 7021-8 #### [facility] [place] [facility] CLIA [id number] [address] [place] [address] [place] Erythrocyte distribution width (RBC) [Ratio] 12.6 % Normal 11.5-15.0 [facility] Comment on above: Order Comment: Speci men Type: BLOOD SPECIMEN Ordering Facility: [facility] Address: [address] [place] [address] Performed By: #### 5 7021-8 #### [facility] [place] [facility] CLIA [id number] [address] [place], [place] [id number] [place] [address] STATES OF ROB Hematocrit (Bld) [Volume fraction] 43.0 % Normal 39.0-51.0 [facility] Comment on above: Order Comment: Speci men Type: BLOOD SPECIMEN [facility] Address: [address] [place] [address] Performed By: #### 5 7021-8 #### [facility] [place] [facility] CLIA [id number] [address] STATES OF ROB Hemoglobin (Bld) [Mass/Vol] 14.4 g/dL Normal 13.0-17.0 [facility] Comment on above: Order Comment: Speci men Type: BLOOD SPECIMEN Ordering Facility: [facility] Address: [address] [place] [address] Performed By: #### 5 7021-8 #### [facility] [place] [facility] CLIA [id number] [address] [place] [address] [place] Lymphocytes (Bld) [#/Vol] 1.41 10*3/uL Normal 1.00-4.00 [facility] Comment on above: Order Comment: Speci men Type: BLOOD SPECIMEN Ordering Facility: [facility] Address: [address] [place], [place] [address] Performed By: #### 5 7021-8 #### [facility] [place] [facility] CLIA [id number] [address] Lymphocytes/100 WBC (Bld) 27.3 % Normal [facility] Comment on above: Order Comment: Speci men Type: BLOOD SPECIMEN [facility] Address: [address] [place] [address] Performed By: #### 5 7021-8 #### [facility] [place] [facility] CLIA [id number] [address] MCH (RBC) [Entitic mass] 29.3 pg Normal 26.0-34.0 [facility] Comment on above: Order Comment: Speci men Type: BLOOD SPECIMEN [facility] Address: [address] [place] [address] Performed By: #### 5 7021-8 #### [facility] [place] [facility] CLIA [id number] [address] [place] [address] STATES OF [facility] MCHC (RBC) [Mass/Vol] 33.5 g/dL Normal 30.5-36.0 [facility] Comment on above: Order Comment: Speci men Type: BLOOD SPECIMEN [facility] Address: [address] [place] [address] Performed By: #### 5 7021-8 #### [facility] [place] [facility] CLIA [id number] [address] [place] [address] OF ROB MCV (RBC) [Entitic vol] 87.6 fL Normal 80.0-100.0 [facility] Comment on above: Order Comment: Speci men Type: BLOOD SPECIMEN [facility] Address: [address] [place] [address] Performed By: #### 5 7021-8 #### [facility] [place] [facility] CLIA [id number] [address] Monocytes (Bld) [#/Vol] 0.47 10*3/uL Normal <0.87 [facility] Comment on above: Order Comment: Speci men Type: BLOOD SPECIMEN [facility] Address: [address] [place] [address] Performed By: #### 5 7021-8 #### [facility] [place] [facility] CLIA [id number] [address] [place] [address] [place] Monocytes/100 WBC (Bld) 9.1 % Normal [facility] Comment on above: Order Comment: Speci men Type: BLOOD SPECIMEN [facility] Address: [address] [place] [address] Performed By: #### 5 7021-8 #### [facility] [place] [facility] CLIA [id number] [address] [place] [address] [place] Neutrophils (Bld) [#/Vol] 3.01 10*3/uL Normal 1.45-7.50 [facility] Comment on above: Order Comment: Speci men Type: BLOOD SPECIMEN [facility] Address: [address] [place] [address] Performed By: #### 5 7021-8 #### [facility] [place] [facility] CLIA [id number] [address] STATES OF ROB Neutrophils/100 WBC (Bld) 58.2 % Normal [facility] Comment on above: Order Comment: Speci men Type: BLOOD SPECIMEN Ordering Facility: [facility] Address: [address] [place] [address] Performed By: #### 5 7021-8 #### [facility] CLIA [id number] [address] [place] [address] [place] Platelet mean volume (Bld) [Entitic vol] 9.2 fL Normal 9.0-12.7 [facility] Comment on above: Order Comment: Speci men Type: BLOOD SPECIMEN Ordering Facility: [facility] Address: [address] [place] [address] Performed By: #### 5 7021-8 #### [facility] CLIA [id number] [address] [place] [address] [facility] OF ROB Platelets (Bld) [#/Vol] 166 10*3/uL Normal 150-400 [facility] Comment on above: Order Comment: Speci men Type: BLOOD SPECIMEN Ordering Facility: [facility] Address: [address] [place] [address] Performed By: #### 5 7021-8 #### [facility] CLIA [id number] [address] [place] [address] OF ROB RBC (Bld) [#/Vol] 4.91 10*6/uL Normal 4.20-6.00 [facility] Comment on above: Order Comment: Speci men Type: BLOOD SPECIMEN Ordering Facility: [facility] Address: [address] [place] [address] Performed By: #### 5 7021-8 #### [facility] CLIA [id number] [address] [place] [address] WBC (Bld) [#/Vol] 5.17 10*3/uL Normal 3.70-11.00 [facility] Comment on above: Order Comment: Speci men Type: BLOOD SPECIMEN Ordering Facility: [facility] Address: [address] [place] [address] Performed By: #### 5 7021-8 #### [facility] CLIA [id number] [address] [place] [address] ABD/PEL W IVCONon 022 CT ABD/PEL W IVCON * * *Final Report* * * DATE OF EXAM: Jun 07 2022 5:59PM [facility] 0530 - CT ABD/PEL W IVCON [...] Tissues: No significant finding. Lower thorax: Unremarkable. Telehealth Director (topogram) images: No additional findings. IMPRESSION: Prominent wall ascending colon. No associated pericolic inflammatory changes. Correlate clinically for possible mild colitis. Similar prominence of vasa recta central lower abdomen and pelvis, considered nonspecific, possibly related to inflammatory bowel condition. Similar prominence of the seminal vesicles. Folder Stitcher Operator: PSCB Transcribe Date/Time: Jun 07 2022 7:04P Dictated by : MICHAEL BAPTISTE MD This examination was interpreted and the report reviewed and electronically signed by: MICHAEL BAPTISTE MD on Jun 07 2022 7:16PM EST [id number] Normal [facility] Comprehensive metabolic 2000 panelon 06-07-2022 Albumin [Mass/Vol] 4.3 g/dL Normal 3.9-4.9 [facility] Comment on above: Order Comment: Speci men Type: BLOOD SPECIMEN Ordering Facility: [facility] Address: [address] Performed By: #### 2 4323-8, 3040-3 #### [facility] CLIA [id number] [address] [place] [address] [place] [facility] ALP [Catalytic activity/Vol] 52 U/L Normal 38-113 [facility] Comment on above: Order Comment: Speci men Type: BLOOD SPECIMEN Ordering Facility: [facility] Address: [address] [address] Performed By: #### 2 4323-8, 3040-3 #### [facility] CLIA [id number] [address] [place], [place] [address] [place] [address] [place] [facility] ALT With P-5'-P [Catalytic activity/Vol] 17 U/L Normal 10-54 [facility] Comment on above: Order Comment: Speci men Type: BLOOD SPECIMEN Ordering Facility: [facility] Address: [address] [place] [address] Performed By: #### 2 4323-8, 3040-3 #### [facility] CLIA [id number] [address] [place], [place] [address] [place] [address] [place] Anion gap [Moles/Vol] 9 mmol/L Normal 9-18 [facility] Comment on above: Order Comment: Speci men Type: BLOOD SPECIMEN Ordering Facility: [facility] Address: [address] [address] Performed By: #### 2 4323-8, 3040-3 #### [facility] CLIA [id number] [address] [place] [address] [place] AST With P-5'-P [Catalytic activity/Vol] 32 U/L Normal 14-40 [facility] Comment on above: Order Comment: Speci men Type: BLOOD SPECIMEN Ordering Facility: [facility] Address: [address] Performed By: #### 2 4323-8, 3040-3 #### [facility] CLIA [id number] [address] [place] [address] [place] Bilirubin [Mass/Vol] 0.3 mg/dL Normal 0.2-1.3 [facility] Comment on above: Order Comment: Speci men Type: BLOOD SPECIMEN Ordering Facility: [facility] Address: [address] [place] [address] Performed By: #### 2 4323-8, 3040-3 #### [facility] CLIA [id number] [address] [place] [address] [place] Calcium [Mass/Vol] 9.0 mg/dL Normal 8.5-10.2 [facility] Comment on above: Order Comment: Speci men Type: BLOOD SPECIMEN Ordering Facility: [facility] Address: [address] [place] [address] Performed By: #### 2 4323-8, 3040-3 #### [facility] CLIA [id number] [address] [place] [address] [place] Chloride [Moles/Vol] 101 mmol/L Normal 97-105 [facility] Comment on above: Order Comment: Speci men Type: BLOOD SPECIMEN Ordering Facility: [facility] Address: [address] [place] [address] Performed By: #### 2 4323-8, 3040-3 #### [facility] CLIA [id number] [address] [place] [address] [place] CO2 [Moles/Vol] 28 mmol/L Normal 22-30 [facility] Comment on above: Order Comment: Speci men Type: BLOOD SPECIMEN Ordering Facility: [facility] Address: [address] [place] [address] Performed By: #### 2 4323-8, 3040-3 #### [facility] CLIA [id number] [address] [place] [address] [place] Creatinine [Mass/Vol] 1.02 mg/dL Normal 0.73-1.22 [facility] Comment on above: Order Comment: Speci men Type: BLOOD SPECIMEN Ordering Facility: [facility] Address: [address] [place], [place] [address] Performed By: #### 2 4323-8, 3039-3 #### [facility] CLIA [id number] [address] [place], [place] [id number] [place] ESTIMATED GLOMERULAR FILTRATION RATE 100 mL/min/1.73m??? Normal >=60 [facility] Comment on above: Order Comment: Grover rudolph Type: BLOOD SPECIMEN Ordering Facility: [facility] Address: [address] [place] [address] Result Comment: Cydney mated Glomerular Filtration Rate [...] Performed By: #### 2 4323-8, 3039-3 #### [facility] CLIA [id number] [address] [place] [address] [place] Glucose [Mass/Vol] 104 mg/dL High 74-99 [facility] Comment on above: Order Comment: Grover galdamez Type: BLOOD SPECIMEN Ordering Facility: [facility] Address: [address] [place] [address] Result Comment: The [place] Diabetes Association (ADA) provides guidance for cutoff [...] Standards of Medical Care in Diabetes 2016, [place] [employer]. Diabetes Care. 2016.39(Suppl 1). Performed By: #### 2 4323-8, 3040-3 #### [facility] CLIA [id number] [address] [facility] [place] [address] [place] Potassium [Moles/Vol] 4.2 mmol/L Normal 3.7-5.1 [facility] Comment on above: Order Comment: Speci men Type: BLOOD SPECIMEN Ordering Facility: [facility] Address: [address] [place] [address] Performed By: #### 2 4323-8, 3040-3 #### [facility] CLIA [id number] [address] [place] [address] [place] Protein [Mass/Vol] 6.4 g/dL Normal 6.3-8.0 [facility] Comment on above: Order Comment: Speci men Type: BLOOD SPECIMEN Ordering Facility: [facility] Address: [address] [place] [address] Performed By: #### 2 43238, 3039-3 #### [facility] CLIA [id number] [address] [place] [address] [place] Sodium [Moles/Vol] 138 mmol/L Normal 136-144 [facility] Comment on above: Order Comment: Speci men Type: BLOOD SPECIMEN Ordering Facility: [facility] Address: [address] [place] [address] Performed By: #### 2 4323-8, 0-3 #### [facility] CLIA [id number] [address] [place] [address] [place] Urea nitrogen [Mass/Vol] 10 mg/dL Normal 9-24 [facility] Comment on above: Order Comment: Speci men Type: BLOOD SPECIMEN Ordering Facility: [facility] Address: [address] [place] [address] Performed By: #### 2 4323-8, 3040-3 #### [facility] CLIA [id number] [address] [place] [address] [place] ED NOTEon 06-07-2022 ED NOTE HNO ID: [id number] Author: Patsy Wall RN Service: Nursing Author Type: Registered Nurse Type: ED Notes Filed: 06/07/2022 5:28 PM Note Text: Patient informed: the name of medication, why we are giving it, possible side effects, what they may expect to feel, and was offered a chance to ask questions, prior to the administration of Toradol Normal [facility] ED NOTE HNO ID: [id number] Author: Patsy Wall RN Service: Nursing Author Type: Registered Nurse Type: ED Notes Filed: 06/07/2022 5:12 PM Note Text: Pt ambulatory to bathroom for urine collection Normal [facility] ED NOTE HNO ID: [id number] Author: Patsy Wall RN Service: Nursing Author Type: Registered Nurse Type: ED Notes Filed: 06/07/2022 5:08 PM Note Text: Pt arrives with reports of abd pain, epigastric pain, groin pain, and nausea for about 1 week. Pt reports previous hydroscan was done at [facility]. Pt does not take medications as ordered, spouse reports, he doesn't like taking medicine. Pt reports pain worsens after eating. [facility] ED PROV NOTEon 06-07-2022 ED PROV NOTE HNO ID: [id number] Author: Dominic Barger MD Service: Emergency Medicine [...] - Attention deficit disorder with hyperactivity(314.01) - H - PAST MEDICAL HISTORY OF Color Vision [...] or worse (more content not included)... Normal [facility] Lipase SerPl-cCncon 06-07-20 22 Lipase [Catalytic activity/Vol] 20 U/L Normal 16-61 [facility] Comment on above: Order Comment: Speci men Type: BLOOD SPECIMEN Ordering Facility: [facility] Address: [address] [place] [address] Performed By: #### 2 4323-8, 3040-3 #### [facility] CLIA [id number] [address] [place] [address] [place] Urinalysis complete panel (U )on 06-07-2022 Bilirubin Ql (U) Negative Normal Negative [facility] Comment on above: Order Comment: Speci men Type: URINE SPECIMEN Ordering Facility: [facility] Address: [address] [place] [address] Performed By: #### 2 4356-8 #### [facility] CLIA [id number] [address] [place] [address] [facility] OF [place] Clarity (Unsp spec) Clear Normal Clear [facility] Comment on above: Order Comment: Speci men Type: URINE SPECIMEN Ordering Facility: [facility] Address: [address] [place] [address] Performed By: #### 2 4356-8 #### [facility] CLIA [id number] [address] [place] [address] [facility] OF ROB Color (U) Yellow Normal Yellow [facility] Comment on above: Order Comment: Speci men Type: URINE SPECIMEN Ordering Facility: [facility] Address: [address] [place] [address] Performed By: #### 2 4356-8 #### [facility] CLIA [id number] [address] [place] [address] [facility] OF ROB Glucose Test strip (U) [Mass/Vol] Negative Normal Negative [facility] Comment on above: Order Comment: Speci men Type: URINE SPECIMEN Ordering Facility: [facility] Address: [address] [place] [address] Performed By: #### 2 4356-8 #### [facility] CLIA [id number] [address] [place] [address] [facility] OF ROB Hemoglobin Ql (U) Negative Normal Negative [facility] Comment on above: Order Comment: Speci men Type: URINE SPECIMEN Ordering Facility: [facility] Address: [address] [place] [address] Performed By: #### 2 4356-8 #### [facility] CLIA [id number] [address] [id number] [facility] Ketones Ql (U) Negative Normal Negative [facility] Comment on above: Order Comment: Speci men Type: URINE SPECIMEN Ordering Facility: [facility] Address: [address] [place] [address] Performed By: #### 2 4356-8 #### [facility] CLIA [id number] [address] [place] [address] [facility] OF ROB Leukocyte esterase Test strip Ql (U) Negative Normal Negative [facility] Comment on above: Order Comment: Speci men Type: URINE SPECIMEN Ordering Facility: [facility] Address: [address] [place] [address] Performed By: #### 2 4356-8 #### [facility] CLIA [id number] [address] [place] [address] [place] Nitrite Ql (U) Negative Normal Negative [facility] Comment on above: Order Comment: Speci men Type: URINE SPECIMEN Ordering Facility: [facility] Address: [address] [place] [address] Performed By: #### 2 4356-8 #### [facility] CLIA [id number] [address] [place] OF [place] pH (U) 8.5 [pH] High 5.0-8.0 [facility] Comment on above: Order Comment: Speci men Type: URINE SPECIMEN Ordering Facility: [facility] Address: [address] [place] [address] Performed By: #### 2 4356-8 #### [facility] CLIA [id number] [address] Protein (U) [Mass/Vol] Negative Normal Negative [facility] Comment on above: Order Comment: Speci men Type: URINE SPECIMEN Ordering Facility: [facility] Address: [address] [place] [address] Performed By: #### 2 4356-8 #### [facility] CLIA [id number] [address] [place] [address] [place] RBC LM.HPF (Urine sed) [#/Area] 0-3 /HPF Normal 0-3 /HPF [facility] Comment on above: Order Comment: Speci men Type: URINE SPECIMEN Ordering Facility: [facility] Address: [address] [address] Performed By: #### 2 4356-8 #### [facility] CLIA [id number] [address] [place] [address] OF [place] Specific gravity (U) [Rel density] 1.015 Normal 1.005-1.030 [facility] Comment on above: Order Comment: Speci men Type: URINE SPECIMEN Ordering Facility[facility] Address: [address] [place] [address] Performed By: #### 2 4356-8 #### [facility] CLIA [id number] [address] OF [facility] Urobilinogen Ql (U) 0.2 EU/dL Normal 0.2-1.0 EU/dL [facility] Comment on above: Order Comment: Speci men Type: URINE SPECIMEN Ordering Facility: [facility] Address: [address] [place] [address] Performed By: #### 2 4356-8 #### [facility] CLIA [id number] [address] [place] [address] OF [place] WBC LM.HPF (Urine sed) [#/Area] 0-5 /HPF Normal 0-5 /HPF [facility] Comment on above: Order Comment: Speci men Type: URINE SPECIMEN Ordering Facility[facility] Address: [address] [place] [address] Performed By: #### 2 4356-8 #### [facility] CLIA [id number] [address] [place] [address] [place] OF [place] NM HEPATOBILIARY W EF [...] Clinical correlation is recommended. * Patent CBD. Folder Stitcher Operator: PSCB Transcribe Date/Time: May 23 2021 10:02A Dictated by : ZANDER MILLER MD This examination was interpreted and the report reviewed and electronically signed by: ZANDER MILLER MD on May 23 2021 10:03AM EST [id number] Normal [facility] ECG B/O W INTERP (MED OFFICE ) [facility] Vital Signs Date Time Vital Sign Value Performing Clinician Facility 05-01-2025 14:42-0400 Body height 185.42 cm No Primary Care Physician [facility] 04-16-2025 05:59-0400 Body temperature 97.5 [degF] No Primary Care Physician [facility] 04-16-2025 05:59-0400 Diastolic blood pressure 73 mm[Hg] No Primary Care Physician [facility] 04-16-2025 05:59-0400 Heart rate 50 /min No Primary Care Physician [facility] 04-16-2025 05:59-0400 Respiratory rate 16 /min No Primary Care Physician [facility] 04-16-2025 05:59-0400 SaO2% (BldA) [Mass fraction] 96 % No Primary Care Physician [facility] 04-16-2025 05:59-0400 Systolic blood pressure 122 mm[Hg] No Primary Care Physician [facility] 04-16-2025 05:38-0400 Body height 184.99 cm No Primary Care Physician [facility] 04-16-2025 05:38-0400 Body mass index (BMI) [Ratio] 22.5 kg/m2 No Primary Care Physician [facility] 04-16-2025 05:38-0400 Body weight 77 kg No Primary Care Physician [facility] 04-11-2025 06:04-0400 Body temperature 97.5 [degF] No Primary Care Physician [facility] 04-11-2025 06:04-0400 Diastolic blood pressure 74 mm[Hg] No Primary Care Physician [facility] 04-11-2025 06:04-0400 Heart rate 62 /min No Primary Care Physician [facility] 04-11-2025 06:04-0400 Respiratory rate 16 /min No Primary Care Physician [facility] 04-11-2025 06:04-0400 SaO2% (BldA) [Mass fraction] 99 % No Primary Care Physician [facility] 04-11-2025 06:04-0400 Systolic blood pressure 107 mm[Hg] No Primary Care Physician [facility] 04-11-2025 05:27-0400 Body height 185.42 cm No Primary Care Physician [facility] 04-11-2025 05:27-0400 Body mass index (BMI) [Ratio] 23.4 kg/m2 No Primary Care Physician [facility] 04-11-2025 05:27-0400 Body weight 80.6 kg No Primary Care Physician [facility] 04-02-2025 08:24-0400 Body temperature 98.1 [degF] No Primary Care Physician [facility] 04-02-2025 08:24-0400 Diastolic blood pressure 77 mm[Hg] No Primary Care Physician [facility] 04-02-2025 08:24-0400 Heart rate 78 /min No Primary Care Physician [facility] 04-02-2025 08:24-0400 Respiratory rate 19 /min No Primary Care Physician [facility] 04-02-2025 08:24-0400 SaO2% (BldA) [Mass fraction] 98 % No Primary Care Physician [facility] 04-02-2025 08:24-0400 Systolic blood pressure 121 mm[Hg] No Primary Care Physician [facility] 04-02-2025 06:51-0400 Body height 185.42 cm No Primary Care Physician [facility] 04-02-2025 06:51-0400 Body mass index (BMI) [Ratio] 23.7 kg/m2 No Primary Care Physician [facility] 04-02-2025 06:51-0400 Body weight 81.64 kg No Primary Care Physician [facility] 01-18-2023 16:55-0400 Body height 185.4 cm Niya Queden [employer]DIRECTOR CASE MANAGEMENT Work Phone: [facility] 01-18-2023 16:55-0400 Body temperature 97.81 [degF] Niya Queden [employer].DIRECTOR CASE MANAGEMENT Work Phone: [facility] 01-18-2023 16:55-0400 Body weight 85.73 kg Niya Queden [employer].DIRECTOR CASE MANAGEMENT Work Phone: [facility] 01-18-2023 16:55-0400 Diastolic blood pressure 58 mm[Hg] Niya Queden [employer]ER.DIRECTOR CASE MANAGEMENT Work Phone: [facility] 01-18-2023 16:55-0400 Heart rate 68 /min Niya Queden [employer].DIRECTOR CASE MANAGEMENT Work Phone: [facility] 01-18-2023 16:55-0400 Respiratory rate 18 /min Niya Queden [employer].DIRECTOR CASE MANAGEMENT Work Phone: [facility] 01-18-2023 16:55-0400 SaO2% (BldA) [Mass fraction] 97 % Niya Queden [employer].DIRECTOR CASE MANAGEMENT Work Phone: [facility] 01-18-2023 16:55-0400 Systolic blood pressure 108 mm[Hg] Niya Queden [employer]ER.DIRECTOR CASE MANAGEMENT Work Phone: [facility] 12-03-2022 09:15-0500 Body height 185.4 cm Niya Queden [employer].DIRECTOR CASE MANAGEMENT Work Phone: [facility] 12-03-2022 09:15-0500 Body temperature 98.2 [degF] Niya Queden [employer].DIRECTOR CASE MANAGEMENT Work Phone: [facility] 12-03-2022 09:15-0500 Body weight 83.46 kg Niya Queden [employer].DIRECTOR CASE MANAGEMENT Work Phone: [facility] 12-03-2022 09:15-0500 Diastolic blood pressure 62 mm[Hg] Niya Queden [employer].DIRECTOR CASE MANAGEMENT Work Phone: [facility] 12-03-2022 09:15-0500 Heart rate 77 /min Niya Queden [employer].DIRECTOR CASE MANAGEMENT Work Phone: [facility] 12-03-2022 09:15-0500 Respiratory rate 18 /min Niya Queden [employer].DIRECTOR CASE MANAGEMENT Work Phone: [facility] 12-03-2022 09:15-0500 SaO2% (BldA) [Mass fraction] 98 % Niya Queden [employer].DIRECTOR CASE MANAGEMENT Work Phone: [facility] 12-03-2022 09:15-0500 Systolic blood pressure 122 mm[Hg] Niya Queden [employer]ER.DIRECTOR CASE MANAGEMENT Work Phone: [facility] 06-23-2022 15:31-0400 Body height 185.4 cm Niya Queden [employer].DIRECTOR CASE MANAGEMENT Work Phone: [facility] 06-23-2022 15:31-0400 Body temperature 98.1 [degF] Niya Queden [employer]ER.DIRECTOR CASE MANAGEMENT Work Phone: [facility] 06-23-2022 15:31-0400 Body weight 80.47 kg Niya Queden [employer].DIRECTOR CASE MANAGEMENT Work Phone: [facility] 06-23-2022 15:31-0400 Diastolic blood pressure 68 mm[Hg] Niya Queden [employer].DIRECTOR CASE MANAGEMENT Work Phone: [facility] 06-23-2022 15:31-0400 Heart rate 62 /min Niya Queden [employer].DIRECTOR CASE MANAGEMENT Work Phone: [facility] 06-23-2022 15:31-0400 Respiratory rate 16 /min Niya Queden [employer].DIRECTOR CASE MANAGEMENT Work Phone: [facility] 06-23-2022 15:31-0400 SaO2% (BldA) [Mass fraction] 98 % Niya Queden [employer].DIRECTOR CASE MANAGEMENT Work Phone: [facility] 06-23-2022 15:31-0400 Systolic blood pressure 120 mm[Hg] Niya Good [employer].DIRECTOR CASE MANAGEMENT Work Phone: [facility] Encounters Encounter Date Encounter Type Care Provider Facility Start: 05-22-2025 ambulatory No Primary Car e Physician Facility:[facility] Start: 05-21-2025 ambulatory Tommie Sheehan Facility:[facility] Start: 05-01-2025 End: 05-01-[address] Tommie Sheehan MD -[facility] Work Phone: Start: 05-01-2025 End: 05-01-2025 ambulatory No Primary Care Physician -[facility] Start: 04-16-2025 End: 04-16-2025 Emergency department patient visit No Primary Care Physician -Emergency Department Work Phone: Start: 04-11-2025 End: 04-11-2025 Emergency department patient visit No Primary Care Physician -Emergency Department Work Phone: Start: 04-02-2025 End: 04-02-2025 Emergency department patient visit No Primary Care Physician -Emergency Department Work Phone: Start: 11-12-2024 End: 11-12-2024 Emergency department patient visit No Primary Care Physician Facility:[facility] Start: 05-03-2023 Emergency department patient visit NIYA Rodney YESENIASTEPHAN Facility:[facility] Start: 02-01-2023 Telephone encounter Niya A Yeseniastephan [employer].DIRECTOR CASE MANAGEMENT Work Phone: [facility] Comment on above: Results Start: 01-29-2023 ambulatory NIYA Rodney FLORENTINO Facili ty:[facility] Start: 01-29-2023 End: 01-29-2023 Subsequent hospital visit by physician Card Lab Nuc 2 [facility] Comment on above: Chest pain, unspecif ied type [R07.9] Start: 01-18-2023 End: 01-18-2023 ambulatory NIYA Rodney YESENIASTEPHAN Facility:[facility] Start: 01-18-2023 End: 01-18-2023 Patient encounter procedure Niya A Florentino [employer].DIRECTOR CASE MANAGEMENT Work Phone: [facility] Comment on above: Bilateral lower extr emity pain (Primary Dx); Gastroesophageal reflux disease, unspecified whether esophagitis present; Anxiety with depression; Current nicotine use; Encounter for smoking cessation counseling Start: 12-31-2022 Telephone encounter Niya Rodney Florentino [employer].DIRECTOR CASE MANAGEMENT Work Phone: [facility] Comment on above: Missed Appointment ( 1st no show in 365 days (1st letter sent)) Start: 12-03-2022 End: 12-03-2022 ambulatory NIYA GOOD Facility:[facility] Start: 12-03-2022 End: 12-03-2022 Patient encounter procedure Niya A Florentino [employer].DIRECTOR CASE MANAGEMENT Work Phone: [facility] Comment on above: Chest pain, unspecif ied type (Primary Dx); 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; Anxiety with depression; Current nicotine use; Gastroesophageal reflux disease, unspecified whether esophagitis present; Chronic upper abdominal pain; Family history of colon cancer Start: 07-24-2022 Telephone encounter Niya Rodney Florentino SMITH.DIRECTOR CASE MANAGEMENT Work Phone: [facility] Comment on above: Results Start: 07-23-2022 End: 07-24-2022 ambulatory NIYA GOOD Facility:[facility] Start: 06-23-2022 End: 06-23-2022 [facility]ulatory [facility] Start: 06-23-2022 End: 06-23-2022 Patient encounter procedure Niyajose elias Howestephan CAP SIZER.DIRECTOR CASE MANAGEMENT Work Phone: [facility] Comment on above: Lower abdominal pain (Primary Dx); Colitis, nonspecific; Chronic upper abdominal pain; Gastroesophageal reflux disease, unspecified whether esophagitis present; Jittery feeling Start: 06-07-2022 End: 06-07-2022 Emergency department patient visit NIYAHUGO GOOD Facility:[facility] Procedures Date Procedure Procedure Detail Performing Clinician Start: 06-02-2025 Plain X-ray of finger N o Primary Care Physician Start: 01-29-2023 Cv strs tst xers&/or rx cont ecg trcg only Niya Good SARAH.BILLY Work Phone: Start: 12-03-2022 Ecg routine ecg w/le ast 12 lds w/i&r Niya Good SARAH.BILLY Work Phone: Start: 06-23-2022 Adult depression screening assessment Niya Good SARAH.DIRECTOR CASE MANAGEMENT Work Phone: Plan of Treatment Date Care Activity Detail Author Start: 04-04-2030 Urine microalbumin profile DTAP,TDAP,TD (8 - Td or Tdap) [facility] Start: 04-16-2025 [facility] Start: 04-02-2025 Smpl repair scalp/neck/ax/genit/t runk 2.6-7.5cm RPR S/N/AX/GEN/TRNK2.6-7.5CM [facility] Start: 04-02-2025 [facility] Start: 07-02-2023 Influenza vaccination INFLUENZA (Sea son Ended) [facility] Start: 06-23-2023 Adult depression screening assessment DEPRESSION SCREENING [facility] Start: 06-23-2023 COVID-19 VACCINE (#1) COVID-19 VACCI NE (#1) [facility] Comment on above: Postponed from 11/04 (Declined at this time) Start: 06-23-2023 PNEUMOCOCCAL (1 - PCV) PNEUMOCOCCAL (1 - PCV) [facility] Comment on above: Postponed from 05/04 (Declined at this time) Start: 04-30-2023 Influenza vaccination INFLUENZA (#1) [facility] Comment on above: Postponed from 07/02 (Declined at this time) Start: 07-02-2022 Influenza vaccination INFLUENZA (#1) [facility] Start: 06-23-2022 End: 08-23-2022 Cobalamin (Vitamin B12) [Mass/volume] in Serum or Plasma VITAMIN B12 BLOOD Lab Routine Chronic upper abdominal pain Jittery feeling Expected: 06/23/2022, Expires: 08/23/2022 [facility] Work Phone: Comment on above: Expected: 06/23/2022 , Expires: 08/23/2022 Start: 06-23-2022 End: 08-23-2022 Thyrotropin [Units/volume] in Serum or Plasma TSH BLD Lab Routine Chronic upper abdominal pain Jittery feeling Expected: 06/23/2022, Expires: 08/23/2022 [facility] Work Phone: Comment on above: Expected: 06/23/2022 , Expires: 08/23/2022 Start: 2007 HEPATITIS C SCREENING HEPATITIS C [facility] Start: 2007 HIV SCREENING HIV SCREENING 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 Work Phone: [facility] Immunizations Immunization Date Immunization Notes Care Provider [facility] 04-04-2020 tetanus toxoid, redu rachel diphtheria toxoid, and acellular pertussis vaccine, adsorbed Niya Queden CAP SIZER.DIRECTOR CASE MANAGEMENT Work Phone: [facility] 10-04-2006 influenza virus vaccine, unspecified formulation Niya Queden CAP SIZER.DIRECTOR CASE MANAGEMENT Work Phone: [facility] 10-04-2006 Meningococcal, MCV4, unspecified conjugate formulation(groups A, C, Y and W-135) Niya Queden CAP SIZER.DIRECTOR CASE MANAGEMENT Work Phone: [facility] 10-03-2004 influenza, seasonal, injectable Niya Queden CAP SIZER.DIRECTOR CASE MANAGEMENT Work Phone: [facility] 03-21-2002 measles, mumps and rubella virus vaccine Niya Queden CAP SIZER.[facility] Work Phone: [facility] 12-09-2001 hepatitis B vaccine, pediatric or pediatric/adolescent dosage Niya Queden CAP SIZER.DIRECTOR CASE MANAGEMENT Work Phone: [facility] 07-07-2001 diphtheria and tetan us toxoids, adsorbed for pediatric use Niya Queden CAP SIZER.DIRECTOR CASE MANAGEMENT Work Phone: [facility] 06-23-2001 hepatitis B vaccine, pediatric or pediatric/adolescent dosage Niya Queden CAP SIZER.DIRECTOR CASE MANAGEMENT Work Phone: [facility] 05-18-2001 hepatitis B vaccine, pediatric or pediatric/adolescent dosage Niya Queden CAP SIZER.[facility] Work Phone: [facility] 04-26-1995 Chicken Pox (disease) Brittn y Queden CAP SIZER.[facility] Work Phone: [facility] Work Phone: 07-10-1994 diphtheria, tetanus toxoids and acellular pertussis vaccine Niya Queden CAP SIZER.[facility] Work Phone: [facility] 07-10-1991 trivalent poliovirus vaccine, live, oral Niya Queden CAP SIZER.[facility] Work Phone: [facility] 06-26-1991 diphtheria, tetanus toxoids and pertussis vaccine Niya Queden CAP SIZER.[facility] Work Phone: [facility] Work Phone: 06-26-1991 trivalent poliovirus vaccine, live, oral Niya Queden CAP SIZER.DIRECTOR CASE MANAGEMENT Work Phone: [facility] 05-26-1991 haemophilus influenz ae type b vaccine, PRP-D conjugate Niya Queden CAP SIZER.DIRECTOR CASE MANAGEMENT Work Phone: [facility] 05-26-1991 measles, mumps and rubella virus vaccine Niya Queden CAP SIZER.[facility] Work Phone: [facility] 1989 diphtheria, tetanus toxoids and pertussis vaccine Niya Queden CAP SIZER.DIRECTOR CASE MANAGEMENT Work Phone: [facility] Work Phone: 1990 diphtheria, tetanus toxoids and pertussis vaccine Niya Queden CAP SIZER.DIRECTOR CASE MANAGEMENT Work Phone: [facility] Work Phone: 1990 trivalent poliovirus vaccine, live, oral Niya Queden CAP SIZER.DIRECTOR CASE MANAGEMENT Work Phone: [facility] 1990 diphtheria, tetanus toxoids and pertussis vaccine Niya Queden CAP SIZER.DIRECTOR CASE MANAGEMENT Work Phone: [facility] Work Phone: 1990 trivalent poliovirus vaccine, live, oral Niya Queden CAP SIZER.DIRECTOR CASE MANAGEMENT Work Phone: [facility] Payers Date Payer Category Payer Self-pay [id number] 2024 Unknown [id number] 2022 Medicaid [id number] 2022 Medicaid [id number] 2022 Medicaid [id number] 2022 Medicaid [id number] Unknown [id number] Unknown [id number] Unknown [id number] [id number] Unknown [id number] 2.16.8 [id number] Unknown [id number] 2.16.8 [id number] Unknown [id number] [id number] [id number] Unknown [id number] 2.16.8 [id number] Unknown [id number] 2.16.8 [id number] Unknown [id number] [id number] [id number] Social History Date Type Detail Facility Start: 06-23-2022 End: 05-01-2025 Tobacco smoking status NHIS Smokes tobacco daily [facility] History of tobacco use Cigarette Smoker C [facility] Start: 06-23-2022 End: 12-03-2022 Cigarettes smoked current (pack per day) - Reported 0.5 [facility] Start: 06-23-2022 Tobacco use and exposure Former smokeless tobacco user [facility] History of tobacco use Chews Tobacco [facility] Start: 06-23-2022 End: 01-18-2023 Alcohol intake Current drinker of alcohol (finding) [facility] Start: 01-12-2019 History SDOH Alcohol Comment rarely [facility] Start: 06-07-2022 Tobacco Comment [facility] Start: 1990 Sex Assigned At Not on file C [facility] Start: 06-13-2022 End: 07-23-2022 Exposure to SARS-CoV-2 (event) Not sure [facility] Start: 12-03-2022 Tobacco use and exposure User of smokeless tobacco [facility] Work Phone: Start: 12-03-2022 Tobacco Comment 3 times a week [facility] Start: 09-12-2019 Alcohol Alcohol [facility] Start: 09-12-2019 Drugs Drugs [facility] Start: 09-12-2019 Lives Lives [facility] Start: 04-04-2020 Tobacco Use Tobacco Use [facility] Start: 1990 Sex Assigned At Male W [facility] Clinical Notes 07-21-2005 to 04-16-2025 Telephone Encounter - Roseanna Kruse MA - 02/01/2023 2:34 PM EDTTelephone Encounter - Roseanna Kruse MA - 02/01/2023 2:33 PM Jeff Winkler RN - 01/29/2023 9:00 AM EDTPatient Instructions Note Date & Type Note Facility 04-16-2025 Discharge summary [facility] 04-02-2025 Radiology Diagnostic study note [facility] Imaging Services [address] [place] [address] Finger(s) Min 2 Views MR#: [id number] Acct: [id number] Name: MIGUEL WEEMS Rep #: : 1990 M 34 From: Sky Bird MD PCP: Care Physician,No Primary Status: REG ER Study:Finger(s) Min 2 Views Date of Exam: 04/02/25 Exam# [id number] Ordering Dr: Freddy De DO PROCEDURE: FINGER(S) [...] exclude an acute traumatic etiology. [facility]: Dr. Saqib De DO; No Primary Care Physician ~ Folder Stitcher Operator: Signed [facility] 04-02-2025 Hospital Discharge instructions Additional Instructions [...] water. Antibiotic ointment 1 time per day [facility] Work Phone: 05-06-2023 Note Patient Outreach (AG FAMPLE) MIGUEL WEEMS ([id number]) 1990 M Date Time Provider Department 05/06/23 NIYA GOOD During your visit today, we recorded the following information about you: Madi Bush MA 05/06/2023 9:02 AM Signed ED Follow Up: Patient discharged from [facility] ED on 05/03/23. 1. How [...] you able to contact the office or telephone order dispatcher provider prior to your ED visit? left [...] Encounter Status:Closed by MADI BUSH on 05/06/23 [facility] 05-06-2023 Note HNO ID: [id number] Author: Madi Bush MA Service: ? Author Type: Thread Twister Type: Progress Notes Filed: 05/06/2023 9:02 AM Note Text: ED Follow Up: Patient discharged from [facility] ED on 05/03/23. 1. How [...] you able to contact the office or telephone order dispatcher provider prior to your ED visit? left message 5. Is there anything else I can do for you today? Left message Madi Bush MA [facility] 02-01-2023 Miscellaneous Notes Left message informing patient, phone number to reach the office was left for any questions or concerns. Roseanna Kruse MA ----- Message from Tayla Smyth APRN.DIRECTOR CASE MANAGEMENT sent at 02/01/2023 2:16 PM EDT ----- Please notify patient results are normal. Thank you. Tayla Smyth APRN.DIRECTOR CASE MANAGEMENT documented in this encounter [facility] 01-29-2023 Note HNO ID: [id number] Author: Billie Winkler RN Service: Nursing Author Type: Registered Nurse Type: Progress Notes Filed: 01/29/2023 9:47 AM Note Text: Baseline EKGs reviewed with Dr. Jain prior to testing. Maximal stress test completed. Pt walked 1200 to max HR 162. Test terminated due to leg fatigue. No reports of chest symptoms throughout test. [facility] 01-29-2023 History of Present illness Narrative Baseline EKGs reviewed with Dr. Jain prior to testing. Maximal stress test completed. Pt walked 1200 to max HR 162. Test terminated due to leg fatigue. No reports of chest symptoms throughout test. documented in this encounter [facility] 01-18-2023 Note HNO ID: [id number] Author: Niya Good APRN.DIRECTOR CASE MANAGEMENT Service: ? Author Type: Nurse Practitioner Type: [...] history is provided by the patient. No supervisor modern languages was used. Leg Pain The pain is [...] 729.5, ICD10: M7 (more content not included)... [facility] 01-18-2023 Instructions Niya Good APRN.CNP - 01/18/2023 5:08 PM EDT Epsom salt soaks Stretching Antiinflammatories twice a day- Ibuprofen or Motrin as needed Daily multivitamin Drink 64 ounces documented in this encounter [facility] 01-18-2023 History of Present illness Narrative [...] history is provided by the patient. No supervisor modern languages was used. Leg Pain The pain is [...] Niya Good APRN.CNP documented in this encounter [facility] 12-31-2022 Miscellaneous Notes No Show Documentation [...] 2022 10:51 AM documented in this encounter [facility] 12-03-2022 Note HNO ID: [id number] Author: Niya Good APRN.CNP Service: ? Author [...] history is provided by the patient. No supervisor modern languages was used. Chest Pain This is a [...] no diabetes, no hyperlipidemia, no hypertension, no VT and no thyroid problem. Pertinent negatives for [...] 2.50 Types: Ciga (more content not included)... [facility] 12-03-2022 Instructions Niya Good APRN.[facility] - 12/03/2022 9:18 AM EST [facility] [address] [place] [address] Appointment: [phone] Desk: [phone] Should I call for an ambulance if [...] heart muscle alive! documented in this encounter [facility] 12-03-2022 History of Present illness Narrative [...] history is provided by the patient. No supervisor modern languages was used. Chest Pain This is a [...] no diabetes, no hyperlipidemia, no hypertension, no VT and no thyroid problem. Pertinent negatives for [...] Abs Lymph 1.00 - 4.00 k/uL 1.41 Troup% % 9.1 Abs Troup <0.87 k/uL 0.47 Eosin% % 4.8 Abs [...] showed normal sinus rhythm at 73 BPM, TX interval 146 ms, left posterior fascicular block, [...] requirements were given to patient. Niya Good APRN.BILLY documented in this encounter [facility] 07-24-2022 Miscellaneous Notes Patient notified. Renu Galloway MA ----- Message from Niya Good APRN.DIRECTOR CASE MANAGEMENT sent at 07/24/2022 5:11 PM EDT ----- TSH and B12 levels were normal. documented in this encounter [facility] 06-23-2022 Note HNO ID: [id number] Author: Niya Good APRN.DIRECTOR CASE MANAGEMENT Service: ? Author Type: Nurse Practitioner Type: Progress Notes Filed: 06/25/2022 12:42 PM Note Text: [address] [address] Visit Date: 06/23/2022 Patient Name: Miguel Weems Date of : 1990 Chief Complaint: ER Follow Up Miguel Weems is a 32 year old male here today for a follow up to a recent emergency room (ER) visit. Emergency Room Location: [facility] Date of Emergency Room Visit: 06/07/22 [...] Abs Lymph 1.00 - 4.00 k/uL 1.41 Troup% % 9.1 Abs Troup <0.87 k/uL 0.47 Eosin% % 4.8 Abs [...] Negative Negative Ketones, Urine Negative Negative Specific [place], Ur 1.005 - 1.030 1.015 Hemoglobin/Blood,Ur Negative Negative pH, Urine 5.0 - 8.0 8.5 (H) Protein, Urine Negative Negative Urobilinogen 0.2-1.0 EU/dL 0.2 EU/dL Nitrites Negative Negative Leukest Negative Negative WBC, Urine 0-5 /HPF 0-5 /HPF RBC, Urine 0-3 /HPF 0-3 /HPF Lipase 16 - 61 U/L 06/07/2022 7:18 PM - Radiology, Oru In Impression IMPRESSION: Prominent wall ascending colon. No associated pericolic inflammatory changes. Correlate clinically for possible mild colitis. Similar prominence of vasa recta central lower abdomen and pelvis, considered nonspecific, possibly related to inflammatory bowel condition. Similar prominence of the seminal vesicles. Folder Stitcher Operator: NORMAN Transcribe Date/Time: Jun 07 2022 7:04P [...] tightness, shortness of (more content not included)... [facility] 06-23-2022 Instructions Niya Good APRN.CNP - 06/23/2022 3:36 PM EDT Frances Bliss MD Industrial Automation Engineer [address] [facility] [address] [place] [address], [address] [place] [address] PHONE: documented in this encounter [facility] 06-23-2022 History of Present illness Narrative Images from the original note were not included. [facility] [address] [address] Visit Date: 06/23/2022 Patient Name: Miguel Weems Date of : 1990 Chief Complaint: ER Follow Up Miguel Weems is a 32 year old male here today for a follow up to a recent emergency room (ER) visit. Emergency Room Location: [facility] Date of Emergency Room Visit: 06/07/22 [...] Abs Lymph 1.00 - 4.00 k/uL 1.41 Troup% % 9.1 Abs Troup <0.87 k/uL 0.47 Eosin% % 4.8 Abs [...] Negative Negative Ketones, Urine Negative Negative Specific [place], Ur 1.005 - 1.030 1.015 Hemoglobin/Blood,Ur Negative [...] condition. Similar prominence of the seminal vesicles. Folder Stitcher Operator: NORMAN Transcribe Date/Time: Jun 07 2022 7:04P [...] in diet. Discussed other diet modifications. - [place] low residue diet - Referral to Gastroenterology [...] 2022 3:29 PM documented in this encounter [facility] 05-23-2021 Note HNO ID: [id number] Author: W[place] Antonio Service: Radiology Author Type: Clinical Photolith Operator Type: Progress Notes Filed: 05/23/2021 8:09 AM [...] link: [email or web address] [email or web address] SIGNATURE: Renu Patel [facility] PATIENT NAME: Miguel Weems DATE: May 23, 2021 TIME: 8:07 AM PAGER/CONTACT #: [facility] 07-21-2005 History of Past i llness Narrative Problem Noted Date Resolved Date Attention deficit disorder with hyperactivity(31 4.01) 07/21/2005 06/01/2006 documented as of this encounter (statuses as of 06/25/2022) [facility]09-20-2005 History of Past illness Narrative* Problem Noted Date Resolved Date Attention deficit disorder with hyperactivity(31 4.01) 07/21/2005 06/01/2006 documented as of this encounter (statuses as of 07/24/2022) [facility]2005 History of Past illness Narrative* Problem Noted Date Resolved Date Attention deficit disorder with hyperactivity(31 4.01) 07/21/2005 06/01/2006 documented as of this encounter (statuses as of 12/03/2022) [facility]2005 History of Past illness Narrative* Problem Noted Date Resolved Date Attention deficit disorder with hyperactivity(31 4.01) 07/21/2005 06/01/2006 documented as of this encounter (statuses as of 12/31/2022) [address]20-2005 History of Past illness Narrative* Problem Noted Date Resolved Date Attention deficit disorder with hyperactivity(31 4.01) 07/21/2005 06/01/2006 documented as of this encounter (statuses as of 01/21/2023) [address]20-2005 History of Past illness Narrative* Problem Noted Date Resolved Date Attention deficit disorder with hyperactivity(31 4.01) 07/21/2005 06/01/2006 documented as of this encounter (statuses as of 01/30/2023) [address] History of Past illness Narrative* Problem Noted Date Resolved Date Attention deficit disorder with hyperactivity(31 4.01) 07/21/2005 06/01/2006 documented as of this encounter (statuses as of 02/01/2023) [facility] Author Leroy Ghotra [facility] Note Date/Time April 16, 2025 6:02 am [facility] Medical Records Department [address] [place] [address] Emergency Department Summary 04/16/25 MR#: [id number] Acct: [id number] Name: MIGUEL WEEMS Rep #:[id number] : 1990 34 From: Leroy Ghotra MD PCP: Care Physician,No Primary Status :REG ER Location: ED HPI History of Present Illness Chief Complaint: Suture Remv Informant: patient Onset/Context/Timing Onset: Days Context: Gradual Onset Timing: Continuous Current Severity: Mild Maximum Severity: Mild Narrative Narrative: 34-year-old male right index finger laceration suture repaired about 12 days ago. Presented about a week ago they removed some of the sutures but [address] He denies any complaints. He also has follow-up to have evaluated for possible tendon injury. Prior similar symptoms: No Recent Illness/Hospitalization: No PFSH PFSH Medical History Anxiety History of wrist fracture Chronic back pain Home Medications ?Medication ?Instructions ?Recorded ?Last Taken ?Type NK 04/11/25 Unknown History Allergy/AdvReac Type Severity Reaction Status Date / Time venom-honey bee (bee venom Allergy Anaphylaxis Verified 04/16/25 05:42 (honey bee)) Family History Father Alcohol abuse [...] do you participate in: weight training and otherdetails: active job ROS ROS ED ROS Narrative Denies recent illness. Constitutional Constitutional ED: Denies fever(s) Eyes Eyes: Denies blurry vision ENT ENT ED: Denies ear pain Cardiovascular Cardiovascular: Denies chest pain Respiratory/Chest Respiratory/Chest: Denies cough Gastrointestinal Gastrointestinal: Denies abdominal pain Genitourinary Genitourinary ED: Denies dysuria Musculoskeletal Musculoskeletal: Denies arthralgias Integumentary Denies abscess Neurologic Neurologic: Denies headache(s) Endocrine Endocrinology: Denies cold intolerance Hematologic/Lymphatic Hematologic/Lymphatic: Reports none Allergic/Immunologic Allergic/Immunologic ED: Denies mouth swelling EXAM Physical Exam Narrative Exam Narrative: 34-year-old male vital signs stable afebrile. H EENT exam unremarkable. Lungs clear. Heart regular rhythm. Abdomen soft nontender. Moving all 4 extremities. Neurovascularly intact. Right index finger palmar aspect he has several sutures in place. Well-healing laceration. Dry and clean. Scab. No infection. Mild swelling to the finger. He has full extension to 180 degrees. He does have limited flexion is specifically to the DIP of the right index finger. This may be due to swelling could be that he has an underlying tendon injury which she is already set up to have further evaluated. Const Vital Signs: 04/16/25 05:38 Temperature 97.5 F L Temperature Source Temporal Pulse Rate 50 L Respiratory Rate 16 Blood Pressure 122/73 H Blood Pressure Mean 89 Pulse Ox 96 Oxygen Delivery Method Room Air Positive well nourished and well developed; Negative for obese, cachectic, contractures or unkempt General Appearance ED: well developed and NAD; Negative for unkempt, cachectic, contractures, cyanotic, diaphoretic or pallor Nutritional Appearance: Negative for cachectic or obese HEENT Reports moist mucous membranes Eyes PERRL and EOMs intact bilaterally Neck no lymphadenopathy, supple and no JVD Chest Wall inspection of chest normal and palpation of chest normal Resp normal respiratory effort and clear to auscultation bilaterally Cardio regular rate, regular rhythm, S1 normal heart sound, S2 normal heart sound and no murmurs GI normal to inspection, nondistended, normoactive bowel sounds, non-tender, non-distended and no masses Extremity normal to inspection Extremity Narrative: Except right index finger palmar aspect several sutures in place. Well-formed scab. Healing. No infection. Mild swelling. Full extension and 80 degrees limited flexion primarily the DIP. May be secondary to swelling versus tendon laceration. Patient is to follow that up. General Extremety ED: Yes edema General Extremity: edema Neuro oriented x3 and CN's II-XII intact bilaterally Sensorium / Orientation: alert; Negative for lethargic or stuporous Motor Exam: strength 5/5 throughout Psych mental status grossly normal Appearance: Negative for unkempt Skin no rashes or lesions noted, no wounds and skin turgor normal General Skin Exam: Negative for jaundice or pallor MDM MDM MDM Narrative Medical decision making narrative: Suture removal right index finger. Healing nicely. Concern for limited flexionof the DIP. Outpatient follow-up already scheduled. Discharge Plan Triage Chief Complaint: Suture Remv ED Provider: Leroy Ghotra Dx/Rx/DC Orders Clinical Impression: Visit for wound check, Visit for suture removal Instructions: ED Wound Check (No Infection) Prescriptions: No Action NK Primary Care Provider: Care Physician,No Primary Referrals: Care Physician,No Primary [Primary Care Provider] - Activity Restrictions/Additional Instructions: Follow-up to have your finger reevaluated. Watch for any signs of infection. Print Language: Kosovan Disposition Disposition: Home, Self Care What to do if you have Problems For any increased pain, shortness of breath, bleeding, nausea or vomiting, chestpain, or any unexpected problems, contact your Primary Care Provider. Call [facility] ([phone]) or report to the closest Emergency Room. Call 911 if necessary. 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 Anxiety with depression Current nicotine use Gastroesophageal reflux disease, unspecified whether esophagitis present Chronic upper abdominal pain Family history of colon cancer Family history of malignant neoplasm of gastrointestinal tract [facility] Diagnosis Bilateral lower extremity pain- Primary Pain in limb Gastroesophageal reflux disease, unspecified whether esophagitis present Anxiety with depression Current nicotine use Encounter for smoking cessation counseling Counseling on substance use and abuse documented in this encounter [facility] note* Diagnosis Chest pain, unspecified type 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 Watch for any signs of infection. [facility] Work Phone: Reason for referral (narrative)No reason for referral information availableWSelect [facility] Work Phone: Summary Purpose Family History No Family History Records Found Relationship Condition Age at Onset Recorded Date/T jitendra father Alcohol abuse Unknown grandfather Malignant neoplasm of colon Unknown uncle Diabetes mellitus Unknown sister Bipolar I disorder Unknown Advance Directives No Advanced Directives Records Found Advance Directive Response Recorded Date/ Time Do you have a Healthcare Power of Shiftman? No April 02, 2025 6:53am Advance Directive Response Recorded Date/ Time Do you have a Healthcare Power of Shiftman? No April 02, 2025 6:53am Do you have a Healthcare Power of Shiftman? No April 11, 2025 5:27am Advance Directive Response Recorded Date/ Time Do you have a Healthcare Power of Shiftman? No April 02, 2025 6:53am Do you have a Healthcare Power of Shiftman? No April 11, 2025 5:27am Do you have a Healthcare Power of Shiftman? No April 16, 2025 5:40am Reason for Referral Specialty Diagnoses / Procedures Referred By Ai leon Referred To Contact Diagnoses Gastroesophageal reflux disease, unspecified whether esophagitis present Niya Good, SARAH.DIRECTOR CASE MANAGEMENT [address] [place] [address] Referral ID Status Reason Start Date Expiration Date Visits Re quested Visits Authorized [id number] Closed 1 1 Specialty Diagnoses / Procedures Referred By Contac t Referred To Contact Diagnoses Chronic upper abdominal pain Colitis, nonspecific Procedures CONSULT TO GASTROENTEROLOGY OFFICE/[facility]IENT [facility] 60-74 MINUTES Niya Good APRN.DIRECTOR CASE MANAGEMENT [address] [place] [address] [address] [place] [address] Referral ID Status Reason Start Date Expiration Date Visits Requested Visits Authorized [id number] Authorized PCP Requested Referral 06/23/2022 06/23/2023 1 1 Specialty Diagnoses / Procedures Referred By Contact Referred To Contact Gastroenterology / [facility] Department Diagnoses Gastroesophageal reflux disease, unspecified whether esophagitis present Chronic upper abdominal pain Family history of colon cancer Procedures CONSULT TO GASTROENTEROLOGY OFFICE/[facility]IENT [facility] 60-74 MINUTES Niya Good, SARAH.DIRECTOR CASE MANAGEMENT [address] [place] [address] [facility] Dept Referral ID Status Reason Start Date Expiration Date Visits Requested Visits Authorized [id number] Authorized PCP Requested Referral 12/03/2022 12/03/2023 1 1 Chief Complaint and Reason for Visit Chief Complaint Admit Date lac April 02, 2025 6:51a m Chief Complaint Admit Date lac April 02, 2025 6:51a m suture removal April 11, 2025 5:26 am Chief Complaint Admit Date lac April 02, 2025 6:51a m suture removal April 11, 2025 5:26 am suture removal April 16, 2025 5:37 am Chief Complaint Admit Date lac April 02, 2025 6:51a m suture removal April 11, 2025 5:26 am suture removal April 16, 2025 5:37 am R POINTER FINGER May 01, 2025 1:21p m Additional Source Comments (unrecognized sect ion and content) No Status Records FoundNo Status Records FoundNo Status Records FoundNo Status Records Found INFORMATION SOURCE (unrecogn ized section and content) DATE CREATED AUTHOR 05/24/2021 [facility] DATE CREATED AUTHOR AUTHOR'S ORGANIZ ATION 05/07/2023 [facility] DATE CREATED AUTHOR AUTHOR'S ORGANIZ ATION 11/26/[address] [facility] DATE CREATED AUTHOR AUTHOR'S ORGANIZ ATION 05/23/2025 [facility] Source Comments (unrecognize d section and content) In the event this informatio n is protected by the Federal Confidentiality of Alcohol and Drug Abuse Patient Records regulations: The Federal rules restrict any use of the information to criminally investigate or prosecute any alcohol or drug abuse patient.[facility] Hospital[facility] the event this information is protected by the Federal Confidentiality of Alcohol and Drug Abuse Patient Records regulations: The Federal rules restrict any use of the information to criminally investigate or prosecute any alcohol or drug abuse patient.[facility] Hospital[facility] the event this information is protected by the Federal Confidentiality of Alcohol and Drug Abuse Patient Records regulations: The Federal rules restrict any use of the information to criminally investigate or prosecute any alcohol or drug abuse patient.[facility] Hospital[facility] the event this information is protected by the Federal Confidentiality of Alcohol and Drug Abuse Patient Records regulations: The Federal rules restrict any use of the information to criminally investigate or prosecute any alcohol or drug abuse patient.[facility] Hospital[facility] the event this information is protected by the Federal Confidentiality of Alcohol and Drug Abuse Patient Records regulations: The Federal rules restrict any use of the information to criminally investigate or prosecute any alcohol or drug abuse patient.[facility] HospitalIn the event this information is protected by the Federal Confidentiality of Alcohol and Drug Abuse Patient Records regulations: The Federal rules restrict any use of the information to criminally investigate or prosecute any alcohol or drug abuse patient.[facility] HospitalIn the event this information is protected by the Federal Confidentiality of Alcohol and Drug Abuse Patient Records regulations: The Federal rules restrict any use of the information to criminally investigate or prosecute any alcohol or drug abuse patient.[facility] Reason for Visit (unrecogniz ed section and content) Reason Comments ER F/U [facility] ER 06/07/22 abdomi nal pain, is [...] M-MODE COMPLETE REST&ST STRESS TEST Niya Good APRN.DIRECTOR CASE MANAGEMENT [address] [place] [address] [facility] [place] [address] Referral ID Status Reason Start Date Expiration Date Visits Re quested Visits Authorized [id number] Closed 01/29/2023 04/29/2023 1 1 Care Teams (unrecognized sec tion and content) Furniture Decals Inspector Relationship Specialty Start Date End Date Niya Good APRN.DIRECTOR CASE MANAGEMENT [address] [place] [address] PCP - General Family Practice 05/01/21 Furniture Decals Inspector Relationship Specialty Start Date End Date Niya Good APRN.DIRECTOR CASE MANAGEMENT [address] [place] [address] PCP - General Family Medicine 05/01/21 Furniture Decals Inspector Relationship Specialty Start Date End Date Niya Good APRN.DIRECTOR CASE MANAGEMENT [address] [place] [address] PCP - General Family Medicine 05/01/21 Furniture Decals Inspector Relationship Specialty Start Date End Date Niay Good APRN.DIRECTOR CASE MANAGEMENT [address] [place] [address] PCP - General Family Medicine 05/01/21 Furniture Decals Inspector Relationship Specialty Start Date End Date Niya Good, CAP SIZER.DIRECTOR CASE MANAGEMENT [address] [place] [address] PCP - General Family Medicine 05/01/21 Furniture Decals Inspector Relationship Specialty Start Date End Date Niya Good, CAP SIZER.DIRECTOR CASE MANAGEMENT [address] [place] [address] PCP - General Family Medicine 05/01/21 Furniture Decals Inspector Relationship Specialty Start Date End Date Niya Good, CAP SIZER.DIRECTOR CASE MANAGEMENT [address] [place] [address] PCP - General Family Medicine 05/01/21 Team [...] 11, 2025 End: April 11, 2025 Dr. Saqib De DO Emergency Provider Active Start: April 11, 2025 End: April 11, 2025 Team Status: Inactive Member Role Status Dates No Primary Care Physician Primary Care Provider Active Start: April 16, 2025 End: April 16, 2025 Dr. Leroy Ghotra MD Emergency Provider Active S tart: April 16, 2025 End: April 16, 2025 Team Status: Active Member Role/Relationship Status Dates No Primary Care Physician Primary Care Provider Active Team Status: Inactive Member Role/Relationship Status Dates No Primary Care Physician Primary Care Provider Active Start: April 02, 2025 End: April 02, 2025 Dr. Saqib De DO Attending Provider Active Start: April 02, 2025 End: April 02, 2025 Dr. Saqib De DO Emergency Provider Active Start: April 02, 2025 End: April 02, 2025 Team Status: Inactive Member Role/Relationship Status Dates No Primary Care Physician Primary Care Provider Active Start: April 11, 2025 End: April 11, 2025 Dr. Saqib De DO Attending Provider Active Start: April 11, 2025 End: April 11, 2025 Dr. Saqib De DO Emergency Provider Active Start: April 11, 2025 End: April 11, 2025 Team Status: Inactive Member Role/Relationship Status Dates No Primary Care Physician Primary Care Provider Active Start: April 16, 2025 End: April 16, 2025 Dr. Leroy Ghotra MD Attending Provider Active S tart: April 16, 2025 End: April 16, 2025 Dr. Leroy Ghotra MD Emergency Provider Active S tart: April 16, 2025 End: April 16, 2025 Team Status: Inactive Member Role/Relationship Status Dates No Primary Care Physician Primary Care Provider Active Start: May 01, 2025 End: May 01, 2025 No Primary Care Physician Referring Provider Active Start: May 01, 2025 End: May 01, 2025 Dr. Tommie Sheehan MD Attending Provider Active Start: May 01, 2025 End: May 01, 2025 Goals (unrecognized section and content) Goals may be documented in a n alternate sectionGoals may be documented in an alternate sectionGoals may be documented in an alternate sectionGoals may be documented in an [...] BE BASED ON THE PRIMARY CLINICAL RECORDS. [employer] [facility]. provides no warranty or guarantee of the accuracy or completeness of information in this document.
[2025-06-24 15:13] VITALS: PULSE 60; RESP 13; O2SAT 99
[2025-06-24 15:24] LABS: Anion Gap 12 (5-15); BUN 15 mg/dL (4-19); BUN/Creat Ratio 12.9 RATIO (10-20); Calcium,Total 9.7 mg/dL (7.6-11.0); Carbon Dioxide 26.9 mmol/L (21.0-32.0); Chloride 101 mmol/L (98-108); Estimated Creatinine Clearance 96.61 ml/min (50-250); Glucose 102 mg/dL (70-99); Potassium 4.9 mmol/L (3.3-5.1); Troponin T High Sensitivity 6 ng/L (<=22)
--- NOTE | 2025-06-24 15:39 | ED.VIS.CHEST ---
HPI History of Present Illness Chief Complaint: Chest Pain Informant: patient and spouse/S.O. Narrative Narrative: 35-year-old male smoker has been having chest pressure/tightness and dyspnea off and on for the past couple weeks, has been worse and more persistent for the past week. It is worse when he smokes. It is also worse when he exerts himself at times. He does not have random episodes of severe dyspnea at rest. He denies any leg pain or swelling. No long trips out of the area, immobilization, hospitalization, or surgery recently. He does not have a primary care physician/provider. He denies any fevers, chills. He has an occasional smoker's cough but denies anything acute or productive. No hemoptysis. He states he is here because of significant other, who in turn states she is more worried about cancer causing this chest pain and shortness of breath and anything else because of a family member who had it. Patient states he also sometimes has some right upper quadrant discomfort, has not after meals, more after exertion, and he states he had a HIDA scan in the past for this as it has been going on off and on for a long time, and HIDA scan was normal. [facility] Medical History Hearing problem Anxiety History of wrist fracture Chronic back pain Home Medications ?Medication ?Instructions ?Recorded ?Last Taken ?Type albuterol sulfate 90 mcg/actuation 1 - 2 puff inhalation Q4H PRN PRN 06/24/25 Unknown Rx aerosol inhaler (Ventolin HFA) Wheezing ##1 Allergy/AdvReac Type Severity Reaction Status Date / Time venom-honey bee (bee venom Allergy Anaphylaxis Verified 06/24/25 14:16 (honey bee)) Family History Father Alcohol abuse Grandfather Colon cancer Uncle Diabetes Sister Bipolar 1 disorder Social History household members: family current occupational status: employed Smoking Status: Current every day smoker tobacco type: cigarettes Tobacco: How many years used: 15 Smokeless tobacco user: chewing tobacco alcohol intake: current alcohol intake frequency: a few times a month substance use type: marijuana what type of physical activity do you participate in: weight training and other details: active job additional social history: pt reports vaping and marijuana use denies edibles, denies aspirin or ibuprofen use denies blood clots ROS ROS ED Constitutional Constitutional ED: Denies chills or fever(s) Eyes Eyes: Denies change in vision or diplopia ENT ENT ED: Denies rhinorrhea or sore throat Cardiovascular Cardiovascular: Reports chest pain; Denies leg edema, palpitations, radiating jaw, neck or arm pain or syncope Respiratory/Chest Respiratory/Chest: Reports cough, dyspnea and dyspnea on exertion; Denies sputum Gastrointestinal Gastrointestinal: Denies abdominal pain, diarrhea, nausea or vomiting Genitourinary Genitourinary ED: Denies dysuria or hematuria Musculoskeletal Musculoskeletal: Denies back pain or neck pain Integumentary Denies abscess or rash Neurologic Neurologic: Denies headache(s), paresthesias or weakness Psychiatric Psychiatric: Denies anxiety or suicidal thoughts EXAM Physical Exam Const Vital Signs: 06/24/25 14:14 06/24/25 14:41 06/24/25 14:42 Temperature 98.1 F Temperature Source Oral Pulse Rate 53 L Respiratory Rate 16 Respiratory Effort Normal Non-Labored Respiratory Depth Normal Respiratory Pattern Normal Blood Pressure 104/77 Blood Pressure Mean 86 Pulse Ox 97 98 Oxygen Delivery Method Room Air Room Air Room Air 06/24/25 14:43 06/24/25 15:13 Temperature Temperature Source Pulse Rate 60 Respiratory Rate 13 Respiratory Effort Normal Non-Labored Respiratory Depth Respiratory Pattern Blood Pressure Blood Pressure Mean Pulse Ox 99 Oxygen Delivery Method Room Air Positive well nourished and well developed General Appearance ED: well developed and NAD HEENT Reports moist mucous membranes normocephalic and atraumatic Eyes PERRL and EOMs intact bilaterally Neck full ROM, supple and no JVD Chest Wall inspection of chest normal and palpation of chest normal Resp normal respiratory effort and clear to auscultation bilaterally Cardio regular rate, regular rhythm and no murmurs Rate: Negative for tachycardic GI non-tender and non-distended Auscultation: normoactive bowel sounds Palpation: soft Back/Spine no CVA tenderness General Back: other FROM Extremity normal to inspection General Extremety ED: Negative for edema, pulses abnormal or tenderness General Extremity: Negative for edema or pulses abnormal Neuro oriented x3, CN's II-XII intact bilaterally and no sensory deficits noted Sensorium / Orientation: awake and alert Motor Exam: strength 5/5 throughout Skin no rashes or lesions noted and no wounds MDM MDM MDM Narrative Medical decision making narrative: Patient's exam is benign, his vital signs are normal, he is not tachycardic, his PERC score is 0 ruling out PE acutely, his EKG is normal, his two-view chest x-ray on my interpretation is normal, radiology in agreement noting no nodules, and his blood work including troponin are normal. Reassured patient, there is no emergent medical condition present right now causing his symptoms, however I recommend close a patient follow-up. Under the context, he is a heavy smoker and I think would be reasonable to prescribe him an inhaler for this to see if that helps and that may also help with diagnostics if he follows up. He states he does not have a primary care provider, so he was referred to the next on the unassigned list Dr. Hernandez. Of note, patient also states that he has done [email or web address] for 10 years, and it is also possible that he could have a chronic lung issue related to that occupational exposure, given all of the dust and whatnot that he may have inhaled. Lab Data Attestation: I reviewed the patient's lab results. Labs: Laboratory Results - last 24 hr 06/24/25 14:39 WBC 7.2 RBC 5.58 Hgb 16.3 Hct 48.3 MCV 86.6 MCH 29.2 MCHC 33.7 RDW Std Deviation 38.5 RDW Coeff of Suresh 12.1 Plt Count 200 MPV 9.3 Immature Gran % (Auto) 0.400 Neut % (Auto) 67.1 Lymph % (Auto) 21.3 [place] % (Auto) 8.6 Eos % (Auto) 1.8 Baso % (Auto) 0.8 Absolute Neuts (auto) 4.8 Absolute Lymphs (auto) 1.54 Nucleated RBC % 0 Sodium 140 Potassium 4.9 Chloride 101 Carbon Dioxide 26.9 Anion Gap 12 BUN 15 Creatinine 1.14 Estim Creat Clear Calc 96.61 Est GFR (MDRD) Non-Af 85 BUN/Creatinine Ratio 12.9 Glucose 102 H Calcium 9.7 Troponin T High Sens 6 Radiography Diagnostic Testing: Clinical Impression(s) from Imaging Studies Chest X-Ray 06/24/25 14:26 IMPRESSION: No acute pulmonary process Reading Location: [facility] Rhythm Strip Rhythm Strip: Sinus Rhythm Rate: 55 Ectopy: None EKG Initial EKG: Attestation: I personally reviewed and interpreted this EKG as follows: Interpretation: Sinus Rhythm and No Acute Injury Pattern Comments: Nml intervals, rightward axis; otherwise nml EKG Discharge Plan Triage Chief Complaint: Chest Pain Other Complaint: Shortness of Breath ED Provider: Harsh Diaz Dx/Rx/DC Orders Clinical Impression: Exertional dyspnea, Chest pain, unspecified, Tobacco abuse, Tobacco abuse counseling Instructions: Planning to Quit Smoking, E Cigarettes and Vaping, ED Chest Pain, Uncertain Cause Prescriptions: New albuterol sulfate [Ventolin HFA] 90 mcg/actuation HFA aerosol inhaler 1 - 2 puff inhalation Q4H PRN PRN (Reason: Wheezing) Qty: 1 0RF Primary Care Provider: Care Physician,No Primary Referrals: Humera Hernandez MD [Med Staff - Licensed Reactor Operator] - As soon as possible Print Language: Yakut Disposition Disposition: Home, Self Care
[2025-06-24 16:00] VITALS: BP 106/70; PULSE 59; RESP 15; O2SAT 100
[2025-06-24 16:08] VITALS: BP 106/70; PULSE 59; RESP 15; TEMP 36.7; O2SAT 100
== END 2025-06-24 16:15 | disposition home or self-care (01) ==
PROVIDERS: Emergency Provider Emergency Medicine; Visit Provider Emergency Medicine
DX: R06.09 Other forms of dyspnea (principal); R07.89 Other chest pain; F17.220 Nicotine dependence, chewing tobacco, uncomplicated; F17.210 Nicotine dependence, cigarettes, uncomplicated
CPT/HCPCS: 71046; 80048; 84484; 85025; 93005; 99285; A4216